=== PATIENT | female | born 1990 | race Caucasian/White ===

== ENCOUNTER 2016-05-02 09:45 | Day surgery (SDC) | payer MEDICAID ==
[2016-05-02] MEDS ORDERED: Lactated Ringers 1,000 ML IV ONE (10:45)
[2016-05-02] MEDS ORDERED: Midazolam 1 MG/ML 2 ML SDV ONE (10:52)
[2016-05-02] MEDS ORDERED: fentaNYL 100 MCG/2 ML SDV ONE (10:52)
[2016-05-02] MEDS ORDERED: Propofol 200 MG/20 ML SDV ONE (10:52)
[2016-05-02] MEDS ORDERED: Cyanocobalamin (Vitamin B12) 1,000 MCG/ML SDV IM ONE (11:00)
[2016-05-02] MEDS ORDERED: Glycopyrrolate 0.2 MG/ML 2 ML SYRINGE IVPUSH ONE (12:00)
[2016-05-02] MEDS ORDERED: MVI, Adult with Vitamin K 10 ML, Thiamine 200 MG, Chromium/Copper/Mang/Selen/Zn 1 ML in... IV ONE ×4 (12:00)
[2016-05-02 15:16] VITALS: BP 116/69
--- NOTE | 2016-05-03 07:18 | OR ---
DATE OF PROCEDURE: 05/02/2016 PREOPERATIVE DIAGNOSES: 1. History of Deb-en-Y gastric bypass. 2. Dysphagia. POSTOPERATIVE DIAGNOSES: 1. History of Deb-en-Y gastric bypass. 2. Dysphagia. 3. Mild gastrojejunostomy stricture. PROCEDURES PERFORMED: Esophagogastrojejunoscopy with dilatation of gastrojejunostomy with a 45-Ghanaian dilator. ANESTHESIA: IV anesthesia with monitored anesthesia care. INDICATIONS: This is a 26-year-old white female, who underwent a Deb-en-Y gastric bypass for morbid obesity in the past. About a month ago, she had to undergo upper endoscopy with gastric dilatation for a gastrojejunostomy stricture. She now again is complaining of problems with swallowing, and is referred for a repeat gastric dilatation. I counseled her for the procedure including risks and alternatives, and she gave her informed consent to proceed. DESCRIPTION OF PROCEDURE: The patient was placed in the left lateral decubitus position. IV anesthesia was administered by the Anesthesia Service. A time-out was held. The flexible video Olympus upper endoscope was passed through her mouth, down her esophagus, and into her stomach remnant. We were able to pass the scope through the gastrojejunostomy, but it was tight. We passed a 45-Ghanaian balloon across it. We inflated the balloon, and a staple which was visualized ruptured the balloon. The balloon was then removed. A new one was obtained, and it was passed across the anastomosis. Fluoroscopy was confirmed. The balloon was then inflated and left for one minute. It was then deflated and removed. We were able to easily pass the scope across the anastomosis. The scope was then removed. She tolerated the procedure well. Lucian Melchor MD /[id number]
== END 2016-05-02 15:40 | disposition home or self-care (01) ==
LOC: JP.SDS 09:45
PROVIDERS: ATTEND Surgery
DX: K91.89 Other postprocedural complications and disorders of digestive system (principal); Z98.84 Bariatric surgery status; E66.01 Morbid (severe) obesity due to excess calories; F41.8 Other specified anxiety disorders; Z88.1 Allergy status to other antibiotic agents; Z88.8 Allergy status to other drugs, medicaments and biological substances; F17.200 Nicotine dependence, unspecified, uncomplicated
CPT/HCPCS: 43233; J2250; J2704; J3010; J3411; J3420; J7120

== ENCOUNTER 2016-06-15 10:54 | Emergency (ER) | payer MEDICARE, MEDICAID ==
[2016-06-15] MEDS ORDERED: MVI, Adult with Vitamin K 10 ML, Thiamine 200 MG, Chromium/Copper/Mang/Selen/Zn 1 ML in... IV ONE ×4 (12:35)
[2016-06-15] MEDS ORDERED: HYDROmorphone 1 MG/ML Syringe IM ONE (12:56)
[2016-06-28 08:46] VITALS: BP_SYST 1
== END 2016-06-15 14:17 ==
LOC: JP.ED 10:54
DX: R10.12 Left upper quadrant pain (principal); F32.9 Major depressive disorder, single episode, unspecified; E83.51 Hypocalcemia; K21.9 Gastro-esophageal reflux disease without esophagitis; F41.9 Anxiety disorder, unspecified; E66.9 Obesity, unspecified; Z86.2 Personal history of diseases of the blood and blood-forming organs and certain disorders involving the immune mechanism; Z98.84 Bariatric surgery status; Z88.1 Allergy status to other antibiotic agents; Z79.899 Other long term (current) drug therapy; Z90.49 Acquired absence of other specified parts of digestive tract; Z87.891 Personal history of nicotine dependence; E86.0 Dehydration
CPT/HCPCS: 36415; 80053; 82150; 83690; 85025; 96361; 96365; 96366; 96372; 96374; 99284; 99285; J1170; J3411; J3475; J7120; J3490

== ENCOUNTER 2016-07-01 02:03 | Emergency (ER) | payer MEDICARE, MEDICAID ==
[2016-07-01] MEDS ORDERED: Ketorolac 60 MG/2 ML SDV IM ONE (02:33)
--- NOTE | 2016-07-01 02:53 | EDM.PDOC ---
[id number]: [facility] Time Seen by Provider: 07/01/16 02:35 Source of Information: Reports: Patient, EMS History Limitations: Reports: No Limitations - History of Present Illness INITIAL COMMENTS - FREE TEXT/NARRATIVE: 26-year-old female with chronic abdominal pain had what she perceived as an exacerbation of pain tonight which caused her to panic, hyperventilate, become more uncomfortable and called the ambulance. She had nausea in route she was given Zofran. On arrival she was very hyperdramatic complaining of pain in the left upper quadrant radiating to the shoulder. She's been having this complaint for months, just had a CT scan 10 days ago which was relatively normal. She has also seen her primary surgical provider several times in the last couple of weeks and a variety of treatments have been attempted. She's had no fever. Onset: Unknown/Unsure Duration: Week(s): (Pain has been ongoing for months) Location: Reports: Abdomen, Upper Extremity, Left Quality: Reports: Ache, Stabbing Severity: Moderate Associated Symptoms: Reports: Nausea/Vomiting. Denies: Chest Pain, Fever/Chills , Headaches, Shortness of Breath, Weakness Middle Abdomen Pain Score (Numeric/FACES): 10 - Related Data Allergies Allergy/AdvReac Type Severity Reaction Status Date / Time ciprofloxacin [From Cipro] Allergy Hives Verified 07/01/16 02:20 lactose Allergy Other Verified 07/01/16 02:20 Home Meds: Home Meds Multivitamin with Minerals [Multiple Vitamin] 1 tab PO BID 07/10/14 [History] Etonogestrel [Nexplanon] 1 injection SQ DAILY 10/07/15 [History] ALPRAZolam [Xanax] 0.5 mg PO TID 10/11/15 [History] Cyanocobalamin (Vitamin B-12) [Vitamin B-12] 1,000 mcg SL DAILY #100 tab.subl [Rx] QUEtiapine [SEROquel] 600 mg PO BEDTIME tablet 12/15/15 [Rx] Ramelteon [Rozerem] 8 mg PO BEDTIME tablet 12/15/15 [Rx] Dicyclomine [Bentyl] 20 mg PO QIDACANDBED PRN 04/02/16 [History] Dicyclomine [Bentyl] 20 mg PO QIDACANDBED 05/18/16 [History] FLUoxetine [PROzac] 10 mg PO TID 07/01/16 [History] Past Medical History HEENT History: Reports: Impaired Vision Gastrointestinal History: Reports: Bowel Obstruction, GERD Other Gastrointestinal History: girth 60 inches Genitourinary History: Reports: UTI, Recurrent Psychiatric History: Reports: ADD, ADHD, Anxiety, Depression, Eating Disorders, Mood Swings, OCD, Panic Attack, Psych Hospitalization(s), PTSD, Suicide Attempt Endocrine/Metabolic History: Reports: Obesity/BMI 30+, Vitamin D Deficiency Hematologic History: Reports: Anemia, Blood Transfusion(s), Iron Deficiency - Infectious Disease History Infectious Disease History: Reports: Chicken Pox - Past Surgical History Cardiovascular Surgical History: Reports: None GI Surgical History: Reports: Bariatric Procedure, Cholecystectomy, Hernia Repair/Other, Other (See Below) Female Surgical History: Reports: Cervical Cryotherapy Neurological Surgical History: Reports: None Dermatological Surgical History: Reports: None Social & Family History - Family History Family Medical History: Noncontributory - Tobacco Use Smoking Status *Q: Never Smoker Years of Tobacco use: 5 Packs/Tins Daily: 1.5 Used Tobacco, but Quit: No Month Tobacco Last Used: oct Second Hand Smoke Exposure: No - Caffeine Use Caffeine Use: Reports: None - Alcohol Use Days Per Week of Alcohol Use: 0 - Recreational Drug Use Recreational Drug Use: No Drug Use in Last 12 Months: Yes Recreational Drug Type: Reports: Marijuana/Hashish Recreational Drug Use Frequency: Weekly Recreational Drug Last Use: this past Saturday - Living Situation & Occupation Living situation: Reports: ED ROS GENERAL - Review of Systems Review Of Systems: See Below Constitutional: Reports: Malaise. Denies: Fever, Chills Respiratory: Denies: Shortness of Breath Cardiovascular: Denies: Chest Pain GI/Abdominal: Reports: Abdominal Pain, Nausea, Vomiting : Reports: No Symptoms Musculoskeletal: Reports: Shoulder Pain Skin: Reports: Pallor ED EXAM, GI/ABD - Physical Exam Exam: See Below Exam Limited By: No Limitations General Appearance: Alert, Anxious, Mild Distress (Very dramatic) Eyes: Bilateral: Normal Appearance (Normal hydration) Respiratory/Chest: No Respiratory Distress, Lungs Clear GI/Abdominal: Soft, Other (Any palpation, even light palpation of the upper abdomen causes her to react with pain) Neurological: Alert, Oriented Course - Vital Signs Last Recorded V/S: Last Vital Signs Temp 96.8 F 07/01/16 03:00 Pulse 128 H 07/01/16 03:00 Resp 16 07/01/16 03:00 BP 138/84 07/01/16 03:00 Pulse Ox 95 07/01/16 03:00 - Orders/Labs/Meds Meds: Medications Discontinued Medications Generic Name Dose Route Start Last Admin Trade Name Alejo PRN Reason Stop Dose Admin Ketorolac Tromethamine 60 mg 07/01/16 02:33 07/01/16 02:38 Toradol IM 07/01/16 02:34 60 mg ONETIME ONE Administration - Re-Assessments/Exams Free Text/Narrative Re-Assessment/Exam: 07/01/16 02:52 Patient was given 60 mg of Toradol IM and within minutes was asleep. When she woke she just wanted to go home. She was given 10 additional doses of Toradol to take up to 3 times daily until she can talk to her primary provider on Saturday or Saturday. Departure - Departure Time of Disposition: 03:49 Disposition: Home, Self-Care 01 Condition: good Clinical Impression: Abdominal pain Qualifiers: Abdominal location: generalized Qualified Code(s): R10.84 - Generalized abdominal pain - Discharge Information Instructions: Abdominal Pain, Adult, [id number] Referrals: PCP,None [Primary Care Provider] - Forms: ED Department Discharge Care Plan Goals: Advance diet as tolerated over the weekend and use ketorolac one dose every 6-8 hours for pain. Call the surgical clinic early next week if not improving satisfactorily.
[2016-07-01 03:49] VITALS: BP 138/84
== END 2016-07-01 03:30 | disposition home or self-care (01) ==
LOC: JP.ED 02:03
DX: R10.84 Generalized abdominal pain (principal); F32.9 Major depressive disorder, single episode, unspecified; F41.0 Panic disorder [episodic paroxysmal anxiety]; E66.9 Obesity, unspecified; Z68.37 Body mass index [BMI] 37.0-37.9, adult; Z98.84 Bariatric surgery status; Z90.49 Acquired absence of other specified parts of digestive tract; Z98.890 Other specified postprocedural states; Z79.899 Other long term (current) drug therapy; Z88.1 Allergy status to other antibiotic agents; Z91.011 Allergy to milk products
CPT/HCPCS: 96372; 99284; J1885; 99283

== ENCOUNTER 2016-07-02 10:00 | Inpatient (IN) | payer MEDICARE, MEDICAID ==
[2016-07-02] MEDS ORDERED: Acetaminophen 650 MG Supp RECTAL PRN (10:30)
[2016-07-02] MEDS ORDERED: Celecoxib 100 MG Cap PO SCH (10:30)
[2016-07-02] MEDS ORDERED: ALPRAZolam 0.5 MG Tab PO PRN (10:32)
[2016-07-02] MEDS ORDERED: Ketorolac 60 MG/2 ML SDV IM ONE ×3 (10:34→11:00)
[2016-07-02] MEDS ORDERED: Ketorolac 30 MG/ML SDV ONE (10:35)
[2016-07-02] MEDS: Magnesium Oxide 400 MG Tab PO SCH ×2 (13:18→20:41)
--- NOTE | 2016-07-02 13:52 | CR ---
Chest 2V HISTORY: dyspnea COMPARISON: 12/09/2015 FINDINGS: There is mild linear atelectasis at the lung bases. Lungs otherwise clear. Cardiomediastinal silhoue tte is within normal limits. No vascular redistribution or pleural fluid can be seen. Bony structure s and soft tissues are unremarkable. IMPRESSION: Mild probable linear atelectasis at the lung bases. No other acute chest abnormality is identified.
[2016-07-02] MEDS: Ondansetron 4 MG Tab.DIS PO PRN (15:35)
[2016-07-02] MEDS: Amphetamine/Dextroamphetamine Salts 10 MG Tab PO SCH (15:55)
[2016-07-02] MEDS: Pantoprazole 40 MG Tab.CR PO SCH (15:56)
[2016-07-02] MEDS: ALPRAZolam 0.5 MG Tab PO PRN (19:37)
[2016-07-02] MEDS: Acetaminophen 325 MG Tab PO PRN (19:37)
[2016-07-02] MEDS: Celecoxib 200 MG Cap PO SCH (20:41)
[2016-07-02] MEDS: Multivitamins with Iron Tab.Chew PO SCH (20:41)
[2016-07-02] MEDS: Calcium Carbonate 500 MG Tab.Chew PO SCH (20:41)
[2016-07-02] MEDS: Lidocaine 5% 700 MG Patch TOP SCH (22:08)
[2016-07-03] MEDS ORDERED: Lactated Ringers 1,000 ML IV ONE (04:12)
[2016-07-03] MEDS: ALPRAZolam 0.5 MG Tab PO PRN ×2 (04:17→08:14)
[2016-07-03] MEDS: Levofloxacin 500 MG Tab PO SCH ×2 (04:23→20:59)
[2016-07-03] MEDS ORDERED: Levofloxacin 500 MG Tab PO ONE (04:30)
[2016-07-03] MEDS: Multivitamins with Iron Tab.Chew PO SCH ×2 (08:14→21:03)
[2016-07-03] MEDS: Celecoxib 200 MG Cap PO SCH ×2 (08:14→20:58)
[2016-07-03] MEDS: Cholecalciferol (Vitamin D3) 1,000 Unit Tab PO SCH (08:14)
[2016-07-03] MEDS: Cyanocobalamin (Vitamin B12) 1,000 MCG Tab PO SCH (08:14)
[2016-07-03] MEDS: Calcium Carbonate 500 MG Tab.Chew PO SCH ×2 (08:15→21:35)
[2016-07-03] MEDS: FLUoxetine 20 MG Cap PO SCH (08:16)
[2016-07-03] MEDS: Thiamine 100 MG Tab PO SCH (08:17)
[2016-07-03] MEDS: Pantoprazole 40 MG Tab.CR PO SCH ×2 (08:17→17:52)
[2016-07-03] MEDS: Magnesium Oxide 400 MG Tab PO SCH ×2 (08:17→20:58)
[2016-07-03] MEDS: Amphetamine/Dextroamphetamine Salts 10 MG Tab PO SCH ×2 (08:19→17:52)
[2016-07-03] MEDS: Acetaminophen 325 MG Tab PO PRN (11:15)
[2016-07-03] MEDS: Albumin 25% 12.5 GM in Premix Bag 1 BAG IV SCH ×4 (11:57→20:54)
[2016-07-03] MEDS: Magnesium Sulfate/Water 2 GM in Premix Bag 1 BAG IV SCH ×3 (14:00→22:00)
[2016-07-03] MEDS: Lidocaine 5% 700 MG Patch TOP SCH (22:41)
[2016-07-04] MEDS: Magnesium Sulfate/Water 2 GM in Premix Bag 1 BAG IV SCH ×4 (04:09→22:15)
[2016-07-04] MEDS ORDERED: Dextrose 5%-Lactated Ringers 1,000 ML IV SCH ×2 (08:15→10:30)
[2016-07-04] MEDS ORDERED: fentaNYL 100 MCG/2 ML SDV ONE (08:27)
[2016-07-04] MEDS ORDERED: Midazolam 1 MG/ML 2 ML SDV ONE (08:27)
[2016-07-04] MEDS ORDERED: Propofol 200 MG/20 ML SDV ONE ×2 (08:27→09:24)
[2016-07-04] MEDS ORDERED: MVI, Adult with Vitamin K 10 ML, Thiamine 100 MG, Magnesium Sulfate 2 GM, Folic Acid 1 ... IV ONE ×10 (10:00→10:30)
--- NOTE | 2016-07-04 10:15 | CR ---
OR PCXR-No Charge-PICC/Central HISTORY: S/P TRIPLE LUMEN INSERTION COMPARISON: 07/02/2016 FINDINGS: Central line has been placed from a right jugular approach. The tip is near the junction o f the SVC and right atrium. There is no pneumothorax, mediastinal widening, or other complication. No acute infiltrate is identified. Heart size is within normal limits and stable. No vascular redist ribution or pleural fluid is seen. Remainder the exam is unchanged. IMPRESSION: Satisfactory central line placement. No complication or other acute chest abnormality is identified.
[2016-07-04] MEDS: Amphetamine/Dextroamphetamine Salts 10 MG Tab PO SCH ×2 (10:40→16:54)
[2016-07-04] MEDS: ALPRAZolam 0.5 MG Tab PO PRN ×2 (10:40→16:54)
[2016-07-04] MEDS: Celecoxib 200 MG Cap PO SCH ×2 (10:41→22:12)
[2016-07-04] MEDS: Multivitamins with Iron Tab.Chew PO SCH ×2 (10:41→22:12)
[2016-07-04] MEDS: Pantoprazole 40 MG Tab.CR PO SCH ×2 (10:41→16:42)
[2016-07-04] MEDS: FLUoxetine 20 MG Cap PO SCH (10:41)
[2016-07-04] MEDS: Cholecalciferol (Vitamin D3) 1,000 Unit Tab PO SCH (10:42)
[2016-07-04] MEDS: Cyanocobalamin (Vitamin B12) 1,000 MCG Tab PO SCH (10:42)
[2016-07-04] MEDS: Calcium Carbonate 500 MG Tab.Chew PO SCH ×2 (10:42→22:14)
[2016-07-04] MEDS: Albumin 25% 12.5 GM in Premix Bag 1 BAG IV SCH ×4 (10:42→16:43)
[2016-07-04] MEDS: Magnesium Oxide 400 MG Tab PO SCH ×2 (10:42→22:12)
[2016-07-04] MEDS: Thiamine 100 MG Tab PO SCH (10:42)
--- NOTE | 2016-07-04 12:54 | PCM.CONS ---
H&P History of Present Illness - General Date of Service: 07/04/16 Admit Problem/Dx: Admission Diagnosis/Problem Admission Diagnosis/Problem Abdominal pain Source of Information: Patient, Provider History Limitations: Reports: Other (Lethargic and sedated) - History of Present Illness Initial Comments - Free Text/Narative: This patient is a 26-year-old woman who I been asked to see by the Dr. Huffman and Helena Hernandez for further suggestions concerning evaluation and management of agitation. She is status post Deb-en-Y gastric bypass surgery done approximately 9 months ago, has had ongoing difficulty with eating. She was admitted yesterday for IV fluids, now a central line has been placed and she will be receiving TPN. She became very agitated during the day yesterday. Apparently at home has not been taking her antipsychotic medications or other psychiatric drugs. She's been fairly sedated except for her episode of agitation. abdomen Pain Score (Numeric/FACES): 0 - Related Data Allergies/Adverse Reactions: Allergies Allergy/AdvReac Type Severity Reaction Status Date / Time ciprofloxacin [From Cipro] Allergy Hives Verified 07/01/16 02:20 lactose Allergy Other Verified 07/01/16 02:20 Home Medications: Home Meds Multivitamin with Minerals [Multiple Vitamin] 1 tab PO BID 07/10/14 [History] Etonogestrel [Nexplanon] 1 injection SQ DAILY 10/07/15 [History] ALPRAZolam [Xanax] 0.5 mg PO PRN 10/11/15 [History] Cyanocobalamin (Vitamin B-12) [Vitamin B-12] 1,000 mcg SL DAILY #100 tab.subl [Rx] QUEtiapine [SEROquel] 600 mg PO BEDTIME tablet 12/15/15 [Rx] Ramelteon [Rozerem] 8 mg PO BEDTIME tablet 12/15/15 [Rx] Dicyclomine [Bentyl] 20 mg PO QIDACANDBED PRN 04/02/16 [History] Dicyclomine [Bentyl] 20 mg PO QIDACANDBED 05/18/16 [History] FLUoxetine [PROzac] 60 mg PO DAILY 07/01/16 [History] Amphetamine/Dextroamphetamine [Adderall] 20 mg PO DAILY 07/02/16 [History] Cholecalciferol (Vitamin D3) [Vitamin D3] 2,000 unit PO DAILY 07/02/16 [History] Omeprazole 20 mg PO BIDAC 07/02/16 [History] Past Medical History HEENT History: Reports: Impaired Vision Gastrointestinal History: Reports: Bowel Obstruction, GERD Other Gastrointestinal History: girth 60 inches Genitourinary History: Reports: UTI, Recurrent Psychiatric History: Reports: ADD, ADHD, Anxiety, Depression, Eating Disorders, Mood Swings, OCD, Panic Attack, Psych Hospitalization(s), PTSD, Suicide Attempt Endocrine/Metabolic History: Reports: Obesity/BMI 30+, Vitamin D Deficiency Hematologic History: Reports: Anemia, Blood Transfusion(s), Iron Deficiency - Infectious Disease History Infectious Disease History: Reports: Chicken Pox - Past Surgical History HEENT Surgical History: Reports: None Cardiovascular Surgical History: Reports: None GI Surgical History: Reports: Bariatric Procedure, Cholecystectomy, Hernia Repair/Other, Other (See Below) Other GI Surgeries/Procedures: Umbilical hernia repair 07/11/2014. Drainage of pericholecystic abscess 07/11/2014. gallbladder out 2014. bowel obstruction surgery 10/2015 again 12/09/2015. 01/06 bowel obstruction surgery Female Surgical History: Reports: Cervical Cryotherapy Neurological Surgical History: Reports: None Dermatological Surgical History: Reports: None Social & Family History - Family History Family Medical History: Noncontributory - Tobacco Use Smoking Status *Q: Never Smoker Years of Tobacco use: 5 Packs/Tins Daily: 1.5 Used Tobacco, but Quit: No Month Tobacco Last Used: sept Second Hand Smoke Exposure: No - Caffeine Use Caffeine Use: Reports: None - Alcohol Use Days Per Week of Alcohol Use: 0 - Recreational Drug Use Recreational Drug Use: No Drug Use in Last 12 Months: Yes Recreational Drug Type: Reports: Marijuana/Hashish Recreational Drug Use Frequency: Weekly Recreational Drug Last Use: this past Saturday - Living Situation & Occupation Living situation: Reports: (lives with and cat.) H&P Review of Systems - Review of Systems: Review Of Systems: Unable To Obtain Free Text/Narrative: Unable to obtain significant review of systems because of the patient's lethargy and sedation General: Reports: ROS unobtainable Exam - Exam Exam: See Below - Vital Signs Vital Signs: Last Vital Signs Temp 97.2 F 07/04/16 10:27 Pulse 110 H 07/04/16 10:27 Resp 18 07/04/16 10:27 BP 119/63 07/04/16 10:27 Pulse Ox 97 07/04/16 10:27 Weight: 232 lb - Exam General: Sedated, Lethargic Neck: Supple, Trachea Midline, +2 Carotid Pulse wo Bruit Lungs: Clear to Auscultation, Normal Respiratory Effort Cardiovascular: Regular Rate, Regular Rhythm, Normal S1, Normal S2 Abdomen: Normal Bowel Sounds, Soft - Patient Data Lab Results last 24 hrs: Laboratory Results - last 24 hr 07/03/16 07/04/16 07/04/16 Range/Units 12:25 04:20 04:20 WBC 6.2 (4.5-11.0) K/uL RBC 2.93 L (3.30-5.50) M/uL Hgb 8.4 L D (12.0-15.0) g/dL Hct 26.7 L (36.0-48.0) % MCV 91 (80-98) fL MCH 29 (27-31) pg MCHC 32 (32-36) % Plt Count 318 (150-400) K/uL Sodium 143 (140-148) mmol/L Potassium 3.3 L (3.6-5.2) mmol/L Chloride 107 (100-108) mmol/L Carbon Dioxide 27 (21-32) mmol/L Anion Gap 12.3 (5.0-14.0) mmol/L BUN 9 (7-18) mg/dL Creatinine 0.6 (0.6-1.0) mg/dL Est Cr Clr Drug Dosing 130.10 mL/min Estimated GFR (MDRD) > 60 (>60) Glucose 74 (74-106) mg/dL Calcium 6.8 L* (8.5-10.1) mg/dL Phosphorus 2.8 (2.5-4.9) mg/dL Total Bilirubin 3.2 H (0.2-1.0) mg/dL AST 29 (15-37) U/L ALT 31 (12-78) U/L Alkaline Phosphatase 86 (46-116) U/L Total Protein 4.4 L (6.4-8.2) g/dL Albumin 1.9 L (3.4-5.0) g/dL Globulin 2.5 (2.3-3.5) g/dL Albumin/Globulin Ratio 0.8 L (1.2-2.2) Urine Opiates Screen Negative (NEGATIVE) Ur Oxycodone Screen Negative (NEGATIVE) Urine Methadone Screen Negative (NEGATIVE) Ur Propoxyphene Screen Negative (NEGATIVE) Ur Barbiturates Screen Negative (NEGATIVE) Ur Tricyclics Screen Negative (NEGATIVE) Ur Phencyclidine Scrn Negative (NEGATIVE) Ur Amphetamine Screen Positive H (NEGATIVE) U Methamphetamines Scrn Negative (NEGATIVE) Urine MDMA Screen Negative (NEGATIVE) U Benzodiazepines Scrn Positive H (NEGATIVE) U Cocaine Metab Screen Negative (NEGATIVE) U Marijuana (THC) Screen Positive H (NEGATIVE) Result Diagrams: 07/04/16 04:20 07/04/16 04:20 Ranjan Results last 24 hrs: Microbiology 07/02/16 02:30 Stool Culture - Preliminary Stool / Feces - Stool, Formed NORMAL ENTERIC TEMO 1 DAY - Final NEGATIVE FOR SHIGA TOXIN 1 - Final NEGATIVE FOR SHIGA TOXIN 2 07/03/16 03:00 Urine Culture - Preliminary Urine, Voided Consult PN Assessment/Plan Procedures: Procedures ASSAY OF AMYLASE (06/15/16) ASSAY OF FERRITIN (06/21/16) ASSAY OF LIPASE (06/15/16) ASSAY OF MAGNESIUM (06/21/16) ASSAY OF PHOSPHORUS (04/02/16) BLOOD TYPING SEROLOGIC ABO (04/07/15) BLOOD TYPING SEROLOGIC RH(D) (04/07/15) COMPLETE CBC AUTOMATED (06/21/16) COMPLETE CBC W/AUTO DIFF WBC (06/15/16) COMPREHEN METABOLIC PANEL (06/21/16) CT ABD & PELV W/CONTRAST (06/21/16) CT ABD & PELVIS W/O CONTRAST (03/15/16) DRUG TEST PRSMV DIR OPT OBS (03/21/16) EGD BALLOON DIL ESOPH30 MM/> (05/02/16) EGD BIOPSY SINGLE/MULTIPLE (11/07/15) EGD DIAGNOSTIC BRUSH WASH (10/28/15) EGD DILATE STRICTURE (04/02/16) EMERGENCY DEPT VISIT (07/01/16) EMERGENCY DEPT VISIT (06/15/16) EMERGENCY DEPT VISIT (01/14/16) EMERGENCY DEPT VISIT (01/11/15) EMERGENCY DEPT VISIT (07/18/14) HYDRATE IV INFUSION ADD-ON (11/29/15) HYDRATION IV INFUSION INIT (11/06/15) MICROBE SUSCEPTIBLE RANJAN (01/11/15) POLYSOM 6/> YRS 4/> NEREYDA (08/07/15) RBC ANTIBODY SCREEN (04/07/15) ROUTINE VENIPUNCTURE (06/21/16) THER/PROPH/DIAG INJ IV PUSH (06/15/16) THER/PROPH/DIAG INJ SC/IM (07/01/16) URINALYSIS AUTO W/SCOPE (03/21/16) URINE BACTERIA CULTURE (01/11/15) URINE CULTURE/COLONY COUNT (01/11/15) URINE TEST (03/21/16) Problem List Initiated/Reviewed/Updated: Yes My Orders last 24 hours: My Active Orders 07/04/16 17:00 Divalproex Sodium 250 mg PO BIDMEALS 07/04/16 21:00 Melatonin 9 mg PO BEDTIME Plan: ASSESSMENT AND RECOMMENDATIONS HISTORY OF PSYCHOSIS, DEPRESSION, AND [id number] history of psychiatric illness, apparently has not been taking her antipsychotic or other psychiatric medications at home. Thus far during hospitalization has been fairly sedated except for intermittent episodes of significant agitation. -Continue Seroquel, if she remains overly sedated consider decreasing dose to 200 or even 100 mg daily -Discontinue Adderall, apparently patient has not been taking this at home and is unlikely to take it in the future. -Discontinue Rozerem -Continue current dosing of Prozac and Xanax -Depakote 250 mg by mouth twice a day -Melatonin 9 mg by mouth each bedtime STATUS POST PREVIOUS GASTRIC BYPASS SURGERY-having ongoing difficulty with oral intake -Management per surgical service Requesting Provider: REZA Date Consult Requested: 07/04/16 Reason for Consult: Recommendations for management of agitation and reviewed psychiat Patient History Reviewed: Yes Admission H&P Reviewed: Yes Notified Requestor: Yes
[2016-07-04] MEDS: 1: AA 5%/Calcium/D15W/Lytes 1,000 ML with MVI, Adult with Vitamin K 10 ML, Chromium/Copp IV SCH ×3 (14:31)
[2016-07-04] MEDS: Divalproex Sodium Delayed-Release 250 MG Tab.CR PO SCH (16:43)
--- NOTE | 2016-07-04 21:18 | PN ---
DATE OF SERVICE: 07/04/2016 SUBJECTIVE: Eileen is n.p.o. She will be having a subclavian triple lumen catheter put in for an adequate venous access. She had an evaluation by her case coordinator and a Crisis team from [place] yesterday. Vital signs have been stable. She has had weakness where she has been able to stand up. She will walk with a walker, but unable to open up her hands to grab a hold of the walker unless given adequate amounts of encouragement. Extremely sleepy. Then she will get very angry according to the nursing staff. REVIEW OF SYSTEMS: Remainder of review of systems negative for any pertinent positives and negatives including no further abdominal pain. Her oral intake was 370. She did have one stool. Urine output was 1150 and her meals have been 50% of lunch. There has been nothing else recorded. OBJECTIVE: GENERAL: Eileen Montes is a 26-year-old female. She is very sleepy. Speech is somewhat slurred, but she does wake up, more the longer where I am talking with her. VITAL SIGNS: TPR is 98.1, 72, 16, blood pressure 94/61. HEENT: Negative. NECK: Supple. HEART: Regular rate and rhythm. LUNGS: Clear. ABDOMEN: Soft, nontender. She does have lidocaine patch on her left mid abdomen, a little bit. EXTREMITIES: Without peripheral edema. SKIN: Pale. She is receiving the albumin daily. ASSESSMENT: Chronic left abdominal pain, dehydration, weakness, nausea, vomiting, attention- deficit hyperactivity disorder, borderline personality depression, obsessive-compulsive disorder, social phobia, SP Deb-en-Y gastric bypass surgery, unspecified surgical malabsorption, and B12 deficiency. PLAN: Decrease Seroquel to 300 mg p.o. daily. D5LR with 30 millimoles of K-Phos/L run at 150 mL per hour, one multivitamin bag with multivitamin adult with vitamin K, thiamine, mag sulfate, and folic acid. NPO, schedule and have consent signed for subclavian triple-lumen catheter. Discontinue continuous pulse ox. Xanax order written to only give if she cannot be talked down or consoled. Consult with Dr. Cabrera in regard to psychiatric medications. Helena Hernandez PA-C /[id number]
[2016-07-04] MEDS: Melatonin 3 MG Tab PO SCH (22:13)
[2016-07-04] MEDS: Lidocaine 5% 700 MG Patch TOP SCH (22:14)
[2016-07-04] MEDS: Levofloxacin 500 MG Tab PO SCH (22:15)
[2016-07-05] MEDS: 1: AA 5%/Calcium/D15W/Lytes 1,000 ML with MVI, Adult with Vitamin K 10 ML, Chromium/Copp IV SCH ×9 (00:24→21:51)
[2016-07-05] MEDS: Magnesium Sulfate/Water 2 GM in Premix Bag 1 BAG IV SCH ×4 (04:05→21:53)
[2016-07-05] MEDS ORDERED: Central Total Parenteral Nutrition Bag SCH (07:45)
[2016-07-05] MEDS: ALPRAZolam 0.5 MG Tab PO PRN (07:55)
[2016-07-05] MEDS ORDERED: Cyanocobalamin (Vitamin B12) 1,000 MCG/ML SDV IM ONE (09:00)
--- NOTE | 2016-07-05 09:26 | CT ---
Head wo Cont HISTORY: Slurred Speech, Muscle weakness TECHNIQUE: Spiral noncontrast CT scan of the brain was obtained along with high-resolution bone wind ow reconstructions. FINDINGS: No acute intracranial hemorrhage or infarct is identified. There is no mass lesion, mass effect, mid line shift, or ventricular abnormality. No abnormal extra-axial fluid collections are seen. Visualiz ed paranasal sinuses and mastoid air cells are clear. Bone windows show no evidence for skull fractu re. IMPRESSION: Noncontrast CT head within normal limits. No acute intracranial abnormality is identified. Total DLP 737 mGycm
[2016-07-05] MEDS: Divalproex Sodium Delayed-Release 250 MG Tab.CR PO SCH ×2 (10:20→17:23)
[2016-07-05] MEDS: Magnesium Oxide 400 MG Tab PO SCH ×2 (10:20→23:03)
[2016-07-05] MEDS: Celecoxib 200 MG Cap PO SCH ×2 (10:20→23:04)
[2016-07-05] MEDS: FLUoxetine 20 MG Cap PO SCH (10:20)
[2016-07-05] MEDS: Multivitamins with Iron Tab.Chew PO SCH ×2 (10:20→23:03)
[2016-07-05] MEDS: Pantoprazole 40 MG Tab.CR PO SCH ×2 (10:20→17:22)
[2016-07-05] MEDS: Thiamine 100 MG Tab PO SCH (10:21)
[2016-07-05] MEDS: Cyanocobalamin (Vitamin B12) 1,000 MCG Tab PO SCH (10:21)
[2016-07-05] MEDS: Calcium Carbonate 500 MG Tab.Chew PO SCH ×2 (10:21→23:03)
[2016-07-05] MEDS: Cholecalciferol (Vitamin D3) 1,000 Unit Tab PO SCH (10:21)
[2016-07-05] MEDS: Potassium Phosphates 20 MMOLE in Sodium Chloride 0.9% 250 ML IV SCH ×3 (11:42→21:55)
--- NOTE | 2016-07-05 12:45 | PN ---
DATE OF SERVICE: 07/05/2016 SUBJECTIVE: Eileen has had difficulty standing. She has gone to the floor a couple of times, and she feels weak stating her muscles do not work, it is hard for her to open up her hands, to hold on to the walker. Hemoglobin this morning is 7.9, hematocrit is 25.2. Eileen continues to have quite slurred speech. No other associated signs and symptoms. Oral intake was 1140. There was no meal consumption recorded since 06/24/2015. OBJECTIVE: GENERAL: Eileen Montes is a 26-year-old female. VITAL SIGNS: TPR is 96.9, 101, 18. Blood pressure 117/67. HEENT: Negative. NECK: Supple. HEART: Regular rate and rhythm. LUNGS: Clear. ABDOMEN: Soft. She reports no tenderness. EXTREMITIES: Negative. ASSESSMENT: 1. Chronic left abdominal pain, resolved. 2. Severe malnutrition. 3. Weakness. 4. Attention-deficit hyperactivity disorder, borderline personality, depression, obsessive- compulsive disorder, social phobia, SP Deb-en-Y gastric bypass surgery, unspecified surgical malabsorption, and B12 deficiency. PLAN: 1. Check head CT without contrast. 2. K-Phos 60 millimoles IV. 3. Continue TPN same rate and content. 4. B12 1000 micromilligram IM, give 1 unit of packed red blood cells. 5. Physical Therapy to evaluate and treat and consult. 6. Consult Occupational Therapy to evaluate and treat for muscle weakness. 7. We will evaluate p.r.n. or in a.m. Helena Hernandez PA-C /[id number]
[2016-07-05] MEDS: cefTRIAXone 1 GM in Sodium Chloride 0.9% 50 ML IV SCH (15:34)
[2016-07-05] MEDS: Acetaminophen 325 MG Tab PO PRN ×2 (16:33→23:08)
[2016-07-05] MEDS: Lidocaine 5% 700 MG Patch TOP SCH ×2 (17:24→23:05)
[2016-07-05] MEDS: Albumin 25% 12.5 GM in Premix Bag 1 BAG IV SCH ×4 (19:44→19:45)
[2016-07-05] MEDS ORDERED: Sodium Chloride 0.9% 1,000 ML IV SCH (19:45)
[2016-07-05] MEDS: Melatonin 3 MG Tab PO SCH (23:03)
[2016-07-06] MEDS: Magnesium Sulfate/Water 2 GM in Premix Bag 1 BAG IV SCH (04:50)
[2016-07-06] MEDS ORDERED: Central Total Parenteral Nutrition Bag SCH (07:45)
[2016-07-06] MEDS: Acetaminophen 325 MG Tab PO PRN ×3 (08:01→19:56)
[2016-07-06] MEDS: 1: AA 5%/Calcium/D15W/Lytes 1,000 ML with MVI, Adult with Vitamin K 10 ML, Chromium/Copp IV SCH ×6 (08:02→18:10)
[2016-07-06] MEDS: Pantoprazole 40 MG Tab.CR PO SCH ×2 (09:03→16:01)
[2016-07-06] MEDS: Celecoxib 200 MG Cap PO SCH ×2 (09:04→23:20)
[2016-07-06] MEDS: Divalproex Sodium Delayed-Release 250 MG Tab.CR PO SCH ×2 (09:04→16:01)
[2016-07-06] MEDS: Ketoconazole 2% Crm 30 GM Tube TOP SCH ×2 (09:05→23:19)
[2016-07-06] MEDS: Multivitamins with Iron Tab.Chew PO SCH ×2 (09:05→23:20)
[2016-07-06] MEDS: FLUoxetine 20 MG Cap PO SCH (09:05)
[2016-07-06] MEDS: Magnesium Oxide 400 MG Tab PO SCH ×2 (09:05→23:20)
[2016-07-06] MEDS: Cyanocobalamin (Vitamin B12) 1,000 MCG Tab PO SCH (09:06)
[2016-07-06] MEDS: Thiamine 100 MG Tab PO SCH (09:06)
[2016-07-06] MEDS: Calcium Carbonate 500 MG Tab.Chew PO SCH ×2 (09:06→23:19)
[2016-07-06] MEDS: Cholecalciferol (Vitamin D3) 1,000 Unit Tab PO SCH (09:06)
[2016-07-06] MEDS: Albumin 25% 12.5 GM in Premix Bag 1 BAG IV SCH ×4 (09:07→16:00)
--- NOTE | 2016-07-06 10:17 | PN ---
DATE OF SERVICE: 07/06/2016 SUBJECTIVE: Eileen's speech is less slurred. She still is a Miguel lift. Physical therapy and occupational therapy per Eileen's report was bad. She was getting blood, and they told her they would come back tomorrow. She continues to get TPN. She has a candidiasis rash under her breasts. Hemoglobin this morning was 11. Potassium was 4.4. Her calcium is low. She had not reported any abdominal pain in the left mid abdomen, until last night, she started to report pain and is requesting pain medicine. The Tylenol and the lidocaine patches have been holding her. REVIEW OF SYSTEMS: Remainder of review of systems negative for any pertinent positives and negatives. OBJECTIVE: GENERAL: Eileen Montes is a 26-year-old female. She is sitting up in the chair. Speech is less slurred. VITAL SIGNS: TPR is 96.4, 98, 18, blood pressure 132/72. HEENT: Negative. NECK: Supple. HEART: Regular rate and rhythm. LUNGS: Clear. ABDOMEN: Soft and nontender. EXTREMITIES: Without peripheral edema. ASSESSMENT: 1. Chronic left abdominal pain was resolved, but now recurrent. 2. Severe malnutrition. 3. Weakness. 4. Attention deficit disorder. 5. Borderline personality. 6. Depression. 7. Obsessive compulsive disorder. 8. Social phobia. 9. Deb-en-Y gastric bypass surgery. 10.Unspecified surgical malabsorption. 11.B12 deficiency. 12.Candidiasis rash under breasts and lower abdomen. PLAN: 1. Ketoconazole cream b.i.d. to affected area. 2. Accurate I and O chart, actual food intake and how much of the food she is eating and nursing notes. 3. Continue same TPN rate and content. 4. Regular diet. Eileen does not like Step-4 diet and would rather have a regular diet to choose from. 5. Check CBC, CMP, and phos in a.m. 6. Good pulmonary toilet encouraged. 7. We will evaluate p.r.n. and in a.m. Helena Hernandez PA-C /[id number]
[2016-07-06] MEDS: cefTRIAXone 1 GM in Sodium Chloride 0.9% 50 ML IV SCH (12:27)
[2016-07-06] MEDS: Ondansetron 4 MG Tab.DIS PO PRN ×2 (12:27→17:50)
[2016-07-06] MEDS: ALPRAZolam 0.5 MG Tab PO PRN (17:50)
[2016-07-06] MEDS ORDERED: Metoclopramide 10 MG/2 ML SDV IV PRN (20:42)
[2016-07-06] MEDS: LORazepam 2 MG/ML MDV IVPUSH PRN (21:10)
[2016-07-06] MEDS: Lidocaine 5% 700 MG Patch TOP SCH (23:17)
[2016-07-06] MEDS: Melatonin 3 MG Tab PO SCH (23:20)
[2016-07-07] MEDS: 1: AA 5%/Calcium/D15W/Lytes 1,000 ML with MVI, Adult with Vitamin K 10 ML, Chromium/Copp IV SCH ×9 (04:30→17:02)
[2016-07-07] MEDS: Acetaminophen 325 MG Tab PO PRN ×2 (10:07→16:04)
[2016-07-07] MEDS: Celecoxib 200 MG Cap PO SCH ×2 (10:09→20:33)
[2016-07-07] MEDS: Divalproex Sodium Delayed-Release 250 MG Tab.CR PO SCH ×2 (10:09→17:04)
[2016-07-07] MEDS: Pantoprazole 40 MG Tab.CR PO SCH ×2 (10:09→16:04)
[2016-07-07] MEDS: FLUoxetine 20 MG Cap PO SCH (10:13)
[2016-07-07] MEDS: Cyanocobalamin (Vitamin B12) 1,000 MCG Tab PO SCH (10:13)
[2016-07-07] MEDS: Cholecalciferol (Vitamin D3) 1,000 Unit Tab PO SCH (10:13)
[2016-07-07] MEDS: Calcium Carbonate 500 MG Tab.Chew PO SCH ×2 (10:14→20:34)
[2016-07-07] MEDS: Multivitamins with Iron Tab.Chew PO SCH ×2 (10:14→20:33)
[2016-07-07] MEDS: Magnesium Oxide 400 MG Tab PO SCH ×2 (10:14→20:33)
[2016-07-07] MEDS: Ketoconazole 2% Crm 30 GM Tube TOP SCH ×2 (10:14→20:34)
[2016-07-07] MEDS: Thiamine 100 MG Tab PO SCH (10:15)
[2016-07-07] MEDS: cefTRIAXone 1 GM in Sodium Chloride 0.9% 50 ML IV SCH (12:07)
[2016-07-07] MEDS: LORazepam 2 MG/ML MDV IVPUSH PRN ×2 (14:33→19:31)
[2016-07-07] MEDS: Ondansetron 4 MG Tab.DIS PO PRN (17:04)
[2016-07-07] MEDS: Melatonin 3 MG Tab PO SCH (20:33)
[2016-07-07] MEDS: Lidocaine 5% 700 MG Patch TOP SCH (21:52)
[2016-07-08] MEDS: Acetaminophen 325 MG Tab PO PRN (03:21)
[2016-07-08] MEDS ORDERED: Sodium Chloride 0.9% 250 ML IV SCH (03:30)
[2016-07-08] MEDS: Multivitamins with Iron Tab.Chew PO SCH ×2 (09:21→21:05)
[2016-07-08] MEDS: Magnesium Oxide 400 MG Tab PO SCH ×2 (09:21→21:07)
[2016-07-08] MEDS: Pantoprazole 40 MG Tab.CR PO SCH ×2 (09:21→17:31)
[2016-07-08] MEDS: Celecoxib 200 MG Cap PO SCH ×2 (09:21→21:06)
[2016-07-08] MEDS: Divalproex Sodium Delayed-Release 250 MG Tab.CR PO SCH ×2 (09:21→17:31)
[2016-07-08] MEDS: Ketoconazole 2% Crm 30 GM Tube TOP SCH ×2 (09:22→21:05)
[2016-07-08] MEDS: Thiamine 100 MG Tab PO SCH (09:23)
[2016-07-08] MEDS: FLUoxetine 20 MG Cap PO SCH (09:23)
[2016-07-08] MEDS: Calcium Carbonate 500 MG Tab.Chew PO SCH ×2 (09:23→21:06)
[2016-07-08] MEDS: Cholecalciferol (Vitamin D3) 1,000 Unit Tab PO SCH (09:23)
[2016-07-08] MEDS: Cyanocobalamin (Vitamin B12) 1,000 MCG Tab PO SCH (09:23)
[2016-07-08] MEDS: LORazepam 2 MG/ML MDV IVPUSH PRN ×4 (09:51→23:32)
[2016-07-08] MEDS: 1: AA 5%/Calcium/D15W/Lytes 1,000 ML with MVI, Adult with Vitamin K 10 ML, Chromium/Copp IV SCH ×3 (09:58)
[2016-07-08] MEDS: Albumin 25% 50 ML IV SCH ×2 (11:19→13:31)
--- NOTE | 2016-07-08 13:05 | PN ---
DATE OF SERVICE: 07/03/2016 The patient has been afebrile, started having tachycardia around 120 range, blood pressure is otherwise stable. We have not been able to get an IV started, hopefully the IV will get started shortly and we will initiate re-hydration. Otherwise, she has been barely arousable after getting the Xanax and Prozac this morning, and I think we will hold the Xanax at this point. Otherwise, we will work on trying to get her to eat once she is a little bit more awake. She is reversed, but we will get things more stable from psychological standpoint, prior to that decision making. Her albumin is very low, begin some albumin supplementation as the magnesium which we will also supplement and otherwise hopefully get an IV in later today. She also has the UTI and was started on Levaquin overnight. We are awaiting the C and S results obviously. Harpal Huffman MD /[id number]
[2016-07-08] MEDS: cefTRIAXone 1 GM in Sodium Chloride 0.9% 50 ML IV SCH (13:28)
--- NOTE | 2016-07-08 13:35 | PN ---
DATE OF SERVICE: 07/07/2016 The patient has been normothermic, vital signs are otherwise stable. O2 sats on room air presently at 94%. The level of alertness has improved quite a bit and oral intake yesterday was actually quite good, around 1500 mL and she is now getting such strength that she is able to get up and walk to some extent. The plan will be to continue regular diet. We will decrease the TPN to 60 mL now given the amount of oral intake. Reglan probably has some interaction with Seroquel that is potentially serious and we will discontinue the Reglan. Otherwise, continue to gradually increase the patient's activity. At some point, she will probably be ready for transfer to some rehab facility and engage. Harpal Huffman MD /[id number]
--- NOTE | 2016-07-08 14:26 | OR ---
DATE OF PROCEDURE: 07/04/2016 PREOPERATIVE DIAGNOSIS: Inadequate peripheral venous access. POSTOPERATIVE DIAGNOSIS: Inadequate peripheral venous access. PROCEDURE: Insertion of triple-lumen catheter via right subclavian vein approach. ANESTHESIA: Local plus IV sedation. INDICATION FOR PROCEDURE: This is a 26-year-old presenting with profound malnutrition, status post previous bariatric procedure. The plan is to proceed with a central line. Central line will be required for initiation of TPN as well as the fact that she has a very limited peripheral venous access at this time. Potential risks including bleeding and pneumothorax, infection of the site were reviewed and the patient wishes to proceed. DETAILS OF PROCEDURE: The patient was taken to the operating room and placed in supine position. IV sedation was administered, after which the upper chest and neck areas were prepped and draped. Initially, the left subclavian area was anesthetized with 1% lidocaine mixed with Marcaine. The left subclavian vein was cannulated several times, but a guidewire could not be passed 2 or 3 cm beyond the needle tip indicating some probable stricturing of the vein at that level, likely related to previous central line insertion. Given this, attention was taken to the right side. This area was similarly anesthetized and the subclavian then cannulated, guidewire easily manipulated from there into the superior vena cava. Over this, then the triple-lumen catheter was positioned. Good in and outflow was noted and the ports were flushed with heparinized saline and a dressing was applied. The patient was taken to the recovery room in satisfactory condition. Harpal Huffman MD /[id number]
[2016-07-08] MEDS: ALPRAZolam 0.5 MG Tab PO PRN (17:32)
[2016-07-08] MEDS: Ondansetron 4 MG Tab.DIS PO PRN (18:33)
[2016-07-08] MEDS: Lidocaine 5% 700 MG Patch TOP SCH (21:05)
[2016-07-08] MEDS: Melatonin 3 MG Tab PO SCH (21:05)
[2016-07-09] MEDS: 1: AA 5%/Calcium/D15W/Lytes 1,000 ML with MVI, Adult with Vitamin K 10 ML, Chromium/Copp IV SCH ×3 (02:46)
[2016-07-09] MEDS: ALPRAZolam 0.5 MG Tab PO PRN (05:43)
[2016-07-09] MEDS ORDERED: Central Total Parenteral Nutrition Bag SCH (07:15)
[2016-07-09] MEDS ORDERED: 1: AA 5%/Calcium/D15W/Lytes 1,000 ML with MVI, Adult with Vitamin K 10 ML, Chromium/Copp IV SCH ×3 (08:15)
--- NOTE | 2016-07-09 08:35 | PN ---
DATE OF SERVICE: 07/09/2016 SUBJECTIVE: Eileen has been able to transfer to the [facility]. Her oral intake was 1200. She continues to receive TPN. There is no breakfast or lunch documented, and her intake that was left blank. Her dinner consumed was 10%. She continues to report abdominal pain in the left mid quadrant, and her requests for narcotics was denied per Harpal Huffman MD, over the weekend. REVIEW OF SYSTEMS: Remainder of review of systems, negative for any pertinent positives and negatives. OBJECTIVE: GENERAL: Eileen Montes is a 26-year-old female. She is lying in bed, quite irritated today VITAL SIGNS: TPR is 98.3, 100, 16, blood pressure is 108/52. HEENT: Negative. NECK: Supple. HEART: Regular rate and rhythm. LUNGS: Clear. ABDOMEN: Soft, nontender. EXTREMITIES: Without peripheral edema. ASSESSMENT: 1. Chronic left abdominal pain. 2. Dehydration. 3. Weakness. 4. Nausea and vomiting, resolved. 5. Attention deficit disorder. 6. Borderline personality depression. 7. Obsessive compulsive disease. 8. Deb-en-Y gastric bypass surgery. 9. Unspecified malabsorption. 10.B12 deficiency. PLAN: 1. Decrease TPN to 40 mL/h. 2. Check CBC, CMP, and phos in a.m. 3. To be up in chair 2 hours for every 1 hour in bed. 4. Communication order rewritten to write down accurately type of food and quantity of food that she is eating in nursing notes. This was completed accurately on July 06 the day of order and there is no documentation on July 07 or . 5. Changed to bariatrics Step-4 gastric bypass diet as the patient by documentation on Saturday was ordering Maltese silk pie, and macaroni and cheese which is not appropriate for her protein intake and bariatric nutritional status. 6. Good pulmonary toilet encouraged. 7. We will evaluate p.r.n. or in a.m. Helena Hernandez PA-C /[id number]
[2016-07-09] MEDS: Celecoxib 200 MG Cap PO SCH ×2 (08:36→20:09)
[2016-07-09] MEDS: Cholecalciferol (Vitamin D3) 1,000 Unit Tab PO SCH (08:36)
[2016-07-09] MEDS: Pantoprazole 40 MG Tab.CR PO SCH ×2 (08:36→15:58)
[2016-07-09] MEDS: Multivitamins with Iron Tab.Chew PO SCH ×2 (08:37→20:09)
[2016-07-09] MEDS: Magnesium Oxide 400 MG Tab PO SCH ×2 (08:37→20:09)
[2016-07-09] MEDS: FLUoxetine 20 MG Cap PO SCH (08:37)
[2016-07-09] MEDS: Thiamine 100 MG Tab PO SCH (08:37)
[2016-07-09] MEDS: Cyanocobalamin (Vitamin B12) 1,000 MCG Tab PO SCH (08:37)
[2016-07-09] MEDS: Divalproex Sodium Delayed-Release 250 MG Tab.CR PO SCH ×2 (08:38→16:00)
[2016-07-09] MEDS: Calcium Carbonate 500 MG Tab.Chew PO SCH ×2 (08:38→20:09)
[2016-07-09] MEDS: Ketoconazole 2% Crm 30 GM Tube TOP SCH ×2 (08:38→20:10)
[2016-07-09] MEDS: LORazepam 2 MG/ML MDV IVPUSH PRN ×4 (08:53→18:40)
[2016-07-09] MEDS: Albumin 25% 50 ML IV SCH ×2 (11:17→13:38)
[2016-07-09] MEDS: cefTRIAXone 1 GM in Sodium Chloride 0.9% 50 ML IV SCH (13:38)
--- NOTE | 2016-07-09 15:29 | PN ---
DATE OF SERVICE: 07/08/2016 The patient has been afebrile with stable vital signs. She is becoming more alert. Her oral intake was around 1100 mL. She will continue TPN at 60 mL now as we are potentially now over-feeding her to catch up nutritionally. Albumin remains fairly low 1.9. We will administer some additional albumin over the next 3 days. Otherwise, her functional activity is gradually improving. We began having physical therapy to see the patient daily starting tomorrow. Labs, otherwise, show no significant problems other than the nutritional indices. It is notable that her liver function tests are progressively improving. Bilirubin on admission was 3.2, it is now 1.1. The AST, ALT, and alkaline phosphatase were all within normal limits. Harpal Huffman MD /[id number]
[2016-07-09] MEDS: Acetaminophen 325 MG Tab PO PRN ×2 (15:57→20:08)
[2016-07-09] MEDS: Melatonin 3 MG Tab PO SCH (20:09)
[2016-07-09] MEDS: Lidocaine 5% 700 MG Patch TOP SCH (22:38)
[2016-07-10] MEDS: 1: AA 5%/Calcium/D15W/Lytes 1,000 ML with MVI, Adult with Vitamin K 10 ML, Chromium/Copp IV SCH ×6 (01:45→22:09)
[2016-07-10] MEDS: Pantoprazole 40 MG Tab.CR PO SCH ×2 (07:10→16:20)
[2016-07-10] MEDS ORDERED: Central Total Parenteral Nutrition Bag SCH (07:30)
[2016-07-10] MEDS: Divalproex Sodium Delayed-Release 250 MG Tab.CR PO SCH ×3 (07:52→16:20)
[2016-07-10] MEDS: Calcium Carbonate 500 MG Tab.Chew PO SCH ×2 (08:43→21:55)
[2016-07-10] MEDS: Cyanocobalamin (Vitamin B12) 1,000 MCG Tab PO SCH (08:43)
[2016-07-10] MEDS: Multivitamins with Iron Tab.Chew PO SCH ×2 (08:43→21:53)
[2016-07-10] MEDS: Magnesium Oxide 400 MG Tab PO SCH ×2 (08:44→21:53)
[2016-07-10] MEDS: Thiamine 100 MG Tab PO SCH (08:44)
[2016-07-10] MEDS: Celecoxib 200 MG Cap PO SCH ×2 (08:45→21:53)
[2016-07-10] MEDS: FLUoxetine 20 MG Cap PO SCH (08:45)
[2016-07-10] MEDS: Cholecalciferol (Vitamin D3) 1,000 Unit Tab PO SCH (08:46)
[2016-07-10] MEDS: Ketoconazole 2% Crm 30 GM Tube TOP SCH ×2 (08:48→21:54)
--- NOTE | 2016-07-10 10:23 | PN ---
DATE OF SERVICE: 07/10/2016 SUBJECTIVE: Eileen's oral intake yesterday was 720. She had the 2 episodes per nursing staff witnessed of putting her fingers down her mouth to vomit. C. diff was negative. Magnesium was 1.8. She is ambulating a little bit better, refusing to get up and sit in the chair. REVIEW OF SYSTEMS: Remainder of review of systems negative for any pertinent positives and negatives. OBJECTIVE: GENERAL: Eileen Montes is a 26-year-old female. VITAL SIGNS: TPR is 96.8, 82, 20, blood pressure 140/83. HEENT: Negative. NECK: Supple. HEART: Regular rate and rhythm. LUNGS: Clear. ABDOMEN: Soft and nontender. EXTREMITIES: Without peripheral edema. PSYCHIATRY: Depressed, decreased ambition, has a "whatever" attitude. ASSESSMENT: Chronic left abdominal pain, dehydration, weakness, nausea, vomiting, severe depression, attention deficit disorder, borderline personality, obsessive compulsive disorder, Deb-en-Y gastric bypass surgery, unspecified malabsorption, and B12 deficiency. PLAN: 1. Continue TPN at 40 mL/hour. 2. Continue to encourage ambulation. 3. Accurate intake and output. 4. Discharge per facility that will be able to meet her needs. 5. We will evaluate p.r.n. or in a.m. Helena Hernandez PA-C /[id number]
[2016-07-10] MEDS: Albumin 25% 50 ML IV SCH ×2 (10:37→13:00)
[2016-07-10] MEDS: LORazepam 2 MG/ML MDV IVPUSH PRN (14:52)
[2016-07-10] MEDS: Ondansetron 4 MG Tab.DIS PO PRN ×2 (15:24→22:09)
[2016-07-10] MEDS: ALPRAZolam 0.5 MG Tab PO PRN (20:33)
[2016-07-10] MEDS: Melatonin 3 MG Tab PO SCH (21:54)
[2016-07-10] MEDS: Lidocaine 5% 700 MG Patch TOP SCH (21:56)
[2016-07-11] MEDS: LORazepam 2 MG/ML MDV IVPUSH PRN ×2 (07:36→12:47)
[2016-07-11] MEDS: Pantoprazole 40 MG Tab.CR PO SCH (07:42)
[2016-07-11] MEDS: Divalproex Sodium Delayed-Release 250 MG Tab.CR PO SCH (07:43)
--- NOTE | 2016-07-11 09:28 | PN ---
DATE OF SERVICE: 07/11/2016 SUBJECTIVE: Eileen is improving as far as her walking. She did consent to [facility] with Physical Therapy, Occupational Therapy, and Home Health Care involvement. She does need much encouragement to get up and move around. She still is quite depressed. OBJECTIVE: GENERAL: Eileen Montes is a 26-year-old female. VITAL SIGNS: TPR is 96.3, 106, 18, blood pressure is 126/67. HEENT: Negative. NECK: Supple. HEART: Regular rate and rhythm. LUNGS: Clear. ABDOMEN: Soft and nontender. EXTREMITIES: Without peripheral edema. ASSESSMENT: 1. Chronic left abdominal pain since bariatric surgery. 2. Weakness, inability to walk using Miguel lift, which progressed to the assistance of 1 to 2 and now with assistance of 1, from 07/02/2016 to 07/11/2016. Nausea, vomiting, severe depression, attention deficit, borderline personality, obsessive-compulsive disease, Deb-en-Y gastric bypass surgery, unspecified malabsorption, and B12 deficiency. PLAN: 1. Continue the TPN at 40 mL/hour. Discontinue after this bag. 2. Order written for case management. Recommend adult foster care or some sort of assisted living due to the patient's mental health status, which affects her physical status and inability to get in adequate fluid, protein intake, as well as accurate taking of her medication with the use of marijuana in addition to her psychotropic medications. 3. Medication; regular medication use. Has not been compliant. We will evaluate p.r.n. 4. Brielle Colmenares will be her behavior therapist, who will be visiting with her today. 5. Continue activity. 6. We will hold on discharge pending how her therapy session goes today. Helena Hernandez PA-C /[id number]
[2016-07-11] MEDS: Cholecalciferol (Vitamin D3) 1,000 Unit Tab PO SCH (09:48)
[2016-07-11] MEDS: FLUoxetine 20 MG Cap PO SCH (09:48)
[2016-07-11] MEDS: Multivitamins with Iron Tab.Chew PO SCH (09:48)
[2016-07-11] MEDS: Thiamine 100 MG Tab PO SCH (09:49)
[2016-07-11] MEDS: Calcium Carbonate 500 MG Tab.Chew PO SCH (09:49)
[2016-07-11] MEDS: Ketoconazole 2% Crm 30 GM Tube TOP SCH (09:49)
[2016-07-11] MEDS: Cyanocobalamin (Vitamin B12) 1,000 MCG Tab PO SCH (09:49)
[2016-07-11] MEDS: Magnesium Oxide 400 MG Tab PO SCH (09:49)
[2016-07-11] MEDS: Celecoxib 200 MG Cap PO SCH (09:49)
[2016-07-11 12:29] VITALS: BP 151/85
[2016-07-11] MEDS: Ondansetron 4 MG Tab.DIS PO PRN (16:06)
--- NOTE | 2016-07-16 14:54 | DISCH ---
ADMISSION DIAGNOSES: 1. Left lower quadrant abdominal pain, chronic since the bariatric surgery, 10/11/2015. 2. Malnutrition. 3. Single-port Deb-en-Y gastric bypass surgery, 10/11/2015. Preop weight 377, total weight loss 141.2, malabsorption due to intolerance, not classified elsewhere. 4. Vitamin D deficiency, vitamin B deficiency, major depression disorder, borderline personality, attention-deficit disorder, anxiety, and moderate episode of recurrent major depression disorder. DISCHARGE DIAGNOSES: Urinary tract infection; abdominal pain, resolved; depression disorder, chronic; malnutrition and low albumin, treated with TPN therapy; single-port Deb- en-Y gastric bypass surgery, vitamin D deficiency, vitamin B deficiency, borderline personality disorder, attention-deficit disorder, and anxiety. HISTORY: Eileen Montes is a 26-year-old female who came to the clinic requesting that her weight loss surgery be reversed. She has had chronic left mid abdominal pain since her CHEPE drain was removed. She has had several CAT scans and there was nothing found on exam. When she was in the clinic, she became weak, dizzy, was unable to stand, could not catch her breath; at the same time, she was quite angry, color extremely pale. She was admitted for malnutrition. She has not been eating or drinking at home. Boyfriend states she sleeps all day. She has been in the hospital either ACU or outpatient for IV fluids the last couple of weeks. HOSPITAL COURSE: Eileen was admitted on 07/02/2016. She was quite sleepy. She did have a consult from Alok Cabrera MD hospitalist in regard to her psychiatric medications. These were adjusted with her peripheral venous status. She did have a central venous line placed. She had an insertion of a triple-lumen catheter right subclavian vein for inadequate peripheral venous placed on 07/04/2016. She did receive TPN therapy. Her physical and mental status did decline somewhat to where she had slurred speech. She was unable to stand, they had to use a Miguel lift. This did get better as her nutrition status did improve. She was allowed to order from a regular diet, but she did choose unhealthy choices and was switched back to step-4 gastric bypass diet. She had to be encouraged to get in enough liquids and also to ambulate, the turning she did receive physical therapy and occupational therapy. With hemoglobin of 7.9, she did receive 2 units of packed red blood cells. In prior to admission, her hemoglobin was 11. Eileen did have an evaluation from the crisis team on 07/03/2016, ordered per nursing staff. Crisis team evaluation is available in patient's hospital chart. With her medications adjusted, she was more awake, she was able to function better, and she was able to be discharged to home. There was an evaluation done by KANDICE Martin, her rn case mgr as well as her mental health therapist in regard to her going home or to go to a adult foster care, but they felt she was able to make her own decisions to go home. She was discharged on 07/11/2016. PHYSICAL EXAMINATION: GENERAL: Eileen Montes is a 26-year-old female. Height is 5 feet 5 inches, weight is 224 pounds. TPR prior to discharge 96.6, 104, 16, and blood pressure is 151/85 which is higher than it had been running, it usually runs 126 to 136 over 61 to 67. HEENT: Negative. NECK: Supple. HEART: Regular rate and rhythm. LUNGS: Clear. ABDOMEN: Soft, nontender. EXTREMITIES: Without peripheral edema. DISPOSITION: Discharged to home with home health care. She did consent to [facility] going and to have physical therapy and occupational therapy. CONDITION: Stable to good. HOME MEDICATIONS: Depakote 250 mg p.o. b.i.d. #60, magnesium oxide 400 mg b.i.d. #100, Zofran ODT q.4 hours p.r.n. nausea. She is to continue her vitamins and vitamin supplements, continue Nexplanon, fluoxetine 60 mg daily, melatonin 3 mg at bedtime and Seroquel 300 mg at bedtime p.r.n. The rest of her medications that she came in with were discontinued. Those discontinued were Rozerem, Adderall, and Seroquel was decreased to 300 instead of 600. FOLLOWUP: Follow up with Helena Hernandez PA-C on 07/18/2016 at 1 p.m. DISCHARGE DIET: Step-4 gastric bypass diet. Drink 8 to 10 glasses of water a day. ACTIVITY: As tolerated. Walk short distance 4 to 6 times daily. Notify provider if any nausea or vomiting. Triple lumen was discontinued prior to prior to discharge. She is to remove the dressing in the morning.
== END 2016-07-11 16:28 | disposition home health service (06) | DRG 641 ==
LOC: JP.ICU 10:00 → JP.MS 07-03 08:52 → JP.2SS 07-04 10:18
PROVIDERS: ADMIT Physician Assistant Medical; ATTEND Physician Assistant Medical
PROC: 02HV33Z Insertion of Infusion Device into Superior Vena Cava, Percutaneous Approach (ICD-10-PCS; principal; 2016-07-04)
PROC: 30233N1 Transfusion of Nonautologous Red Blood Cells into Peripheral Vein, Percutaneous Approach (ICD-10-PCS; 2016-07-05)
DX: E43 Unspecified severe protein-calorie malnutrition (principal); F33.9 Major depressive disorder, recurrent, unspecified; K91.2 Postsurgical malabsorption, not elsewhere classified; N39.0 Urinary tract infection, site not specified; R10.12 Left upper quadrant pain; E86.0 Dehydration; Z68.37 Body mass index [BMI] 37.0-37.9, adult; F60.3 Borderline personality disorder; F42.9 Obsessive-compulsive disorder, unspecified; F40.10 Social phobia, unspecified; Z98.84 Bariatric surgery status; Z98.0 Intestinal bypass and anastomosis status; E53.8 Deficiency of other specified B group vitamins; D64.9 Anemia, unspecified; R47.81 Slurred speech; B37.9 Candidiasis, unspecified; B96.20 Unspecified Escherichia coli [E. coli] as the cause of diseases classified elsewhere; R45.1 Restlessness and agitation; Z91.14 Patient's other noncompliance with medication regimen; F43.10 Post-traumatic stress disorder, unspecified; Z91.5 Personal history of self-harm; M62.81 Muscle weakness (generalized); Z88.1 Allergy status to other antibiotic agents; Z88.8 Allergy status to other drugs, medicaments and biological substances; G89.28 Other chronic postprocedural pain; E55.9 Vitamin D deficiency, unspecified; F41.9 Anxiety disorder, unspecified
CPT/HCPCS: 36415; 36430; 70450; 70450-26; 71020; 71020-26; 80053; 80305; 81001; 82728; 83735; 84100; 85027; 86850; 86900; 86901; 86920; 86922; 87046; 87086; 87088; 87186; 87493; 87899; 94762; 97110-GO; 97110-GP; 97140-GP; 97162-GP; 97165-GO; 97530-GP; 97535-GP; A9270-GY; J0696; J1642; J1885; J2060; J2250; J2704; J3010; J3411; J3420; J3475; J3490; J7042; J7050; J7120; P9016; P9047

== ENCOUNTER 2016-07-30 16:14 | Emergency (ER) | payer MEDICARE, MEDICAID ==
--- NOTE | 2016-07-30 17:12 | EDM.PDOC ---
ED HPI GENERAL MEDICAL PROBLEM - General Chief Complaint: Abdominal Pain Stated Complaint: ABD PAIN Time Seen by Provider: 07/30/16 17:07 Source of Information: Reports: Patient History Limitations: Reports: No Limitations - History of Present Illness INITIAL COMMENTS - FREE TEXT/NARRATIVE: Pt with ongoing abdominal issues. Reports left lower quadrant pain for last several months. Had a BM this morning. Vomited this am after eating some shrimp. Denies fever or chills. Rates her pain a 9.5 at this time. Feels dizzy. Never started taking Depakote after it was prescribed. Was hospitalized recently for several days. Does have home health in place but spoke to someone software applications architect today who recommended that she be seen today. Onset: Today Onset Date: 07/30/16 Duration: Constant Location: Reports: Abdomen Quality: Reports: Sharp Severity: Severe Improves with: Reports: None Worsens with: Reports: None Associated Symptoms: Reports: Nausea/Vomiting Abdominal Pain Score (Numeric/FACES): 9 - Related Data Allergies Allergy/AdvReac Type Severity Reaction Status Date / Time ciprofloxacin [From Cipro] Allergy Hives Verified 07/30/16 16:54 lactose Allergy Other Verified 07/30/16 16:54 Home Meds: Home Meds Etonogestrel [Nexplanon] 1 injection SQ DAILY 10/07/15 [History] ALPRAZolam [Xanax] 0.5 mg PO TID 10/11/15 [History] Acetaminophen [Tylenol] 650 mg PO Q4H PRN #0 tablet 07/11/16 [Rx] Calcium Carbonate [Tums] 500 mg PO BID tab.chew 07/11/16 [Rx] Cyanocobalamin (Vitamin B12) [Vitamin B12] 1,000 mcg PO DAILY tablet 07/11/16 [ Rx] FLUoxetine [PROzac] 40 mg PO DAILY cap 07/11/16 [Rx] Multivitamins with Iron [Child Chew Iron] 1 tab PO BID tab.chew 07/11/16 [Rx] Ondansetron [Zofran ODT] 4 mg PO Q4H PRN #30 tab.dis 07/11/16 [Rx] QUEtiapine [SEROquel] 300 mg PO BEDTIME tablet 07/11/16 [Rx] Ramelteon [Rozerem] 1 tab PO BEDTIME 07/30/16 [History] Past Medical History HEENT History: Reports: Impaired Vision Gastrointestinal History: Reports: Bowel Obstruction, GERD Other Gastrointestinal History: girth 60 inches Genitourinary History: Reports: UTI, Recurrent Psychiatric History: Reports: ADD, ADHD, Anxiety, Depression, Eating Disorders, Mood Swings, OCD, Panic Attack, Psych Hospitalization(s), PTSD, Suicide Attempt Endocrine/Metabolic History: Reports: Obesity/BMI 30+, Vitamin D Deficiency Hematologic History: Reports: Anemia, Blood Transfusion(s), Iron Deficiency - Infectious Disease History Infectious Disease History: Reports: Chicken Pox - Past Surgical History HEENT Surgical History: Reports: None Cardiovascular Surgical History: Reports: None GI Surgical History: Reports: Bariatric Procedure, Cholecystectomy, Hernia Repair/Other, Other (See Below) Other GI Surgeries/Procedures: Umbilical hernia repair 07/11/2014. Drainage of pericholecystic abscess 07/11/2014. gallbladder out 2014. bowel obstruction surgery 10/2015 again 12/09/2015. 01/06 bowel obstruction surgery Female Surgical History: Reports: Cervical Cryotherapy Neurological Surgical History: Reports: None Dermatological Surgical History: Reports: None Social & Family History - Family History Family Medical History: Noncontributory - Tobacco Use Smoking Status *Q: Never Smoker Years of Tobacco use: 5 Packs/Tins Daily: 1.5 Used Tobacco, but Quit: No Month Tobacco Last Used: oct Second Hand Smoke Exposure: No - Caffeine Use Caffeine Use: Reports: None - Alcohol Use Days Per Week of Alcohol Use: 0 - Recreational Drug Use Recreational Drug Use: Yes Drug Use in Last 12 Months: Yes Recreational Drug Type: Reports: Marijuana/Hashish Recreational Drug Use Frequency: Monthly Recreational Drug Last Use: this past Saturday - Living Situation & Occupation Living situation: Reports: (lives with and cat.) ED ROS GENERAL - Review of Systems Review Of Systems: See Below Constitutional: Reports: No Symptoms HEENT: Reports: No Symptoms Respiratory: Reports: No Symptoms Cardiovascular: Reports: No Symptoms GI/Abdominal: Reports: Abdominal Pain : Reports: No Symptoms Skin: Reports: Rash (under her right breast) Neurological: Reports: Dizziness ED EXAM, GI/ABD - Physical Exam Exam: See Below Exam Limited By: No Limitations General Appearance: Alert, WD/WN, No Apparent Distress, Anxious Ears: Normal External Exam, Normal Canal, Hearing Grossly Normal, Normal TMs Nose: Normal Inspection, Normal Mucosa, No Blood Throat/Mouth: Normal Inspection, Normal Lips, Normal Teeth, Normal Gums, Normal Oropharynx, Normal Voice, No Airway Compromise Head: Atraumatic, Normocephalic Neck: Normal Inspection, Supple, Non-Tender, Full Range of Motion Respiratory/Chest: No Respiratory Distress, Lungs Clear, Normal Breath Sounds, No Accessory Muscle Use, Chest Non-Tender Cardiovascular: Normal Peripheral Pulses, Regular Rate, Rhythm, No Edema, No Gallop, No JVD, No Murmur, No Rub GI/Abdominal: Normal Bowel Sounds, Soft, Non-Tender, No Organomegaly, No Distention, No Abnormal Bruit, No Mass Skin Exam: Rash (red and moist under the right breast.) Course - Vital Signs Last Recorded V/S: Last Vital Signs Temp 97.4 F 07/30/16 18:40 Pulse 98 07/30/16 18:40 Resp 16 07/30/16 18:40 BP 111/63 07/30/16 18:40 Pulse Ox 96 07/30/16 18:40 - Orders/Labs/Meds Orders: Active Orders 24 hr Category Date Time Status Abdomen Comp [US] Stat Exams 07/30/16 17:59 Taken CULTURE URINE [RM] Stat Lab 07/30/16 18:01 Received Labs: Laboratory Tests 07/30/16 07/30/16 07/30/16 Range/Units 17:30 17:31 17:31 WBC 7.2 (4.5-11.0) K/uL RBC 4.49 (3.30-5.50) M/uL Hgb 13.4 D (12.0-15.0) g/dL Hct 40.2 (36.0-48.0) % MCV 90 (80-98) fL MCH 30 (27-31) pg MCHC 33 (32-36) % Plt Count 329 (150-400) K/uL Neut % (Auto) 49 (36-66) % Lymph % (Auto) 43 (24-44) % [place] % (Auto) 6 (2-6) % Eos % (Auto) 0 L (2-4) % Baso % (Auto) 1 (0-1) % Sodium 142 (140-148) mmol/L Potassium 3.1 L (3.6-5.2) mmol/L Chloride 105 (100-108) mmol/L Carbon Dioxide 23 (21-32) mmol/L Anion Gap 17.1 H (5.0-14.0) mmol/L BUN 15 D (7-18) mg/dL Creatinine 0.7 (0.6-1.0) mg/dL Est Cr Clr Drug Dosing 111.51 mL/min Estimated GFR (MDRD) > 60 (>60) Glucose 78 (74-106) mg/dL Calcium 8.1 L (8.5-10.1) mg/dL Total Bilirubin 1.2 H (0.2-1.0) mg/dL AST 90 H D (15-37) U/L ALT 74 D (12-78) U/L Alkaline Phosphatase 90 (46-116) U/L Total Protein 6.2 L (6.4-8.2) g/dL Albumin 2.6 L (3.4-5.0) g/dL Globulin 3.6 H (2.3-3.5) g/dL Albumin/Globulin Ratio 0.7 L (1.2-2.2) Amylase 13 L (25-115) U/L Urine Color Urine Appearance Cloudy Urine pH 5.0 (4.5-8.0) Ur Specific [place] 1.020 (1.008-1.030) Urine Protein 30 H (NEGATIVE) mg/dL Urine Glucose (UA) Normal (NEGATIVE) mg/dL Urine Ketones 15 H (NEGATIVE) mg/dL Urine Occult Blood Negative (NEGATIVE) Urine Nitrite Negative (NEGATIVE) Urine Bilirubin Moderate (NEGATIVE) Urine Urobilinogen >=12 H (NORMAL) mg/dL Ur Leukocyte Esterase Large (NEGATIVE) Urine RBC 0-5 (0-5) Urine WBC 10-20 H (0-5) Ur Epithelial Cells Many Amorphous Sediment Not seen Urine Bacteria Many Urine Mucus Many Departure - Departure Time of Disposition: 18:49 Disposition: Home, Self-Care 01 Condition: good Clinical Impression: Abnormal liver function, Abnormal ultrasound of liver - Discharge Information Referrals: Angélica Nieves PA [Primary Care Provider] - Forms: ED Department Discharge Additional Instructions: UA positive but possible contaminant so culture pending. CBC normal. CMP stable but LFT's elevated. Pt voices that this is a new finding. Abdominal ultrasound ordered. Tech reports fluid accumulation where her gallbladder used to be. Call placed to Helena Hernandez CNP to discuss this case. She has a scheduled appt tomorrow with her. Will followup regarding these new findings. Toradol 30mg IM given prior to discharge. Pt agreeable to plan of care. - Problem List & Annotations (1) History of Deb-en-Y gastric bypass SNOMED Code(s): 098156845, 363484124 Code(s): Z98.84 - BARIATRIC SURGERY STATUS Status: Chronic Priority: Medium Current Visit: No (2) Abnormal liver function SNOMED Code(s): 46857991 Code(s): K76.89 - OTHER SPECIFIED DISEASES OF LIVER Status: Acute Current Visit: Yes (3) Abnormal ultrasound of liver SNOMED Code(s): 99350923847008993 Code(s): R93.2 - ABNORMAL FINDINGS ON DX IMAGING OF LIVER AND BILIARY TRACT Status: Acute Current Visit: Yes - My Orders Last 24 Hours: My Active Orders 07/30/16 17:59 Abdomen Comp [US] Stat 07/30/16 18:01 CULTURE URINE [RM] Stat - Assessment/Plan Last 24 Hours: My Active Orders 07/30/16 17:59 Abdomen Comp [US] Stat 07/30/16 18:01 CULTURE URINE [RM] Stat
[2016-07-30 18:40] VITALS: BP 111/63
[2016-07-30] MEDS ORDERED: Ketorolac 30 MG/ML SDV IM ONE (18:51)
== END 2016-07-30 19:20 | disposition home or self-care (01) ==
LOC: JP.ED 16:14
DX: R93.2 Abnormal findings on diagnostic imaging of liver and biliary tract (principal); R79.89 Other specified abnormal findings of blood chemistry; F32.9 Major depressive disorder, single episode, unspecified; F41.9 Anxiety disorder, unspecified; E66.9 Obesity, unspecified; Z90.49 Acquired absence of other specified parts of digestive tract; Z98.890 Other specified postprocedural states; Z79.899 Other long term (current) drug therapy; Z88.1 Allergy status to other antibiotic agents; Z91.011 Allergy to milk products; K21.9 Gastro-esophageal reflux disease without esophagitis; Z87.440 Personal history of urinary (tract) infections; Z86.2 Personal history of diseases of the blood and blood-forming organs and certain disorders involving the immune mechanism; Z98.84 Bariatric surgery status
CPT/HCPCS: 36415; 76700; 80053; 81001; 82150; 85025; 87086; 96372; 99284; J1885; 99283

== ENCOUNTER 2016-08-16 09:55 | Day surgery (SDC) | payer MEDICARE, MEDICAID ==
[~2016-08-16 09:55] MED LIST: Midazolam 1 MG/ML 2 ML SDV ONE; Propofol 200 MG/20 ML SDV ONE; fentaNYL 100 MCG/2 ML SDV ONE
[2016-08-16] MEDS ORDERED: Cyanocobalamin (Vitamin B12) 1,000 MCG/ML SDV IM ONE (10:30)
[2016-08-16] MEDS ORDERED: Lactated Ringers 1,000 ML IV SCH (10:30)
[2016-08-16] MEDS ORDERED: LORazepam 2 MG/ML MDV IVPUSH ONE (10:45)
[2016-08-16] MEDS ORDERED: MVI, Adult with Vitamin K 10 ML, Thiamine 200 MG, Chromium/Copper/Mang/Selen/Zn 1 ML in... IV ONE ×4 (11:30)
[2016-08-16] MEDS ORDERED: Potassium Chloride 20 MEQ Tab.ER PO ONE (12:00)
[2016-08-16] MEDS ORDERED: Magnesium Oxide 400 MG Tab PO ONE (12:00)
[2016-08-16] MEDS ORDERED: Pantoprazole 40 MG Vial IVPUSH ONE (13:15)
[2016-08-16 16:50] VITALS: BP 117/68
--- NOTE | 2016-08-17 07:27 | OR ---
DATE OF PROCEDURE: 08/16/2016 PROCEDURE PERFORMED: EGD. FINDINGS: Ulceration of the gastric pouch, not actively bleeding, appears to be healing (biopsy performed for evaluation for H. pylori). COMPLICATION: None. AIR CONDITIONING INSULATION INSTALLER: None. ANESTHESIA: MAC. PREOPERATIVE DIAGNOSIS: Dysphagia. POSTOPERATIVE DIAGNOSIS: Dysphagia. RISKS: Risks, benefits, alternatives, and limitations including, but not limited to infection, bleeding, and perforation were explained to the patient. They understand and wished to proceed. PROCEDURE IN DETAIL: The patient was placed in left lateral decubitus position. The EGD scope was introduced and advanced atraumatically into the Deb-en-Y limb. The patient was noted to have an ulceration in the gastric pouch. The gastric pouch appeared appropriate for size. There was no active bleeding from this ulceration. No evidence of perforation. The remainder of the esophagus was normal. A single biopsy was performed proximally to the ulcer to evaluate for H. pylori. The patient tolerated the procedure well. Sandip Valencia MD /[id number]
== END 2016-08-16 16:53 | disposition home or self-care (01) ==
LOC: JP.SDS 09:55
PROVIDERS: ATTEND Surgery
DX: K31.89 Other diseases of stomach and duodenum (principal); Z88.1 Allergy status to other antibiotic agents; Z88.8 Allergy status to other drugs, medicaments and biological substances; R10.84 Generalized abdominal pain; E55.9 Vitamin D deficiency, unspecified; E53.9 Vitamin B deficiency, unspecified; K91.2 Postsurgical malabsorption, not elsewhere classified; Z98.84 Bariatric surgery status
CPT/HCPCS: 43239; 76705; 88305; A9270; C9113; J2060; J2250; J2704; J3010; J3411; J3420; J7120

== ENCOUNTER 2016-09-06 11:22 | Inpatient (IN) | payer MEDICARE, MEDICAID ==
--- NOTE | 2016-09-06 12:21 | EDM.PDOC ---
ED HPI GENERAL MEDICAL PROBLEM - General Chief Complaint: Abdominal Pain Stated Complaint: ABDOMINAL PAIN Time Seen by Provider: 09/06/16 12:21 Source of Information: Reports: Patient History Limitations: Reports: No Limitations - History of Present Illness INITIAL COMMENTS - FREE TEXT/NARRATIVE: pt has not been keeping anything down. she has had increased abdomanal pain. She has had very little urine output. Onset: Gradual Duration: Day(s):, Getting Worse Location: Reports: Abdomen Associated Symptoms: Reports: Loss of Appetite, Nausea/Vomiting, Other (Pt is getting very lite headed when she stands up. ) Left Lower Abdominal Pain Score (Numeric/FACES): 9 - Related Data Allergies Allergy/AdvReac Type Severity Reaction Status Date / Time ciprofloxacin [From Cipro] Allergy Hives Verified 09/06/16 11:43 lactose Allergy Other Verified 09/06/16 11:43 Home Meds: Home Meds Etonogestrel [Nexplanon] 1 injection SQ .3YEARS 10/07/15 [History] ALPRAZolam [Xanax] 0.5 mg PO TID 10/11/15 [History] Acetaminophen [Tylenol] 650 mg PO Q4H PRN #0 tablet 07/11/16 [Rx] Calcium Carbonate [Tums] 500 mg PO BID tab.chew 07/11/16 [Rx] Cyanocobalamin (Vitamin B12) [Vitamin B12] 1,000 mcg PO DAILY tablet 07/11/16 [ Rx] FLUoxetine [PROzac] 40 mg PO DAILY cap 07/11/16 [Rx] Multivitamins with Iron [Child Chew Iron] 1 tab PO BID tab.chew 07/11/16 [Rx] Ondansetron [Zofran ODT] 4 mg PO Q4H PRN #30 tab.dis 07/11/16 [Rx] QUEtiapine [SEROquel] 300 mg PO BEDTIME tablet 07/11/16 [Rx] Ramelteon [Rozerem] 1 tab PO BEDTIME 07/30/16 [History] Past Medical History HEENT History: Reports: Impaired Vision Gastrointestinal History: Reports: Bowel Obstruction, GERD Other Gastrointestinal History: girth 60 inches Genitourinary History: Reports: UTI, Recurrent Psychiatric History: Reports: ADD, ADHD, Anxiety, Depression, Eating Disorders, Mood Swings, OCD, Panic Attack, Psych Hospitalization(s), PTSD, Suicide Attempt Endocrine/Metabolic History: Reports: Obesity/BMI 30+, Vitamin D Deficiency Hematologic History: Reports: Anemia, Blood Transfusion(s), Iron Deficiency - Infectious Disease History Infectious Disease History: Reports: Chicken Pox - Past Surgical History HEENT Surgical History: Reports: None Cardiovascular Surgical History: Reports: None GI Surgical History: Reports: Bariatric Procedure, Cholecystectomy, Hernia Repair/Other, Other (See Below) Other GI Surgeries/Procedures: Umbilical hernia repair 07/11/2014. Drainage of pericholecystic abscess 07/11/2014. gallbladder out 2014. bowel obstruction surgery 10/2015 again 12/09/2015. 01/06 bowel obstruction surgery Female Surgical History: Reports: Cervical Cryotherapy Neurological Surgical History: Reports: None Dermatological Surgical History: Reports: None Social & Family History - Family History Family Medical History: Noncontributory - Tobacco Use Smoking Status *Q: Former Smoker Years of Tobacco use: 5 Packs/Tins Daily: 10 Used Tobacco, but Quit: Yes Month Tobacco Last Used: Second Hand Smoke Exposure: No - Caffeine Use Caffeine Use: Reports: None - Alcohol Use Days Per Week of Alcohol Use: 0 - Recreational Drug Use Recreational Drug Use: Yes Drug Use in Last 12 Months: Yes Recreational Drug Type: Reports: Marijuana/Hashish Recreational Drug Use Frequency: Weekly Recreational Drug Last Use: this past Saturday - Living Situation & Occupation Living situation: Reports: (lives with and cat.) ED ROS GENERAL - Review of Systems Review Of Systems: See Below Constitutional: Reports: Weakness, Decreased Appetite HEENT: Reports: No Symptoms Respiratory: Reports: No Symptoms Cardiovascular: Reports: No Symptoms Endocrine: Reports: No Symptoms GI/Abdominal: Reports: Abdominal Pain, Other ( Pt has pain in the mid abdoman to the left side. ) : Reports: Other ( very little urine output. ) Musculoskeletal: Reports: No Symptoms Neurological: Reports: No Symptoms Psychiatric: Reports: No Symptoms, Anxiety ED EXAM, GI/ABD - Physical Exam Exam: See Below Text/Narrative:: pt arrived feeling lite headed and increased abdomanal pain in the left mid abdoman. She has not been holding anything down. She feels very dehydrated. Exam Limited By: No Limitations General Appearance: Alert, Anxious, Moderate Distress Eyes: Bilateral: Normal Appearance, EOMI Ears: Normal TMs Nose: Normal Inspection Throat/Mouth: Normal Inspection Head: Atraumatic Neck: Normal Inspection Respiratory/Chest: No Respiratory Distress Cardiovascular: Regular Rate, Rhythm, Tachycardia GI/Abdominal Exam: Tender, Other (pt is tender in the left midabdoman. ) Rectal (Female) Exam: Deferred Back Exam: Normal Inspection Extremities: Normal Inspection Neurological: Alert, Oriented, Normal Cognition Psychiatric: Anxious Course - Vital Signs Last Recorded V/S: Last Vital Signs Temp 36.2 C 09/06/16 14:17 Pulse 110 H 09/06/16 14:17 Resp 14 09/06/16 14:17 BP 108/66 09/06/16 14:17 Pulse Ox 97 09/06/16 14:17 - Orders/Labs/Meds Orders: Active Orders 24 hr Category Date Time Status Abdomen Pelvis w Cont [CT] Stat Exams 09/06/16 13:13 Taken UA W/MICROSCOPIC [URIN] Urgent Lab 09/06/16 14:18 Ordered Iopamidol [Isovue-300 (61%)] Med 09/06/16 13:30 Active 135 ml IV . DIRECTED PRN Potassium Chloride 20 meq Med 09/06/16 13:30 Active Lidocaine 1% [Xylocaine 1%] 2 ml Sodium Chloride 0.9% [Normal Saline] 100 ml IV ONETIME Sodium Chloride 0.9% [Normal Saline] 1,000 ml Med 09/06/16 12:30 Active IV ASDIRECTED Sodium Chloride 0.9% [Normal Saline] 81 ml Med 09/06/16 13:30 Active IV ASDIRECTED Sodium Chloride 0.9% [Saline Flush] Med 09/06/16 12:20 Active 10 ml FLUSH ASDIRECTED PRN Saline Lock Insert [OM.PC] Routine Oth 09/06/16 12:20 Ordered Medication Orders Sodium Chloride (Normal Saline) 1,000 mls @ 999 mls/hr IV ASDIRECTED SHANE Last Admin: 09/06/16 13:03 Dose: 999 mls/hr Potassium Chloride 20 meq/Lidocaine HCl 2 ml/ Sodium Chloride 112 mls @ 55 mls/ hr IV ONETIME ONE Stop: 09/06/16 15:32 Last Admin: 09/06/16 14:13 Dose: 55 mls/hr Sodium Chloride (Normal Saline) 81 mls @ 3.5 mls/sec IV ASDIRECTED SHANE Last Admin: 07/20/17 14:02 Dose: 3.5 mls/sec Iopamidol (Isovue-300 (61%)) 135 ml IV . DIRECTED PRN PRN Reason: RADIOLOGY EXAM Stop: 09/07/16 13:31 Last Admin: 09/06/16 14:02 Dose: 135 ml Sodium Chloride (Saline Flush) 10 ml FLUSH ASDIRECTED PRN PRN Reason: Keep Vein Open Last Admin: 09/06/16 14:01 Dose: 10 ml Admin: 09/06/16 13:03 Dose: 10 ml Labs: Laboratory Tests 09/06/16 09/06/16 09/06/16 Range/Units 12:10 12:10 12:10 WBC 7.2 (4.5-11.0) K/uL RBC 4.56 (3.30-5.50) M/uL Hgb 13.0 (12.0-15.0) g/dL Hct 38.3 (36.0-48.0) % MCV 84 (80-98) fL MCH 29 (27-31) pg MCHC 34 (32-36) % Plt Count 299 (150-400) K/uL Neut % (Auto) 64 (36-66) % Lymph % (Auto) 29 (24-44) % [place] % (Auto) 6 (2-6) % Eos % (Auto) 0 L (2-4) % Baso % (Auto) 1 (0-1) % Sodium 138 L (140-148) mmol/L Potassium 2.6 L* (3.6-5.2) mmol/L Chloride 102 (100-108) mmol/L Carbon Dioxide 26 (21-32) mmol/L Anion Gap 12.6 (5.0-14.0) mmol/L BUN 10 (7-18) mg/dL Creatinine 0.8 (0.6-1.0) mg/dL Est Cr Clr Drug Dosing 97.57 mL/min Estimated GFR (MDRD) > 60 (>60) Glucose 106 (74-106) mg/dL Calcium 7.5 L (8.5-10.1) mg/dL Total Bilirubin 2.3 H D (0.2-1.0) mg/dL AST 85 H (15-37) U/L ALT 76 (12-78) U/L Alkaline Phosphatase 140 H (46-116) U/L C-Reactive Protein 2.66 H (0.0-0.3) mg/dL Total Protein 6.2 L (6.4-8.2) g/dL Albumin 1.9 L (3.4-5.0) g/dL Globulin 4.3 H (2.3-3.5) g/dL Albumin/Globulin Ratio 0.4 L (1.2-2.2) Meds: Medications Generic Name Dose Route Start Last Admin Trade Name Edwardq PRN Reason Stop Dose Admin Sodium Chloride 1,000 mls @ 999 mls/hr 09/06/16 12:30 09/06/16 13:03 Normal Saline IV 999 mls/hr ASDIRECTED SHANE Administration Potassium Chloride 20 meq/ 112 mls @ 55 mls/hr 09/06/16 13:30 09/06/16 14:13 Lidocaine HCl 2 ml/ Sodium IV 09/06/16 15:32 55 mls/hr Chloride ONETIME ONE Administration Sodium Chloride 81 mls @ 3.5 mls/sec 09/06/16 13:30 09/06/16 14:02 Normal Saline IV 3.5 mls/sec ASDIRECTED SHANE Administration Iopamidol 135 ml 09/06/16 13:30 09/06/16 14:02 Isovue-300 (61%) IV 09/07/16 13:31 135 ml . DIRECTED PRN Administration RADIOLOGY EXAM Sodium Chloride 10 ml 09/06/16 12:20 09/06/16 14:01 Saline Flush FLUSH 10 ml ASDIRECTED PRN Administration Keep Vein Open Discontinued Medications Generic Name Dose Route Start Last Admin Trade Name Alejo PRN Reason Stop Dose Admin Hydromorphone HCl 0.5 mg 09/06/16 13:13 Dilaudid IVPUSH 09/06/16 13:14 ONETIME ONE Hydromorphone HCl 0.5 mg 09/06/16 13:35 09/06/16 13:44 Dilaudid IVPUSH 09/06/16 13:36 0.5 mg ONETIME ONE Administration Lorazepam 0.5 mg 09/06/16 13:12 09/06/16 13:46 Ativan IVPUSH 09/06/16 13:13 0.5 mg ONETIME ONE Administration Ondansetron HCl 4 mg 09/06/16 13:12 09/06/16 13:42 Zofran IVPUSH 09/06/16 13:13 4 mg ONETIME ONE Administration Sodium Chloride 10 ml 09/06/16 13:30 Normal Saline FLUSH 09/06/16 13:31 ONETIME ONE - Re-Assessments/Exams Free Text/Narrative Re-Assessment/Exam: 09/06/16 14:24 pt has low proteins. Her k 1was 2.6. She has a cat scan which shows a localized ileus and increased acetes. Departure - Departure Time of Disposition: 14:34 Disposition: Admitted As Inpatient 68 Condition: Fair Clinical Impression: Ileus, Hypokalemia, Dehydration - Discharge Information Forms: ED Department Discharge Care Plan Goals: admit to Dr Kraft. - My Orders Last 24 Hours: My Active Orders 09/06/16 12:20 Sodium Chloride 0.9% [Saline Flush] 10 ml FLUSH ASDIRECTED PRN Saline Lock Insert [OM.PC] Routine 09/06/16 12:30 Sodium Chloride 0.9% [Normal Saline] 1,000 ml IV ASDIRECTED 09/06/16 13:13 Abdomen Pelvis w Cont [CT] Stat 09/06/16 13:30 Iopamidol [Isovue-300 (61%)] 135 ml IV . DIRECTED PRN Potassium Chloride 20 meq Lidocaine 1% [Xylocaine 1%] 2 ml Sodium Chloride 0.9 % [Normal Saline] 100 ml IV ONETIME Sodium Chloride 0.9% [Normal Saline] 81 ml IV ASDIRECTED 09/06/16 14:18 UA W/MICROSCOPIC [URIN] Urgent - Assessment/Plan Last 24 Hours: My Active Orders 09/06/16 12:20 Sodium Chloride 0.9% [Saline Flush] 10 ml FLUSH ASDIRECTED PRN Saline Lock Insert [OM.PC] Routine 09/06/16 12:30 Sodium Chloride 0.9% [Normal Saline] 1,000 ml IV ASDIRECTED 09/06/16 13:13 Abdomen Pelvis w Cont [CT] Stat 09/06/16 13:30 Iopamidol [Isovue-300 (61%)] 135 ml IV . DIRECTED PRN Potassium Chloride 20 meq Lidocaine 1% [Xylocaine 1%] 2 ml Sodium Chloride 0.9 % [Normal Saline] 100 ml IV ONETIME Sodium Chloride 0.9% [Normal Saline] 81 ml IV ASDIRECTED 09/06/16 14:18 UA W/MICROSCOPIC [URIN] Urgent
[2016-09-06] MEDS ORDERED: Sodium Chloride 0.9% 1,000 ML IV SCH ×2 (12:30→14:45)
[2016-09-06] MEDS ORDERED: Potassium Chloride 20 MEQ in Premix Bag 1 BAG IV ONE (12:52)
[2016-09-06] MEDS: Sodium Chloride 0.9% 10 ML Syringe FLUSH PRN ×2 (13:03→14:01)
[2016-09-06] MEDS ORDERED: Ondansetron 4 MG/2 ML SDV IVPUSH ONE (13:12)
[2016-09-06] MEDS ORDERED: LORazepam 2 MG/ML MDV IVPUSH ONE (13:12)
[2016-09-06] MEDS ORDERED: HYDROmorphone 0.5 MG/0.5 ML Syringe IVPUSH ONE (13:13)
--- NOTE | 2016-09-06 13:15 | CR ---
Abdomen Series w Chest 1V HISTORY: Abdominal pain. COMPARISON: Multiple prior CT scans most recent 06/21/2016. FINDINGS: Chest is clear. Cardiac size and pulmonary vessels normal. Postoperative change from prior gastric bypass with surgical clips present in the left upper quadran t. There are some dilated loops of small bowel centrally with a few small air-fluid levels. Left Col on is decompressed. No free air. Findings would be worrisome for distal small bowel obstructive process.
[2016-09-06] MEDS ORDERED: Sodium Chloride 0.9% 10 ML SDV FLUSH ONE (13:30)
[2016-09-06] MEDS ORDERED: Potassium Chloride 20 MEQ, Lidocaine 1% 2 ML in Sodium Chloride 0.9% 100 ML IV ONE (13:30)
[2016-09-06] MEDS ORDERED: Iopamidol 612 MG/ML 150 ML Bottle IV PRN (13:30)
[2016-09-06] MEDS ORDERED: HYDROmorphone 1 MG/ML Syringe IVPUSH ONE ×2 (13:35→14:32)
--- NOTE | 2016-09-06 14:30 | CT ---
Abdomen Pelvis w Cont HISTORY: Abdominal pain . COMPARISON: Prior CT scan 06/21/2016 FINDINGS: Lung bases are clear. There is increase ascites adjacent to the liver spleen and dependent pelvis. Patient has had prior g astric bypass. Multiple areas of surgical clips within the small bowel centrally. The colon is not d ilated. In the region of multiple surgical clips within the mid small bowel there is 2 areas of dila steve loops of small bowel measuring 5.2 cm. Proximal to this level the bowel is not dilated. Findings likely reflect focal ileus. Again there are multiple lymph nodes in the central mesentery that are enlarged similar to prior study 06/21/2016. Patient does have small pericardial effusion. There is diffuse fatty infiltration of liver. Prior cholecystectomy. Patient has enlarged liver [place] uring 23 cm craniocaudal. Borderline Enlarged spleen measuring 12.5 cm. The pancreas, adrenal glands and abdominal aorta and kidneys are unremarkable. Impression: 1. Primary new findings are increased ascites. Dilated central small bowel loops with multiple adjac ent surgical clips. The more proximal small bowel is not dilated consequently this is felt to repres ent focal ileus over close looped obstruction. Colon is not dilated. 2. Stable small pericardial effusion and stable hepatosplenomegaly.
--- NOTE | 2016-09-06 15:56 | PCM.HP ---
H&P History of Present Illness - General Date of Service: 09/06/16 Admit Problem/Dx: Admission Diagnosis/Problem Admission Diagnosis/Problem Abdominal pain Source of Information: Patient, Family, Provider History Limitations: Reports: No Limitations - History of Present Illness Initial Comments - Free Text/Narative: Eileen presents to the emergency room today with acute on chronic central abdominal pain. She reports difficulty with pain ever since her gastric bypass surgery almost a year ago. Over the past 2 days she has had increased pain that she describes as a cramping pain. This radiates throughout her abdomen. Tylenol and lidocaine patches have not helped her pain. Moving around makes her pain worse and the pain also comes and goes in waves. She was nauseated yesterday and has been vomiting every time she tries to eat or drink anything today. she has not had any fevers. She does feel short of breath because of the distention in her abdomen. She has had only small pebble-like bowel movements over the past few days but had diarrhea a week ago. No sick contacts. Not much of an appetite. Energy had been improving prior to worsening of her abdominal pain. Workup in the emergency room revealed hypokalemia based on laboratory testing and the CT scan showed either a focal ileus in the mid abdomen or possibly a closed loop small bowel obstruction. She has increased ascites noted as well. She will be admitted for pain control and additional management. Left Lower Abdominal Pain Score (Numeric/FACES): 9 - Related Data Allergies/Adverse Reactions: Allergies Allergy/AdvReac Type Severity Reaction Status Date / Time ciprofloxacin [From Cipro] Allergy Hives Verified 09/06/16 11:43 lactose Allergy Other Verified 09/06/16 11:43 Home Medications: Home Meds Etonogestrel [Nexplanon] 1 injection SQ .3YEARS 10/07/15 [History] ALPRAZolam [Xanax] 0.5 mg PO TID 10/11/15 [History] Acetaminophen [Tylenol] 650 mg PO Q4H PRN #0 tablet 07/11/16 [Rx] Calcium Carbonate [Tums] 500 mg PO BID tab.chew 07/11/16 [Rx] Cyanocobalamin (Vitamin B12) [Vitamin B12] 1,000 mcg PO DAILY tablet 07/11/16 [ Rx] FLUoxetine [PROzac] 40 mg PO DAILY cap 07/11/16 [Rx] Multivitamins with Iron [Child Chew Iron] 1 tab PO BID tab.chew 07/11/16 [Rx] Ondansetron [Zofran ODT] 4 mg PO Q4H PRN #30 tab.dis 07/11/16 [Rx] QUEtiapine [SEROquel] 300 mg PO BEDTIME tablet 07/11/16 [Rx] Ramelteon [Rozerem] 1 tab PO BEDTIME 07/30/16 [History] Past Medical History HEENT History: Reports: Impaired Vision Gastrointestinal History: Reports: Bowel Obstruction, GERD Other Gastrointestinal History: girth 60 inches Genitourinary History: Reports: UTI, Recurrent Psychiatric History: Reports: ADD, ADHD, Anxiety, Depression, Eating Disorders, Mood Swings, OCD, Panic Attack, Psych Hospitalization(s), PTSD, Suicide Attempt Endocrine/Metabolic History: Reports: Obesity/BMI 30+, Vitamin D Deficiency Hematologic History: Reports: Anemia, Blood Transfusion(s), Iron Deficiency - Infectious Disease History Infectious Disease History: Reports: Chicken Pox - Past Surgical History HEENT Surgical History: Reports: None Cardiovascular Surgical History: Reports: None GI Surgical History: Reports: Bariatric Procedure, Cholecystectomy, Hernia Repair/Other, Other (See Below) Other GI Surgeries/Procedures: Umbilical hernia repair 07/11/2014. Drainage of pericholecystic abscess 07/11/2014. gallbladder out 2014. bowel obstruction surgery 10/2015 again 12/09/2015. 01/06 bowel obstruction surgery Female Surgical History: Reports: Cervical Cryotherapy Neurological Surgical History: Reports: None Dermatological Surgical History: Reports: None Social & Family History - Family History Family Medical History: Noncontributory - Tobacco Use Smoking Status *Q: Former Smoker Years of Tobacco use: 5 Packs/Tins Daily: 10 Used Tobacco, but Quit: Yes Month Tobacco Last Used: Second Hand Smoke Exposure: No - Caffeine Use Caffeine Use: Reports: None - Alcohol Use Days Per Week of Alcohol Use: 0 - Recreational Drug Use Recreational Drug Use: Yes Drug Use in Last 12 Months: Yes Recreational Drug Type: Reports: Marijuana/Hashish Recreational Drug Use Frequency: Weekly Recreational Drug Last Use: this past Saturday - Living Situation & Occupation Living situation: Reports: (lives with and cat.) H&P Review of Systems - Review of Systems: Review Of Systems: See Below Free Text/Narrative: A complete 12 point review of systems was obtained. Pertinent positives and negatives are noted in the history of present illness. All other systems were reviewed and were negative except as noted. Exam - Exam Exam: See Below - Vital Signs Vital Signs: Last Vital Signs Temp 36.2 C 09/06/16 14:17 Pulse 106 H 09/06/16 15:42 Resp 14 09/06/16 15:42 BP 139/81 09/06/16 15:42 Pulse Ox 100 09/06/16 15:42 Weight: 90.265 kg - Exam Quality Assessment: No: Supplemental Oxygen General: Alert, Oriented, Cooperative, Mild Distress HEENT: Conjunctiva Clear, Hearing Intact, Normal Nasal Septum. No: Mucosa Moist & Stickney (dry), Scleral Icterus Neck: Supple, Trachea Midline. No: Lymphadenopathy Lungs: Clear to Auscultation, Normal Respiratory Effort Cardiovascular: Regular Rhythm, Tachycardia. No: Systolic Murmur GI/Abdominal Exam: Soft, Distended (mild in mid abdomen ), Tender (moderately severe diffuse ttp ), Abnormal Bowel Sounds (hypoactive) Extremities: Normal Inspection, No Pedal Edema. No: Increased Warmth Peripheral Pulses: 2+: Dorsalis Pedis (L), Dorsalis Pedis (R) Skin: Warm, Dry Neuro Extensive - Mental Status: Alert, Oriented x3, Nl Response to Commands Neuro Extensive - Motor, Sensory, Reflexes: CN II-XII Intact. No: Dysarthria, Abnormal Motor, Tremor Psychiatric: Alert, Normal Affect - Patient Data Lab Results Last 24 hrs: Laboratory Results - last 24 hr 09/06/16 09/06/16 09/06/16 Range/Units 12:10 12:10 12:10 WBC 7.2 (4.5-11.0) K/uL RBC 4.56 (3.30-5.50) M/uL Hgb 13.0 (12.0-15.0) g/dL Hct 38.3 (36.0-48.0) % MCV 84 (80-98) fL MCH 29 (27-31) pg MCHC 34 (32-36) % Plt Count 299 (150-400) K/uL Neut % (Auto) 64 (36-66) % Lymph % (Auto) 29 (24-44) % [facility] % (Auto) 6 (2-6) % Eos % (Auto) 0 L (2-4) % Baso % (Auto) 1 (0-1) % Sodium 138 L (140-148) mmol/L Potassium 2.6 L* (3.6-5.2) mmol/L Chloride 102 (100-108) mmol/L Carbon Dioxide 26 (21-32) mmol/L Anion Gap 12.6 (5.0-14.0) mmol/L BUN 10 (7-18) mg/dL Creatinine 0.8 (0.6-1.0) mg/dL Est Cr Clr Drug Dosing 97.57 mL/min Estimated GFR (MDRD) > 60 (>60) Glucose 106 (74-106) mg/dL Calcium 7.5 L (8.5-10.1) mg/dL Ferritin (8-388) ng/ml Total Bilirubin 2.3 H D (0.2-1.0) mg/dL AST 85 H (15-37) U/L ALT 76 (12-78) U/L Alkaline Phosphatase 140 H (46-116) U/L C-Reactive Protein 2.66 H (0.0-0.3) mg/dL Total Protein 6.2 L (6.4-8.2) g/dL Albumin 1.9 L (3.4-5.0) g/dL Globulin 4.3 H (2.3-3.5) g/dL Albumin/Globulin Ratio 0.4 L (1.2-2.2) Vitamin B12 (193-986) pg/ml Folate (8.6-58.9) ng/ml Urine Color Urine Appearance Urine pH (4.5-8.0) Ur Specific [place] (1.008-1.030) Urine Protein (NEGATIVE) mg/dL Urine Glucose (UA) (NEGATIVE) mg/dL Urine Ketones (NEGATIVE) mg/dL Urine Occult Blood (NEGATIVE) Urine Nitrite (NEGATIVE) Urine Bilirubin (NEGATIVE) Urine Urobilinogen (NORMAL) mg/dL Ur Leukocyte Esterase (NEGATIVE) Urine RBC (0-5) Urine WBC (0-5) Ur Epithelial Cells Amorphous Sediment Urine Bacteria Urine Mucus 09/06/16 09/06/16 09/06/16 Range/Units 12:40 14:18 14:27 WBC (4.5-11.0) K/uL RBC (3.30-5.50) M/uL Hgb (12.0-15.0) g/dL Hct (36.0-48.0) % MCV (80-98) fL MCH (27-31) pg MCHC (32-36) % Plt Count (150-400) K/uL Neut % (Auto) (36-66) % Lymph % (Auto) (24-44) % [facility] % (Auto) (2-6) % Eos % (Auto) (2-4) % Baso % (Auto) (0-1) % Sodium (140-148) mmol/L Potassium (3.6-5.2) mmol/L Chloride (100-108) mmol/L Carbon Dioxide (21-32) mmol/L Anion Gap (5.0-14.0) mmol/L BUN (7-18) mg/dL Creatinine (0.6-1.0) mg/dL Est Cr Clr Drug Dosing mL/min Estimated GFR (MDRD) (>60) Glucose (74-106) mg/dL Calcium (8.5-10.1) mg/dL Ferritin 631 H (8-388) ng/ml Total Bilirubin (0.2-1.0) mg/dL AST (15-37) U/L ALT (12-78) U/L Alkaline Phosphatase (46-116) U/L C-Reactive Protein (0.0-0.3) mg/dL Total Protein (6.4-8.2) g/dL Albumin (3.4-5.0) g/dL Globulin (2.3-3.5) g/dL Albumin/Globulin Ratio (1.2-2.2) Vitamin B12 2070 H (193-986) pg/ml Folate 9.2 (8.6-58.9) ng/ml Urine Color Brown Urine Appearance Slightly cloudy Urine pH 5.0 (4.5-8.0) Ur Specific [place] 1.010 (1.008-1.030) Urine Protein Trace (NEGATIVE) mg/dL Urine Glucose (UA) Normal (NEGATIVE) mg/dL Urine Ketones Negative (NEGATIVE) mg/dL Urine Occult Blood Negative (NEGATIVE) Urine Nitrite Negative (NEGATIVE) Urine Bilirubin Moderate (NEGATIVE) Urine Urobilinogen 8 (NORMAL) mg/dL Ur Leukocyte Esterase Moderate (NEGATIVE) Urine RBC Not seen (0-5) Urine WBC 5-10 H (0-5) Ur Epithelial Cells Many Amorphous Sediment Not seen Urine Bacteria Moderate Urine Mucus Few Result Diagrams: 09/06/16 12:10 09/06/16 12:10 Imaging Impressions Last 24 hrs: CT abdomen and pelvis - images personally reviewed - dilated loop of small bowel in the mid abdomen, could be focal ileus vs closed loop obstruction. moderate ascites, some increase compared to scan from 10 weeks ago. No abscess. Radiologist noted some midabdominal lymphadenopathy *Q Meaningful Use (ADM) - VTE *Q VTE Criteria *Q: - VTE Risk Assess *Q Each Risk Factor Represents 1 Point: Obesity (BMI greater than 30) Total Score 1 Point Risk Factors: 1 Each Risk Factor Represents 2 Points: None Total Score 2 Point Risk Factors: 0 Each Risk Factor Represents 3 Points: None Total Score 3 Point Risk Factors: 0 Each Risk Factor Represents 5 Points: None Total Score 5 Point Risk Factors: 0 Venous Thromboembolism Risk Factor Score *Q: 1 - Stroke *Q Stroke Criteria *Q: - AMI *Q AMI Criteria *Q: - Problem List (1) Ascites SNOMED Code(s): 994766228 ICD Code: R18.8 - OTHER ASCITES Status: Acute Current Visit: Yes (2) Ileus SNOMED Code(s): 937322210 ICD Code: K56.7 - ILEUS, UNSPECIFIED Status: Acute Current Visit: Yes (3) Hypokalemia SNOMED Code(s): 25613996 ICD Code: E87.6 - HYPOKALEMIA Status: Acute Current Visit: Yes (4) Dehydration SNOMED Code(s): 70956252 ICD Code: E86.0 - DEHYDRATION Status: Acute Current Visit: Yes Problem List Initiated/Reviewed/Updated: Yes Orders Last 24hrs: Active Orders 24 hr Category Date Time Status Patient Status Manage Transfer [TRANSFER] Routine ADT 09/06/16 15:41 Ordered AMYLASE [CHEM] Stat Lab 09/06/16 14:33 Ordered LIPASE [CHEM] Stat Lab 09/06/16 14:33 Ordered Iopamidol [Isovue-300 (61%)] Med 09/06/16 13:30 Active 135 ml IV . DIRECTED PRN Sodium Chloride 0.9% [Normal Saline] 1,000 ml Med 09/06/16 12:30 Active IV ASDIRECTED Sodium Chloride 0.9% [Normal Saline] 1,000 ml Med 09/06/16 14:45 Active IV ASDIRECTED Sodium Chloride 0.9% [Normal Saline] 81 ml Med 09/06/16 13:30 Active IV ASDIRECTED Sodium Chloride 0.9% [Saline Flush] Med 09/06/16 12:20 Active 10 ml FLUSH ASDIRECTED PRN Saline Lock Insert [OM.PC] Routine Oth 09/06/16 12:20 Ordered Resuscitation Status Routine Resus Stat 09/06/16 15:42 Ordered Medication Orders Sodium Chloride (Normal Saline) 1,000 mls @ 999 mls/hr IV ASDIRECTED [facility] Last Admin: 09/06/16 13:03 Dose: 999 mls/hr Sodium Chloride (Normal Saline) 81 mls @ 3.5 mls/sec IV ASDIRECTED [facility] Last Admin: 09/06/16 14:02 Dose: 3.5 mls/sec Sodium Chloride (Normal Saline) 1,000 mls @ 999 mls/hr IV ASDIRECTED [facility] Last Admin: 09/06/16 15:00 Dose: 999 mls/hr Iopamidol (Isovue-300 (61%)) 135 ml IV . DIRECTED PRN PRN Reason: RADIOLOGY EXAM Stop: 09/07/16 13:31 Last Admin: 09/06/16 14:02 Dose: 135 ml Sodium Chloride (Saline Flush) 10 ml FLUSH ASDIRECTED PRN PRN Reason: Keep Vein Open Last Admin: 09/06/16 14:01 Dose: 10 ml Admin: 09/06/16 13:03 Dose: 10 ml Assessment/Plan Comment:: Assessment and plan - Crampy abdominal pain - CT scan suggested either focal ileus or possibly a closed loop obstruction. Patient has significant pain at this time. No evidence for infection at this point. She has had poor intake and has been unable to keep anything down. History of multiple abdominal surgeries. Increase in ascites probably a result of her very low albumin. -[employer] for pain control -IV fluids -Antinausea medications -Consult to Dr. Huffman for additional input Hypokalemia - significant decrease in potassium from the normal range. Magnesium level is pending. -Supplement potassium and repeat level in the morning -Supplement magnesium if needed Chronic depression - patient frustrated with duration of difficulties following initial surgery. Seems to be well compensated at this time though has some increase in symptoms with acute pain again. -Hold all medications well nothing by mouth, restart when able Maintenance issues - - DVT prophylaxis - mechanical - GI prophylaxis - PPI - Nutrition - nothing by mouth - Russell catheter - not indicated CODE STATUS - full code Admission justification - This patient will be admitted for inpatient services and is medically appropriate meeting medical necessity for inpatient admission as outlined in my documentation. I reasonably expect the patient will require inpatient services that span a period time over 2 midnights. I reasonably expect this patient to be discharged or transferred within 96 hours after admission to the [facility]. Disposition - anticipate discharge home after the hospital stay Akash Kraft M.D.
[2016-09-06] MEDS ORDERED: Acetaminophen 325 MG Tab PO PRN (16:16)
[2016-09-06] MEDS ORDERED: Naloxone 0.4 MG/ML SDV IVPUSH PRN (16:16)
[2016-09-06] MEDS ORDERED: Ondansetron 4 MG/2 ML SDV IV PRN (16:16)
[2016-09-06] MEDS ORDERED: Magnesium Hydroxide 400 MG/5 ML Susp 30 ML Cup PO PRN (16:16)
[2016-09-06] MEDS ORDERED: Acetaminophen 650 MG Supp RECTAL PRN (16:16)
[2016-09-06] MEDS ORDERED: HYDROmorphone/Normal Saline 15 MG/30 ML PCA IV PRN (16:16)
[2016-09-06] MEDS: Ondansetron 4 MG Tab.DIS PO PRN (17:05)
[2016-09-06] MEDS: Pantoprazole 40 MG Vial IV SCH (17:26)
[2016-09-06] MEDS: LORazepam 2 MG/ML MDV IVPUSH PRN ×2 (17:29→21:55)
[2016-09-06] MEDS: Potassium Chloride 20 MEQ, Lidocaine 1% 2 ML in Sodium Chloride 0.9% 100 ML IV SCH ×2 (17:34→19:59)
[2016-09-06] MEDS: Dextrose 5%-Lact Ringers w/KCl 1,000 ML IV SCH (17:37)
[2016-09-06] MEDS: Magnesium Sulfate/Water 2 GM in Premix Bag 1 BAG IV SCH (19:46)
[2016-09-07] MEDS: Magnesium Sulfate/Water 2 GM in Premix Bag 1 BAG IV SCH ×4 (01:00→20:06)
[2016-09-07] MEDS: Dextrose 5%-Lact Ringers w/KCl 1,000 ML IV SCH ×2 (03:35→15:05)
[2016-09-07] MEDS: LORazepam 2 MG/ML MDV IVPUSH PRN ×2 (03:40→08:10)
[2016-09-07] MEDS ORDERED: Lidocaine 1% 50 ML MDV ONE (08:12)
[2016-09-07] MEDS ORDERED: Bupivacaine 0.5%/EPINEPHrine 1:200,000 50 ML MDV ONE (08:13)
[2016-09-07] MEDS ORDERED: MVI, Adult with Vitamin K 10 ML, Chromium/Copper/Mang/Selen/Zn 1 ML, Thiamine 200 MG in... IV ONE ×4 (08:15)
[2016-09-07] MEDS ORDERED: Cyanocobalamin (Vitamin B12) 1,000 MCG/ML SDV IM ONE (09:00)
--- NOTE | 2016-09-07 09:08 | PCM.PN ---
- General Info Date of Service: 09/07/16 Functional Status: Reports: Pain Controlled, Ambulating - Review of Systems General: Reports: Weakness Gastrointestinal: Reports: Abdominal Pain Systems Review Comment:: No acute events overnight. Abdominal pain seems to have improved from admission. Patient is a little bit lethargic, possibly from recent administration of pain medications. Potassium level has improved but has not normalized. She is not passing gas and has not had a bowel movement. The plan is for upper endoscopy Snyder catheter placement later today. - Patient Data Vitals - most recent: Last Vital Signs Temp 35.5 C 09/07/16 08:00 Pulse 96 09/07/16 08:00 Resp 18 09/07/16 08:00 BP 140/74 09/07/16 08:00 Pulse Ox 96 09/07/16 08:00 Weight - most recent: 97.522 kg I&O - last 24 hours: Intake & Output 09/06/16 09/07/16 09/07/16 22:59 06:59 14:59 Intake Total 1000 1433 Balance 1000 1433 Lab Results last 24 hrs: Laboratory Results - last 24 hr 09/06/16 09/07/16 09/07/16 Range/Units 16:16 05:40 05:45 WBC 10.0 (4.5-11.0) K/uL RBC 4.30 (3.30-5.50) M/uL Hgb 12.3 (12.0-15.0) g/dL Hct 36.7 (36.0-48.0) % MCV 85 (80-98) fL MCH 29 (27-31) pg MCHC 34 (32-36) % Plt Count 314 (150-400) K/uL Sodium (140-148) mmol/L Potassium (3.6-5.2) mmol/L Chloride (100-108) mmol/L Carbon Dioxide (21-32) mmol/L Anion Gap (5.0-14.0) mmol/L BUN (7-18) mg/dL Creatinine (0.6-1.0) mg/dL Est Cr Clr Drug Dosing mL/min Estimated GFR (MDRD) (>60) Glucose (74-106) mg/dL Calcium (8.5-10.1) mg/dL Phosphorus 3.5 (2.5-4.9) mg/dL Magnesium 1.1 L D (1.8-2.4) mg/dL 09/07/16 Range/Units 05:45 WBC (4.5-11.0) K/uL RBC (3.30-5.50) M/uL Hgb (12.0-15.0) g/dL Hct (36.0-48.0) % MCV (80-98) fL MCH (27-31) pg MCHC (32-36) % Plt Count (150-400) K/uL Sodium 139 L (140-148) mmol/L Potassium 3.1 L (3.6-5.2) mmol/L Chloride 106 (100-108) mmol/L Carbon Dioxide 25 (21-32) mmol/L Anion Gap 11.1 (5.0-14.0) mmol/L BUN 8 (7-18) mg/dL Creatinine 0.8 (0.6-1.0) mg/dL Est Cr Clr Drug Dosing 97.57 mL/min Estimated GFR (MDRD) > 60 (>60) Glucose 130 H (74-106) mg/dL Calcium 7.2 L (8.5-10.1) mg/dL Phosphorus (2.5-4.9) mg/dL Magnesium (1.8-2.4) mg/dL Med Orders - Current: Current Medications Acetaminophen (Tylenol) 650 mg PO Q4H PRN PRN Reason: Pain (Mild 1-3)/fever Acetaminophen (Tylenol) 650 mg RECTAL Q4H PRN PRN Reason: Mild pain/fever Glycopyrrolate (Robinul) 0.4 mg IVPUSH ONCALL ONE Stop: 09/07/16 10:01 Hydromorphone HCl (Dilaudid Lamp Shade Maker 15 Mg In Ns 30 Ml) 0 mg IV ASDIRECTED PRN; Protocol PRN Reason: Pain Last Admin: 09/06/16 17:05 Dose: 15 mg Potassium Cl/Dextrose/Lact Ringer's (D5 Lr With 20 Meq Kcl) 1,000 mls @ 100 mls /hr IV ASDIRECTED SHANE Last Admin: 09/07/16 03:35 Dose: 100 mls/hr Multivitamins/Minerals 10 ml/Chromium/Copper/Manganese/Seleni/Zn 1 ml/ Thiamine HCl 200 mg/ Lactated Ringer's 1,013 mls @ 340 mls/hr IV ONETIME ONE Stop: 09/07/16 11:13 Last Admin: 09/07/16 08:42 Dose: 340 mls/hr Magnesium Sulfate 2 gm/ Premix 50 mls @ 25 mls/hr IV Q6H [facility] Stop: 09/11/16 03:59 Last Admin: 09/07/16 08:39 Dose: 25 mls/hr Ketorolac Tromethamine (Toradol) 30 mg IVPUSH Q6H PRN PRN Reason: Pain (moderate 4-6) Stop: 09/11/16 16:17 Lorazepam (Ativan) 0.5 - 1 mg IVPUSH Q4H PRN PRN Reason: Nausea/Vomiting Last Admin: 09/07/16 08:10 Dose: 1 mg Magnesium Hydroxide (Milk Of Magnesia) 30 ml PO Q12H PRN PRN Reason: Constipation Naloxone HCl (Narcan) 0.4 mg IVPUSH Q2M PRN PRN Reason: Respiratory Distress Ondansetron HCl (Zofran Odt) 4 mg PO Q6H PRN PRN Reason: Nausea able to take PO Last Admin: 09/06/16 17:05 Dose: 4 mg Ondansetron HCl (Zofran) 4 mg IV Q6H PRN PRN Reason: Nausea/Vomiting Pantoprazole Sodium (Protonix Iv) 40 mg IV Q24H [facility] Last Admin: 09/06/16 17:26 Dose: 40 mg Senna/Docusate Sodium (Senna Plus) 1 tab PO BID PRN PRN Reason: Constipation Sodium Chloride (Saline Flush) 10 ml FLUSH ASDIRECTED PRN PRN Reason: Keep Vein Open Last Admin: 09/06/16 14:01 Dose: 10 ml Discontinued Medications Bupivacaine HCl/Epinephrine Bitart (Marcaine 0.5%/Epinephrine 1:200,000) Confirm Administered Dose 50 ml .ROUTE .STK-MED ONE Stop: 09/07/16 08:14 Cyanocobalamin (Vitamin B12) 1,000 mcg IM ONETIME ONE Stop: 09/07/16 09:01 Last Admin: 09/07/16 08:44 Dose: 1,000 mcg Heparin Sodium (Porcine) (Heparin Lock Flush 100 Units/Ml) Confirm Administered Dose 1,000 units .ROUTE .STK-MED ONE Stop: 09/07/16 08:13 Hydromorphone HCl (Dilaudid) 0.5 mg IVPUSH ONETIME ONE Stop: 09/06/16 13:14 Last Admin: 09/06/16 17:21 Dose: Not Given Hydromorphone HCl (Dilaudid) 0.5 mg IVPUSH ONETIME ONE Stop: 09/06/16 13:36 Last Admin: 09/06/16 13:44 Dose: 0.5 mg Hydromorphone HCl (Dilaudid) 1 mg IVPUSH ONETIME ONE Stop: 09/06/16 14:33 Last Admin: 09/06/16 15:54 Dose: 1 mg Sodium Chloride (Normal Saline) 1,000 mls @ 999 mls/hr IV ASDIRECTED [facility] Last Admin: 09/06/16 13:03 Dose: 999 mls/hr Potassium Chloride 20 meq/Lidocaine HCl 2 ml/ Sodium Chloride 112 mls @ 55 mls/ hr IV ONETIME ONE Stop: 09/06/16 15:32 Last Admin: 09/06/16 14:13 Dose: 55 mls/hr Sodium Chloride (Normal Saline) 81 mls @ 3.5 mls/sec IV ASDIRECTED [facility] Last Admin: 09/06/16 14:02 Dose: 3.5 mls/sec Sodium Chloride (Normal Saline) 1,000 mls @ 999 mls/hr IV ASDIRECTED [facility] Last Admin: 09/06/16 15:00 Dose: 999 mls/hr Potassium Chloride 20 meq/Lidocaine HCl 2 ml/ Sodium Chloride 112 mls @ 55 mls/ hr IV Q2H [facility] Stop: 09/06/16 21:59 Last Admin: 09/06/16 19:59 Dose: 55 mls/hr Magnesium Sulfate 2 gm/ Premix 50 mls @ 12.5 mls/hr IV Q6H [facility] Stop: 09/07/16 16:59 Last Admin: 09/07/16 01:00 Dose: 12.5 mls/hr Iopamidol (Isovue-300 (61%)) 135 ml IV . DIRECTED PRN PRN Reason: RADIOLOGY EXAM Stop: 09/07/16 13:31 Last Admin: 09/06/16 14:02 Dose: 135 ml Lidocaine HCl (Xylocaine 1%) Confirm Administered Dose 50 ml .ROUTE .STK-MED ONE Stop: 09/07/16 08:13 Lorazepam (Ativan) 0.5 mg IVPUSH ONETIME ONE Stop: 09/06/16 13:13 Last Admin: 09/06/16 13:46 Dose: 0.5 mg Ondansetron HCl (Zofran) 4 mg IVPUSH ONETIME ONE Stop: 09/06/16 13:13 Last Admin: 09/06/16 13:42 Dose: 4 mg Sodium Chloride (Normal Saline) 10 ml FLUSH ONETIME ONE Stop: 09/06/16 13:31 Last Admin: 09/06/16 17:22 Dose: Not Given - Exam Quality Assessment: No: supplemental oxygen General: alert, cooperative, no acute distress Neck: supple Lungs: Normal Respiratory Effort Cardiovascular: Regular Rate, Regular Rhythm GI/Abdominal Exam: Soft, No Distention, Tender (mild mid abdomen ) Extremities: No Pedal Edema. No: Increased Warmth Skin: warm, dry Psy/Mental Status: alert, normal affect - Problem List & Annotations (1) Ascites SNOMED Code(s): 386224996 Code(s): R18.8 - OTHER ASCITES Status: Acute Current Visit: Yes (2) Ileus SNOMED Code(s): 430409951 Code(s): K56.7 - ILEUS, UNSPECIFIED Status: Acute Current Visit: Yes (3) Hypokalemia SNOMED Code(s): 98317419 Code(s): E87.6 - HYPOKALEMIA Status: Acute Current Visit: Yes (4) Dehydration SNOMED Code(s): 87205042 Code(s): E86.0 - DEHYDRATION Status: Acute Current Visit: Yes - Problem List Review Problem List Initiated/Reviewed/Updated: Yes - My Orders Last 24 Hours: My Active Orders 09/06/16 15:42 Resuscitation Status Routine 09/06/16 16:16 Patient Status [ADT] Routine Communication Order [RC] STAT Intake and Output [RC] QSHIFT Notify Provider Consults [RC] ASDIRECTED Notify Provider Vital Signs [RC] ASDIRECTED Notify Provider [RC] PRN HAND STRIPPER Record [RC] PER UNIT ROUTINE Pulse Oximetry [RC] CONTINUOUS Up ad Becky [RC] ASDIRECTED VTE/DVT Education [RC] Per Unit Routine Vital Signs [RC] Q4H Consult to Physician [CONS] Routine Acetaminophen [Tylenol] 650 mg PO Q4H PRN Acetaminophen [Tylenol] 650 mg RECTAL Q4H PRN Dextrose 5%-Lact Ringers w/KCl [D5 LR with 20 mEq KCl] 1,000 ml IV ASDIRECTED Docusate Sodium/Sennosides [Senna Plus] 1 tab PO BID PRN HYDROmorphone/Normal Saline [Dilaudid HAND STRIPPER 15 MG in NS 30 ML] See Protocol IV ASDIRECTED PRN Ketorolac [Toradol] 30 mg IVPUSH Q6H PRN LORazepam [Ativan] 0.5 - 1 mg IVPUSH Q4H PRN Magnesium Hydroxide [Milk of Magnesia] 30 ml PO Q12H PRN Naloxone [Narcan] 0.4 mg IVPUSH Q2M PRN Ondansetron [Zofran ODT] 4 mg PO Q6H PRN Ondansetron [Zofran] 4 mg IV Q6H PRN Medication Discontinuation Instructions [OM.PC] Stat Sequential Compression Device [OM.PC] Per Unit Routine 09/06/16 18:00 Pantoprazole [ProTONIX IV] 40 mg IV Q24H 09/06/16 Dinner Nothing per Oral Now Diet [DIET] 09/07/16 05:00 Abdomen 2V AP Flat Upright [CR] DAILY 09/08/16 04:00 CBC W/O DIFF,HEMOGRAM [HEME] Timed COMPREHENSIVE METABOLIC PN,CMP [CHEM] Timed PHOSPHORUS [CHEM] Timed - Plan Plan:: Assessment and plan - Crampy abdominal pain - CT scan suggested either focal ileus or possibly a closed loop obstruction. Abdominal x-ray shows persistent dilation of the loop in the midabdomen but her pain is better today with hydration. EGD planned for later in the day. -HAND STRIPPER for pain control -IV fluids -Antinausea medications -Consult to Dr. Huffman for additional input Hypokalemia - level is improving with supplementation and additional supplementation has been ordered. Magnesium level was also low and is being supplemented. -Supplement potassium and repeat level in the morning Hypoalbuminemia and poor nutritional status - albumin of only 1.9, Snyder catheter will be placed and TPN is planned. Chronic depression - patient frustrated with duration of difficulties following initial surgery. -Hold all medications well nothing by mouth, restart when able Maintenance issues - - DVT prophylaxis - mechanical - GI prophylaxis - PPI - Nutrition - nothing by mouth Disposition - anticipate discharge home after the hospital stay Akash Kraft M.D.
--- NOTE | 2016-09-07 10:04 | CR ---
Abdomen 2V AP Flat Upright HISTORY: Follow-up ileus versus obstruction. COMPARISON: CT scan 09/06/2016. FINDINGS: There remains some dilated loops of small bowel centrally. No significant gas seen within the colon. Surgical clips within the left abdomen. Impression: Similar-appearing dilated loops of small bowel in the left abdomen adjacent to small bowel anastomos is. Patient has had multiple small bowel surgeries. The small bowel in the right abdomen is not sign ificantly dilated. In correlation with the CT scan yesterday findings would favor focal small bowel ileus as the more proximal small bowel is not dilated and the stomach is not distended. Would sugges t continued follow-up imaging based on clinical symptomatology. A slow developing very distal small bowel obstructive process cannot be entirely excluded.
[2016-09-07] MEDS ORDERED: Propofol 200 MG/20 ML SDV ONE (10:06)
[2016-09-07] MEDS ORDERED: fentaNYL 100 MCG/2 ML SDV ONE (10:06)
[2016-09-07] MEDS ORDERED: Midazolam 1 MG/ML 2 ML SDV ONE (10:06)
[2016-09-07] MEDS: Glycopyrrolate 0.2 MG/ML 2 ML SYRINGE IVPUSH ONE ×2 (12:43→13:02)
[2016-09-07] MEDS ORDERED: Acetaminophen 325 MG Tab PO PRN (12:55)
[2016-09-07] MEDS: FLUoxetine 20 MG Cap PO SCH (13:23)
[2016-09-07] MEDS: ALPRAZolam 0.5 MG Tab PO PRN (14:23)
[2016-09-07] MEDS: HYDROmorphone 2 MG Tab PO PRN (14:23)
[2016-09-07] MEDS: 1: AA 5%/Calcium/D15W/Lytes 1,000 ML with MVI, Adult with Vitamin K 10 ML, Chromium/Copp IV SCH ×3 (15:05)
[2016-09-07] MEDS: Albumin Human 25 GM in Premix Bag 1 BAG IV SCH ×2 (16:12→20:06)
[2016-09-07] MEDS: Fat Emulsion 100 ML IV SCH (17:26)
[2016-09-07] MEDS: Potassium Phosphates 15 MMOLE in Sodium Chloride 0.9% 150 ML IV SCH ×3 (17:27→22:28)
[2016-09-07] MEDS: Pantoprazole 40 MG Vial IV SCH (17:27)
[2016-09-07] MEDS: Ketorolac 30 MG/ML SDV IVPUSH PRN (22:34)
[2016-09-08] MEDS: 1: AA 5%/Calcium/D15W/Lytes 1,000 ML with MVI, Adult with Vitamin K 10 ML, Chromium/Copp IV SCH ×9 (01:28→23:47)
[2016-09-08] MEDS: Magnesium Sulfate/Water 2 GM in Premix Bag 1 BAG IV SCH ×4 (02:39→19:48)
[2016-09-08] MEDS: FLUoxetine 20 MG Cap PO SCH (11:29)
[2016-09-08] MEDS: HYDROmorphone 2 MG Tab PO PRN ×3 (11:29→21:50)
[2016-09-08] MEDS ORDERED: Benzocaine/Cetylpyridinium/Menthol Lozenge MUCMEM PRN (11:37)
--- NOTE | 2016-09-08 15:52 | PCM.SN ---
- Free Text/Narrative Note: The surgical team has been handling all of her acute issues so the hospitalist service will sign off at this time. If additional acute issues arise please feel free to reconsult the hospitalist service for additional management. Akash Kraft M.D.
[2016-09-08] MEDS: Albumin Human 25 GM in Premix Bag 1 BAG IV SCH ×2 (16:45→22:56)
[2016-09-08] MEDS: Pantoprazole 40 MG Vial IV SCH (17:01)
[2016-09-08] MEDS: Fat Emulsion 100 ML IV SCH (17:01)
[2016-09-08] MEDS: Dextrose 5%-Lact Ringers w/KCl 1,000 ML IV SCH (19:46)
[2016-09-08] MEDS: ALPRAZolam 0.5 MG Tab PO PRN (21:50)
[2016-09-09] MEDS: Magnesium Sulfate/Water 2 GM in Premix Bag 1 BAG IV SCH ×4 (02:41→20:38)
[2016-09-09] MEDS: HYDROmorphone 2 MG Tab PO PRN ×4 (04:05→21:55)
[2016-09-09] MEDS: FLUoxetine 20 MG Cap PO SCH (08:35)
--- NOTE | 2016-09-09 10:38 | PN ---
DATE OF SERVICE: 09/08/2016 The patient has been afebrile with stable vital signs. She is more alert today after getting off the IV Ativan and Dilaudid. She did get up and walk some as well, and she still has a very depressed mood. Oral intake was around 200 mL yesterday. We will try to encourage that. Otherwise, continue the TPN for today along with albumin supplementation. Labs from electrolytes standpoint are okay this morning. Liver function tests are improving as well. The bilirubin is coming down. Her hemoglobin is 9.0. We will type and cross 2 units of packed RBCs tomorrow morning along with recheck of all the labs and perhaps transfuse a unit of blood. The patient's previous problem appears to be psychosocial and the issue of getting into a rehab facility was brought up, but she is somewhat resistant to that. She will be having a psychological evaluation on Saturday. Harpal Huffman MD /[id number]
[2016-09-09] MEDS ORDERED: Furosemide 20 MG/2 ML VIAL IVPUSH ONE (11:00)
[2016-09-09] MEDS: ALPRAZolam 0.5 MG Tab PO PRN ×2 (11:19→18:01)
[2016-09-09] MEDS: Potassium Phosphates 15 MMOLE in Sodium Chloride 0.9% 100 ML IV SCH ×3 (11:20→15:33)
[2016-09-09] MEDS: 1: AA 5%/Calcium/D15W/Lytes 1,000 ML with MVI, Adult with Vitamin K 10 ML, Chromium/Copp IV SCH ×6 (11:44→21:50)
[2016-09-09] MEDS: Pantoprazole 40 MG Tab.CR PO SCH (16:18)
[2016-09-09] MEDS: Albumin Human 25 GM in Premix Bag 1 BAG IV SCH ×2 (16:19→20:27)
[2016-09-09] MEDS: Fat Emulsion 100 ML IV SCH (17:55)
[2016-09-10] MEDS: Magnesium Sulfate/Water 2 GM in Premix Bag 1 BAG IV SCH ×4 (01:49→19:42)
[2016-09-10] MEDS: ALPRAZolam 0.5 MG Tab PO PRN ×2 (01:55→23:08)
[2016-09-10] MEDS: HYDROmorphone 2 MG Tab PO PRN (01:55)
[2016-09-10] MEDS: 1: AA 5%/Calcium/D15W/Lytes 1,000 ML with MVI, Adult with Vitamin K 10 ML, Chromium/Copp IV SCH ×6 (07:35→17:53)
[2016-09-10] MEDS ORDERED: Central Total Parenteral Nutrition Bag SCH (08:00)
[2016-09-10] MEDS: FLUoxetine 20 MG Cap PO SCH (10:00)
[2016-09-10] MEDS: Dextrose 5%-Lact Ringers w/KCl 1,000 ML IV SCH (12:10)
[2016-09-10] MEDS: Ketorolac 30 MG/ML SDV IVPUSH PRN ×2 (13:29→21:25)
--- NOTE | 2016-09-10 16:01 | PN ---
DATE OF SERVICE: 09/09/2016 The patient has been afebrile with stable vital signs. She is strikingly more alert today and has been up and walking, working on her computer. The oral intake was around 540 mL and not associated with any significant nausea at this point. We will continue the TPN today. Potassium and phosphate on the low end of the normal and we will supplement those additionally as well. Her hemoglobin is 8.5, we will give her 2 units of packed RBCs when they become available, which they have the antibodies so it would likely be later today or tomorrow. We will need to have Dietary see the patient once again and work on getting her more protein. The patient was intending to go home with a new ELDERLY COMPANION, a care conference will need to set up regarding that later in the week. Harpal Huffman MD /[id number]
[2016-09-10] MEDS: Albumin Human 25 GM in Premix Bag 1 BAG IV SCH ×2 (16:47→21:50)
[2016-09-10] MEDS: Pantoprazole 40 MG Tab.CR PO SCH (17:42)
[2016-09-10] MEDS: Fat Emulsion 100 ML IV SCH (17:43)
[2016-09-10] MEDS ORDERED: Acetaminophen Soln 160 MG/5 ML UD Cup PO PRN (17:55)
--- NOTE | 2016-09-10 18:19 | PN ---
DATE OF SERVICE: 09/10/2016 REVIEW OF SYSTEM: HEENT: Negative. NECK: Negative. CHEST: No chest pain, shortness of breath, fast or irregular heart beat. LUNGS: No cough. ABDOMEN: Reports pain in the left mid quadrant, unchanged. Last bowel movement was on 09/10/2016. GENITOURINARY: Negative. EXTREMITIES: Negative. She states that she is weak and she did fall, so is walking with a walker. SKIN: Without rash. PSYCHIATRIC: No change. OBJECTIVE: GENERAL: Eileen Montes is a 26-year-old female. VITAL SIGNS: TPR is 97.9, 84, 16, and blood pressure 142/71. HEENT: Negative. NECK: Supple. HEART: Regular rate and rhythm. LUNGS: Clear. ABDOMEN: Soft and nontender. EXTREMITIES: Without peripheral edema. NEURO: Intact. SKIN: Without rash. ASSESSMENT: Acute and chronic central abdominal pain. EGD on 09/07/2016, single-port Deb- en-Y gastric bypass surgery, unspecified surgical malabsorption, B12 deficiency, anxiety, depression, hypokalemia, and dehydration. PLAN: Discontinue Dilaudid, Tylenol for pain. Care conference scheduled through telecommunications network planner. We will evaluate p.r.n. or in a.m. Helena Hernandez PA-C /[id number]
[2016-09-11] MEDS: Magnesium Sulfate/Water 2 GM in Premix Bag 1 BAG IV SCH (01:15)
[2016-09-11] MEDS ORDERED: hydrOXYzine HCl 100 MG/2 ML SDV IM ONE (01:59)
[2016-09-11] MEDS: 1: AA 5%/Calcium/D15W/Lytes 1,000 ML with MVI, Adult with Vitamin K 10 ML, Chromium/Copp IV SCH ×6 (05:25→15:23)
[2016-09-11] MEDS: Ketorolac 30 MG/ML SDV IVPUSH PRN ×2 (06:03→15:30)
[2016-09-11] MEDS: ALPRAZolam 0.5 MG Tab PO PRN ×2 (07:37→21:25)
[2016-09-11] MEDS: Acetaminophen Soln 650 MG/20.3 ML UD Cup PO PRN ×2 (07:48→21:25)
[2016-09-11] MEDS ORDERED: FLUoxetine Solution 20 MG/5 ML ML 120 ML Bottle PO SCH (09:00)
[2016-09-11] MEDS: Alum Hydrox/Mag Hydrox/Simeth 360 ML, Lidocaine 2% 60 ML PO SCH ×6 (09:09→17:57)
--- NOTE | 2016-09-11 10:39 | PN ---
DATE OF SERVICE: 09/11/2016 The patient has been afebrile with stable vital signs. Oral intake was around 600 mL. She complains of some postprandial bloating in the left mid abdomen, there still might be some adhesive partial bowel obstruction in that area. Otherwise, we will try some viscous Xylocaine mixed with Mylanta prior to eating to see if that helps. We will discontinue the TPN preoperatively. We certainly would need to have the patient in somewhat better nutritional status. We will obtain upper GI x-ray, small-bowel follow-through x-ray tomorrow to see how things go through that area of jejunojejunostomy. Harpal Huffman MD /[id number]
[2016-09-11] MEDS: Dextrose 5%-Lact Ringers w/KCl 1,000 ML IV SCH (14:13)
[2016-09-11] MEDS: Loperamide 1 MG/5 ML ML Solution 120 ML Bottle PO PRN ×2 (15:22→21:25)
[2016-09-11] MEDS: Pantoprazole 40 MG Tab.CR PO SCH (16:10)
[2016-09-11] MEDS: Fat Emulsion 100 ML IV SCH (17:56)
[2016-09-12] MEDS: 1: AA 5%/Calcium/D15W/Lytes 1,000 ML with MVI, Adult with Vitamin K 10 ML, Chromium/Copp IV SCH ×9 (02:08→22:36)
[2016-09-12] MEDS: Acetaminophen Soln 650 MG/20.3 ML UD Cup PO PRN ×3 (04:03→21:20)
[2016-09-12] MEDS ORDERED: Central Total Parenteral Nutrition Bag SCH (07:45)
[2016-09-12] MEDS: Alum Hydrox/Mag Hydrox/Simeth 360 ML, Lidocaine 2% 60 ML PO SCH ×6 (07:52→16:58)
--- NOTE | 2016-09-12 08:17 | OR ---
DATE OF PROCEDURE: 09/07/2016 PREOPERATIVE DIAGNOSES: 1. Indications for central venous access for IV hyperalimentation. 2. Complaints of nausea. POSTOPERATIVE DIAGNOSES: 1. Indications for central venous access for IV hyperalimentation. 2. Normal upper GI endoscopic examination, status post Deb-en-Y gastric bypass. OPERATIVE PROCEDURE: 1. Placement of double-lumen Snyder catheter via left subclavian vein approach (08660). 2. Upper GI endoscopy (76779). ANESTHESIA: Local plus IV sedation. INDICATION FOR PROCEDURE: A 26-year-old presenting with severe malnutrition, status post previous gastric bypass procedure. She was admitted overnight and the plan will be to proceed with Snyder catheter to aid in restoring her nutritional status by means of a TPN. The patient likely require some IV treatment in the ensuing weeks and months therefore, the Snyder catheter will be placed as opposed to a more simple central line. The patient also complaining of some nausea and anorexia and is to undergo an upper GI endoscopy as well with biopsies and/or dilation as indicated. Potential risks of procedure including bleeding, infection, injury to the lung and/or vasculature during the Snyder catheter insertion, possible perforation of the GI tract during the endoscopy were gone over and the patient wishes to proceed. DETAILS OF PROCEDURE: The patient was taken to the operating room and placed in a supine position. After IV sedation was administered, the upper chest and neck areas were prepped and draped. The left subclavian area was anesthetized with 1% lidocaine and left subclavian vein cannulated and guidewire guided under fluoroscopic guidance then manipulated through there into the superior vena cava. Some additional local anesthetic running around 4 fingerbreadths inferior to the original puncture site was placed and a small stab wound at that level of 4 fingerbreadths below the original puncture site was made and a Snyder catheter then tunneled between those two. The fibrous cuff was placed just underneath the lower incision of skin. The catheter was cut so it would zipline in the area of the superior vena cava right atrial junction and over the introducer peel-away catheter, the Snyder catheter was placed without difficulty. Fluoroscopy confirmed adequate location of the catheter tip. The catheter was then sutured to the skin externally with 3-0 nylon stitch and the original puncture site closed with some 4-0 Vicryl subcuticular stitch and Steri-Strips applied and dressing placed. The remaining in supine position, the upper GI endoscope was then passed orally through the length of the esophagus and into the gastric pouch, from there through the gastrojejunostomy roughly 20 cm into the Deb limb overall appeared to be no abnormalities noted. There is no significant redness or other signs of inflammation and no stricturing present. The scope was then withdrawn and the procedure concluded. The patient was taken to the recovery room in satisfactory condition. Harpal Huffman MD /[id number]
[2016-09-12] MEDS ORDERED: Iohexol 647 MG/ML 50 ML SDV PO SCH ×2 (09:15)
--- NOTE | 2016-09-12 09:17 | PN ---
DATE OF SERVICE: 09/12/2016 SUBJECTIVE: Eileen continues to have TPN running in same rate and content, and she is tolerating it well. Her oral intake for the past 24 hours has been 300. She has consumed 50% of her breakfast, 15% of her lunch, and no dinner. Vital signs have been stable and her C. difficile for her stool is negative. REVIEW OF SYSTEMS: HEENT: Negative. NECK: Negative. HEART: Negative for chest pain shortness of breath. LUNGS: No cough. ABDOMEN: Continues to have pain in the left mid quadrant. No change. EXTREMITIES: Revealed trace peripheral edema. SKIN: Without rash. PSYCHIATRIC: Stable. OBJECTIVE: GENERAL: Eileen Montes is a 26-year-old female. VITAL SIGNS: Height is 5 feet 4.96 inches. Weight is 219 pounds. TPR is 97.4, 81, 18, blood pressure 124/71. HEENT: Negative. NECK: Supple. HEART: Regular rate and rhythm. LUNGS: Clear. ABDOMEN: Soft. Remains to be minimally tender, left mid quadrant. There is no guarding or rebound tenderness. : Deferred. EXTREMITIES: Trace peripheral edema. ASSESSMENT: 1. Acute on chronic left upper quadrant abdominal pain. 2. Esophagogastroduodenoscopy on 09/07/2016 and placement of double-lumen Snyder catheter via left subclavian vein approach for indication of central venous for IV hyperalimentation and for persistent nausea. Results were normal upper GI examination, status post Deb-en-Y gastric bypass surgery. 3. Unspecified surgical malabsorption, B12 deficiency, anxiety depression hypokalemia and dehydration. PLAN: 1. Continue TPN same rate and content. 2. Check CBC, CMP, and mag phos in a.m. 3. Walk 6 times daily. 4. Care conference scheduled for 10:00 a.m. on 09/13/2016. Helena Hernandez PA-C /[phone]
--- NOTE | 2016-09-12 10:19 | CR ---
Limited upper GI with small bowel follow-through Comparison: CT examinations from 21 Jun 2016 and 06 September 2016. Water-soluble contrast was administered orally. The patient has a history of Deb-en-Y gastric bypas s. The proximal loops of small bowel are distended. Contrast does pass distal to the jejunal jejunal anastomosis. Distal to the anastomosis there is no small bowel distention. There is no free air. Impression: 1. The study suggests a partial obstruction at the jejunojejunal anastomosis.
[2016-09-12] MEDS: Dextrose 5%-Lact Ringers w/KCl 1,000 ML IV SCH (10:56)
[2016-09-12] MEDS: ALPRAZolam 0.5 MG Tab PO PRN (12:54)
[2016-09-12] MEDS: FLUoxetine Solution 20 MG/5 ML ML 120 ML Bottle PO SCH (12:58)
[2016-09-12] MEDS: Loperamide 1 MG/5 ML ML Solution 120 ML Bottle PO PRN (15:08)
--- NOTE | 2016-09-12 15:57 | PCM.SN ---
- Free Text/Narrative Note: Time of Hospital Visit: 3:20 - 3:45 pm Eileen was given the results of her Upper GI with Small Bowel Follow Through. Prior to visiting with Eileen Huffman MD was consulted. Eileen has a partial obstruction at the JJ junction and will need surgery. Surgery can be scheduled for , 09/20/16. Eileen stated that she wants a different surgeon and wants a second opinion. She was advised by someone to get a second opinion and has the fax number of [facility] at home. Harpal Huffman MD stated that if she requests a referral he would recommend the [facility], [place], [place]. Eileen will make her decision tonight and she wants to go home but needs TPN Therapy and adequate fluids Options: Direct transfer to her facitliy of choice if a provider will accept Recommended that TPN be continued to assure adequate nutrition and fluid to prevent dehydration. Reinforced with Eileen that the decision of her health care on where she wanted treatment was her choice. Helena Arroyo
[2016-09-12] MEDS: Pantoprazole 40 MG Tab.CR PO SCH (16:58)
[2016-09-12] MEDS: Fat Emulsion 100 ML IV SCH (17:00)
[2016-09-12] MEDS: Ondansetron 4 MG Tab.DIS PO PRN (19:41)
[2016-09-13] MEDS: Acetaminophen Soln 650 MG/20.3 ML UD Cup PO PRN ×2 (04:08→18:47)
[2016-09-13] MEDS: Loperamide 1 MG/5 ML ML Solution 120 ML Bottle PO PRN (04:27)
[2016-09-13] MEDS: Dextrose 5%-Lact Ringers w/KCl 1,000 ML IV SCH (06:54)
[2016-09-13] MEDS ORDERED: Central Total Parenteral Nutrition Bag SCH (07:15)
[2016-09-13] MEDS: Alum Hydrox/Mag Hydrox/Simeth 360 ML, Lidocaine 2% 60 ML PO SCH ×6 (07:30→11:47)
--- NOTE | 2016-09-13 08:43 | PN ---
DATE OF SERVICE: 09/13/2016 SUBJECTIVE: Eileen reports no abdominal pain. She has been afebrile. Oral intake, a little bit less than 600 mL. Urine output recorded was 250. She did have 100 mL emesis after drinking two cups of cocoa and laid down immediately afterwards and then had an emesis. Breakfast intake was 0, lunch was 0, dinner 75%, bowel movements 4. Eileen did have an upper GI with small-bowel followthrough, so was n.p.o. yesterday morning, but x-ray was completed close to noon. Results of CT scan revealed a partial obstruction at the jejunostomy anastomosis. Eileen was given those results late afternoon. REVIEW OF SYSTEMS: HEENT: Negative. NECK: Negative. CHEST: No chest pain or shortness of breath. LUNGS: No cough. GI: As above. : Negative. EXTREMITIES: Trace peripheral edema. SCDs are not on per the patient's request declining SCDs. Remainder of review of systems is negative for any pertinent positives and negatives. OBJECTIVE: GENERAL: Eileen Montes is a 26-year-old female. VITAL SIGNS: TPR 97.9, 85, 14, blood pressure 109/56. HEENT: Negative. NECK: Supple. HEART: Regular rate and rhythm. LUNGS: Clear. ABDOMEN: Soft, nontender. EXTREMITIES: Reveal trace peripheral edema. NEURO: Intact. ASSESSMENT: 1. Partial small bowel obstruction at the jejunostomy junction. 2. [id number] left upper quadrant abdominal pain. 3. EGD on 09/07/2016 and placement of double-lumen Snyder catheter via left subclavian vein. 4. Inadequate venous access and need for TPN. 5. SP Deb-en-Y gastric bypass surgery. 6. Unspecified surgical malabsorption. 7. B12 deficiency. 8. Anxiety and depression. 9. Hypokalemia. 10.Dehydration. PLAN: 1. Rx magnesium 2 g q.6 hours x72 hours. 2. The patient to wear SCDs or to have support hose. She will decide which one she wants. 3. To drink three small med cups per our record at bedside. 4. Ambulate 6-8 times, distance and time as tolerated. 5. To sit up in chair 2 hours after eating or drinking to avoid emesis. 6. Dietary consultation. 7. Dietary supplements q.i.d. and at bedtime. 8. Continue same TPN rate and content. 9. Good pulmonary toilet encouraged. 10.Due to smoking history, we will order an Acapella today to use at least q.i.d. 11.Eileen has decided to remain in the hospital and have surgery scheduled with Harpal Huffman MD on 09/20/2016 and to continue TPN therapy. We will evaluate p.r.n. or in a.m. Helena Hernandez PA-C /[id number]
[2016-09-13] MEDS: 1: AA 5%/Calcium/D15W/Lytes 1,000 ML with MVI, Adult with Vitamin K 10 ML, Chromium/Copp IV SCH ×3 (08:57)
[2016-09-13] MEDS: Magnesium Sulfate/Water 2 GM in Premix Bag 1 BAG IV SCH ×2 (09:03→14:21)
[2016-09-13] MEDS: FLUoxetine Solution 20 MG/5 ML ML 120 ML Bottle PO SCH (09:03)
[2016-09-13 17:49] VITALS: BP 144/77
[2016-09-13] MEDS: ALPRAZolam 0.5 MG Tab PO PRN (18:47)
[2016-09-13] MEDS ORDERED: 1: AA 5%/Calcium/D15W/Lytes 1,000 ML with MVI, Adult with Vitamin K 10 ML, Chromium/Copp IV SCH ×3 (19:30)
--- NOTE | 2016-09-14 08:59 | DISCH ---
ADMISSION DIAGNOSES: 1. Abdominal pain, nausea, and vomiting. 2. Status post Deb-en-Y gastric bypass surgery. 3. Unspecified surgical malabsorption. 4. B12 deficiency. 5. Hypokalemia with a potassium 2.6. 6. Attention deficit disorder. 7. Attention deficit hyperactivity disorder. 8. Anxiety and depression. 9. History eating disorder. 10.Obsessive-compulsive disorder. 11.Posttraumatic stress disorder, suicide attempt. DISCHARGE DIAGNOSES: 1. Partial obstruction at the jejunal anastomosis diagnosed by an upper gastrointestinal with small-bowel follow-through with air. 2. Acute on chronic left upper quadrant abdominal pain. 3. Esophagogastroduodenoscopy on 09/07/2016 and placement of double-lumen Snyder catheter via left subclavian vein. Harpal Huffman MD, for inadequate access and need for TPN. 4. Status post Deb-en-Y gastric bypass surgery. 5. Unspecified surgical malabsorption. 6. B12 deficiency. 7. Malnutrition. 8. Hypokalemia. 9. Vitamin B deficiency. 10.Vitamin D deficiency. HISTORY: Eileen Montes is a 26-year-old female who had gastric bypass surgery on 10/11/2015. Her weight before surgery was 377 pounds, current weight is 219, and height 5 feet 4.6 inches. PHYSICAL EXAMINATION: HEENT: Negative. NECK: Supple. She does have a Snyder catheter in her left subclavian. Dressings dry and intact. HEART: Regular rate and rhythm. LUNGS: Clear. ABDOMEN: Soft. She does have minimal tenderness in the left upper quadrant. EXTREMITIES: Without peripheral edema. NEUROLOGIC: Intact. PSYCHIATRIC: Mood and affect stable. VITAL SIGNS: TPR 97.9, 81, 18, and blood pressure 104/61. DISPOSITION: Discharge to [facility] per patient's request. The patient's case was discussed with Dr. Vance who will be accepting the patient. DISCHARGE MEDICATIONS: TPN therapy. Allergies are to Cipro, reaction is hives. Lactose, reaction is other. Current medications include Tylenol 650 mg q.4 hours p.r.n. pain, Xanax, alprazolam 0.5 mg p.o. q.8 hours p.r.n., Cepacol throat lozenge one q.i.d. p.r.n. sore throat, Prozac 40 mg q.a.m. scheduled, Imodium 2 mg q.6 hours p.r.n. diarrhea, magnesium sulfate 2 g IV q.6 hours x72 hours, Zofran ODT 4 mg g sublingual q.6 hours p.r.n. nausea, Zofran 4 mg IV q.6 hours, Protonix 40 mg p.o. q.24 hours scheduled, D5 LR with 20 mEq at 50 mL per hour, Seroquel 300 mg p.o. bedtime, Rozerem 8 mg p.o. bedtime, senna Plus one tablet b.i.d. p.r.n. On TPN therapy with AC/electro dextrose calcium with multivitamin 10 mL, chromium, copper, manganese selenide/Zn (Clinimix E5/15), fat emulsion intravenous Intralipid 20% 100 mL at 10 mL IV daily at 1800 DIET: Step 4 gastric bypass diet. 64 ounces of fluid encouraged. Eileen will be discharged per [facility], records will be accompanied with patient, as well as recent CT films, operative, and x-ray reports.
== END 2016-09-13 19:23 | DRG 388 ==
LOC: JP.ED 11:22 → JP.ICU 15:41 → UNDOADMIN 15:41 → JP.ICU 16:16 → JP.2SS 09-07 14:17 → UNDODISIN 09-13 19:23
PROVIDERS: ADMIT Internal Medicine; ATTEND Internal Medicine
PROC: 02HV33Z Insertion of Infusion Device into Superior Vena Cava, Percutaneous Approach (ICD-10-PCS; principal; 2016-09-07)
PROC: 0DJ08ZZ Inspection of Upper Intestinal Tract, Via Natural or Artificial Opening Endoscopic (ICD-10-PCS; principal; 2016-09-07)
PROC: 30233N1 Transfusion of Nonautologous Red Blood Cells into Peripheral Vein, Percutaneous Approach (ICD-10-PCS; 2016-09-09)
DX: K56.69 Other intestinal obstruction (principal); E43 Unspecified severe protein-calorie malnutrition; K91.2 Postsurgical malabsorption, not elsewhere classified; R10.12 Left upper quadrant pain; E86.0 Dehydration; E87.6 Hypokalemia; Z98.84 Bariatric surgery status; F33.9 Major depressive disorder, recurrent, unspecified; Z98.0 Intestinal bypass and anastomosis status; Z87.891 Personal history of nicotine dependence; D64.9 Anemia, unspecified; E53.8 Deficiency of other specified B group vitamins; F43.10 Post-traumatic stress disorder, unspecified; F41.9 Anxiety disorder, unspecified; Z87.440 Personal history of urinary (tract) infections; Z91.5 Personal history of self-harm; F42.9 Obsessive-compulsive disorder, unspecified; K21.9 Gastro-esophageal reflux disease without esophagitis; H54.7 Unspecified visual loss; Z88.1 Allergy status to other antibiotic agents; Z91.011 Allergy to milk products; E55.9 Vitamin D deficiency, unspecified; Z68.33 Body mass index [BMI] 33.0-33.9, adult; F32.9 Major depressive disorder, single episode, unspecified
CPT/HCPCS: 36415; 74022 ×2; 74177 ×2; 80053; 81001; 82150; 82607; 82728; 82746; 83690; 85025; 86140; 96361; 96374; 96375; 99285; J1170; J2060; J2405; J3480; J7030 ×2; J7040 ×2; J7050 ×2; 36430; 74020; 74020-26; 74245; 74245-26; 80048; 83735; 84100; 85027; 86850; 86870; 86900; 86901; 86902; 86920; 86922; 87493; 94667; 94762; 96376; 97110-GP; 97161-GP; 97530-GP; 99284; A9270-GY; C9113; J1642; J1885; J1940; J2250; J2704; J3010; J3410; J3411; J3420; J3475; J3490; J7120; P9016; P9047

== ENCOUNTER 2016-10-06 12:59 | Emergency (ER) | payer MEDICARE, MEDICAID ==
[2016-10-06] MEDS ORDERED: ALPRAZolam 0.25 MG Tab PO ONE (13:27)
[2016-10-06 13:38] VITALS: BP 114/61
--- NOTE | 2016-10-06 14:51 | EDM.PDOC ---
ED HPI GENERAL MEDICAL PROBLEM - General Chief Complaint: General Stated Complaint: SOMETHING WRONG WITH PORT Time Seen by Provider: 10/06/16 13:26 Source of Information: Reports: Patient History Limitations: Reports: No Limitations - History of Present Illness INITIAL COMMENTS - FREE TEXT/NARRATIVE: History of present illness: [26-year-old female who is status post gastric bypass who has a Snyder port for TPN in the left upper chest. It is malfunctioning and that when she abduction her arm it occludes when she lifts her arm it seems to be working. That is her chief complaint that is her chief concern she was hoping that somehow could be just switched our change today. She's had no fevers or chills and no other complaints] Review of systems: As per history of present illness and below otherwise all systems reviewed and negative. Past medical history: As per history of present illness and as reviewed below otherwise noncontributory. Surgical history: As per history of present illness and as reviewed below otherwise noncontributory. Social history: No reported history of drug or alcohol abuse. Family history: As per history of present illness and as reviewed below otherwise noncontributory. Physical exam: HEENT: Atraumatic, normocephalic, pupils reactive, negative for conjunctival pallor or scleral icterus, mucous membranes moist, throat clear, neck supple, nontender, trachea midline. Lungs: Clear to auscultation, breath sounds equal bilaterally, chest nontender. Examination of the Snyder site in the left upper chest reveals no evidence of infection or erythema or swelling. Heart: S1S2, regular, Extremities: Atraumatic, negative for cords or calf pain. Neurovascular unremarkable. Neuro: Awake, alert, oriented. Exam nonfocal. Diagnostics: [Nursing supervisor records change worked with the Snyder flushed it and did some testing of the device and determined that he did T does clot off or obstruct when her arm is at her side. Our plan will be to have her return on Saturday and have it replaced by Dr. Harpal Huffman and in the meantime she'll have to continue to use it but have her arm in a position where he can function.] Therapeutics: [] Impression: [Snyder malfunction] Plan: [She's to return on Saturday to have the device replaced and repositioned and made functional.] Definitive disposition and diagnosis as appropriate pending reevaluation and review of above. - Related Data Allergies Allergy/AdvReac Type Severity Reaction Status Date / Time ciprofloxacin [From Cipro] Allergy Hives Verified 09/06/16 11:43 lactose Allergy Other Verified 09/06/16 11:43 Home Meds: Home Meds Etonogestrel [Nexplanon] 1 injection SQ .3YEARS 10/07/15 [History] ALPRAZolam [Xanax] 0.5 mg PO TID 10/11/15 [History] Acetaminophen [Tylenol] 650 mg PO Q4H PRN #0 tablet 07/11/16 [Rx] Calcium Carbonate [Tums] 500 mg PO BID tab.chew 07/11/16 [Rx] Cyanocobalamin (Vitamin B12) [Vitamin B12] 1,000 mcg PO DAILY tablet 07/11/16 [ Rx] FLUoxetine [PROzac] 40 mg PO DAILY cap 07/11/16 [Rx] Multivitamins with Iron [Child Chew Iron] 1 tab PO BID tab.chew 07/11/16 [Rx] Ondansetron [Zofran ODT] 4 mg PO Q4H PRN #30 tab.dis 07/11/16 [Rx] QUEtiapine [SEROquel] 300 mg PO BEDTIME tablet 07/11/16 [Rx] Ramelteon [Rozerem] 1 tab PO BEDTIME 07/30/16 [History] Past Medical History HEENT History: Reports: Impaired Vision Gastrointestinal History: Reports: Bowel Obstruction, GERD Other Gastrointestinal History: girth 60 inches, GASTRIC BYPASS Genitourinary History: Reports: UTI, Recurrent Psychiatric History: Reports: ADD, ADHD, Anxiety, Depression, Eating Disorders, Mood Swings, OCD, Panic Attack, Psych Hospitalization(s), PTSD, Suicide Attempt Endocrine/Metabolic History: Reports: Obesity/BMI 30+, Vitamin D Deficiency Hematologic History: Reports: Anemia, Blood Transfusion(s), Iron Deficiency - Infectious Disease History Infectious Disease History: Reports: Chicken Pox - Past Surgical History HEENT Surgical History: Reports: None Cardiovascular Surgical History: Reports: None GI Surgical History: Reports: Bariatric Procedure, Cholecystectomy, Hernia Repair/Other, Other (See Below) Other GI Surgeries/Procedures: Umbilical hernia repair 07/11/2014. Drainage of pericholecystic abscess 07/11/2014. gallbladder out 2014. bowel obstruction surgery 10/2015 again 12/09/2015. 01/06 bowel obstruction surgery Female Surgical History: Reports: Cervical Cryotherapy Neurological Surgical History: Reports: None Dermatological Surgical History: Reports: None Social & Family History - Family History Family Medical History: Noncontributory - Tobacco Use Smoking Status *Q: Unknown Ever Smoked Years of Tobacco use: 5 Packs/Tins Daily: 10 Used Tobacco, but Quit: Yes Month Tobacco Last Used: 01 Second Hand Smoke Exposure: No - Caffeine Use Caffeine Use: Reports: None - Alcohol Use Days Per Week of Alcohol Use: 0 - Recreational Drug Use Recreational Drug Use: Yes Drug Use in Last 12 Months: Yes Recreational Drug Type: Reports: Marijuana/Hashish Recreational Drug Use Frequency: Weekly Recreational Drug Last Use: this past Saturday - Living Situation & Occupation Living situation: Reports: (lives with and cat.) ED ROS GENERAL - Review of Systems Review Of Systems: ROS reveals no pertinent complaints other than HPI. ED EXAM, GENERAL - Physical Exam Exam: See Below Course - Vital Signs Last Recorded V/S: Last Vital Signs Temp 35.6 C 10/06/16 13:40 Pulse 86 10/06/16 13:40 Resp 18 10/06/16 13:40 BP 114/61 10/06/16 13:40 Pulse Ox 94 L 10/06/16 13:40 - Orders/Labs/Meds Meds: Medications Discontinued Medications Generic Name Dose Route Start Last Admin Trade Name Alejo PRN Reason Stop Dose Admin Alprazolam 0.5 mg 10/06/16 13:27 10/06/16 14:11 Xanax PO 10/06/16 13:28 0.5 mg ONETIME ONE Administration Departure - Departure Time of Disposition: 14:50 Disposition: Home, Self-Care 01 Condition: Good Clinical Impression: Snyder catheter dysfunction Qualifiers: Encounter type: initial encounter Qualified Code(s): T82.514A - Breakdown ( mechanical) of infusion catheter, initial encounter - Discharge Information Forms: ED Department Discharge Additional Instructions: You are to return on Saturday to have your device replaced and repositioned and set things up so that is functioning properly for him.
== END 2016-10-06 15:15 | disposition home or self-care (01) ==
LOC: JP.ED 12:59
DX: T82.514A Breakdown (mechanical) of infusion catheter, initial encounter (principal); K21.9 Gastro-esophageal reflux disease without esophagitis; E66.9 Obesity, unspecified; Z98.890 Other specified postprocedural states; Z90.49 Acquired absence of other specified parts of digestive tract; F41.9 Anxiety disorder, unspecified; F32.9 Major depressive disorder, single episode, unspecified; F43.10 Post-traumatic stress disorder, unspecified; Z79.899 Other long term (current) drug therapy; Z88.1 Allergy status to other antibiotic agents; Z91.011 Allergy to milk products
CPT/HCPCS: 99284; A9270; 99283

== ENCOUNTER 2016-10-08 06:25 | Day surgery (SDC) | payer MEDICARE, MEDICAID ==
[2016-10-08] MEDS ORDERED: Lidocaine 1% with EPINEPHrine 1:100,000 50 ML MDV ONE (06:48)
[2016-10-08] MEDS ORDERED: Bupivacaine 0.5% 50 ML MDV ONE (06:48)
[2016-10-08] MEDS ORDERED: Dextrose 5%-Lactated Ringers 1,000 ML IV SCH (07:15)
[2016-10-08] MEDS: Sodium Chloride 0.9% 10 ML Syringe FLUSH PRN ×2 (07:20→09:56)
[2016-10-08] MEDS ORDERED: ceFAZolin 2 GM in Sodium Chloride 0.9% 50 ML IV ONE (08:00)
[2016-10-08] MEDS ORDERED: ceFAZolin 2 GM in Premix Bag 1 BAG IV ONE (08:00)
[2016-10-08] MEDS ORDERED: Propofol 200 MG/20 ML SDV ONE ×2 (08:13→08:24)
[2016-10-08] MEDS ORDERED: Midazolam 1 MG/ML 2 ML SDV ONE (08:14)
[2016-10-08] MEDS ORDERED: fentaNYL 100 MCG/2 ML SDV ONE (08:14)
[2016-10-08 09:54] VITALS: BP 100/62
--- NOTE | 2016-10-08 10:44 | CR ---
OR [id number] Filter INDICATION: weaver placement FINDINGS: Fluoroscopy utilized.
--- NOTE | 2016-10-09 13:27 | OR ---
DATE OF PROCEDURE: 10/08/2016 PREOPERATIVE DIAGNOSIS: Dysfunctional central venous catheter. POSTOPERATIVE DIAGNOSIS: Dysfunctional central venous catheter. OPERATIVE PROCEDURE: 1. Placement of new double-lumen Snyder catheter via right subclavian vein approach (22135). 2. Removal of left subclavian vein Snyder catheter (10688). ANESTHESIA: Local plus IV sedation. INDICATIONS FOR PROCEDURE: A 26-year-old presenting with a dysfunctional Snyder catheter on the left side. She is receiving home TPN and repeatedly reports occlusion and requiring quite a bit of manipulation to maintain functionality. Given this, a new Snyder catheter will be placed, we will go over to the other side, right side. Potential risks of the procedure including bleeding, infection, injury to underlying structures such as lung or vasculature were reviewed, and the patient wishes to proceed. DETAILS OF PROCEDURE: The patient was taken to the operating room and placed in a supine position. IV sedation was administered, after which the upper chest and neck areas were prepped and draped. The right subclavian area was anesthetized with 1% lidocaine and the right subclavian vein cannulated. A guidewire was passed and manipulated into the superior vena cava. Some additional local was then injected and a stab wound was placed roughly 4 fingerbreadths below the original skin puncture site on the anterior chest wall. The Snyder catheter was then tunneled between the 2 points of incision and over the guidewire and the introducer a peel-away catheter was placed, and the Snyder catheter was then cut such that the tip would lie in the right atrium and placed through the peel-away catheter without difficulty. The catheter was sutured to the skin with some 3-0 nylon stitch at the external site and then the original puncture site closed with a 4-0 Vicryl subcuticular stitch. Good in and outflow was noted. Portion of the catheter was flushed with heparinized saline. Attention was then taken to the left side of the Snyder catheter. At the skin exit site, some local was injected and a small incision was made and the catheter was then dissected free from the surrounding soft tissues at the fibrous cuff level and then removed without difficulty. Pressure dressing applied. The patient was taken to the recovery room in satisfactory condition. Harpal Huffman MD /[id number]
== END 2016-10-08 10:20 | disposition home or self-care (01) ==
LOC: JP.SDS 06:25
PROVIDERS: ATTEND Surgery
DX: T82.514A Breakdown (mechanical) of infusion catheter, initial encounter (principal); K21.9 Gastro-esophageal reflux disease without esophagitis; F43.10 Post-traumatic stress disorder, unspecified; Z88.1 Allergy status to other antibiotic agents; Z98.890 Other specified postprocedural states
CPT/HCPCS: 36558; 36589; J0690; J1642; J2250; J2704; J3010; J7042; J7050

== ENCOUNTER 2017-03-06 20:02 | Emergency (ER) | payer MEDICARE, MEDICAID ==
[2017-03-06] MEDS ORDERED: Metoclopramide 10 MG/2 ML SDV IVPUSH ONE (21:10)
[2017-03-06] MEDS ORDERED: Morphine 10 MG/ML Syringe IVPUSH ONE (21:10)
--- NOTE | 2017-03-06 21:18 | EDM.PDOC ---
ED HPI GENERAL MEDICAL PROBLEM - General Chief Complaint: Abdominal Pain Stated Complaint: ABDOMINAL PAIN Time Seen by Provider: 03/06/17 20:43 Source of Information: Reports: Patient, Old Records, RN Notes Reviewed History Limitations: Reports: No Limitations - History of Present Illness INITIAL COMMENTS - FREE TEXT/NARRATIVE: Here with her partner/boyfriend Chief complaint: Abdominal pain, bloating History of present illness: 26-year-old female with history of Deb-en-Y bypass done for obesity, complicated by postoperative pain, bowel obstruction requiring surgery 3 times, cholecystectomy, paracolic fluid not requiring drainage, and excessive weight loss/malnutrition requiring Snyder catheter for many months. In the last year Snyder has been removed and she has been able to maintain her weight and intake. No longer has a port or catheter. She always has some pain, takes Flexeril for pain, not on chronic opiates. Has been seen taste tester at [place], Dr. Gonzales, has upcoming colonoscopy scheduled for March 13. In the last 24 hours started developing significant abdominal bloating pain across the middle of her abdomen and nausea. She does not vomit because of her previous surgery illness or something in her throat. No fever or chills Pain disrupted sleep. She's been passing only small amounts of gas and her last bowel movement was a very small amount in the morning today. She did not want to come down to emergency but realized her pain was bad enough she didn't know what to do Menses have been irregular, she does have a contraceptive implant in her arm, last period was over a month ago Treatments HOSPITALIST PROGRAM DIRECTOR: Reports: Other (see below) Other Treatments HOSPITALIST PROGRAM DIRECTOR: Mag# Citrate 4oz. Upper Abdomen Pain Score (Numeric/FACES): 7 - Related Data Allergies Allergy/AdvReac Type Severity Reaction Status Date / Time ciprofloxacin [From Cipro] Allergy Hives Verified 03/06/17 20:36 lactose Allergy Other Verified 03/06/17 20:36 Home Meds: Home Meds Etonogestrel [Nexplanon] 1 injection SQ .3YEARS 10/07/15 [History] ALPRAZolam [Xanax] 0.5 mg PO TID 10/11/15 [History] Acetaminophen [Tylenol] 650 mg PO Q4H PRN #0 tablet 07/11/16 [Rx] Calcium Carbonate [Tums] 500 mg PO BID tab.chew 07/11/16 [Rx] Cyanocobalamin (Vitamin B12) [Vitamin B12] 1,000 mcg PO DAILY tablet 07/11/16 [ Rx] FLUoxetine [PROzac] 40 mg PO DAILY cap 07/11/16 [Rx] Multivitamins with Iron [Child Chew Iron] 1 tab PO BID tab.chew 07/11/16 [Rx] Ondansetron [Zofran ODT] 4 mg PO Q4H PRN #30 tab.dis 07/11/16 [Rx] QUEtiapine [SEROquel] 300 mg PO BEDTIME tablet 07/11/16 [Rx] Ramelteon [Rozerem] 1 tab PO BEDTIME 07/30/16 [History] Acetaminophen/oxyCODONE [Percocet 325-5 MG] 1 - 2 each PO QID PRN #10 tab [Rx] Cyclobenzaprine [Flexeril] 10 mg PO BID 03/06/17 [History] Docusate Sodium 100 mg PO BID 03/06/17 [History] Past Medical History HEENT History: Reports: Impaired Vision Other HEENT History: wears glasses Gastrointestinal History: Reports: Bowel Obstruction, GERD Other Gastrointestinal History: girth 60 inches, GASTRIC BYPASS Genitourinary History: Reports: UTI, Recurrent Psychiatric History: Reports: ADD, ADHD, Anxiety, Depression, Eating Disorders, Mood Swings, OCD, Panic Attack, Psych Hospitalization(s), PTSD, Suicide Attempt Endocrine/Metabolic History: Reports: Obesity/BMI 30+, Vitamin D Deficiency Hematologic History: Reports: Anemia, Blood Transfusion(s), Iron Deficiency - Infectious Disease History Infectious Disease History: Reports: Chicken Pox - Past Surgical History HEENT Surgical History: Reports: None Cardiovascular Surgical History: Reports: None GI Surgical History: Reports: Bariatric Procedure, Cholecystectomy, Hernia Repair/Other, Other (See Below) Other GI Surgeries/Procedures: Umbilical hernia repair 07/11/2014. Drainage of pericholecystic abscess 07/11/2014. gallbladder out 2014. bowel obstruction surgery 10/2015 again 12/09/2015. 01/06 bowel obstruction surgery Female Surgical History: Reports: None Endocrine Surgical History: Reports: None Neurological Surgical History: Reports: None Dermatological Surgical History: Reports: None Social & Family History - Family History Family Medical History: Noncontributory - Tobacco Use Smoking Status *Q: Never Smoker Years of Tobacco use: 6 Packs/Tins Daily: 1.5 Used Tobacco, but Quit: No Month Tobacco Last Used: Second Hand Smoke Exposure: No - Caffeine Use Caffeine Use: Reports: Coffee - Alcohol Use Days Per Week of Alcohol Use: 0 - Recreational Drug Use Recreational Drug Use: Yes Drug Use in Last 12 Months: Yes Recreational Drug Type: Reports: Marijuana/Hashish Recreational Drug Use Frequency: Daily Recreational Drug Last Use: this past Saturday - Living Situation & Occupation Living situation: Reports: (lives with and cat.) ED ROS GENERAL - Review of Systems Review Of Systems: See Below Constitutional: Reports: Decreased Appetite. Denies: Weight Loss HEENT: Reports: No Symptoms Respiratory: Reports: No Symptoms Cardiovascular: Reports: No Symptoms GI/Abdominal: Reports: Abdominal Pain, Decreased Appetite, Nausea, Other ( Distention, decreased stool decreased passage of gas). Denies: Diarrhea, Vomiting : Reports: No Symptoms Musculoskeletal: Reports: No Symptoms Skin: Reports: No Symptoms Neurological: Reports: No Symptoms Psychiatric: Reports: Anxiety ED EXAM, GI/ABD - Physical Exam Exam: See Below Exam Limited By: No Limitations General Appearance: Alert, Anxious, Moderate Distress, Other (Initially tachycardic, but current pulse rate is under 100 and blood pressure is in the normal range, no difficulty speaking and breathing) Eyes: Bilateral: Normal Appearance Ears: Normal External Exam Nose: Normal Inspection Throat/Mouth: Normal Inspection Head: Atraumatic, Normocephalic Neck: Normal Inspection Respiratory/Chest: No Respiratory Distress, Lungs Clear Cardiovascular: Normal Peripheral Pulses, Regular Rate, Rhythm GI/Abdominal Exam: Soft, Distended, Tender (Middle and upper abdomen diffuse), Abnormal Bowel Sounds (Increased quality and pitch bowel sounds). No: Guarding , Rigid, Rebound, Mass Back Exam: Normal Inspection Extremities: Normal Inspection, No Pedal Edema Neurological: Alert, No Motor/Sensory Deficits Psychiatric: Anxious Skin Exam: Warm, Dry, Intact, Normal Color, No Rash Course - Vital Signs Last Recorded V/S: Last Vital Signs Temp 36.1 C 03/06/17 20:25 Pulse 95 03/06/17 21:47 Resp 14 03/06/17 21:47 BP 105/63 03/06/17 21:47 Pulse Ox 94 L 03/06/17 21:47 - Orders/Labs/Meds Orders: Active Orders 24 hr Category Date Time Status Peripheral IV Care [RC] . DIRECTED Care 03/06/17 21:10 Active Abdomen 2V AP Flat Upright [CR] Stat Exams 03/06/17 21:59 Taken Sodium Chloride 0.9% [Normal Saline] 1,000 ml Med 03/06/17 21:15 Active IV ASDIRECTED Sodium Chloride 0.9% [Saline Flush] Med 03/06/17 21:10 Active 10 ml FLUSH ASDIRECTED PRN Peripheral IV Insertion Adult [OM.PC] Routine Oth 03/06/17 21:10 Ordered Medication Orders Sodium Chloride (Normal Saline) 1,000 mls @ 500 mls/hr IV ASDIRECTED SHANE Last Admin: 03/06/17 21:25 Dose: 500 mls/hr Sodium Chloride (Saline Flush) 10 ml FLUSH ASDIRECTED PRN PRN Reason: Keep Vein Open Last Admin: 03/06/17 21:35 Dose: 10 ml Admin: 03/06/17 21:30 Dose: 10 ml Labs: Laboratory Tests 03/06/17 03/06/17 Range/Units 21:10 21:10 WBC 5.1 (4.5-11.0) K/uL RBC 4.19 (3.30-5.50) M/uL Hgb 12.6 (12.0-15.0) g/dL Hct 36.4 (36.0-48.0) % MCV 87 (80-98) fL MCH 30 (27-31) pg MCHC 35 (32-36) % Plt Count 254 (150-400) K/uL Sodium 143 (140-148) mmol/L Potassium 3.9 (3.6-5.2) mmol/L Chloride 107 (100-108) mmol/L Carbon Dioxide 24 (21-32) mmol/L Anion Gap 11.7 (5.0-14.0) mmol/L BUN 9 (7-18) mg/dL Creatinine 0.7 (0.6-1.0) mg/dL Est Cr Clr Drug Dosing 111.51 mL/min Estimated GFR (MDRD) > 60 (>60) Glucose 97 (74-106) mg/dL Calcium 7.5 L (8.5-10.1) mg/dL Total Bilirubin 0.5 (0.2-1.0) mg/dL AST 58 H D (15-37) U/L ALT 64 D (12-78) U/L Alkaline Phosphatase 91 (46-116) U/L Total Protein 4.7 L (6.4-8.2) g/dL Albumin 2.2 L (3.4-5.0) g/dL Globulin 2.5 (2.3-3.5) g/dL Albumin/Globulin Ratio 0.9 L (1.2-2.2) Lipase 32 L (73-393) U/L Meds: Medications Generic Name Dose Route Start Last Admin Trade Name Freq PRN Reason Stop Dose Admin Sodium Chloride 1,000 mls @ 500 mls/hr 03/06/17 21:15 03/06/17 21:25 Normal Saline IV 500 mls/hr ASDIRECTED SHANE Administration Sodium Chloride 10 ml 03/06/17 21:10 03/06/17 21:35 Saline Flush FLUSH 10 ml ASDIRECTED PRN Administration Keep Vein Open Discontinued Medications Generic Name Dose Route Start Last Admin Trade Name Freq PRN Reason Stop Dose Admin Lorazepam 1 mg 03/06/17 22:28 03/06/17 22:36 Ativan PO 03/06/17 22:29 1 mg ONETIME ONE Administration Metoclopramide HCl 5 mg 03/06/17 21:10 03/06/17 21:26 Reglan IVPUSH 03/06/17 21:11 5 mg ONETIME ONE Administration Morphine Sulfate 8 mg 03/06/17 21:10 03/06/17 21:31 Morphine IVPUSH 03/06/17 21:11 8 mg ONETIME ONE Administration - Re-Assessments/Exams Free Text/Narrative Re-Assessment/Exam: 03/06/17 21:17 26-year-old female with history of prior abdominal surgery including cholecystectomy, Deb-en-Y gastric bypass, and at least 3 surgeries for bowel obstruction presenting with bloating abdominal pain decreased stool and decreased gas passage. Differential diagnosis includes partial bowel obstruction complete bowel obstruction, appendicitis, colitis and other abdominal processes. Intravenous saline, Reglan 5 mg, morphine 8 mg 03/06/17 23:03 CBC BUN/creatinine I lites normal, minimal elevation in all T Abdominal x-ray shows several air-fluid levels suggestive as small bowel obstruction, partial or obvious Improve with treatment above Total 20 mL/kg IV fluids Discharge home Soft/liquid diet, pain medicines, follow-up primary care and gastroenterology as arranged 03/06/17 23:04 Departure - Departure Time of Disposition: 23:50 Disposition: Home, Self-Care 01 Condition: Good Clinical Impression: Partial small bowel obstruction - Discharge Information Instructions: Small Bowel Obstruction Referrals: Angélica Nieves PA [Primary Care Provider] - Forms: ED Department Discharge Additional Instructions: Soft or liquid diet only Follow-up with your regular physician in the next week as well as with your taste tester as arranged - My Orders Last 24 Hours: My Active Orders 03/06/17 21:10 Peripheral IV Care [RC] . DIRECTED Sodium Chloride 0.9% [Saline Flush] 10 ml FLUSH ASDIRECTED PRN Peripheral IV Insertion Adult [OM.PC] Routine 03/06/17 21:15 Sodium Chloride 0.9% [Normal Saline] 1,000 ml IV ASDIRECTED 03/06/17 21:59 Abdomen 2V AP Flat Upright [CR] Stat - Assessment/Plan Last 24 Hours: My Active Orders 03/06/17 21:10 Peripheral IV Care [RC] . DIRECTED Sodium Chloride 0.9% [Saline Flush] 10 ml FLUSH ASDIRECTED PRN Peripheral IV Insertion Adult [OM.PC] Routine 03/06/17 21:15 Sodium Chloride 0.9% [Normal Saline] 1,000 ml IV ASDIRECTED 03/06/17 21:59 Abdomen 2V AP Flat Upright [CR] Stat
[2017-03-06] MEDS: Sodium Chloride 0.9% 1,000 ML IV SCH ×2 (21:25→23:18)
[2017-03-06] MEDS: Sodium Chloride 0.9% 10 ML Syringe FLUSH PRN ×2 (21:30→21:35)
[2017-03-06 21:48] VITALS: BP 105/63
[2017-03-06] MEDS ORDERED: LORazepam 1 MG Tab PO ONE (22:28)
--- NOTE | 2017-03-07 10:02 | CR ---
2 view abdomen Comparison: 12 September 2016. There has been a recurrence of distended loops of bowel in the left central and left upper quadrants. There are air-fluid levels. The patient has had a prior gastric bypass pro cedure. Impression: 1. Findings consistent with a small bowel obstruction.
== END 2017-03-07 00:35 | disposition home or self-care (01) ==
LOC: JP.ED 20:02 → EEVIPCON 20:02 → JP.ED 03-07 00:35
DX: K56.600 Partial intestinal obstruction, unspecified as to cause (principal); K21.9 Gastro-esophageal reflux disease without esophagitis; F90.9 Attention-deficit hyperactivity disorder, unspecified type; F43.10 Post-traumatic stress disorder, unspecified; D64.9 Anemia, unspecified; Z90.49 Acquired absence of other specified parts of digestive tract; Z98.890 Other specified postprocedural states; Z79.899 Other long term (current) drug therapy; Z91.011 Allergy to milk products; Z88.1 Allergy status to other antibiotic agents
CPT/HCPCS: 36415; 74019; 80053; 83690; 85027; 96361; 96374; 96375; 99284; A9270; J2270; J2765; J7040; J7050; J7030

== ENCOUNTER 2017-04-06 15:49 | Emergency (ER) | payer MEDICARE, MEDICAID ==
[2017-04-06] MEDS ORDERED: HYDROmorphone 1 MG/ML Syringe IVPUSH ONE ×2 (18:55→23:10)
[2017-04-06] MEDS ORDERED: Ondansetron 4 MG/2 ML SDV IVPUSH ONE (18:55)
[2017-04-06] MEDS ORDERED: Sodium Chloride 0.9% 10 ML Syringe FLUSH PRN (18:55)
[2017-04-06] MEDS ORDERED: Sodium Chloride 0.9% 1,000 ML IV SCH ×2 (19:00→23:15)
[2017-04-06 21:45] VITALS: BP 112/64
[2017-04-06] MEDS ORDERED: LORazepam 0.5 MG Tab PO ONE (22:10)
[2017-04-06] MEDS ORDERED: Metoclopramide 10 MG/2 ML SDV IVPUSH ONE (23:56)
--- NOTE | 2017-04-07 00:11 | EDM.PDOC ---
ED HPI GENERAL MEDICAL PROBLEM - General Chief Complaint: Abdominal Pain Stated Complaint: ABD PAIN Time Seen by Provider: 04/06/17 18:45 Source of Information: Reports: Patient History Limitations: Reports: No Limitations - History of Present Illness INITIAL COMMENTS - FREE TEXT/NARRATIVE: This patient comes in complaining of abdominal pain and nausea. She has a history of her Deb-en-Y with subsequent partial bowel obstruction. She has chronic pain. She said this morning she took one half of a Percocet tablet and that didn't help so later in the day she took a second half and that still didn' t help. She says that when she gets low on something in her blood she gets like this she feels like she needs IV fluids because her intake is been so poor she said "I recommend IV anything". She also said that she drinks mag citrate every day. She's tried some Gas-X said that didn't work. Middle Abdomen Pain Score (Numeric/FACES): 5 - Related Data Allergies Allergy/AdvReac Type Severity Reaction Status Date / Time ciprofloxacin [From Cipro] Allergy Hives Verified 04/06/17 18:13 lactose Allergy Other Verified 04/06/17 18:13 Home Meds: Home Meds Etonogestrel [Nexplanon] 1 injection SQ .3YEARS 10/07/15 [History] ALPRAZolam [Xanax] 0.5 mg PO TID 10/11/15 [History] Acetaminophen [Tylenol] 650 mg PO Q4H PRN #0 tablet 07/11/16 [Rx] Calcium Carbonate [Tums] 500 mg PO BID tab.chew 07/11/16 [Rx] Cyanocobalamin (Vitamin B12) [Vitamin B12] 1,000 mcg PO DAILY tablet 07/11/16 [ Rx] FLUoxetine [PROzac] 40 mg PO DAILY cap 07/11/16 [Rx] Multivitamins with Iron [Child Chew Iron] 1 tab PO BID tab.chew 07/11/16 [Rx] Ondansetron [Zofran ODT] 4 mg PO Q4H PRN #30 tab.dis 07/11/16 [Rx] QUEtiapine [SEROquel] 300 mg PO BEDTIME tablet 07/11/16 [Rx] Ramelteon [Rozerem] 1 tab PO BEDTIME 06/12/17 [History] Acetaminophen/oxyCODONE [Percocet 325-5 MG] 1 - 2 each PO QID PRN #10 tab [Rx] Cyclobenzaprine [Flexeril] 10 mg PO BID 03/06/17 [History] Docusate Sodium 100 mg PO BID 03/06/17 [History] Past Medical History HEENT History: Reports: Impaired Vision Other HEENT History: wears glasses Gastrointestinal History: Reports: Bowel Obstruction, GERD Other Gastrointestinal History: girth 60 inches, GASTRIC BYPASS Genitourinary History: Reports: UTI, Recurrent Psychiatric History: Reports: ADD, ADHD, Anxiety, Depression, Eating Disorders, Mood Swings, OCD, Panic Attack, Psych Hospitalization(s), PTSD, Suicide Attempt Endocrine/Metabolic History: Reports: Obesity/BMI 30+, Vitamin D Deficiency Hematologic History: Reports: Anemia, Blood Transfusion(s), Iron Deficiency - Infectious Disease History Infectious Disease History: Reports: Chicken Pox - Past Surgical History HEENT Surgical History: Reports: None Cardiovascular Surgical History: Reports: None GI Surgical History: Reports: Bariatric Procedure, Cholecystectomy, Hernia Repair/Other, Other (See Below) Other GI Surgeries/Procedures: Umbilical hernia repair 07/11/2014. Drainage of pericholecystic abscess 07/11/2014. gallbladder out 2014. bowel obstruction surgery 10/2015 again 12/09/2015. 01/06 bowel obstruction surgery Female Surgical History: Reports: None Endocrine Surgical History: Reports: None Neurological Surgical History: Reports: None Dermatological Surgical History: Reports: None Social & Family History - Family History Family Medical History: Noncontributory - Tobacco Use Smoking Status *Q: Current Every Day Smoker Years of Tobacco use: 4 Packs/Tins Daily: 0.3 Used Tobacco, but Quit: No Month Tobacco Last Used: Second Hand Smoke Exposure: No - Caffeine Use Caffeine Use: Reports: Coffee - Alcohol Use Days Per Week of Alcohol Use: 0 - Recreational Drug Use Recreational Drug Use: Yes Drug Use in Last 12 Months: Yes Recreational Drug Type: Reports: Marijuana/Hashish Recreational Drug Use Frequency: Daily Recreational Drug Last Use: this past Saturday - Living Situation & Occupation Living situation: Reports: (lives with and cat.) ED ROS GENERAL - Review of Systems Review Of Systems: See Below Constitutional: Denies: Fever HEENT: Reports: No Symptoms Respiratory: Reports: No Symptoms Cardiovascular: Reports: No Symptoms Endocrine: Reports: No Symptoms GI/Abdominal: Reports: Abdominal Pain : Reports: No Symptoms Musculoskeletal: Reports: No Symptoms Skin: Reports: No Symptoms Neurological: Reports: No Symptoms ED EXAM, GI/ABD - Physical Exam Exam: See Below Exam Limited By: No Limitations General Appearance: Alert, Obese Eyes: Bilateral: Normal Appearance Throat/Mouth: Normal Inspection Neck: Normal Inspection Respiratory/Chest: Lungs Clear Cardiovascular: Regular Rate, Rhythm GI/Abdominal Exam: Other (She does seem to have quite a bit of gas in the left upper quadrant. There is no tenderness. Bowel sounds are normal) Extremities: Normal Inspection Neurological: Alert Course - Vital Signs Last Recorded V/S: Last Vital Signs Temp 36.4 C 04/06/17 18:10 Pulse 99 04/06/17 21:44 Resp 20 04/06/17 21:44 BP 112/64 04/06/17 21:44 Pulse Ox 99 04/06/17 21:44 - Orders/Labs/Meds Meds: Medications Discontinued Medications Generic Name Dose Route Start Last Admin Trade Name Alejo PRN Reason Stop Dose Admin Hydromorphone HCl 1 mg 04/06/17 18:55 04/06/17 19:15 Dilaudid IVPUSH 04/06/17 18:56 1 mg ONETIME ONE Administration Hydromorphone HCl 1 mg 04/06/17 23:10 04/06/17 23:15 Dilaudid IVPUSH 04/06/17 23:11 1 mg ONETIME ONE Administration Sodium Chloride 1,000 mls @ 999 mls/hr 04/06/17 19:00 04/06/17 19:10 Normal Saline IV 999 mls/hr ASDIRECTED SHANE Administration Sodium Chloride 1,000 mls @ 999 mls/hr 04/06/17 23:15 04/06/17 23:12 Normal Saline IV 400 mls/hr ASDIRECTED SHANE Administration Lorazepam 0.5 mg 04/06/17 22:10 04/06/17 22:23 Ativan PO 04/06/17 22:11 0.5 mg ONETIME ONE Administration Metoclopramide HCl 10 mg 04/06/17 23:56 04/07/17 00:02 Reglan IVPUSH 04/06/17 23:57 10 mg ONETIME ONE Administration Ondansetron HCl 4 mg 04/06/17 18:55 04/06/17 19:11 Zofran IVPUSH 04/06/17 18:56 4 mg ONETIME ONE Administration Sodium Chloride 10 ml 04/06/17 18:55 04/06/17 19:28 Saline Flush FLUSH 10 ml ASDIRECTED PRN Administration Keep Vein Open - Re-Assessments/Exams Free Text/Narrative Re-Assessment/Exam: 04/08/17 06:47 An IV was established she was given a total of about 1.5 L of IV normal saline. She was asking for something for nausea initially given some Zofran she wanted something for pain she was given Dilaudid 1 mg eventually a second milligram was given she felt she was anxious and asked for some Ativan she was given 1 mg orally. And then finally she felt like Reglan would help her nausea since she was given 10 mg of Reglan. By feeling this is a chronic problem and we were not going to reach an endpoint with this lady so I suggested that we go ahead and stop any further treatment and discharge her home she should continue her regular medications. I did tell her that she could increase her Percocet for a short period of time see the discharge instructions Departure - Departure Time of Disposition: 00:10 Disposition: Home, Self-Care 01 Condition: Fair Clinical Impression: Abdominal pain - Discharge Information Instructions: Abdominal Pain, Adult, [id number] Referrals: Angélica Nieves PA [Primary Care Provider] - Forms: ED Department Discharge Additional Instructions: You may take Percocet 5 mg 1 tablet every 4 hours for pain. You should know that if you take this for a long time you might eventually become dependent on it. You should talk with your about this next week. Continue all your other medications
== END 2017-04-07 00:22 | disposition home or self-care (01) ==
LOC: JP.ED 15:49
DX: R10.9 Unspecified abdominal pain (principal); F17.210 Nicotine dependence, cigarettes, uncomplicated; F32.9 Major depressive disorder, single episode, unspecified; Z90.49 Acquired absence of other specified parts of digestive tract; Z98.84 Bariatric surgery status; Z98.890 Other specified postprocedural states; Z79.01 Long term (current) use of anticoagulants; Z79.899 Other long term (current) drug therapy; Z88.1 Allergy status to other antibiotic agents; Z91.011 Allergy to milk products
CPT/HCPCS: 96361; 96374; 96375; 96376; 99284; A9270; J1170; J2405; J2765; J7040; J7050; 99283; J7030

== ENCOUNTER 2017-04-13 20:03 | Emergency (ER) | payer MEDICARE, MEDICAID ==
[2017-04-13 20:40] VITALS: BP 115/77
--- NOTE | 2017-04-13 21:35 | EDM.PDOC ---
ED HPI GENERAL MEDICAL PROBLEM - General Chief Complaint: Abdominal Pain Stated Complaint: ABDOMINAL PAIN Time Seen by Provider: 04/13/17 21:27 Source of Information: Reports: Patient, Family (spouse) History Limitations: Reports: No Limitations - History of Present Illness INITIAL COMMENTS - FREE TEXT/NARRATIVE: With ongoing abdominal pain issues. Seen frequently in the ER. present today. Last 2 ER notes reviewed. S/P gastric bypass 2016 with poor outcomes and tolerance of lifestyle changes needed after the procedure. She does have underlying psych diagnoses as well. She reports seeing her counselor weekly. States "I don't want to see Dr Huffman ever again". "I am dehydrated." Underwent EGD and colonoscopy 2 weeks ago with noted ulcer in the stomach pouch per pt report. Was started on Prilosec 20mg BID on the 14 of March per her report. Patient reports being out of pain meds at home. States "I don't know what to do". Pt reports eating normal foods today including rib meat, chips, water. Has not vomited. Had a BM upon arrival liquid in consistency. Pt concerned about dehydration as this is common for her. She does appear to be agitated and quite demanding that she needs pain meds. States "I will yell at whoever I have to". Onset: Other (ongoing) Duration: Chronic, Intermittent Location: Reports: Abdomen Quality: Reports: Pressure Severity: Moderate Improves with: Reports: Medication Worsens with: Reports: None Associated Symptoms: Reports: No Other Symptoms - Related Data Allergies Allergy/AdvReac Type Severity Reaction Status Date / Time ciprofloxacin [From Cipro] Allergy Hives Verified 04/06/17 18:13 lactose Allergy Other Verified 04/06/17 18:13 Home Meds: Home Meds Etonogestrel [Nexplanon] 1 injection SQ .3YEARS 10/07/15 [History] ALPRAZolam [Xanax] 1 mg PO TID 10/11/15 [History] Acetaminophen [Tylenol] 650 mg PO Q4H PRN #0 tablet 07/11/16 [Rx] Calcium Carbonate [Tums] 500 mg PO BID tab.chew 07/11/16 [Rx] Cyanocobalamin (Vitamin B12) [Vitamin B12] 1,000 mcg PO DAILY tablet 07/11/16 [ Rx] Multivitamins with Iron [Child Chew Iron] 1 tab PO BID tab.chew 07/11/16 [Rx] Ondansetron [Zofran ODT] 4 mg PO Q4H PRN #30 tab.dis 07/11/16 [Rx] QUEtiapine [SEROquel] 300 mg PO BEDTIME tablet 07/11/16 [Rx] Ramelteon [Rozerem] 1 tab PO BEDTIME 07/30/16 [History] Acetaminophen/oxyCODONE [Percocet 325-5 MG] 1 - 2 each PO QID PRN #10 tab [Rx] Cyclobenzaprine [Flexeril] 10 mg PO BID 03/06/17 [History] Docusate Sodium 100 mg PO BID 03/06/17 [History] FLUoxetine [PROzac] 60 mg PO DAILY 04/13/17 [History] Past Medical History HEENT History: Reports: Impaired Vision Other HEENT History: wears glasses Gastrointestinal History: Reports: Bowel Obstruction, GERD Other Gastrointestinal History: girth 60 inches, GASTRIC BYPASS Genitourinary History: Reports: UTI, Recurrent Psychiatric History: Reports: ADD, ADHD, Anxiety, Depression, Eating Disorders, Mood Swings, OCD, Panic Attack, Psych Hospitalization(s), PTSD, Suicide Attempt Endocrine/Metabolic History: Reports: Obesity/BMI 30+, Vitamin D Deficiency Hematologic History: Reports: Anemia, Blood Transfusion(s), Iron Deficiency - Infectious Disease History Infectious Disease History: Reports: Chicken Pox - Past Surgical History HEENT Surgical History: Reports: None Cardiovascular Surgical History: Reports: None GI Surgical History: Reports: Bariatric Procedure, Cholecystectomy, Hernia Repair/Other, Other (See Below) Other GI Surgeries/Procedures: Umbilical hernia repair 07/11/2014. Drainage of pericholecystic abscess 07/11/2014. gallbladder out 2014. bowel obstruction surgery 10/2015 again 12/09/2015. 01/06 bowel obstruction surgery Female Surgical History: Reports: None Endocrine Surgical History: Reports: None Neurological Surgical History: Reports: None Dermatological Surgical History: Reports: None Social & Family History - Family History Family Medical History: Noncontributory - Tobacco Use Smoking Status *Q: Current Every Day Smoker Years of Tobacco use: 6 Packs/Tins Daily: 0.1 Used Tobacco, but Quit: No Month Tobacco Last Used: Second Hand Smoke Exposure: No - Caffeine Use Caffeine Use: Reports: Coffee - Alcohol Use Days Per Week of Alcohol Use: 0 - Recreational Drug Use Recreational Drug Use: No Drug Use in Last 12 Months: Yes Recreational Drug Type: Reports: Marijuana/Hashish Recreational Drug Use Frequency: Daily Recreational Drug Last Use: this past Saturday - Living Situation & Occupation Living situation: Reports: (lives with and cat.) ED ROS GENERAL - Review of Systems Review Of Systems: See Below Constitutional: Reports: Fatigue HEENT: Reports: No Symptoms Respiratory: Reports: No Symptoms Cardiovascular: Reports: No Symptoms Endocrine: Reports: Fatigue GI/Abdominal: Reports: Abdominal Pain : Reports: No Symptoms Musculoskeletal: Reports: No Symptoms Skin: Reports: No Symptoms Neurological: Reports: No Symptoms Psychiatric: Reports: Agitation ED EXAM, GI/ABD - Physical Exam Exam: See Below Exam Limited By: Combative/Threatening General Appearance: Alert, Mild Distress, Obese Ears: Normal External Exam, Normal Canal, Hearing Grossly Normal, Normal TMs Nose: Normal Inspection, Normal Mucosa, No Blood Throat/Mouth: Normal Inspection, Normal Lips, Normal Teeth, Normal Gums, Normal Oropharynx, Normal Voice, No Airway Compromise Head: Atraumatic, Normocephalic Neck: Normal Inspection, Supple, Non-Tender, Full Range of Motion Respiratory/Chest: No Respiratory Distress, Lungs Clear, Normal Breath Sounds, No Accessory Muscle Use, Chest Non-Tender Cardiovascular: Normal Peripheral Pulses, Regular Rate, Rhythm, No Edema, No Gallop, No JVD, No Murmur, No Rub GI/Abdominal Exam: Normal Bowel Sounds, Soft, No Organomegaly, No Distention, No Abnormal Bruit, No Mass, Pelvis Stable, Tender (right upper quadrant with no rebound or guarding.) Extremities: Normal Inspection, Normal Range of Motion, Non-Tender, Normal Capillary Refill, No Pedal Edema Course - Vital Signs Last Recorded V/S: Last Vital Signs Temp 95.9 F 04/13/17 20:40 Pulse 112 H 04/13/17 20:40 Resp 18 04/13/17 20:40 BP 115/77 04/13/17 20:40 Pulse Ox 96 04/13/17 20:40 - Orders/Labs/Meds Labs: Laboratory Tests 04/13/17 04/13/17 Range/Units 21:47 21:47 WBC 4.3 L (4.5-11.0) K/uL RBC 3.57 (3.30-5.50) M/uL Hgb 11.0 L (12.0-15.0) g/dL Hct 32.9 L (36.0-48.0) % MCV 92 (80-98) fL MCH 31 (27-31) pg MCHC 33 (32-36) % Plt Count 279 (150-400) K/uL Neut % (Auto) 48 (36-66) % Lymph % (Auto) 44 (24-44) % Irwin % (Auto) 7 H (2-6) % Eos % (Auto) 1 L (2-4) % Baso % (Auto) 1 (0-1) % Sodium 141 (140-148) mmol/L Potassium 3.2 L (3.6-5.2) mmol/L Chloride 109 H (100-108) mmol/L Carbon Dioxide 24 (21-32) mmol/L Anion Gap 11.2 (5.0-14.0) mmol/L Departure - Departure Time of Disposition: 22:14 Disposition: Home, Self-Care 01 Condition: Fair Clinical Impression: Chronic abdominal pain - Discharge Information Instructions: Chronic Pain, Adult Referrals: Angélica Nieves PA [Primary Care Provider] - Forms: ED Department Discharge Additional Instructions: CBC with normal WBC. Hemoglobin stable at 11. Lytes show a normal sodium. Potassium a bit low. Pt states that she takes potassium daily. Is very angry. Demands to "give me my discharge papers so I can leave." I explained that there is no need for IV fluids at this time. She is to resume her diet at home and followup with her surgeon. Did briefly discuss that she may benefit from a referral to a pain center as her pain is no longer acute, but chronic. Explained that narcotics are not appropriate for an ulcer but that she should continue her Prilosec for the full 4-6 weeks for optimum healing. Pt asks to leave and states "I wish Dr. Huffman would never see my again." I encouraged her to followup later this week with primary care to discuss pain referral. Continue counseling weekly. - Problem List & Annotations (1) Status post gastric bypass for obesity SNOMED Code(s): 994356474, 865875118, 788837083 Code(s): Z98.84 - BARIATRIC SURGERY STATUS Status: Chronic Priority: Low Current Visit: No Annotation/Comment:: Deb-en-y (2) Chronic abdominal pain SNOMED Code(s): 006554240 Code(s): R10.9 - UNSPECIFIED ABDOMINAL PAIN; G89.29 - OTHER CHRONIC PAIN Status: Acute Priority: Low Current Visit: Yes
== END 2017-04-13 22:26 | disposition home or self-care (01) ==
LOC: JP.ED 20:03
DX: R10.9 Unspecified abdominal pain (principal); G89.29 Other chronic pain; K21.9 Gastro-esophageal reflux disease without esophagitis; F32.9 Major depressive disorder, single episode, unspecified; F17.210 Nicotine dependence, cigarettes, uncomplicated; Z98.84 Bariatric surgery status; Z90.49 Acquired absence of other specified parts of digestive tract; Z98.890 Other specified postprocedural states; Z79.899 Other long term (current) drug therapy; Z88.1 Allergy status to other antibiotic agents; Z91.011 Allergy to milk products
CPT/HCPCS: 36415; 80051; 85025; 99284

== ENCOUNTER 2017-06-07 22:14 | Observation (INO) | payer MEDICARE, MEDICAID ==
[2017-06-07] MEDS ORDERED: Lactated Ringers 1,000 ML IV ONE (22:38)
[2017-06-07] MEDS ORDERED: Metoclopramide 10 MG/2 ML SDV IVPUSH ONE (22:45)
[2017-06-07] MEDS ORDERED: diphenhydrAMINE 50 MG/ML SDV IVPUSH ONE (22:46)
[2017-06-07] MEDS ORDERED: HYDROmorphone 0.5 MG/0.5 ML Syringe IVPUSH ONE (22:46)
--- NOTE | 2017-06-07 22:53 | EDM.PDOC ---
ED HPI GENERAL MEDICAL PROBLEM - General Chief Complaint: Abdominal Pain Stated Complaint: ABD PAIN Time Seen by Provider: 06/07/17 22:35 Source of Information: Reports: Patient, Old Records, RN History Limitations: Reports: No Limitations - History of Present Illness INITIAL COMMENTS - FREE TEXT/NARRATIVE: 27 yo female with a pHx of Deb-N-Y gastric bypass in was here in February and was dx with an ulcer in her pouch. Omeprazole was prescribed, but she has not been taking it(brings in bottles that were filled each of the past 3 mos and almost nothing is missing from the bottles of omeprazole). Was seen in [place] about 2 weeks ago for a similar problem, but at that time had diarrhea. Now reports diffuse abdominal pain with some vomiting, does not mention diarrhea. Denies fever. Does not feel distended. Sx's got much worse today. Records from [place] show that they identified iron deficiency anemia, dehydration, hypokalemia, hypomagnesemia, hypoproteinemia, Vitamin D deficiency and colitis. C.diff testing was negative. She was given replacement K, Mg, Vitamin D 50,000 units and Iron IV(Venofer 400 mg). Her mag and potassium levels were normal at the time of her discharge. She was instructed to take Miralax for her intermittent constipation, protein supplements for her hypoalbuminemia, Celebrex for abdominal pain and was to hold her ibuprofen. She was to continue Protonix daily, and to use Peptobismol for abdominal gas. CT scanning of her abdomen in [place] showed: diffuse wall thickening, enlarged mesenteric lymph nodes up to 1.5 cm in diameter, and diffuse hepatic steatosis. Onset: Today (much worse than usual. ) Onset Date: 06/07/17 Duration: Hour(s):, Chronic, Getting Worse Location: Reports: Abdomen Quality: Reports: Ache Severity: Moderate Improves with: Reports: None Worsens with: Reports: None Context: Reports: Other (Hx of gastric bypass, has had chronic abdominal pain more or less since the surgery. ) Associated Symptoms: Reports: Nausea/Vomiting. 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 Pain Score (Numeric/FACES): 10 - Related Data Allergies Allergy/AdvReac Type Severity Reaction Status Date / Time ciprofloxacin [From Cipro] Allergy Hives Verified 06/07/17 22:20 lactose Allergy Other Verified 06/07/17 22:20 Home Meds: Home Meds Etonogestrel [Nexplanon] 1 injection SQ .3YEARS 10/07/15 [History] Calcium Carbonate [Tums] 500 mg PO BID tab.chew 07/11/16 [Rx] Cyanocobalamin (Vitamin B12) [Vitamin B12] 1,000 mcg PO DAILY tablet 07/11/16 [ Rx] Multivitamins with Iron [Child Chew Iron] 1 tab PO BID tab.chew 07/11/16 [Rx] Ondansetron [Zofran ODT] 4 mg PO Q4H PRN #30 tab.dis 07/11/16 [Rx] QUEtiapine [SEROquel] 300 mg PO BEDTIME tablet 07/11/16 [Rx] Ramelteon [Rozerem] 8 mg PO BEDTIME 07/30/16 [History] Cyclobenzaprine [Flexeril] 10 mg PO BID PRN 03/06/17 [History] FLUoxetine [PROzac] 60 mg PO DAILY 04/13/17 [History] ALPRAZolam [Alprazolam] 0.5 mg PO TID PRN 06/07/17 [History] Bismuth Subsalicylate [Soothe] 1 - 2 tab PO Q4H PRN 06/07/17 [History] Celecoxib 200 mg PO ASDIRECTED PRN 06/07/17 [History] Magnesium Oxide 400 mg PO BID 06/07/17 [History] Omeprazole 20 mg PO BID 06/07/17 [History] Pantoprazole Sodium 40 mg PO BID 06/07/17 [History] Past Medical History HEENT History: Reports: Impaired Vision Other HEENT History: wears glasses Gastrointestinal History: Reports: Bowel Obstruction, GERD Other Gastrointestinal History: girth 60 inches, GASTRIC BYPASS Genitourinary History: Reports: UTI, Recurrent 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: Reports: Endometriosis Psychiatric History: Reports: ADD, ADHD, Anxiety, Depression, Eating Disorders, Mood Swings, OCD, Panic Attack, Psych Hospitalization(s), PTSD, Suicide Attempt Endocrine/Metabolic History: Reports: Obesity/BMI 30+, Vitamin D Deficiency Hematologic History: Reports: Anemia, Blood Transfusion(s), Iron Deficiency - Infectious Disease History Infectious Disease History: Reports: Chicken Pox - Past Surgical History HEENT Surgical History: Reports: None GI Surgical History: Reports: Bariatric Procedure, Cholecystectomy, Hernia Repair/Other, Other (See Below) Other GI Surgeries/Procedures: Umbilical hernia repair 07/11/2014. Drainage of pericholecystic abscess 07/11/2014. gallbladder out 2014. bowel obstruction surgery 10/2015 again 12/09/2015. 01/06 bowel obstruction surgery Social & Family History - Family History Family Medical History: Noncontributory - Tobacco Use Smoking Status *Q: Light Tobacco Smoker Years of Tobacco use: 6 Packs/Tins Daily: 3 Used Tobacco, but Quit: No Month/Year Tobacco Last Used: Second Hand Smoke Exposure: No - Caffeine Use Caffeine Use: Reports: Coffee - Alcohol Use Days Per Week of Alcohol Use: 0 - Recreational Drug Use Recreational Drug Use: Yes Drug Use in Last 12 Months: Yes Recreational Drug Type: Reports: Marijuana/Hashish Recreational Drug Use Frequency: Weekly Recreational Drug Last Use: this past Saturday - Living Situation & Occupation Living situation: Reports: (lives with and cat.) ED ROS GENERAL - Review of Systems Review Of Systems: See Below Constitutional: Reports: Malaise, Decreased Appetite. Denies: Fever HEENT: Reports: No Symptoms Respiratory: Reports: No Symptoms Cardiovascular: Reports: No Symptoms GI/Abdominal: Reports: Abdominal Pain, Decreased Appetite, Nausea, Vomiting. Denies: Black Stool, Bloody Stool, Constipation, Diarrhea, Distension, Flatus, Hematemesis, Hematochezia, Melena : Reports: No Symptoms Musculoskeletal: Reports: No Symptoms Skin: Reports: No Symptoms Neurological: Reports: No Symptoms ED EXAM, GI/ABD - Physical Exam Exam: See Below Exam Limited By: No Limitations General Appearance: Alert, WD/WN, No Apparent Distress Eyes: Bilateral: Normal Appearance Ears: Normal External Exam, Normal Canal, Hearing Grossly Normal, Normal TMs Nose: Normal Inspection, Normal Mucosa, No Blood Throat/Mouth: Normal Lips, Normal Oropharynx, Normal Voice, No Airway Compromise , Other (Dry oral mucosa) Head: Atraumatic, Normocephalic Neck: Normal Inspection, Supple, Non-Tender Respiratory/Chest: No Respiratory Distress, Lungs Clear, Normal Breath Sounds, No Accessory Muscle Use Cardiovascular: Regular Rate, Rhythm, No Edema GI/Abdominal Exam: Normal Bowel Sounds, Soft, Tender (diffusely), Other (Seems a bit dull on percussion of her abdomen. ). No: Non-Tender, Guarding, Rigid, Rebound Extremities: Normal Inspection, Normal Range of Motion, Non-Tender, No Pedal Edema Neurological: Alert, Oriented, CN II-XII Intact, Normal Cognition, No Motor/ Sensory Deficits Psychiatric: Normal Affect, Normal Mood Skin Exam: Warm, Dry, Intact, No Rash, Other (pale) Course - Vital Signs Last Recorded V/S: Last Vital Signs Temp 36.4 C 06/08/17 00:25 Pulse 121 H 06/08/17 00:25 Resp 16 06/08/17 00:25 BP 123/74 06/08/17 00:25 Pulse Ox 100 06/08/17 00:25 - Orders/Labs/Meds Orders: Active Orders 24 hr Category Date Time Status Abdomen 1V Upright [CR] Stat Exams 06/07/17 22:56 Taken Abdomen w Cont [CT] Stat Exams 06/08/17 00:32 Ordered Magnesium Sulfate/Water [Magnesium Sulfate 2 GM in Med 06/08/17 00:17 Active Water 50 ML] 2 gm Premix Bag 1 bag IV ONETIME Medication Orders Magnesium Sulfate 2 gm/ Premix 50 mls @ 12.5 mls/hr IV ONETIME ONE Stop: 06/08/17 04:16 Last Admin: 06/08/17 00:48 Dose: 12.5 mls/hr Labs: Laboratory Tests 06/07/17 06/07/17 06/07/17 Range/Units 23:40 23:40 23:40 WBC 7.5 (4.5-11.0) K/uL RBC 4.13 (3.30-5.50) M/uL Hgb 12.4 (12.0-15.0) g/dL Hct 36.1 (36.0-48.0) % MCV 87 (80-98) fL MCH 30 (27-31) pg MCHC 34 (32-36) % Plt Count (150-400) K/uL Sodium 139 L (140-148) mmol/L Potassium 4.1 (3.6-5.2) mmol/L Chloride 105 (100-108) mmol/L Carbon Dioxide 18 L (21-32) mmol/L Anion Gap 20.1 H (5.0-14.0) mmol/L BUN 9 (7-18) mg/dL Creatinine 0.8 (0.6-1.0) mg/dL Est Cr Clr Drug Dosing 96.73 mL/min Estimated GFR (MDRD) > 60 (>60) Glucose 114 H (74-106) mg/dL Calcium 7.0 L (8.5-10.1) mg/dL Magnesium 1.1 L (1.8-2.4) mg/dL C-Reactive Protein 0.70 H (0.0-0.3) mg/dL Lipase 19 L (73-393) U/L Meds: Medications Generic Name Dose Route Start Last Admin Trade Name Freq PRN Reason Stop Dose Admin Magnesium Sulfate 2 gm/ Premix 50 mls @ 12.5 mls/hr 06/08/17 00:17 06/08/17 00:48 IV 06/08/17 04:16 12.5 mls/hr ONETIME ONE Administration Discontinued Medications Generic Name Dose Route Start Last Admin Trade Name Freq PRN Reason Stop Dose Admin Diphenhydramine HCl 25 mg 06/07/17 22:46 06/08/17 00:01 Benadryl IVPUSH 06/07/17 22:47 25 mg ONETIME ONE Administration Hydromorphone HCl 0.5 mg 06/07/17 22:46 06/08/17 00:01 Dilaudid IVPUSH 06/07/17 22:47 0.5 mg ONETIME ONE Administration Lactated Ringer's 1,000 mls @ 1,000 mls/hr 06/07/17 22:38 06/08/17 00:01 Ringers, Lactated IV 06/07/17 23:37 1,000 mls/hr BOLUS ONE Administration Metoclopramide HCl 10 mg 06/07/17 22:45 06/08/17 00:01 Reglan IVPUSH 06/07/17 22:46 10 mg ONETIME ONE Administration - Radiology Interpretation Free Text/Narrative:: upright abdominal C-fme-uuy-fluid levels with some dilated small bowel CT Results Date: 06/08/17 Departure - Departure Time of Disposition: 02:50 Disposition: Refer to Observation Condition: Fair Clinical Impression: Chronic abdominal pain, History of Deb-en-Y gastric bypass, Hypomagnesemia Vomiting Qualifiers: Vomiting type: unspecified Vomiting Intractability: non-intractable Nausea presence: with nausea Qualified Code(s): R11.2 - Nausea with vomiting, unspecified - Discharge Information Referrals: PCP,None [Primary Care Provider] - Forms: ED Department Discharge - My Orders Last 24 Hours: My Active Orders 06/07/17 22:56 Abdomen 1V Upright [CR] Stat 06/08/17 00:17 Magnesium Sulfate/Water [Magnesium Sulfate 2 GM in Water 50 ML] 2 gm Premix Bag 1 bag IV ONETIME 06/08/17 00:32 Abdomen w Cont [CT] Stat - Assessment/Plan Last 24 Hours: My Active Orders 06/07/17 22:56 Abdomen 1V Upright [CR] Stat 06/08/17 00:17 Magnesium Sulfate/Water [Magnesium Sulfate 2 GM in Water 50 ML] 2 gm Premix Bag 1 bag IV ONETIME 06/08/17 00:32 Abdomen w Cont [CT] Stat
[2017-06-08] MEDS ORDERED: Magnesium Sulfate/Water 2 GM in Premix Bag 1 BAG IV ONE (00:17)
[2017-06-08] MEDS ORDERED: LORazepam 2 MG/ML SDV IVPUSH ONE (03:10)
[2017-06-08] MEDS ORDERED: Ondansetron 4 MG/2 ML SDV IV PRN (03:12)
--- NOTE | 2017-06-08 03:12 | PCM.HP ---
H&P History of Present Illness - General Date of Service: 06/08/17 Source of Information: Patient History Limitations: Reports: No Limitations - History of Present Illness Initial Comments - Free Text/Narative: 26-year-old female with past medical history of recurrent abdominal pains, postoperative malabsorption, posttraumatic stress disorder, attention deficient hyperactivity disorder, borderline personality disorder, smoker came to the ED with the complaining of abdominal pain since yesterday. Patient reports that the pain is 4-5/10 intensity, medical pain. Patient had 2 episodes of vomiting yesterday. Denies any blood in it. Patient has recurrent abdominal pain and multiple hospital admissions and Multiple CT scan showed without any acute events. Patient denies any recent weight loss, sick contacts. Patient denies any recent fevers. Patient recently admitted into [facility] with similar complaint at the time patient had CT abdomen and endoscopy and colonoscopy which showed gastritis and patient was started on pantoprazole medication. Patient is not compliant with the medications. Patient is a full code. In the ED patient lab results showed a hypomagnesemia with 1.1 Including dehydration signs. Other review of systems are not significant. abdominal pain Pain Score (Numeric/FACES): 10 - Related Data Allergies/Adverse Reactions: Allergies Allergy/AdvReac Type Severity Reaction Status Date / Time ciprofloxacin [From Cipro] Allergy Hives Verified 06/07/17 22:20 lactose Allergy Other Verified 06/07/17 22:20 Home Medications: Home Meds Etonogestrel [Nexplanon] 1 injection SQ .3YEARS 10/07/15 [History] Calcium Carbonate [Tums] 500 mg PO BID tab.chew 07/11/16 [Rx] Cyanocobalamin (Vitamin B12) [Vitamin B12] 1,000 mcg PO DAILY tablet 07/11/16 [ Rx] Multivitamins with Iron [Child Chew Iron] 1 tab PO BID tab.chew 07/11/16 [Rx] Ondansetron [Zofran ODT] 4 mg PO Q4H PRN #30 tab.dis 07/11/16 [Rx] QUEtiapine [SEROquel] 300 mg PO BEDTIME tablet 07/11/16 [Rx] Ramelteon [Rozerem] 8 mg PO BEDTIME 07/30/16 [History] Cyclobenzaprine [Flexeril] 10 mg PO BID PRN 03/06/17 [History] FLUoxetine [PROzac] 40 mg PO DAILY 04/13/17 [History] ALPRAZolam [Alprazolam] 1 mg PO TID PRN 06/07/17 [History] Bismuth Subsalicylate [Soothe] 1 - 2 tab PO Q4H PRN 06/07/17 [History] Celecoxib 200 mg PO ASDIRECTED PRN 06/07/17 [History] Magnesium Oxide 400 mg PO BID #60 tablet 06/09/17 [Rx] Pantoprazole [ProTONIX] 40 mg PO BIDAC #60 tab.cr 06/09/17 [Rx] oxyCODONE 5 mg PO Q4H PRN #12 tab 06/09/17 [Rx] Past Medical History HEENT History: Reports: Impaired Vision Other HEENT History: wears glasses Gastrointestinal History: Reports: Bowel Obstruction, GERD Other Gastrointestinal History: girth 60 inches, GASTRIC BYPASS Genitourinary History: Reports: UTI, 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: Endometriosis Psychiatric History: Reports: ADD, ADHD, Anxiety, Depression, Eating Disorders, Mood Swings, OCD, Panic Attack, Psych Hospitalization(s), PTSD, Suicide Attempt Endocrine/Metabolic History: Reports: Obesity/BMI 30+, Vitamin D Deficiency Hematologic History: Reports: Anemia, Blood Transfusion(s), Iron Deficiency - Infectious Disease History Infectious Disease History: Reports: Chicken Pox - Past Surgical History HEENT Surgical History: Reports: None GI Surgical History: Reports: Bariatric Procedure, Cholecystectomy, Hernia Repair/Other, Other (See Below) Other GI Surgeries/Procedures: Umbilical hernia repair 07/11/2014. Drainage of pericholecystic abscess 07/11/2014. gallbladder out 2014. bowel obstruction surgery 10/2015 again 12/09/2015. 01/06 bowel obstruction surgery Social & Family History - Family History Family Medical History: Noncontributory - Tobacco Use Smoking Status *Q: Light Tobacco Smoker Years of Tobacco use: 6 Packs/Tins Daily: 3 Used Tobacco, but Quit: No Month/Year Tobacco Last Used: Second Hand Smoke Exposure: No - Caffeine Use Caffeine Use: Reports: Coffee - Alcohol Use Days Per Week of Alcohol Use: 0 - Recreational Drug Use Recreational Drug Use: Yes Drug Use in Last 12 Months: Yes Recreational Drug Type: Reports: Marijuana/Hashish Recreational Drug Use Frequency: Weekly Recreational Drug Last Use: this past Saturday - Living Situation & Occupation Living situation: Reports: (lives with and cat.) H&P Review of Systems - Review of Systems: Review Of Systems: See Below General: Denies: Fever, Chills Pulmonary: Denies: Shortness of Breath, Wheezing, Pleuritic Chest Pain Cardiovascular: Denies: Chest Pain, Palpitations, Dyspnea on Exertion Gastrointestinal: Reports: Abdominal Pain, Anorexia, Nausea, Vomiting. Denies: Black Stool, Bloody Stool, Constipation, Diarrhea, Difficulty Swallowing, Stool Incontinence Genitourinary: Denies: Dysuria, Frequency Musculoskeletal: Denies: Neck Pain, Shoulder Pain Skin: Denies: Cyanosis, Jaundice Psychiatric: Denies: Confusion, Depression Neurological: Denies: Confusion, Dizziness, Headache Hematologic/Lymphatic: Denies: Anemia, Easy Bleeding Exam - Exam Exam: See Below - Vital Signs Vital Signs: Last Vital Signs Temp 36.0 C 06/08/17 02:53 Pulse 131 H 06/08/17 02:53 Resp 20 06/08/17 02:53 BP 120/69 06/08/17 02:53 Pulse Ox 93 L 06/08/17 02:53 Weight: 72.575 kg - Exam Quality Assessment: No: Supplemental Oxygen General: Alert, Oriented Neck: Supple, Trachea Midline Lungs: Clear to Auscultation, Normal Respiratory Effort Cardiovascular: Regular Rate, Regular Rhythm GI/Abdominal Exam: Normal Bowel Sounds, No Organomegaly, No Mass, Guarding, Tender, Abnormal Bowel Sounds. No: Non-Tender, Rigid, Rebound, Hepatomegaly, Splenomegaly Back Exam: Normal Inspection, Full Range of Motion Extremities: Normal Inspection, Normal Range of Motion - Patient Data Lab Results Last 24 hrs: Laboratory Results - last 24 hr 06/07/17 06/07/17 06/07/17 Range/Units 23:40 23:40 23:40 WBC 7.5 (4.5-11.0) K/uL RBC 4.13 (3.30-5.50) M/uL Hgb 12.4 (12.0-15.0) g/dL Hct 36.1 (36.0-48.0) % MCV 87 (80-98) fL MCH 30 (27-31) pg MCHC 34 (32-36) % Plt Count (150-400) K/uL Sodium 139 L (140-148) mmol/L Potassium 4.1 (3.6-5.2) mmol/L Chloride 105 (100-108) mmol/L Carbon Dioxide 18 L (21-32) mmol/L Anion Gap 20.1 H (5.0-14.0) mmol/L BUN 9 (7-18) mg/dL Creatinine 0.8 (0.6-1.0) mg/dL Est Cr Clr Drug Dosing 96.73 mL/min Estimated GFR (MDRD) > 60 (>60) Glucose 114 H (74-106) mg/dL Calcium 7.0 L (8.5-10.1) mg/dL Magnesium 1.1 L (1.8-2.4) mg/dL C-Reactive Protein 0.70 H (0.0-0.3) mg/dL Lipase 19 L (73-393) U/L Result Diagrams: 06/09/17 04:30 06/09/17 04:30 - Problem List (1) Abdominal pain SNOMED Code(s): 96147738 ICD Code: R10.9 - UNSPECIFIED ABDOMINAL PAIN Status: Acute (2) Chronic abdominal pain SNOMED Code(s): 827897871 ICD Code: R10.9 - UNSPECIFIED ABDOMINAL PAIN; G89.29 - OTHER CHRONIC PAIN Status: Acute Priority: Low (3) Hypomagnesemia SNOMED Code(s): 996967186 ICD Code: E83.42 - HYPOMAGNESEMIA Status: Acute (4) Vomiting SNOMED Code(s): 349807172 ICD Code: R11.10 - VOMITING, UNSPECIFIED Status: Acute Qualifiers: Vomiting type: unspecified Vomiting Intractability: non-intractable Nausea presence: with nausea Qualified Code(s): R11.2 - Nausea with vomiting, unspecified (5) Weakness SNOMED Code(s): 38175450 ICD Code: R53.1 - WEAKNESS Status: Acute (6) Depressive disorder SNOMED Code(s): 47750896 ICD Code: F32.9 - MAJOR DEPRESSIVE DISORDER, SINGLE EPISODE, UNSPECIFIED Status: Chronic (7) History of Deb-en-Y gastric bypass SNOMED Code(s): 038516587, 466198086 ICD Code: Z98.84 - BARIATRIC SURGERY STATUS Status: Chronic Priority: Medium (8) Status post gastric bypass for obesity SNOMED Code(s): 438899241, 934663773, 494187571, 066877128 ICD Code: Z98.84 - BARIATRIC SURGERY STATUS Status: Chronic Priority: Low Problem Details: Deb-en-y Problem List Initiated/Reviewed/Updated: Yes Orders Last 24hrs: Active Orders 24 hr Category Date Time Status Abdomen 1V Upright [CR] Stat Exams 06/07/17 22:56 Taken Abdomen w Cont [CT] Stat Exams 06/08/17 00:32 Ordered LORazepam [Ativan] Med 06/08/17 03:10 Once 0.5 mg IVPUSH ONETIME ONE Magnesium Sulfate/Water [Magnesium Sulfate 2 GM in Med 06/08/17 00:17 Active Water 50 ML] 2 gm Premix Bag 1 bag IV ONETIME Medication Orders Magnesium Sulfate 2 gm/ Premix 50 mls @ 12.5 mls/hr IV ONETIME ONE Stop: 06/08/17 04:16 Last Admin: 06/08/17 00:48 Dose: 12.5 mls/hr Assessment/Plan Comment:: 26-year-old female with complicated psychiatric history, chronic abdominal pain status post gastric bypass surgery admitted into the hospital in observation status for acute abdominal pain with hypomagnesemia. Patient has chronic abdominal pain history status post gastric bypass surgery Patient Mg levels are 1.1 and KCL is borderline Supplemental medication with 4 mg IV. admitted in observation status We will hold on Further imaging studies at this point We will continue pantoprazole 40 mg twice daily Ativan as needed for anxiety Lovenox for DVT prophylaxis Nothing by mouth for now Repeat CB BMP tomorrow
[2017-06-08] MEDS ORDERED: LORazepam 2 MG/ML SDV IVPUSH PRN ×2 (03:28→03:40)
[2017-06-08] MEDS ORDERED: Lactated Ringers 500 ML IV SCH (03:30)
[2017-06-08] MEDS ORDERED: Pantoprazole 40 MG in Sodium Chloride 0.9% 100 ML IV SCH (03:30)
[2017-06-08] MEDS: Lactated Ringers 1,000 ML IV SCH (04:30)
[2017-06-08] MEDS: Pantoprazole 40 MG Vial IVPUSH SCH ×2 (04:43→16:09)
[2017-06-08] MEDS: Morphine 2 MG/ML Syringe IVPUSH PRN ×4 (04:52→21:36)
[2017-06-08] MEDS ORDERED: Enoxaparin 40 MG/0.4 ML Syringe SUBCUT SCH (09:00)
[2017-06-08] MEDS: Enoxaparin 40 MG/0.4 ML Syringe SUBCUT SCH (09:18)
[2017-06-08] MEDS ORDERED: Sodium Chloride 0.9% 100 ML IV STA (09:24)
[2017-06-08] MEDS ORDERED: Iopamidol 612 MG/ML 100 ML Bottle IV STA (09:35)
[2017-06-08] MEDS: Magnesium Sulfate/Water 2 GM in Premix Bag 1 BAG IV SCH ×3 (10:46→21:29)
[2017-06-08] MEDS: Magnesium Oxide 400 MG Tab PO SCH ×2 (10:47→21:30)
[2017-06-08] MEDS ORDERED: DIPHENHYDRAMINE 2% TOP PRN (11:33)
[2017-06-08] MEDS ORDERED: ALPRAZolam 0.5 MG Tab PO PRN (11:34)
--- NOTE | 2017-06-08 13:57 | PCM.PN ---
- General Info Date of Service: 06/08/17 Subjective Update: Ms. Montes is a 27-year-old woman who was admitted to observation status last night with nausea, vomiting, abdominal pain, and hypomagnesemia. She is status post gastric bypass surgery and has had ongoing difficulty with eating the surgery. She has had some ulcer disease and was hospitalized in [place] last week. She has not been taking her PPI therapy and that is likely led to some ongoing symptoms as noted above. Magnesium was significantly low on admission and oral and IV supplementation have been ordered. CT scan of the abdomen was obtained today and does show dilatation of the biliary pancreatic limb at 6 cm, as well as fairly diffuse mucosal and wall thickening of the small and large intestine. White blood cell count is normal and her CRP is only slightly elevated. - Review of Systems General: Denies: Fever, Weakness, Chills Pulmonary: Reports: No Symptoms Cardiovascular: Reports: No Symptoms Gastrointestinal: Reports: Abdominal Pain, Nausea, Vomiting. Denies: Constipation, Difficulty Swallowing Genitourinary: Reports: No Symptoms - Patient Data Vitals - Most Recent: Last Vital Signs Temp 97.6 F 06/08/17 11:04 Pulse 122 H 06/08/17 11:04 Resp 18 06/08/17 11:04 BP 110/59 L 06/08/17 11:04 Pulse Ox 97 06/08/17 11:04 Weight - Most Recent: 165 lb I&O - Last 24 Hours: Intake & Output 06/07/17 06/08/17 06/08/17 22:59 06:59 14:59 Intake Total 585 50 Output Total 400 Balance 585 -350 Lab Results Last 24 Hours: Laboratory Results - last 24 hr 06/07/17 06/07/17 06/07/17 Range/Units 23:40 23:40 23:40 WBC 7.5 (4.5-11.0) K/uL RBC 4.13 (3.30-5.50) M/uL Hgb 12.4 (12.0-15.0) g/dL Hct 36.1 (36.0-48.0) % MCV 87 (80-98) fL MCH 30 (27-31) pg MCHC 34 (32-36) % Plt Count (150-400) K/uL Sodium 139 L (140-148) mmol/L Potassium 4.1 (3.6-5.2) mmol/L Chloride 105 (100-108) mmol/L Carbon Dioxide 18 L (21-32) mmol/L Anion Gap 20.1 H (5.0-14.0) mmol/L BUN 9 (7-18) mg/dL Creatinine 0.8 (0.6-1.0) mg/dL Est Cr Clr Drug Dosing 96.73 mL/min Estimated GFR (MDRD) > 60 (>60) Glucose 114 H (74-106) mg/dL Calcium 7.0 L (8.5-10.1) mg/dL Magnesium 1.1 L (1.8-2.4) mg/dL C-Reactive Protein 0.70 H (0.0-0.3) mg/dL Lipase 19 L (73-393) U/L Urine Color Urine Appearance Urine pH (4.5-8.0) Ur Specific [place] (1.008-1.030) Urine Protein (NEGATIVE) mg/dL Urine Glucose (UA) (NEGATIVE) mg/dL Urine Ketones (NEGATIVE) mg/dL Urine Occult Blood (NEGATIVE) Urine Nitrite (NEGATIVE) Urine Bilirubin (NEGATIVE) Urine Urobilinogen (NORMAL) mg/dL Ur Leukocyte Esterase (NEGATIVE) Urine HCG, Qual 06/08/17 06/08/17 Range/Units 09:30 09:39 WBC (4.5-11.0) K/uL RBC (3.30-5.50) M/uL Hgb (12.0-15.0) g/dL Hct (36.0-48.0) % MCV (80-98) fL MCH (27-31) pg MCHC (32-36) % Plt Count (150-400) K/uL Sodium (140-148) mmol/L Potassium (3.6-5.2) mmol/L Chloride (100-108) mmol/L Carbon Dioxide (21-32) mmol/L Anion Gap (5.0-14.0) mmol/L BUN (7-18) mg/dL Creatinine (0.6-1.0) mg/dL Est Cr Clr Drug Dosing mL/min Estimated GFR (MDRD) (>60) Glucose (74-106) mg/dL Calcium (8.5-10.1) mg/dL Magnesium (1.8-2.4) mg/dL C-Reactive Protein (0.0-0.3) mg/dL Lipase (73-393) U/L Urine Color Urine Appearance Cloudy Urine pH 5.0 (4.5-8.0) Ur Specific [place] 1.020 (1.008-1.030) Urine Protein Trace (NEGATIVE) mg/dL Urine Glucose (UA) Normal (NEGATIVE) mg/dL Urine Ketones Negative (NEGATIVE) mg/dL Urine Occult Blood Negative (NEGATIVE) Urine Nitrite Negative (NEGATIVE) Urine Bilirubin Moderate (NEGATIVE) Urine Urobilinogen 4 (NORMAL) mg/dL Ur Leukocyte Esterase Moderate (NEGATIVE) Urine HCG, Qual Negative Med Orders - Current: Current Medications Alprazolam (Xanax) 1 mg PO TID PRN PRN Reason: Anxiety Last Admin: 06/08/17 13:35 Dose: 1 mg Calcium Carbonate/Glycine (Tums) 500 mg PO BID [facility] Cyclobenzaprine HCl (Flexeril) 10 mg PO BID PRN PRN Reason: muscle spasms Diphenhydramine HCl (Benadryl 2% Crm) 0 gm TOP QID PRN PRN Reason: Itching Enoxaparin Sodium (Lovenox) 40 mg SUBCUT DAILY [facility] Last Admin: 06/08/17 09:18 Dose: 40 mg Fluoxetine HCl (Prozac) 60 mg PO DAILY [facility] Lactated Ringer's (Ringers, Lactated) 1,000 mls @ 150 mls/hr IV ASDIRECTED [facility] Last Infusion: 06/08/17 09:10 Dose: 150 mls/hr Magnesium Sulfate 2 gm/ Premix 50 mls @ 25 mls/hr IV Q6H [facility] Stop: 06/08/17 23:59 Last Admin: 06/08/17 10:46 Dose: 25 mls/hr Lorazepam (Ativan) 0.5 mg IVPUSH Q8H PRN PRN Reason: Anxiety Last Admin: 06/08/17 10:57 Dose: 0.5 mg Magnesium Oxide (Magnesium Oxide) 400 mg PO BID [facility] Last Admin: 06/08/17 10:47 Dose: 400 mg Morphine Sulfate (Morphine) 1 mg IVPUSH Q4H PRN PRN Reason: Pain (severe 7-10) Last Admin: 06/08/17 13:33 Dose: 1 mg Ondansetron HCl (Zofran) 4 mg IV Q4H PRN PRN Reason: Nausea/Vomiting Ondansetron HCl (Zofran Odt) 4 mg PO Q4H PRN PRN Reason: Nausea Pantoprazole Sodium (Protonix Iv) 40 mg IVPUSH Q12H [facility] Last Admin: 06/08/17 04:43 Dose: 40 mg Quetiapine Fumarate (Seroquel) 300 mg PO BEDTIME SHANE Ramelteon (Rozerem) 8 mg PO BEDTIME SHANE Discontinued Medications Diphenhydramine HCl (Benadryl) 25 mg IVPUSH ONETIME ONE Stop: 06/07/17 22:47 Last Admin: 06/08/17 00:01 Dose: 25 mg Enoxaparin Sodium (Lovenox) 40 mg SUBCUT DAILY [facility] Hydromorphone HCl (Dilaudid) 0.5 mg IVPUSH ONETIME ONE Stop: 06/07/17 22:47 Last Admin: 06/08/17 00:01 Dose: 0.5 mg Lactated Ringer's (Ringers, Lactated) 1,000 mls @ 1,000 mls/hr IV BOLUS ONE Stop: 06/07/17 23:37 Last Admin: 06/08/17 00:01 Dose: 1,000 mls/hr Magnesium Sulfate 2 gm/ Premix 50 mls @ 12.5 mls/hr IV ONETIME ONE Stop: 06/08/17 04:16 Last Admin: 06/08/17 00:48 Dose: 12.5 mls/hr Lactated Ringer's (Ringers, Lactated) 500 mls @ 500 mls/hr IV ASDIRECTED [facility] Pantoprazole Sodium 40 mg/ (Sodium Chloride) 100 mls @ 200 mls/hr IV Q12H [facility] Last Admin: 06/08/17 05:17 Dose: Not Given Sodium Chloride (Normal Saline) 100 mls @ 3.3 mls/sec IV ASDIRECTED STA Stop: 06/08/17 09:25 Last Admin: 06/08/17 09:43 Dose: 3.3 mls/sec Iopamidol (Isovue-300 (61%)) 100 ml IV . DIRECTED STA Stop: 06/08/17 09:36 Last Admin: 06/08/17 09:43 Dose: 100 ml Lorazepam (Ativan) 0.5 mg IVPUSH ONETIME ONE Stop: 06/08/17 03:11 Last Admin: 06/08/17 03:24 Dose: 0.5 mg Lorazepam (Ativan) 0.5 mg IVPUSH Q8H PRN PRN Reason: Anxiety Metoclopramide HCl (Reglan) 10 mg IVPUSH ONETIME ONE Stop: 06/07/17 22:46 Last Admin: 06/08/17 00:01 Dose: 10 mg - Exam General: Alert, Oriented, Cooperative, Mild Distress Lungs: Clear to Auscultation, Normal Respiratory Effort Cardiovascular: Regular Rate, Regular Rhythm, No Murmurs GI/Abdominal Exam: Soft, No Organomegaly, Tender. No: Distended, Guarding, Rigid, Rebound Extremities: Non-Tender, No Pedal Edema Skin: Warm, Dry - Problem List Review Problem List Initiated/Reviewed/Updated: Yes - My Orders Last 24 Hours: My Active Orders 06/08/17 09:00 Magnesium Oxide 400 mg PO BID 06/08/17 09:39 HCG QUALITATIVE,URINE [URCHEM] Routine 06/08/17 10:00 Magnesium Sulfate/Water [Magnesium Sulfate 2 GM in Water 50 ML] 2 gm Premix Bag 1 bag IV Q6H 06/08/17 11:32 Convert IV to Saline Lock [OM.PC] Routine 06/08/17 11:33 diphenhydrAMINE [Benadryl 2% Crm] See Dose Instructions TOP QID PRN 06/08/17 11:34 ALPRAZolam [Xanax] 1 mg PO TID PRN Cyclobenzaprine [Flexeril] 10 mg PO BID PRN Ondansetron [Zofran ODT] 4 mg PO Q4H PRN 06/08/17 13:17 Consult to Physician [CONS] Routine 06/08/17 13:18 Notify Provider Consults [RC] ASDIRECTED 06/08/17 13:20 CBC WITH AUTO DIFF [HEME] Stat COMPREHENSIVE METABOLIC PN,CMP [CHEM] Stat 06/08/17 21:00 Calcium Carbonate [Tums] 500 mg PO BID QUEtiapine [SEROquel] 300 mg PO BEDTIME Ramelteon [Rozerem] 8 mg PO BEDTIME 06/08/17 Lunch Regular Diet [DIET] 06/09/17 05:00 CBC WITH AUTO DIFF [HEME] Timed COMPREHENSIVE METABOLIC PN,CMP [CHEM] Timed MAGNESIUM [CHEM] Timed 06/09/17 09:00 FLUoxetine [PROzac] 60 mg PO DAILY - Plan Plan:: ASSESSMENT AND PLAN ABDOMINAL PAIN WITH NAUSEA AND VOMITING-ongoing symptoms, known history of ulcer disease and has not been taking PPI therapy. CT scan obtained today abnormalities as described above. -Surgical consult with Dr. Valencia -regular diet -Protonix 40 mg IV every 12 hours HYPOMAGNESEMIA -IV and oral magnesium replacement -recheck magnesium in a.m. MAINTENANCE ISSUES -DVT prophylaxis; not indicated -GI prophylaxis; Protonix as above -Russell catheter;Not indicated -Nutrition; regular diet, patient refuses post gastric bypass diet -Nicotine dependence;not required CODE STATUS- FULL CODE ADMISSION STATUS-this patient will be admitted to observation status, expect no more than a one night hospital stay for evaluation and management of problems as outlined above. DISPOSITION-anticipate discharge to home after the hospital stay. PRIMARY CARE PROVIDER-
[2017-06-08] MEDS: Cyclobenzaprine 10 MG Tab PO PRN (15:03)
[2017-06-08] MEDS ORDERED: Magnesium Oxide 400 MG Tab PO SCH (21:00)
[2017-06-08] MEDS: Calcium Carbonate 500 MG Tab.Chew PO SCH (21:29)
[2017-06-08] MEDS: Ondansetron 4 MG Tab.DIS PO PRN (22:42)
[2017-06-09] MEDS: Pantoprazole 40 MG Vial IVPUSH SCH (04:17)
[2017-06-09] MEDS: Lactated Ringers 1,000 ML IV SCH (04:33)
[2017-06-09] MEDS: Morphine 2 MG/ML Syringe IVPUSH PRN (04:47)
[2017-06-09] MEDS: Ondansetron 4 MG Tab.DIS PO PRN (08:14)
[2017-06-09] MEDS: Calcium Carbonate 500 MG Tab.Chew PO SCH (08:43)
[2017-06-09] MEDS: Magnesium Oxide 400 MG Tab PO SCH (08:43)
[2017-06-09] MEDS: Cyclobenzaprine 10 MG Tab PO PRN (08:44)
[2017-06-09] MEDS: Enoxaparin 40 MG/0.4 ML Syringe SUBCUT SCH (08:45)
[2017-06-09] MEDS ORDERED: FLUoxetine 20 MG Cap PO SCH ×2 (09:00→21:00)
[2017-06-09] MEDS ORDERED: Lactated Ringers 500 ML IV SCH (09:45)
[2017-06-09 11:12] VITALS: BP 104/66
--- NOTE | 2017-06-09 12:12 | PCM.DCSUM1 ---
Discharge Summary - Hospital Course Brief History: Ms. Montes is a 27-year-old woman who is status post gastric bypass surgery, she was admitted to observation status for further evaluation and management of abdominal pain, nausea and vomiting. - Discharge Data Discharge Date: 06/09/17 Discharge Disposition: Home, Self-Care 01 Condition: Fair - Discharge Diagnosis/Problem(s) (1) Hypomagnesemia SNOMED Code(s): 741830594 ICD Code: E83.42 - HYPOMAGNESEMIA Status: Acute Current Visit: Yes (2) Vomiting SNOMED Code(s): 050582534 ICD Code: R11.10 - VOMITING, UNSPECIFIED Status: Acute Current Visit: Yes Qualifiers: Vomiting type: unspecified Vomiting Intractability: non-intractable Nausea presence: with nausea Qualified Code(s): R11.2 - Nausea with vomiting, unspecified (3) Chronic abdominal pain SNOMED Code(s): 382770635 ICD Code: R10.9 - UNSPECIFIED ABDOMINAL PAIN; G89.29 - OTHER CHRONIC PAIN Status: Acute Priority: Low Current Visit: Yes (4) History of Deb-en-Y gastric bypass SNOMED Code(s): 399848631, 677038059 ICD Code: Z98.84 - BARIATRIC SURGERY STATUS Status: Chronic Priority: Medium Current Visit: Yes - Patient Summary/Data Consults: Consultations 06/08/17 13:17 Consult to Physician [CONS] Routine Consulting Provider: Sandip Valencia Call Completed to Consulting Physician: Yes Reason for Consult: Abnormalities on CT scan, status post gastric bypass Hospital Course: Ms. Montes is a 27-year-old woman who was admitted to observation status with nausea, vomiting, abdominal pain, and hypomagnesemia. She is status post gastric bypass surgery and has had ongoing difficulty with eating since the surgery. She has had some ulcer disease and was hospitalized in [place] last week. She has not been taking her PPI therapy and that is likely led to some ongoing symptoms as noted above. Magnesium was significantly low on admission and oral and IV supplementation have been ordered. IV fluids were initiated on admission for hydration and she was started on twice daily Protonix. On the morning after admission CT scan of the abdomen was obtained and does show dilatation of the biliary pancreatic limb at 6 cm, as well as fairly diffuse mucosal and wall thickening of the small and large intestine. White blood cell count was normal on admission but did increase after admission, her CRP is only slightly elevated. Surgical consult was obtained with Dr. Valencia who did not feel that there was any findings on the CT scan to suggest the need for emergent intervention. He recommended that she follow-up with the bariatric surgery program at the [facility]. I discussed with her the possibility of a trial of antibiotic therapy prior to discharge and continued hospitalization which she refused. She will be discharged home on bariatric diet and activity will be as tolerated. She is encouraged to take her magnesium supplement as well as proton pump inhibitor twice daily. Magnesium level had been replaced adequately and actually magnesium level was supratherapeutic on the morning of discharge. Follow-up appointment will be scheduled with her primary care provider within one week. - Patient Instructions Diet: NPO (Bariatric diet) Activity: As Tolerated Other/Special Instructions: Please schedule follow-up appointment with Nicole Nieves within one week. - Discharge Plan Prescriptions/Med Rec: Magnesium Oxide 400 mg PO BID #60 tablet oxyCODONE 5 mg PO Q4H PRN #12 tab PRN Reason: Pain Pantoprazole [ProTONIX] 40 mg PO BIDAC #60 tab.cr Home Medications: Home Meds Etonogestrel [Nexplanon] 1 injection SQ .3YEARS 10/07/15 [History] Calcium Carbonate [Tums] 500 mg PO BID tab.chew 07/11/16 [Rx] Cyanocobalamin (Vitamin B12) [Vitamin B12] 1,000 mcg PO DAILY tablet 07/11/16 [ Rx] Multivitamins with Iron [Child Chew Iron] 1 tab PO BID tab.chew 07/11/16 [Rx] Ondansetron [Zofran ODT] 4 mg PO Q4H PRN #30 tab.dis 07/11/16 [Rx] QUEtiapine [SEROquel] 300 mg PO BEDTIME tablet 07/11/16 [Rx] Ramelteon [Rozerem] 8 mg PO BEDTIME 07/30/16 [History] Cyclobenzaprine [Flexeril] 10 mg PO BID PRN 03/06/17 [History] FLUoxetine [PROzac] 60 mg PO DAILY 04/13/17 [History] ALPRAZolam [Alprazolam] 1 mg PO TID PRN 06/07/17 [History] Bismuth Subsalicylate [Soothe] 1 - 2 tab PO Q4H PRN 06/07/17 [History] Celecoxib 200 mg PO ASDIRECTED PRN 06/07/17 [History] Magnesium Oxide 400 mg PO BID #60 tablet 06/09/17 [Rx] Pantoprazole [ProTONIX] 40 mg PO BIDAC #60 tab.cr 06/09/17 [Rx] oxyCODONE 5 mg PO Q4H PRN #12 tab 06/09/17 [Rx] Referrals: Angélica Nieves PA [Advanced RN Practitioner] - - Discharge Summary/Plan Comment DC Time >30 min.: No - Patient Data Vitals - Most Recent: Last Vital Signs Temp 97.6 F 06/09/17 11:09 Pulse 115 H 06/09/17 11:09 Resp 16 06/09/17 11:09 BP 104/66 06/09/17 11:09 Pulse Ox 96 06/09/17 11:09 Weight - Most Recent: 168 lb 6.4 oz I&O - Last 24 hours: Intake & Output 06/08/17 06/09/17 06/09/17 22:59 06:59 14:59 Intake Total 1530 847 400 Output Total 150 350 Balance 1380 497 400 Lab Results - Last 24 hrs: Laboratory Results - last 24 hr 06/08/17 06/08/17 06/09/17 Range/Units 13:20 14:15 04:30 WBC 15.7 H (4.5-11.0) K/uL RBC 3.35 (3.30-5.50) M/uL Hgb 9.8 L D (12.0-15.0) g/dL Hct 29.7 L (36.0-48.0) % MCV 89 (80-98) fL MCH 29 (27-31) pg MCHC 33 (32-36) % Plt Count 391 (150-400) K/uL Neut % (Auto) 73 H (36-66) % Lymph % (Auto) 23 L (24-44) % [place] % (Auto) 4 (2-6) % Eos % (Auto) 0 L (2-4) % Baso % (Auto) 0 (0-1) % Sodium 138 L 137 L (140-148) mmol/L Potassium 3.7 4.0 (3.6-5.2) mmol/L Chloride 105 106 (100-108) mmol/L Carbon Dioxide 24 24 (21-32) mmol/L Anion Gap 12.7 11.0 (5.0-14.0) mmol/L BUN 10 10 (7-18) mg/dL Creatinine 0.7 0.7 (0.6-1.0) mg/dL Est Cr Clr Drug Dosing 110.55 110.55 mL/min Estimated GFR (MDRD) > 60 > 60 (>60) Glucose 122 H 106 (74-106) mg/dL Calcium 6.8 L* 6.7 L* (8.5-10.1) mg/dL Magnesium 2.7 H D (1.8-2.4) mg/dL Total Bilirubin 0.8 D 0.8 (0.2-1.0) mg/dL AST 22 22 (15-37) U/L ALT 31 28 (12-78) U/L Alkaline Phosphatase 91 96 (46-116) U/L Total Protein 4.1 L 3.9 L (6.4-8.2) g/dL Albumin 1.5 L 1.3 L (3.4-5.0) g/dL Globulin 2.6 2.6 (2.3-3.5) g/dL Albumin/Globulin Ratio 0.6 L 0.5 L (1.2-2.2) 06/09/17 Range/Units 04:30 WBC 13.5 H (4.5-11.0) K/uL RBC 3.24 L (3.30-5.50) M/uL Hgb 9.6 L (12.0-15.0) g/dL Hct 28.2 L (36.0-48.0) % MCV 87 (80-98) fL MCH 30 (27-31) pg MCHC 34 (32-36) % Plt Count 117 L (150-400) K/uL Neut % (Auto) 72 H (36-66) % Lymph % (Auto) 22 L (24-44) % [place] % (Auto) 6 (2-6) % Eos % (Auto) 0 L (2-4) % Baso % (Auto) 0 (0-1) % Sodium (140-148) mmol/L Potassium (3.6-5.2) mmol/L Chloride (100-108) mmol/L Carbon Dioxide (21-32) mmol/L Anion Gap (5.0-14.0) mmol/L BUN (7-18) mg/dL Creatinine (0.6-1.0) mg/dL Est Cr Clr Drug Dosing mL/min Estimated GFR (MDRD) (>60) Glucose (74-106) mg/dL Calcium (8.5-10.1) mg/dL Magnesium (1.8-2.4) mg/dL Total Bilirubin (0.2-1.0) mg/dL AST (15-37) U/L ALT (12-78) U/L Alkaline Phosphatase (46-116) U/L Total Protein (6.4-8.2) g/dL Albumin (3.4-5.0) g/dL Globulin (2.3-3.5) g/dL Albumin/Globulin Ratio (1.2-2.2) Med Orders - Current: Current Medications Alprazolam (Xanax) 1 mg PO TID PRN PRN Reason: Anxiety Last Admin: 06/08/17 13:35 Dose: 1 mg Calcium Carbonate/Glycine (Tums) 500 mg PO BID [facility] Last Admin: 06/09/17 08:43 Dose: 500 mg Cyclobenzaprine HCl (Flexeril) 10 mg PO BID PRN PRN Reason: muscle spasms Last Admin: 06/09/17 08:44 Dose: 10 mg Diphenhydramine HCl (Benadryl 2% Crm) 0 gm TOP QID PRN PRN Reason: Itching Enoxaparin Sodium (Lovenox) 40 mg SUBCUT DAILY [facility] Last Admin: 06/09/17 08:45 Dose: 40 mg Fluoxetine HCl (Prozac) 60 mg PO BEDTIME [facility] Lactated Ringer's (Ringers, Lactated) 500 mls @ 0 mls/hr IV ASDIRECTED [facility] Lorazepam (Ativan) 0.5 mg IVPUSH Q8H PRN PRN Reason: Anxiety Last Admin: 06/08/17 10:57 Dose: 0.5 mg Magnesium Oxide (Magnesium Oxide) 400 mg PO BID [facility] Last Admin: 06/09/17 08:43 Dose: 400 mg Morphine Sulfate (Morphine) 1 mg IVPUSH Q4H PRN PRN Reason: Pain (severe 7-10) Last Admin: 06/09/17 04:47 Dose: 1 mg Ondansetron HCl (Zofran) 4 mg IV Q4H PRN PRN Reason: Nausea/Vomiting Ondansetron HCl (Zofran Odt) 4 mg PO Q4H PRN PRN Reason: Nausea Last Admin: 06/09/17 08:14 Dose: 4 mg Pantoprazole Sodium (Protonix) 40 mg PO BIDAC [facility] Quetiapine Fumarate (Seroquel) 300 mg PO BEDTIME [facility] Last Admin: 06/08/17 21:30 Dose: 300 mg Ramelteon (Rozerem) 8 mg PO BEDTIME [facility] Last Admin: 06/08/17 21:29 Dose: 8 mg Discontinued Medications Diphenhydramine HCl (Benadryl) 25 mg IVPUSH ONETIME ONE Stop: 06/07/17 22:47 Last Admin: 06/08/17 00:01 Dose: 25 mg Enoxaparin Sodium (Lovenox) 40 mg SUBCUT DAILY [facility] Hydromorphone HCl (Dilaudid) 0.5 mg IVPUSH ONETIME ONE Stop: 06/07/17 22:47 Last Admin: 06/08/17 00:01 Dose: 0.5 mg Lactated Ringer's (Ringers, Lactated) 1,000 mls @ 1,000 mls/hr IV BOLUS ONE Stop: 06/07/17 23:37 Last Admin: 06/08/17 00:01 Dose: 1,000 mls/hr Magnesium Sulfate 2 gm/ Premix 50 mls @ 12.5 mls/hr IV ONETIME ONE Stop: 06/08/17 04:16 Last Admin: 06/08/17 00:48 Dose: 12.5 mls/hr Lactated Ringer's (Ringers, Lactated) 1,000 mls @ 150 mls/hr IV ASDIRECTED [facility] Last Admin: 06/09/17 04:33 Dose: 25 mls/hr Lactated Ringer's (Ringers, Lactated) 500 mls @ 500 mls/hr IV ASDIRECTED [facility] Pantoprazole Sodium 40 mg/ (Sodium Chloride) 100 mls @ 200 mls/hr IV Q12H [facility] Last Admin: 06/08/17 05:17 Dose: Not Given Magnesium Sulfate 2 gm/ Premix 50 mls @ 25 mls/hr IV Q6H SHANE Stop: 06/08/17 23:59 Last Admin: 06/08/17 21:29 Dose: 25 mls/hr Sodium Chloride (Normal Saline) 100 mls @ 3.3 mls/sec IV ASDIRECTED STA Stop: 06/08/17 09:25 Last Admin: 06/08/17 09:43 Dose: 3.3 mls/sec Iopamidol (Isovue-300 (61%)) 100 ml IV . DIRECTED STA Stop: 06/08/17 09:36 Last Admin: 06/08/17 09:43 Dose: 100 ml Lorazepam (Ativan) 0.5 mg IVPUSH ONETIME ONE Stop: 06/08/17 03:11 Last Admin: 06/08/17 03:24 Dose: 0.5 mg Lorazepam (Ativan) 0.5 mg IVPUSH Q8H PRN PRN Reason: Anxiety Metoclopramide HCl (Reglan) 10 mg IVPUSH ONETIME ONE Stop: 06/07/17 22:46 Last Admin: 06/08/17 00:01 Dose: 10 mg Pantoprazole Sodium (Protonix Iv) 40 mg IVPUSH Q12H [facility] Last Admin: 06/09/17 04:17 Dose: 40 mg - Exam General: Reports: Alert, Oriented, Cooperative, Mild Distress Lungs: Reports: Clear to Auscultation, Normal Respiratory Effort Cardiovascular: Reports: Regular Rhythm, No Murmurs, Tachycardia GI/Abdominal Exam: Soft, Non-Tender, No Organomegaly, No Distention Extremities: Non-Tender, No Pedal Edema Skin: Reports: Warm, Dry
[2017-06-09] MEDS ORDERED: Pantoprazole 40 MG Tab.CR PO SCH (16:30)
--- NOTE | 2017-06-10 08:38 | CR ---
Abdomen 1V Upright HISTORY: abdominal pain with vomiting, R/O obstruction FINDINGS: There are dilated loops of primarily small bowel with scattered air-fluid levels in the upp er abdomen. Multiple surgical spectral stable lines are noted in the left upper quadrant. There are s urgical clips right upper quadrant consistent with prior cholecystectomy. No mass organomegaly can be seen. Lung bases are clear. Bony structures are unremarkable. IMPRESSION: Old postoperative changes suggesting prior gastric bypass. Cholecystectomy changes are no steve. Dilated proximal small bowel loops could represent ileus or obstruction. Recommend clinical ahmet elation and follow-up.
== END 2017-06-09 13:18 | disposition home or self-care (01) ==
LOC: JP.ED 22:14 → JP.MS 06-08 03:12 → JP.ED 06-08 03:35
PROVIDERS: ADMIT Family Medicine; ATTEND Hospitalist
DX: R10.9 Unspecified abdominal pain (principal); R11.2 Nausea with vomiting, unspecified; E83.42 Hypomagnesemia; K21.9 Gastro-esophageal reflux disease without esophagitis; F41.9 Anxiety disorder, unspecified; F32.9 Major depressive disorder, single episode, unspecified; F90.9 Attention-deficit hyperactivity disorder, unspecified type; F43.10 Post-traumatic stress disorder, unspecified; E66.9 Obesity, unspecified; E55.9 Vitamin D deficiency, unspecified; F17.290 Nicotine dependence, other tobacco product, uncomplicated; Z98.84 Bariatric surgery status; Z79.899 Other long term (current) drug therapy; Z88.1 Allergy status to other antibiotic agents; Z91.011 Allergy to milk products; Z68.30 Body mass index [BMI] 30.0-30.9, adult; Z90.49 Acquired absence of other specified parts of digestive tract
CPT/HCPCS: 36415; 74018; 74177; 80048; 80053; 81003; 81025; 83690; 83735; 85025; 85027; 86140; 96361; 96365; 96366; 96375; 99285; A9270; C9113; J1170; J1200; J1650; J2060; J2270; J2765; J3475; J7030; J7120; Q9967; 96372; 96376; 99217; 99225; 99284; G0378

== ENCOUNTER 2017-06-10 22:13 | Emergency (ER) | payer MEDICARE, MEDICAID ==
[2017-06-11 01:12] VITALS: BP 126/81
--- NOTE | 2017-06-11 01:23 | EDM.PDOC ---
ED HPI GENERAL MEDICAL PROBLEM - General Chief Complaint: General Stated Complaint: ILLNESS Time Seen by Provider: 06/11/17 01:23 Source of Information: Reports: Patient, Family History Limitations: Reports: No Limitations - History of Present Illness INITIAL COMMENTS - FREE TEXT/NARRATIVE: 27-year-old female presents emergency department today complaint of dizziness, she demands to be admitted to the hospital before I have an opportunity to evaluate her I informed her that the hospital is on red alert we have no beds available she then asked to speak to the ice house supervisor. After consulting with the ice house supervisor who again informed her we have no beds at this facility she agreed to talk with me. She states that she was discharged from the hospital yesterday she has become weak to the point where she has difficulty ambulating had fallen once today did not injure herself but is so weak she cannot sit up in bed, she still able to drink no nausea vomiting , she has ongoing abdominal pain but the CT scan done 2 days prior shows no acute process and that was the reason she was admitted to the hospital in the first place Abdomen Pain Score (Numeric/FACES): 7 - Related Data Allergies Allergy/AdvReac Type Severity Reaction Status Date / Time ciprofloxacin [From Cipro] Allergy Hives Verified 06/07/17 22:20 lactose Allergy Other Verified 06/07/17 22:20 Home Meds: Home Meds Etonogestrel [Nexplanon] 1 injection SQ .3YEARS 10/07/15 [History] Calcium Carbonate [Tums] 500 mg PO BID tab.chew 07/11/16 [Rx] Cyanocobalamin (Vitamin B12) [Vitamin B12] 1,000 mcg PO DAILY tablet 07/11/16 [ Rx] Multivitamins with Iron [Child Chew Iron] 1 tab PO BID tab.chew 07/11/16 [Rx] Ondansetron [Zofran ODT] 4 mg PO Q4H PRN #30 tab.dis 07/11/16 [Rx] QUEtiapine [SEROquel] 300 mg PO BEDTIME tablet 07/11/16 [Rx] Ramelteon [Rozerem] 8 mg PO BEDTIME 07/30/16 [History] Cyclobenzaprine [Flexeril] 10 mg PO BID PRN 03/06/17 [History] FLUoxetine [PROzac] 40 mg PO DAILY 04/13/17 [History] ALPRAZolam [Alprazolam] 1 mg PO TID PRN 06/07/17 [History] Bismuth Subsalicylate [Soothe] 1 - 2 tab PO Q4H PRN 06/07/17 [History] Celecoxib 200 mg PO ASDIRECTED PRN 06/07/17 [History] Magnesium Oxide 400 mg PO BID #60 tablet 06/09/17 [Rx] Pantoprazole [ProTONIX] 40 mg PO BIDAC #60 tab.cr 06/09/17 [Rx] oxyCODONE 5 mg PO Q4H PRN #12 tab 06/09/17 [Rx] Past Medical History HEENT History: Reports: Impaired Vision Other HEENT History: wears glasses Gastrointestinal History: Reports: Bowel Obstruction, GERD Other Gastrointestinal History: girth 60 inches, GASTRIC BYPASS Genitourinary History: Reports: UTI, Recurrent [employer] History: Reports: Endometriosis Psychiatric History: Reports: ADD, ADHD, Anxiety, Depression, Eating Disorders, Mood Swings, OCD, Panic Attack, Psych Hospitalization(s), PTSD, Suicide Attempt Endocrine/Metabolic History: Reports: Obesity/BMI 30+, Vitamin D Deficiency Hematologic History: Reports: Anemia, Blood Transfusion(s), Iron Deficiency - Infectious Disease History Infectious Disease History: Reports: Chicken Pox - Past Surgical History HEENT Surgical History: Reports: None GI Surgical History: Reports: Bariatric Procedure, Cholecystectomy, Hernia Repair/Other, Other (See Below) Other GI Surgeries/Procedures: Umbilical hernia repair 07/11/2014. Drainage of pericholecystic abscess 07/11/2014. gallbladder out 2014. bowel obstruction surgery 10/2015 again 12/09/2015. 01/06 bowel obstruction surgery Social & Family History - Family History Family Medical History: Noncontributory - Tobacco Use Smoking Status *Q: Current Every Day Smoker Years of Tobacco use: 6 Packs/Tins Daily: 0.2 Used Tobacco, but Quit: No Month/Year Tobacco Last Used: Second Hand Smoke Exposure: No - Caffeine Use Caffeine Use: Reports: Coffee - Alcohol Use Days Per Week of Alcohol Use: 0 - Recreational Drug Use Recreational Drug Use: Yes Drug Use in Last 12 Months: Yes Recreational Drug Type: Reports: Marijuana/Hashish Recreational Drug Use Frequency: Weekly Recreational Drug Last Use: this past Saturday - Living Situation & Occupation Living situation: Reports: (lives with and cat.) ED ROS GENERAL - Review of Systems Review Of Systems: See Below Constitutional: Reports: Weakness HEENT: Reports: No Symptoms Respiratory: Reports: No Symptoms Cardiovascular: Reports: No Symptoms GI/Abdominal: Reports: No Symptoms : Reports: No Symptoms Musculoskeletal: Reports: No Symptoms Skin: Reports: No Symptoms Neurological: Reports: No Symptoms ED EXAM, GENERAL - Physical Exam Exam: See Below Free Text/Narrative:: General: Female, not in any distress, alert and oriented x3 HEENT: head is atraumatic normocephalic, eyes pupils equal round reactive to light, sclera clear no conjunctivitis appreciated. Ears blocked by cerumen bilaterally. Nose no septal deviation, nares are clear, no blood present. Mouth mucosa is moist and pink no erythema or exudate noted in soft palate, tongue is midline uvula is midline, dentition is intact. Neck: Supple no thyromegaly no tracheal deviation. Nodes: Cervical nodes subclavicular nodes nontender no palpable lymphadenopathy noted. Lungs: clear to auscultation bilaterally with symmetrical respirations, no adventitious noise appreciated. CV: Regular rate and rhythm S1 and S2 appreciated no murmurs rubs or gallops noted. Abdomen: Soft, obese, nontender, no palpable masses or organomegaly appreciated , no distention no guarding bowel sounds are present, . Neuro: Cranial nerves II through XII grossly intact Skin: Nonspecific maculopapular rash apparently on the forearms some on the trunk consistent with drug eruption Extremities: No lower extremity edema appreciated, Course - Vital Signs Last Recorded V/S: Last Vital Signs Temp 97.3 F 06/11/17 01:08 Pulse 118 H 06/11/17 01:08 Resp 16 06/11/17 01:08 BP 126/81 06/11/17 01:08 Pulse Ox 98 06/11/17 01:08 - Orders/Labs/Meds Orders: Active Orders 24 hr Category Date Time Status UA W/MICROSCOPIC [URIN] Urgent Lab 06/11/17 02:30 Ordered Labs: Laboratory Tests 06/11/17 06/11/17 06/11/17 Range/Units 02:20 02:25 02:30 WBC 8.1 (4.5-11.0) K/uL RBC 3.35 (3.30-5.50) M/uL Hgb 9.8 L (12.0-15.0) g/dL Hct 29.5 L (36.0-48.0) % MCV 88 (80-98) fL MCH 29 (27-31) pg MCHC 33 (32-36) % Plt Count (150-400) K/uL Neut % (Auto) 63 (36-66) % Lymph % (Auto) 30 (24-44) % [place] % (Auto) 7 H (2-6) % Eos % (Auto) 0 L (2-4) % Baso % (Auto) 0 (0-1) % Sodium 137 L (140-148) mmol/L Potassium 4.2 (3.6-5.2) mmol/L Chloride 104 (100-108) mmol/L Carbon Dioxide 26 (21-32) mmol/L Anion Gap 11.2 (5.0-14.0) mmol/L BUN 10 (7-18) mg/dL Creatinine 0.2 L D (0.6-1.0) mg/dL Est Cr Clr Drug Dosing 386.93 mL/min Estimated GFR (MDRD) > 60 (>60) Glucose 77 (74-106) mg/dL Calcium 6.7 L* (8.5-10.1) mg/dL Magnesium 1.8 D (1.8-2.4) mg/dL Total Bilirubin 1.1 H (0.2-1.0) mg/dL AST 32 (15-37) U/L ALT 27 (12-78) U/L Alkaline Phosphatase 113 (46-116) U/L Total Protein 4.0 L (6.4-8.2) g/dL Albumin 1.3 L (3.4-5.0) g/dL Globulin 2.7 (2.3-3.5) g/dL Albumin/Globulin Ratio 0.5 L (1.2-2.2) Urine Color Brown Urine Appearance Slightly cloudy Urine pH 6.0 (4.5-8.0) Ur Specific Bennett 1.020 (1.008-1.030) Urine Protein Trace (NEGATIVE) mg/dL Urine Glucose (UA) Normal (NEGATIVE) mg/dL Urine Ketones Negative (NEGATIVE) mg/dL Urine Occult Blood Negative (NEGATIVE) Urine Nitrite Negative (NEGATIVE) Urine Bilirubin Small (NEGATIVE) Urine Urobilinogen 4 (NORMAL) mg/dL Ur Leukocyte Esterase Small (NEGATIVE) Urine RBC 0-5 (0-5) Urine WBC 0-5 (0-5) Ur Epithelial Cells Moderate Amorphous Sediment Not seen Urine Bacteria Moderate Urine Mucus Many Departure - Departure Time of Disposition: 03:12 Disposition: Home, Self-Care 01 Condition: Poor Clinical Impression: Weakness - Discharge Information Referrals: PCP,None [Primary Care Provider] - Forms: ED Department Discharge Additional Instructions: Please establish with a gastric bypass program for correction of your electrolyte abnormalities - My Orders Last 24 Hours: My Active Orders 06/11/17 02:30 UA W/MICROSCOPIC [URIN] Urgent - Assessment/Plan Last 24 Hours: My Active Orders 06/11/17 02:30 UA W/MICROSCOPIC [URIN] Urgent Plan: Assessment Acuity = acute Site and laterality = weakness complicated in a patient with known history of gastric bypass and multiple hospital admissions Etiology = unclear etiology possibly related to gastric bypass Manifestations = none Location of injury = Home Lab values = hemoglobin low at 9.8 consistent with normochromic anemia, calcium low at 6.7 consistent hypocalcemia magnesium normal 1.8 albumin low at 1.3 consistent hypoalbuminemia, review of blood work shows these values are similar over the last year Plan Recommend she establish with a gastric bypass program and be followed primary care who is attuned to electrolyte abnormalities followed by gastric bypass. I informed her that I did not have sufficient evidence for hospital admission at this time or sufficient evidence for transfer This note was dictated using [employer] voice recognition software please call with any questions on syntax or robin.
== END 2017-06-11 03:25 | disposition home or self-care (01) ==
LOC: JP.ED 22:13
DX: R53.1 Weakness (principal); E66.9 Obesity, unspecified; F17.210 Nicotine dependence, cigarettes, uncomplicated; Z91.011 Allergy to milk products; Z88.1 Allergy status to other antibiotic agents; Z79.899 Other long term (current) drug therapy
CPT/HCPCS: 36415; 80053; 81001; 83735; 85025; 99284

== ENCOUNTER 2017-06-14 13:40 | Emergency (ER) | payer MEDICARE, MEDICAID ==
[2017-06-14 13:46] VITALS: BP 132/78
[2017-06-14] MEDS ORDERED: Lactated Ringers 1,000 ML IV SCH (14:45)
[2017-06-14] MEDS ORDERED: Ondansetron 4 MG/2 ML SDV IVPUSH ONE (14:47)
[2017-06-14] MEDS ORDERED: fentaNYL 100 MCG/2 ML SDV IVPUSH ONE ×2 (14:47→19:23)
--- NOTE | 2017-06-14 14:49 | EDM.PDOC ---
ED HPI GENERAL MEDICAL PROBLEM - General Chief Complaint: Abdominal Pain Stated Complaint: [facility] Time Seen by Provider: 06/14/17 14:43 Source of Information: Reports: Patient, Family, Old Records, RN Notes Reviewed History Limitations: Reports: No Limitations - History of Present Illness INITIAL COMMENTS - FREE TEXT/NARRATIVE: 27-year-old female presents emergency department today via EMS services for abdominal distention, she has known history gastric bypass she states her last couple days she's been feeling poorly no passing of late to use, has been feeling weak frequent falls Generalized Pain Score (Numeric/FACES): 9 - Related Data Allergies Allergy/AdvReac Type Severity Reaction Status Date / Time ciprofloxacin [From Cipro] Allergy Hives Verified 06/07/17 22:20 lactose Allergy Other Verified 06/07/17 22:20 Home Meds: Home Meds Etonogestrel [Nexplanon] 1 injection SQ .3YEARS 10/07/15 [History] Calcium Carbonate [Tums] 500 mg PO BID tab.chew 07/11/16 [Rx] Cyanocobalamin (Vitamin B12) [Vitamin B12] 1,000 mcg PO DAILY tablet 07/11/16 [ Rx] Multivitamins with Iron [Child Chew Iron] 1 tab PO BID tab.chew 07/11/16 [Rx] Ondansetron [Zofran ODT] 4 mg PO Q4H PRN #30 tab.dis 07/11/16 [Rx] QUEtiapine [SEROquel] 300 mg PO BEDTIME tablet 07/11/16 [Rx] Ramelteon [Rozerem] 8 mg PO BEDTIME 07/30/16 [History] Cyclobenzaprine [Flexeril] 10 mg PO BID PRN 03/06/17 [History] FLUoxetine [PROzac] 40 mg PO DAILY 04/13/17 [History] ALPRAZolam [Alprazolam] 1 mg PO TID PRN 06/07/17 [History] Bismuth Subsalicylate [Soothe] 1 - 2 tab PO Q4H PRN 06/07/17 [History] Celecoxib 200 mg PO ASDIRECTED PRN 06/07/17 [History] Magnesium Oxide 400 mg PO BID #60 tablet 06/09/17 [Rx] Pantoprazole [ProTONIX] 40 mg PO BIDAC #60 tab.cr 06/09/17 [Rx] oxyCODONE 5 mg PO Q4H PRN #12 tab 06/09/17 [Rx] Past Medical History HEENT History: Reports: Impaired Vision Other HEENT History: wears glasses Gastrointestinal History: Reports: Bowel Obstruction, GERD Other Gastrointestinal History: girth 60 inches, GASTRIC BYPASS Genitourinary History: Reports: UTI, Recurrent VOLUMETRIC WEIGHER History: Reports: Endometriosis Psychiatric History: Reports: ADD, ADHD, Anxiety, Depression, Eating Disorders, Mood Swings, OCD, Panic Attack, Psych Hospitalization(s), PTSD, Suicide Attempt Endocrine/Metabolic History: Reports: Obesity/BMI 30+, Vitamin D Deficiency Hematologic History: Reports: Anemia, Blood Transfusion(s), Iron Deficiency - Infectious Disease History Infectious Disease History: Reports: Chicken Pox - Past Surgical History HEENT Surgical History: Reports: None Cardiovascular Surgical History: Reports: None GI Surgical History: Reports: Bariatric Procedure, Cholecystectomy, Hernia Repair/Other, Other (See Below) Other GI Surgeries/Procedures: Umbilical hernia repair 07/11/2014. Drainage of pericholecystic abscess 07/11/2014. gallbladder out 2014. bowel obstruction surgery 10/2015 again 12/09/2015. 01/06 bowel obstruction surgery Neurological Surgical History: Reports: None Dermatological Surgical History: Reports: None Social & Family History - Family History Family Medical History: Noncontributory - Tobacco Use Smoking Status *Q: Former Smoker Years of Tobacco use: 6 Packs/Tins Daily: 0.2 Used Tobacco, but Quit: Yes Month/Year Tobacco Last Used: 4 Second Hand Smoke Exposure: No - Caffeine Use Caffeine Use: Reports: None - Alcohol Use Days Per Week of Alcohol Use: 0 - Recreational Drug Use Recreational Drug Use: No Drug Use in Last 12 Months: Yes Recreational Drug Type: Reports: Marijuana/Hashish Recreational Drug Use Frequency: Weekly Recreational Drug Last Use: this past Saturday - Living Situation & Occupation Living situation: Reports: (lives with and cat.) ED [facility] GENERAL - Review of Systems Review Of Systems: See Below Constitutional: Reports: Chills. Denies: Fever HEENT: Reports: No Symptoms Respiratory: Reports: No Symptoms Cardiovascular: Reports: No Symptoms GI/Abdominal: Reports: Abdominal Pain, Nausea. Denies: Flatus, Vomiting : Reports: No Symptoms Musculoskeletal: Reports: No Symptoms Skin: Reports: No Symptoms Neurological: Reports: No Symptoms ED EXAM, GI/ABD - Physical Exam Exam: See Below Exam Limited By: Other (Ill-appearing) General Appearance: Alert, Mild Distress Eyes: Bilateral: Normal Appearance Head: Atraumatic, Normocephalic Neck: Normal Inspection, Supple, Non-Tender, Full Range of Motion Respiratory/Chest: No Respiratory Distress, Lungs Clear, Normal Breath Sounds, No Accessory Muscle Use, Chest Non-Tender Cardiovascular: Regular Rate, Rhythm, No Murmur GI/Abdominal Exam: Soft, Distended (Marked), Tender (Epigastric region) Course - Vital Signs Last Recorded V/S: Last Vital Signs Temp 98 F 06/14/17 13:48 Pulse 129 H 06/14/17 13:48 Resp 18 06/14/17 13:48 BP 132/78 06/14/17 13:48 Pulse Ox 100 06/14/17 13:48 - Orders/Labs/Meds Orders: Active Orders 24 hr Category Date Time Status Peripheral IV Care [RC] . DIRECTED Care 06/14/17 14:46 Active Abdomen 1V Upright [CR] Urgent Exams 06/14/17 14:45 Taken Abdomen Pelvis w Cont [CT] Stat Exams 06/14/17 15:53 Taken UA W/MICROSCOPIC [URIN] Urgent Lab 06/14/17 14:45 Ordered Iopamidol [Isovue-300 (61%)] Med 06/14/17 16:15 Active 100 ml IV . DIRECTED Lactated Ringers [Ringers, Lactated] 1,000 ml Med 06/14/17 14:45 Active IV ASDIRECTED Sodium Chloride 0.9% [Normal Saline] 70 ml Med 06/14/17 16:15 Active IV ASDIRECTED Sodium Chloride 0.9% [Saline Flush] Med 06/14/17 14:45 Active 10 ml FLUSH ASDIRECTED PRN Peripheral IV Insertion Adult [OM.PC] Urgent Oth 06/14/17 14:45 Ordered Medication Orders Lactated Ringer's (Ringers, Lactated) 1,000 mls @ 999 mls/hr IV ASDIRECTED SHANE Last Admin: 06/14/17 15:55 Dose: 999 mls/hr Sodium Chloride (Normal Saline) 70 mls @ 3 mls/sec IV ASDIRECTED SHANE Last Admin: 06/14/17 16:28 Dose: 3 mls/sec Iopamidol (Isovue-300 (61%)) 100 ml IV . DIRECTED SHANE Last Admin: 06/14/17 16:28 Dose: 100 ml Sodium Chloride (Saline Flush) 10 ml FLUSH ASDIRECTED PRN PRN Reason: Keep Vein Open Last Admin: 06/14/17 16:27 Dose: 10 ml Admin: 06/14/17 16:04 Dose: 10 ml Labs: Laboratory Tests 06/14/17 06/14/17 06/14/17 Range/Units 15:41 15:41 15:41 WBC 10.7 (4.5-11.0) K/uL RBC 4.07 (3.30-5.50) M/uL Hgb 11.9 L D (12.0-15.0) g/dL Hct 36.5 (36.0-48.0) % MCV 90 (80-98) fL MCH 29 (27-31) pg MCHC 33 (32-36) % Plt Count 330 (150-400) K/uL Neut % (Auto) 72 H (36-66) % Lymph % (Auto) 21 L (24-44) % [place] % (Auto) 6 (2-6) % Eos % (Auto) 0 L (2-4) % Baso % (Auto) 1 (0-1) % Sodium 134 L (140-148) mmol/L Potassium 4.9 (3.6-5.2) mmol/L Chloride 100 (100-108) mmol/L Carbon Dioxide 27 (21-32) mmol/L Anion Gap 11.9 (5.0-14.0) mmol/L BUN 14 (7-18) mg/dL Creatinine 0.6 D (0.6-1.0) mg/dL Est Cr Clr Drug Dosing 128.98 mL/min Estimated GFR (MDRD) > 60 (>60) Glucose 102 (74-106) mg/dL Lactic Acid 1.7 (0.4-2.0) mmol/L Calcium 7.3 L (8.5-10.1) mg/dL Total Bilirubin 1.5 H (0.2-1.0) mg/dL AST 33 (15-37) U/L ALT 29 (12-78) U/L Alkaline Phosphatase 128 H (46-116) U/L Total Protein 4.9 L (6.4-8.2) g/dL Albumin 1.5 L (3.4-5.0) g/dL Globulin 3.4 (2.3-3.5) g/dL Albumin/Globulin Ratio 0.4 L (1.2-2.2) Lipase 18 L (73-393) U/L Meds: Medications Generic Name Dose Route Start Last Admin Trade Name Freq PRN Reason Stop Dose Admin Lactated Ringer's 1,000 mls @ 999 mls/hr 06/14/17 14:45 06/14/17 15:55 Ringers, Lactated IV 999 mls/hr ASDIRECTED SHANE Administration Sodium Chloride 70 mls @ 3 mls/sec 06/14/17 16:15 06/14/17 16:28 Normal Saline IV 3 mls/sec ASDIRECTED SHANE Administration Iopamidol 100 ml 06/14/17 16:15 06/14/17 16:28 Isovue-300 (61%) IV 100 ml . DIRECTED SHANE Administration Sodium Chloride 10 ml 06/14/17 14:45 06/14/17 16:27 Saline Flush FLUSH 10 ml ASDIRECTED PRN Administration Keep Vein Open Discontinued Medications Generic Name Dose Route Start Last Admin Trade Name Freq PRN Reason Stop Dose Admin Fentanyl 50 mcg 06/14/17 14:47 06/14/17 15:56 Sublimaze IVPUSH 06/14/17 14:48 50 mcg ONETIME ONE Administration Ondansetron HCl 4 mg 06/14/17 14:47 06/14/17 15:57 Zofran IVPUSH 06/14/17 14:48 4 mg ONETIME ONE Administration Departure - Departure Time of Disposition: 17:49 Disposition: DC/Tfer to Acute Hospital 02 Condition: Poor Clinical Impression: Hypoproteinemia - Discharge Information Referrals: PCP,None [Primary Care Provider] - Forms: ED Department Discharge - My Orders Last 24 Hours: My Active Orders 06/14/17 14:45 Abdomen 1V Upright [CR] Urgent UA W/MICROSCOPIC [URIN] Urgent Lactated Ringers [Ringers, Lactated] 1,000 ml IV ASDIRECTED Sodium Chloride 0.9% [Saline Flush] 10 ml FLUSH ASDIRECTED PRN Peripheral IV Insertion Adult [OM.PC] Urgent 06/14/17 14:46 Peripheral IV Care [RC] . DIRECTED 06/14/17 15:53 Abdomen Pelvis w Cont [CT] Stat 06/14/17 16:15 Iopamidol [Isovue-300 (61%)] 100 ml IV . DIRECTED Sodium Chloride 0.9% [Normal Saline] 70 ml IV ASDIRECTED - Assessment/Plan Last 24 Hours: My Active Orders 06/14/17 14:45 Abdomen 1V Upright [CR] Urgent UA W/MICROSCOPIC [URIN] Urgent Lactated Ringers [Ringers, Lactated] 1,000 ml IV ASDIRECTED Sodium Chloride 0.9% [Saline Flush] 10 ml FLUSH ASDIRECTED PRN Peripheral IV Insertion Adult [OM.PC] Urgent 06/14/17 14:46 Peripheral IV Care [RC] . DIRECTED 06/14/17 15:53 Abdomen Pelvis w Cont [CT] Stat 06/14/17 16:15 Iopamidol [Isovue-300 (61%)] 100 ml IV . DIRECTED Sodium Chloride 0.9% [Normal Saline] 70 ml IV ASDIRECTED Plan: Assessment Acuity = acute Site and laterality = hypoproteinemia complicated patient with known history gastric bypass Etiology = probably related to compliance of gastric bypass diet Manifestations = abdominal distention, ascites, anasarca, weakness, frequent falls Location of injury = Home Lab values = sodium low at 134 consistent hyponatremia calcium low at 7.3 consistent with hypocalcemia total bilirubin elevated 1.5 consistent hyperbilirubinemia protein low at 4.4 albumin low at 1.[address] scan describes third spacing with worsening ascites and severe anasarca, persistent wall edema of small bowel and colon stable gastric bypass changes with distention of small bowel loops up to 7 cm Plan Discussed case with Dr. Estrada hospitalist marble installation helper at [facility] kindly accepted the patient in transport she will be transported via EMS ground This note was dictated using [employer] voice recognition software please call with any questions on syntax or robin.
[2017-06-14] MEDS: Sodium Chloride 0.9% 10 ML Syringe FLUSH PRN ×2 (16:04→16:27)
[2017-06-14] MEDS ORDERED: Iopamidol 612 MG/ML 100 ML Bottle IV SCH (16:15)
--- NOTE | 2017-06-17 08:41 | CR ---
Abdomen 1V Upright CLINICAL HISTORY: Abdominal distention FINDINGS: There is moderate to distention of the transverse colon and splenic flexure. There are air- fluid levels in the ascending and descending colon. There are dilated loops in the midabdomen, some o f which appear to be small bowel. No free air is identified. Patient has had previous bowel surgery. IMPRESSION: Moderate distention of colon with some dilated small bowel loops. This could be ileus. Le ft colon obstruction is not excluded
== END 2017-06-14 20:14 ==
LOC: JP.ED 13:40
DX: E77.8 Other disorders of glycoprotein metabolism (principal); R14.0 Abdominal distension (gaseous); R18.8 Other ascites; Z88.1 Allergy status to other antibiotic agents; Z91.011 Allergy to milk products; Z79.899 Other long term (current) drug therapy; Z87.891 Personal history of nicotine dependence
CPT/HCPCS: 36415; 74018; 74177; 80053; 83605; 83690; 85025; 96374; 96375; 99285; J2405; J3010; J7030; J7050; J7120; Q9967

== ENCOUNTER 2017-07-23 20:59 | Emergency (ER) | payer MEDICARE, MEDICAID ==
[2017-07-23 21:20] VITALS: BP 136/61
[2017-07-23] MEDS ORDERED: Metoclopramide 10 MG/2 ML SDV IVPUSH ONE (21:59)
--- NOTE | 2017-07-23 21:59 | EDM.PDOC ---
ED HPI GENERAL MEDICAL PROBLEM - General Chief Complaint: Headache Stated Complaint: HIGH FEVER, ANXIETY Time Seen by Provider: 07/23/17 21:56 Source of Information: Reports: Patient History Limitations: Reports: No Limitations - History of Present Illness INITIAL COMMENTS - FREE TEXT/NARRATIVE: pt arrived with a fever and total body aches. She states she had a 102 temp at home. Onset: Today, Other (pt has had a migraine for about 2 days. ) Duration: Hour(s): Location: Reports: Head Associated Symptoms: Reports: Headaches, Nausea/Vomiting Headache Pain Score (Numeric/FACES): 9 - Related Data Allergies Allergy/AdvReac Type Severity Reaction Status Date / Time ciprofloxacin [From Cipro] Allergy Hives Verified 06/07/17 22:20 lactose Allergy Other Verified 06/07/17 22:20 Home Meds: Home Meds Etonogestrel [Nexplanon] 1 injection SQ .3YEARS 10/07/15 [History] Calcium Carbonate [Tums] 500 mg PO BID tab.chew 07/11/16 [Rx] Cyanocobalamin (Vitamin B12) [Vitamin B12] 1,000 mcg PO DAILY tablet 07/11/16 [ Rx] Multivitamins with Iron [Child Chew Iron] 1 tab PO BID tab.chew 07/11/16 [Rx] Ondansetron [Zofran ODT] 4 mg PO Q4H PRN #30 tab.dis 07/11/16 [Rx] QUEtiapine [SEROquel] 300 mg PO BEDTIME tablet 07/11/16 [Rx] Ramelteon [Rozerem] 8 mg PO BEDTIME 07/30/16 [History] Cyclobenzaprine [Flexeril] 10 mg PO BID PRN 03/06/17 [History] FLUoxetine [PROzac] 40 mg PO DAILY 04/13/17 [History] ALPRAZolam [Alprazolam] 1 mg PO TID PRN 06/07/17 [History] Bismuth Subsalicylate [Soothe] 1 - 2 tab PO Q4H PRN 06/07/17 [History] Celecoxib 200 mg PO ASDIRECTED PRN 06/07/17 [History] Magnesium Oxide 400 mg PO BID #60 tablet 06/09/17 [Rx] Pantoprazole [ProTONIX] 40 mg PO BIDAC #60 tab.cr 06/09/17 [Rx] oxyCODONE 5 mg PO Q4H PRN #12 tab 06/09/17 [Rx] Diazepam [Valium] 10 mg PO ASDIRECTED 07/23/17 [History] Past Medical History HEENT History: Reports: Impaired Vision Other HEENT History: wears glasses Gastrointestinal History: Reports: Bowel Obstruction, GERD Other Gastrointestinal History: girth 60 inches, GASTRIC BYPASS Genitourinary History: Reports: UTI, Recurrent 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 Psychiatric History: Reports: ADD, ADHD, Anxiety, Depression, Eating Disorders, Mood Swings, OCD, Panic Attack, Psych Hospitalization(s), PTSD, Suicide Attempt Endocrine/Metabolic History: Reports: Obesity/BMI 30+, Vitamin D Deficiency Hematologic History: Reports: Anemia, Blood Transfusion(s), Iron Deficiency - Infectious Disease History Infectious Disease History: Reports: Chicken Pox - Past Surgical History HEENT Surgical History: Reports: None Cardiovascular Surgical History: Reports: None GI Surgical History: Reports: Bariatric Procedure, Cholecystectomy, Hernia Repair/Other, Other (See Below) Other GI Surgeries/Procedures: Umbilical hernia repair 07/11/2014. Drainage of pericholecystic abscess 07/11/2014. gallbladder out 2014. bowel obstruction surgery 10/2015 again 12/09/2015. 01/06 bowel obstruction surgery Neurological Surgical History: Reports: None Dermatological Surgical History: Reports: None Social & Family History - Family History Family Medical History: Noncontributory - Tobacco Use Smoking Status *Q: Never Smoker - Caffeine Use Caffeine Use: Reports: Coffee - Recreational Drug Use Recreational Drug Use: Yes Recreational Drug Type: Reports: Marijuana/Hashish - Living Situation & Occupation Living situation: Reports: (lives with and cat.) ED ROS GENERAL - Review of Systems Review Of Systems: See Below Constitutional: Reports: Fever, Chills, Malaise HEENT: Reports: No Symptoms Respiratory: Reports: No Symptoms Cardiovascular: Reports: No Symptoms Endocrine: Reports: No Symptoms GI/Abdominal: Reports: Other (pt has a ventral hernia which is uncomfortable. ) : Reports: Frequency Musculoskeletal: Reports: Muscle Pain Skin: Reports: No Symptoms Neurological: Reports: No Symptoms Psychiatric: Reports: No Symptoms - Physical Exam Exam: See Below Text/Narrative:: pt arrived with generalized body aches and a fever. She has been nauseated. She noticed the fever tonight. Exam Limited By: No Limitations General Appearance: Alert, Moderate Distress Ears: Normal TMs Nose: Normal Inspection Throat/Mouth: Normal Inspection Head Exam: Atraumatic Neck: Normal Inspection Respiratory/Chest: No Respiratory Distress GI/Abdominal: Other (pt has a ventral hernia which is large. ) (Female) Exam: Deferred Rectal (Female) Exam: Deferred Neuro Exam (Abbreviated): Other (pt is having loose stools) Back Exam: Normal Inspection Extremities: Normal Inspection Psychiatric: Anxious Course - Vital Signs Last Recorded V/S: Last Vital Signs Temp 101.6 C H 07/23/17 22:52 Pulse 119 H 07/23/17 21:38 Resp 16 07/23/17 21:38 BP 136/61 07/23/17 21:38 Pulse Ox 100 07/23/17 21:38 - Orders/Labs/Meds Orders: Active Orders 24 hr Category Date Time Status Chest 1V Frontal [CR] Stat Exams 07/23/17 22:01 Taken CULTURE BLOOD [BC] Urgent Lab 07/23/17 22:40 Received CULTURE BLOOD [BC] Urgent Lab 07/23/17 22:45 Received UA W/MICROSCOPIC [URIN] Urgent Lab 07/23/17 22:03 Ordered Sodium Chloride 0.9% [Normal Saline] 1,000 ml Med 07/23/17 22:15 Active IV ASDIRECTED Blood Culture x2 Reflex Set [OM.PC] Urgent Oth 07/23/17 22:27 Ordered Medication Orders Sodium Chloride (Normal Saline) 1,000 mls @ 500 mls/hr IV ASDIRECTED SHANE Last Admin: 07/23/17 22:20 Dose: 500 mls/hr Labs: Laboratory Tests 07/23/17 07/23/17 07/23/17 Range/Units 22:03 22:19 22:19 WBC 3.7 L (4.5-11.0) K/uL RBC 3.26 L (3.30-5.50) M/uL Hgb 9.1 L (12.0-15.0) g/dL Hct 29.1 L (36.0-48.0) % MCV 89 (80-98) fL MCH 28 (27-31) pg MCHC 31 L (32-36) % Plt Count 220 (150-400) K/uL Neut % (Auto) 70 H (36-66) % Lymph % (Auto) 27 (24-44) % [place] % (Auto) 3 (2-6) % Eos % (Auto) 0 L (2-4) % Baso % (Auto) 0 (0-1) % Lactic Acid (0.4-2.0) mmol/L C-Reactive Protein 2.83 H (0.0-0.3) mg/dL Urine Color Yellow Urine Appearance Cloudy Urine pH 6.0 (4.5-8.0) Ur Specific [place] 1.020 (1.008-1.030) Urine Protein Negative (NEGATIVE) mg/dL Urine Glucose (UA) Normal (NEGATIVE) mg/dL Urine Ketones Negative (NEGATIVE) mg/dL Urine Occult Blood Negative (NEGATIVE) Urine Nitrite Positive H (NEGATIVE) Urine Bilirubin Small (NEGATIVE) Urine Urobilinogen 4 (NORMAL) mg/dL Ur Leukocyte Esterase Negative (NEGATIVE) Urine RBC 0-5 (0-5) Urine WBC 10-20 H (0-5) Ur Epithelial Cells Moderate Amorphous Sediment Not seen Urine Bacteria Many Urine Mucus Few 07/23/17 Range/Units 22:19 WBC (4.5-11.0) K/uL RBC (3.30-5.50) M/uL Hgb (12.0-15.0) g/dL Hct (36.0-48.0) % MCV (80-98) fL MCH (27-31) pg MCHC (32-36) % Plt Count (150-400) K/uL Neut % (Auto) (36-66) % Lymph % (Auto) (24-44) % [place] % (Auto) (2-6) % Eos % (Auto) (2-4) % Baso % (Auto) (0-1) % Lactic Acid 1.5 (0.4-2.0) mmol/L C-Reactive Protein (0.0-0.3) mg/dL Urine Color Urine Appearance Urine pH (4.5-8.0) Ur Specific [place] (1.008-1.030) Urine Protein (NEGATIVE) mg/dL Urine Glucose (UA) (NEGATIVE) mg/dL Urine Ketones (NEGATIVE) mg/dL Urine Occult Blood (NEGATIVE) Urine Nitrite (NEGATIVE) Urine Bilirubin (NEGATIVE) Urine Urobilinogen (NORMAL) mg/dL Ur Leukocyte Esterase (NEGATIVE) Urine RBC (0-5) Urine WBC (0-5) Ur Epithelial Cells Amorphous Sediment Urine Bacteria Urine Mucus Meds: Medications Generic Name Dose Route Start Last Admin Trade Name Alejo PRN Reason Stop Dose Admin Sodium Chloride 1,000 mls @ 500 mls/hr 07/23/17 22:15 07/23/17 22:20 Normal Saline IV 500 mls/hr ASDIRECTED SHANE Administration Discontinued Medications Generic Name Dose Route Start Last Admin Trade Name Alejo PRN Reason Stop Dose Admin Acetaminophen 650 mg 07/23/17 22:42 07/23/17 22:52 Tylenol PO 07/23/17 22:43 650 mg NOW ONE Administration Hydromorphone HCl 0.5 mg 07/23/17 22:00 07/23/17 22:21 Dilaudid IVPUSH 07/23/17 22:01 0.5 mg ONETIME ONE Administration Ceftriaxone Sodium 1 gm/ 50 mls @ 100 mls/hr 07/23/17 22:27 07/23/17 22:49 Sodium Chloride IV 07/23/17 22:56 100 mls/hr ONETIME ONE Administration Lorazepam 0.5 mg 07/23/17 22:00 07/23/17 22:23 Ativan IVPUSH 07/23/17 22:01 0.5 mg ONETIME ONE Administration Metoclopramide HCl 10 mg 07/23/17 21:59 07/23/17 22:20 Reglan IVPUSH 07/23/17 22:00 10 mg ONETIME ONE Administration - Re-Assessments/Exams Free Text/Narrative Re-Assessment/Exam: 07/23/17 23:18 urine is infected. She has a temp of 101. She is very anxious. She has been having loose stools. 07/23/17 23:24 Departure - Departure Time of Disposition: 23:25 Disposition: Home, Self-Care 01 Condition: Fair Clinical Impression: UTI (urinary tract infection), Dehydration - Discharge Information Referrals: Angélica Nieves PA [Primary Care Provider] - Forms: ED Department Discharge Care Plan Goals: push fluids, augmentin 400mg 2 tsp bid, use yogurt and probiotic to stop the diarrhea. appt with Nicole Nieves in 4-5 days, percocet 7.5/ 325 q6h prn for pain # 8 - My Orders Last 24 Hours: My Active Orders 07/23/17 22:01 Chest 1V Frontal [CR] Stat 07/23/17 22:03 UA W/MICROSCOPIC [URIN] Urgent 07/23/17 22:15 Sodium Chloride 0.9% [Normal Saline] 1,000 ml IV ASDIRECTED 07/23/17 22:27 Blood Culture x2 Reflex Set [OM.PC] Urgent 07/23/17 22:40 CULTURE BLOOD [BC] Urgent 07/23/17 22:45 CULTURE BLOOD [BC] Urgent - Assessment/Plan Last 24 Hours: My Active Orders 07/23/17 22:01 Chest 1V Frontal [CR] Stat 07/23/17 22:03 UA W/MICROSCOPIC [URIN] Urgent 07/23/17 22:15 Sodium Chloride 0.9% [Normal Saline] 1,000 ml IV ASDIRECTED 07/23/17 22:27 Blood Culture x2 Reflex Set [OM.PC] Urgent 07/23/17 22:40 CULTURE BLOOD [BC] Urgent 07/23/17 22:45 CULTURE BLOOD [BC] Urgent
[2017-07-23] MEDS ORDERED: HYDROmorphone 0.5 MG/0.5 ML Syringe IVPUSH ONE (22:00)
[2017-07-23] MEDS ORDERED: LORazepam 2 MG/ML SDV IVPUSH ONE (22:00)
[2017-07-23] MEDS ORDERED: Sodium Chloride 0.9% 1,000 ML IV SCH (22:15)
[2017-07-23] MEDS ORDERED: cefTRIAXone 1 GM in Sodium Chloride 0.9% 50 ML IV ONE (22:27)
[2017-07-23] MEDS ORDERED: Acetaminophen 325 MG Tab PO ONE (22:42)
--- NOTE | 2017-07-24 08:59 | CR ---
CHEST: Portable CLINICAL HISTORY:Fever COMPARISON:09/06/2016 FINDINGS: Heart size and pulmonary vascular appear normal. There is mild prominence of the left hilu m. The this may be increased slightly since prior study. Some of this difference is technical. Katiana t has a PICC line from the right upper extremity. No infiltrates are seen. There are no pleural effusions IMPRESSION: Mild prominence of the left hilum when compared to prior studies. This may be technical. Upright two-view chest recommended when patient's condition allows. Right upper extremity PICC line appears in good position
== END 2017-07-24 00:24 | disposition home or self-care (01) ==
LOC: JP.ED 20:59
DX: N39.0 Urinary tract infection, site not specified (principal); E86.0 Dehydration; E66.9 Obesity, unspecified; Z91.011 Allergy to milk products; Z88.1 Allergy status to other antibiotic agents; Z79.899 Other long term (current) drug therapy
CPT/HCPCS: 36415; 71045; 81001; 83605; 85025; 86140; 87040; 96361; 96365; 96375; 99284; A9270; J0696; J1170; J1642; J2060; J2765; J7030; J7050

== ENCOUNTER 2017-08-07 13:58 | Emergency (ER) | payer MEDICARE, MEDICAID ==
[2017-08-07] MEDS ORDERED: LORazepam 2 MG/ML SDV IVPUSH ONE (15:04)
[2017-08-07] MEDS ORDERED: HYDROmorphone 0.5 MG/0.5 ML Syringe IVPUSH ONE ×2 (15:05→16:57)
[2017-08-07] MEDS ORDERED: Sodium Chloride 0.9% 1,000 ML IV SCH (15:15)
--- NOTE | 2017-08-07 15:36 | CR ---
CHEST: Portable CLINICAL HISTORY:SOB COMPARISON:None FINDINGS: Lung santiago are clear. Heart size is mildly enlarged. Patient has a left subclavian cathet er. The tip is in the superior vena cava. IMPRESSION: No acute pulmonary process Left subclavian catheter is in the superior vena cava Cardiomegaly
[2017-08-07] MEDS ORDERED: cefTRIAXone 1 GM in Sodium Chloride 0.9% 50 ML IV ONE (17:28)
--- NOTE | 2017-08-07 17:34 | EDM.PDOC ---
ED HPI GENERAL MEDICAL PROBLEM - General Chief Complaint: General Stated Complaint: CHEST PAIN/SOB Time Seen by Provider: 08/07/17 14:15 Source of Information: Reports: Patient History Limitations: Reports: No Limitations - History of Present Illness INITIAL COMMENTS - FREE TEXT/NARRATIVE: pt arrived with pain with deep breathing and feeling sob. She does not have a fever. She was hyperventilating on arrival. She was breathing very shallow. Onset: Other ( started last nite. ) Duration: Hour(s): Location: Reports: Chest, Other ( Hurts with deep breathing. ) Associated Symptoms: Reports: Shortness of Breath, Other (pain with deep breathing) Chest Pain Score (Numeric/FACES): 10 - Related Data Allergies Allergy/AdvReac Type Severity Reaction Status Date / Time ciprofloxacin [From Cipro] Allergy Hives Verified 08/07/17 14:13 lactose Allergy Other Verified 08/07/17 14:13 Home Meds: Home Meds Etonogestrel [Nexplanon] 1 injection SQ .3YEARS 10/07/15 [History] Calcium Carbonate [Tums] 500 mg PO BID tab.chew 07/11/16 [Rx] Cyanocobalamin (Vitamin B12) [Vitamin B12] 1,000 mcg PO DAILY tablet 07/11/16 [ Rx] Multivitamins with Iron [Child Chew Iron] 1 tab PO BID tab.chew 07/11/16 [Rx] Ondansetron [Zofran ODT] 4 mg PO Q4H PRN #30 tab.dis 07/11/16 [Rx] QUEtiapine [SEROquel] 300 mg PO BEDTIME tablet 07/11/16 [Rx] Ramelteon [Rozerem] 8 mg PO BEDTIME 07/30/16 [History] Cyclobenzaprine [Flexeril] 10 mg PO BID PRN 03/06/17 [History] FLUoxetine [PROzac] 40 mg PO DAILY 04/13/17 [History] Magnesium Oxide 400 mg PO BID #60 tablet 06/09/17 [Rx] Pantoprazole [ProTONIX] 40 mg PO BIDAC #60 tab.cr 06/09/17 [Rx] oxyCODONE 5 mg PO Q4H PRN #12 tab 06/09/17 [Rx] Diazepam [Valium] 10 mg PO ASDIRECTED 07/23/17 [History] Past Medical History HEENT History: Reports: Impaired Vision Other HEENT History: wears glasses Cardiovascular History: Reports: Other (See Below) Other Cardiovascular History: fluid around heart Gastrointestinal History: Reports: Bowel Obstruction, GERD Other Gastrointestinal History: girth 60 inches, GASTRIC BYPASS Genitourinary History: Reports: UTI, Recurrent 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: Endometriosis Psychiatric History: Reports: ADD, ADHD, Anxiety, Depression, Eating Disorders, Mood Swings, OCD, Panic Attack, Psych Hospitalization(s), PTSD, Suicide Attempt Endocrine/Metabolic History: Reports: Obesity/BMI 30+, Vitamin D Deficiency Hematologic History: Reports: Anemia, Blood Transfusion(s), Iron Deficiency - Infectious Disease History Infectious Disease History: Reports: Chicken Pox - Past Surgical History HEENT Surgical History: Reports: None Cardiovascular Surgical History: Reports: None GI Surgical History: Reports: Bariatric Procedure, Cholecystectomy, Hernia Repair/Other, Other (See Below) Other GI Surgeries/Procedures: Umbilical hernia repair 07/11/2014. Drainage of pericholecystic abscess 07/11/2014. gallbladder out 2014. bowel obstruction surgery 10/2015 again 12/09/2015. 01/06 bowel obstruction surgery, [facility] Sep 2015 Female Surgical History: Reports: None Neurological Surgical History: Reports: None Dermatological Surgical History: Reports: None Social & Family History - Family History Family Medical History: Noncontributory - Tobacco Use Smoking Status *Q: Current Every Day Smoker Years of Tobacco use: 2 Packs/Tins Daily: 0.5 - Caffeine Use Caffeine Use: Reports: None - Recreational Drug Use Recreational Drug Use: No - Living Situation & Occupation Living situation: Reports: (lives with and cat.) ED ROS GENERAL - Review of Systems Review Of Systems: See Below Constitutional: Reports: Weakness HEENT: Reports: No Symptoms Respiratory: Reports: Shortness of Breath, Pleuritic Chest Pain Cardiovascular: Reports: No Symptoms Endocrine: Reports: No Symptoms GI/Abdominal: Reports: No Symptoms : Reports: Other ( she thought she vould still be infected. ) Musculoskeletal: Reports: No Symptoms Skin: Reports: No Symptoms ED EXAM, GENERAL - Physical Exam Exam: See Below Free Text/Narrative:: pt arrived with pleuritic type chest pain and the pt felt sob. She did not have a fever and she had good o2 sats. She was somewhat agitated. She did have recent blood culturesdid grow out staph. r Exam Limited By: No Limitations General Appearance: Alert, Moderate Distress Ears: Normal TMs Nose: Normal Inspection Throat/Mouth: Normal Inspection Head: Atraumatic Neck: Normal Inspection Respiratory/Chest: Splinting, Other (pt is splinting when she breathes and she is breathig very shallow. ) Cardiovascular: Regular Rate, Rhythm GI/Abdominal: Soft, Non-Tender Rectal (Female) Exam: Deferred Back Exam: CVA Tenderness (L) Extremities: Normal Inspection Neurological: Alert, Oriented, Normal Cognition Course - Vital Signs Last Recorded V/S: Last Vital Signs Temp 36.1 C 08/07/17 15:28 Pulse 98 08/07/17 16:33 Resp 10 L 08/07/17 16:04 BP 123/73 08/07/17 16:33 Pulse Ox 94 L 08/07/17 16:33 - Orders/Labs/Meds Orders: Active Orders 24 hr Category Date Time Status EKG Documentation Completion [RC] ASDIRECTED Care 08/07/17 14:10 Active CULTURE URINE [RM] Stat Lab 08/07/17 15:29 Received UA W/MICROSCOPIC [URIN] Urgent Lab 08/07/17 15:10 Ordered Heparin Sodium [Heparin Lock Flush 100 Units/ML] Med 08/07/17 14:38 Active 300 units FLUSH ASDIRECTED PRN Sodium Chloride 0.9% [Normal Saline] 1,000 ml Med 08/07/17 15:15 Active IV ASDIRECTED cefTRIAXone [Rocephin] 1 gm Med 08/07/17 17:28 Active Sodium Chloride 0.9% [Normal Saline] 50 ml IV ONETIME EKG 12 Lead [EK] Routine Ther 08/07/17 14:10 Ordered Medication Orders Heparin Sodium (Porcine) (Heparin Lock Flush 100 Units/Ml) 300 units FLUSH ASDIRECTED PRN PRN Reason: IV Use Last Admin: 08/07/17 14:50 Dose: 300 units Sodium Chloride (Normal Saline) 1,000 mls @ 150 mls/hr IV ASDIRECTED SHANE Last Admin: 08/07/17 15:20 Dose: 150 mls/hr Ceftriaxone Sodium 1 gm/ (Sodium Chloride) 50 mls @ 100 mls/hr IV ONETIME ONE Stop: 08/07/17 17:57 Labs: Laboratory Tests 0608/07/17 08/07/17 Range/Units 14:28 14:28 14:35 WBC 9.4 (4.5-11.0) K/uL RBC 3.43 (3.30-5.50) M/uL Hgb 9.3 L (12.0-15.0) g/dL Hct 29.7 L (36.0-48.0) % MCV 87 (80-98) fL MCH 27 (27-31) pg MCHC 31 L (32-36) % Plt Count 334 (150-400) K/uL Neut % (Auto) 74 H (36-66) % Lymph % (Auto) 21 L (24-44) % Saline % (Auto) 5 (2-6) % Eos % (Auto) 0 L (2-4) % Baso % (Auto) 0 (0-1) % D-Dimer, Quantitative (0.0-400.0) ng/mL Puncture Site Rt radial ABG pH 7.385 (7.350-7.450) ABG pCO2 40.5 (35.0-42.0) mmHg ABG pO2 80.4 (75.0-100.0) mmHg ABG HCO3 23.6 (22.0-26.0) mmol/L ABG Total CO2 22.3 (21.0-25.0) mmol/L ABG O2 Saturation 94.5 L (95.0-98.0) % ABG O2 Content 11.8 L (15.0-23.0) %vol ABG Base Excess -0.7 mm/L ABG Hemoglobin 9.2 L (12.0-16.0) g/dL ABG Oxyhemoglobin 90.2 % ABG Carboxyhemoglobin 3.5 H (0.0-1.6) % ABG Methemoglobin 1.1 % Oswaldo Test Pass O2 Delivery Device Room air Sodium 135 L (140-148) mmol/L Potassium 4.0 (3.6-5.2) mmol/L Chloride 102 (100-108) mmol/L Carbon Dioxide 28 (21-32) mmol/L Anion Gap 9.0 (5.0-14.0) mmol/L BUN 20 H (7-18) mg/dL Creatinine 0.5 L (0.6-1.0) mg/dL Est Cr Clr Drug Dosing 154.77 mL/min Estimated GFR (MDRD) > 60 (>60) Glucose 114 H (74-106) mg/dL Calcium 7.6 L (8.5-10.1) mg/dL Total Bilirubin 0.2 (0.2-1.0) mg/dL AST 21 (15-37) U/L ALT 10 L (12-78) U/L Alkaline Phosphatase 72 (46-116) U/L Total Protein 5.9 L (6.4-8.2) g/dL Albumin 2.5 L (3.4-5.0) g/dL Globulin 3.4 (2.3-3.5) g/dL Albumin/Globulin Ratio 0.7 L (1.2-2.2) Urine Color Urine Appearance Urine pH (4.5-8.0) Ur Specific [place] (1.008-1.030) Urine Protein (NEGATIVE) mg/dL Urine Glucose (UA) (NEGATIVE) mg/dL Urine Ketones (NEGATIVE) mg/dL Urine Occult Blood (NEGATIVE) Urine Nitrite (NEGATIVE) Urine Bilirubin (NEGATIVE) Urine Urobilinogen (NORMAL) mg/dL Ur Leukocyte Esterase (NEGATIVE) Urine RBC (0-5) Urine WBC (0-5) Ur Epithelial Cells Amorphous Sediment Urine Bacteria Urine Mucus 08/07/17 08/07/17 Range/Units 15:09 15:10 WBC (4.5-11.0) K/uL RBC (3.30-5.50) M/uL Hgb (12.0-15.0) g/dL Hct (36.0-48.0) % MCV (80-98) fL MCH (27-31) pg MCHC (32-36) % Plt Count (150-400) K/uL Neut % (Auto) (36-66) % Lymph % (Auto) (24-44) % Saline % (Auto) (2-6) % Eos % (Auto) (2-4) % Baso % (Auto) (0-1) % D-Dimer, Quantitative 250 (0.0-400.0) ng/mL Puncture Site ABG pH (7.350-7.450) ABG pCO2 (35.0-42.0) mmHg ABG pO2 (75.0-100.0) mmHg ABG HCO3 (22.0-26.0) mmol/L ABG Total CO2 (21.0-25.0) mmol/L ABG O2 Saturation (95.0-98.0) % ABG O2 Content (15.0-23.0) %vol ABG Base Excess mm/L ABG Hemoglobin (12.0-16.0) g/dL ABG Oxyhemoglobin % ABG Carboxyhemoglobin (0.0-1.6) % ABG Methemoglobin % Oswaldo Test O2 Delivery Device Sodium (140-148) mmol/L Potassium (3.6-5.2) mmol/L Chloride (100-108) mmol/L Carbon Dioxide (21-32) mmol/L Anion Gap (5.0-14.0) mmol/L BUN (7-18) mg/dL Creatinine (0.6-1.0) mg/dL Est Cr Clr Drug Dosing mL/min Estimated GFR (MDRD) (>60) Glucose (74-106) mg/dL Calcium (8.5-10.1) mg/dL Total Bilirubin (0.2-1.0) mg/dL AST (15-37) U/L ALT (12-78) U/L Alkaline Phosphatase (46-116) U/L Total Protein (6.4-8.2) g/dL Albumin (3.4-5.0) g/dL Globulin (2.3-3.5) g/dL Albumin/Globulin Ratio (1.2-2.2) Urine Color Yellow Urine Appearance Cloudy Urine pH 6.0 (4.5-8.0) Ur Specific [place] 1.020 (1.008-1.030) Urine Protein Negative (NEGATIVE) mg/dL Urine Glucose (UA) Normal (NEGATIVE) mg/dL Urine Ketones Negative (NEGATIVE) mg/dL Urine Occult Blood Large (NEGATIVE) Urine Nitrite Negative (NEGATIVE) Urine Bilirubin Small (NEGATIVE) Urine Urobilinogen 1 (NORMAL) mg/dL Ur Leukocyte Esterase Small (NEGATIVE) Urine RBC Packed H (0-5) Urine WBC Semi-packed H (0-5) Ur Epithelial Cells Many Amorphous Sediment Not seen Urine Bacteria Moderate Urine Mucus Moderate Meds: Medications Generic Name Dose Route Start Last Admin Trade Name Freq PRN Reason Stop Dose Admin Heparin Sodium (Porcine) 300 units 08/07/17 14:38 08/07/17 14:50 Heparin Lock Flush 100 Units/Ml FLUSH 300 units ASDIRECTED PRN Administration IV Use Sodium Chloride 1,000 mls @ 150 mls/hr 08/07/17 15:15 08/07/17 15:20 Normal Saline IV 150 mls/hr ASDIRECTED SHANE Administration Ceftriaxone Sodium 1 gm/ 50 mls @ 100 mls/hr 08/07/17 17:28 Sodium Chloride IV 08/07/17 17:57 ONETIME ONE Discontinued Medications Generic Name Dose Route Start Last Admin Trade Name Alejo PRN Reason Stop Dose Admin Heparin Sodium (Porcine) Confirm 08/07/17 14:32 08/07/17 15:26 Heparin Lock Flush 100 Units/Ml Administered 08/07/17 14:33 Not Given Dose 500 units .ROUTE .STK-MED ONE Hydromorphone HCl 0.5 mg 08/07/17 15:05 08/07/17 15:18 Dilaudid IVPUSH 08/07/17 15:06 0.5 mg ONETIME ONE Administration Hydromorphone HCl 0.5 mg 08/07/17 16:57 08/07/17 17:03 Dilaudid IVPUSH 08/07/17 16:58 0.5 mg ONETIME ONE Administration Lorazepam 1 mg 08/07/17 15:04 08/07/17 15:18 Ativan IVPUSH 08/07/17 15:05 1 mg ONETIME ONE Administration - Re-Assessments/Exams Free Text/Narrative Re-Assessment/Exam: 08/07/17 17:35 pt was given a mg of dilaudid and ativan .5. She is feeling better. Her chest xray reveals no infiltrate. h er o2 sats are good. She does have some chest wall tenderness over the costal sternal joints. 08/07/17 17:39 Pt has a urine which looks like it could be infected. A culture was set up. Her last culture of the urine grew out mixed andres. Will give a gm of rocephen iv and put her on 5 days of kefex until her urine culture returns. Departure - Departure Time of Disposition: 17:41 Disposition: Home, Self-Care 01 Condition: Fair Clinical Impression: Pleuritic chest pain, UTI (urinary tract infection) - Discharge Information Instructions: Nonspecific Chest Pain, [id number], Upper Respiratory Infection , Adult, [id number] Referrals: Angélica Nieves PA [Primary Care Provider] - Forms: ED Department Discharge Care Plan Goals: push fluids, encourage deep breathing incentive spirometer to use at least 4 times daily, keflex 500mg tid, cont the hydrocodone will at 6 percocet to use at nite. - My Orders Last 24 Hours: My Active Orders 08/07/17 14:10 EKG Documentation Completion [RC] ASDIRECTED EKG 12 Lead [EK] Routine 08/07/17 14:38 Heparin Sodium [Heparin Lock Flush 100 Units/ML] 300 units FLUSH ASDIRECTED PRN 08/07/17 15:10 UA W/MICROSCOPIC [URIN] Urgent 08/07/17 15:15 Sodium Chloride 0.9% [Normal Saline] 1,000 ml IV ASDIRECTED 08/07/17 15:29 CULTURE URINE [RM] Stat 08/07/17 17:28 cefTRIAXone [Rocephin] 1 gm Sodium Chloride 0.9% [Normal Saline] 50 ml IV ONETIME - Assessment/Plan Last 24 Hours: My Active Orders 08/07/17 14:10 EKG Documentation Completion [RC] ASDIRECTED EKG 12 Lead [EK] Routine 08/07/17 14:38 Heparin Sodium [Heparin Lock Flush 100 Units/ML] 300 units FLUSH ASDIRECTED PRN 08/07/17 15:10 UA W/MICROSCOPIC [URIN] Urgent 08/07/17 15:15 Sodium Chloride 0.9% [Normal Saline] 1,000 ml IV ASDIRECTED 08/07/17 15:29 CULTURE URINE [RM] Stat 08/07/17 17:28 cefTRIAXone [Rocephin] 1 gm Sodium Chloride 0.9% [Normal Saline] 50 ml IV ONETIME
[2017-08-07] MEDS ORDERED: Ketorolac 30 MG/ML SDV IVPUSH ONE (18:05)
[2017-08-07 18:19] VITALS: BP 97/52
== END 2017-08-07 19:09 | disposition home or self-care (01) ==
LOC: JP.ED 13:58
DX: R07.81 Pleurodynia (principal); N39.0 Urinary tract infection, site not specified; F17.210 Nicotine dependence, cigarettes, uncomplicated; F41.9 Anxiety disorder, unspecified; F32.9 Major depressive disorder, single episode, unspecified; D64.9 Anemia, unspecified; Z88.1 Allergy status to other antibiotic agents; Z79.899 Other long term (current) drug therapy; Z91.011 Allergy to milk products
CPT/HCPCS: 36415; 36600; 71045; 80053; 81001; 82803; 85025; 85379; 87086; 93005; 96361; 96365; 96375; 96376; 99285; J0696; J1170; J1642; J1885; J2060; J7030; J7050

== ENCOUNTER 2017-08-22 09:28 | Day surgery (SDC) | payer MEDICARE, MEDICAID ==
[~2017-08-22 09:28] MED LIST changes: +Bupivacaine 0.5% 50 ML MDV ONE; +Lidocaine 1% with EPINEPHrine 1:100,000 50 ML MDV ONE; -Midazolam 1 MG/ML 2 ML SDV ONE; -Propofol 200 MG/20 ML SDV ONE; -fentaNYL 100 MCG/2 ML SDV ONE
[2017-08-22] MEDS ORDERED: Vit E/Lidocaine/Aloe/Collagen 14 GM TUBE TP ONE (10:00)
[2017-08-22] MEDS ORDERED: ALPRAZolam 0.5 MG Tab PO ONE (10:00)
[2017-08-22] MEDS ORDERED: Sodium Chloride 0.9% 1,000 ML IV SCH (10:15)
[2017-08-22] MEDS ORDERED: Midazolam 1 MG/ML 2 ML SDV ONE (10:17)
[2017-08-22] MEDS ORDERED: fentaNYL 100 MCG/2 ML SDV ONE (10:17)
[2017-08-22] MEDS ORDERED: Propofol 200 MG/20 ML SDV ONE (10:17)
[2017-08-22] MEDS ORDERED: Bacitracin Oint 1 GM U/D Packet ONE (11:41)
[2017-08-22 12:22] VITALS: BP 121/82
--- NOTE | 2017-08-22 12:57 | OR ---
DATE OF PROCEDURE: 08/22/2017 PROCEDURE: Removal of tunneled Snyder catheter. COMPLICATIONS: None. INFORMATION TECHNOLOGY COORDINATOR: None. PREOPERATIVE DIAGNOSIS: The patient was on TPN and is not requiring TPN nor IV access anymore. POSTOPERATIVE DIAGNOSIS: The patient was on TPN and is not requiring TPN nor IV access anymore. RISKS: Risks, benefits, alternatives, and limitations including, but not limited to infection, bleeding, and pneumothorax were explained to the patient who wished to proceed. PROCEDURE IN DETAIL: The patient was placed in supine position. Left chest was prepped and draped. The sutures were removed. The Snyder catheter was removed without difficulty. Direct pressure was held for 10 minutes. Bacitracin was applied. The patient tolerated the procedure well. Sandip Valencia MD /[id number]
--- NOTE | 2017-08-26 09:05 | PN ---
DATE OF SERVICE: 08/22/2017 Yes, the patient is satisfactory for the procedure. TIME: 1000 hours. Sandip Valencia MD /[id number]
== END 2017-08-22 12:25 | disposition home or self-care (01) ==
LOC: JP.SDS 09:28
PROVIDERS: ATTEND Surgery
DX: Z45.2 Encounter for adjustment and management of vascular access device (principal); F32.9 Major depressive disorder, single episode, unspecified; F41.9 Anxiety disorder, unspecified; K21.9 Gastro-esophageal reflux disease without esophagitis; E78.5 Hyperlipidemia, unspecified; F60.3 Borderline personality disorder; F98.8 Other specified behavioral and emotional disorders with onset usually occurring in childhood and adolescence; G47.30 Sleep apnea, unspecified; Z79.899 Other long term (current) drug therapy; Z88.1 Allergy status to other antibiotic agents; Z91.011 Allergy to milk products; Z98.84 Bariatric surgery status
CPT/HCPCS: 36590; A9270; J2250; J2704; J3010; J7030

== ENCOUNTER 2017-09-02 20:47 | Emergency (ER) | payer MEDICARE, MEDICAID ==
[2017-09-02 21:09] VITALS: BP 123/80
[2017-09-02] MEDS ORDERED: HYDROmorphone 1 MG/ML Syringe IM ONE (21:26)
--- NOTE | 2017-09-02 22:27 | EDM.PDOC ---
ED HPI GENERAL MEDICAL PROBLEM - General Chief Complaint: Abdominal Pain Stated Complaint: PAIN UNDER RIBCAGE Time Seen by Provider: 09/02/17 21:20 Source of Information: Reports: Patient History Limitations: Reports: No Limitations - History of Present Illness INITIAL COMMENTS - FREE TEXT/NARRATIVE: 27-year-old female who is complaining of right upper quadrant and right lateral chest discomfort for the past couple of days. She is eating and drinking, no fevers, some nausea but no vomiting but the pain is persistent so she wanted it checked. It feels similar to her gallbladder pain before she had her gallbladder removed. Onset: Gradual (Over the past several days) Location: Reports: Abdomen (Right upper quadrant) Severity: Mild Right Middle Abdominal Pain Score (Numeric/FACES): 10 - Related Data Allergies Allergy/AdvReac Type Severity Reaction Status Date / Time ciprofloxacin [From Cipro] Allergy Hives Verified 08/07/17 14:13 lactose Allergy Other Verified 08/07/17 14:13 Home Meds: Home Meds Etonogestrel [Nexplanon] 1 injection SQ .3YEARS 10/07/15 [History] Calcium Carbonate [Tums] 500 mg PO BID tab.chew 07/11/16 [Rx] Cyanocobalamin (Vitamin B12) [Vitamin B12] 1,000 mcg PO DAILY tablet 07/11/16 [ Rx] Multivitamins with Iron [Child Chew Iron] 1 tab PO BID tab.chew 07/11/16 [Rx] Ondansetron [Zofran ODT] 4 mg PO Q4H PRN #30 tab.dis 07/11/16 [Rx] QUEtiapine [SEROquel] 300 mg PO BEDTIME tablet 07/11/16 [Rx] Ramelteon [Rozerem] 8 mg PO BEDTIME 07/30/16 [History] Cyclobenzaprine [Flexeril] 10 mg PO BID PRN 03/06/17 [History] FLUoxetine [PROzac] 40 mg PO DAILY 04/13/17 [History] Magnesium Oxide 400 mg PO BID #60 tablet 06/09/17 [Rx] Pantoprazole [ProTONIX] 40 mg PO BIDAC #60 tab.cr 06/09/17 [Rx] hydrOXYzine HCl [Atarax] 100 mg PO DAILY 09/02/17 [History] oxyCODONE HCl/Acetaminophen [Percocet 10-325 mg Tablet] 1 each PO Q6H PRN [History] Past Medical History HEENT History: Reports: Impaired Vision Other HEENT History: wears glasses Cardiovascular History: Reports: Other (See Below) Other Cardiovascular History: fluid around heart Gastrointestinal History: Reports: Bowel Obstruction, GERD Other Gastrointestinal History: girth 60 inches, GASTRIC BYPASS Genitourinary History: Reports: UTI, Recurrent [employer] G[employer]OLINE History: Reports: Endometriosis Psychiatric History: Reports: ADD, ADHD, Anxiety, Depression, Eating Disorders, Mood Swings, OCD, Panic Attack, Psych Hospitalization(s), PTSD, Suicide Attempt Endocrine/Metabolic History: Reports: Obesity/BMI 30+, Vitamin D Deficiency Hematologic History: Reports: Anemia, Blood Transfusion(s), Iron Deficiency - Infectious Disease History Infectious Disease History: Reports: Chicken Pox - Past Surgical History HEENT Surgical History: Reports: None Cardiovascular Surgical History: Reports: None GI Surgical History: Reports: Bariatric Procedure, Cholecystectomy, Hernia Repair/Other, Other (See Below) Other GI Surgeries/Procedures: Umbilical hernia repair 07/11/2014. Drainage of pericholecystic abscess 07/11/2014. gallbladder out 2014. bowel obstruction surgery 10/2015 again 12/09/2015. 01/06 bowel obstruction surgery, [facility] Sep 2015 Female Surgical History: Reports: None Neurological Surgical History: Reports: None Dermatological Surgical History: Reports: None Social & Family History - Family History Family Medical History: Noncontributory - Tobacco Use Smoking Status *Q: Current Every Day Smoker Years of Tobacco use: 5 Packs/Tins Daily: 0.5 - Caffeine Use Caffeine Use: Reports: Coffee - Recreational Drug Use Recreational Drug Use: Yes Recreational Drug Type: Reports: Marijuana/Hashish Recreational Drug Use Frequency: Weekly Recreational Drug Last Use: t-2 - Living Situation & Occupation Living situation: Reports: (lives with and cat.) ED ROS GENERAL - Review of Systems Review Of Systems: See Below Constitutional: Reports: Malaise. Denies: Fever, Chills HEENT: Denies: Throat Pain Respiratory: Denies: Shortness of Breath Cardiovascular: Reports: Chest Pain (Right lateral chest discomfort) GI/Abdominal: Reports: Abdominal Pain, Nausea. Denies: Diarrhea, Vomiting : Reports: No Symptoms Skin: Reports: No Symptoms Neurological: Denies: Headache ED EXAM, GI/ABD - Physical Exam Exam: See Below Exam Limited By: No Limitations General Appearance: Alert, No Apparent Distress (Looks uncomfortable but not distressed) Eyes: Bilateral: Normal Appearance Respiratory/Chest: No Respiratory Distress, Lungs Clear Cardiovascular: Regular Rate, Rhythm GI/Abdominal Exam: Soft, Tender (Reacts with tenderness to palpation to the entire abdomen but somewhat worse in the right upper quadrant. However she is just as tender to palpation of the right chest wall which is not consistent with intra-abdominal source of pain) Course - Vital Signs Last Recorded V/S: Last Vital Signs Temp 96.2 F 09/02/17 21:08 Pulse 73 09/02/17 21:08 Resp 16 09/02/17 21:08 BP 123/80 09/02/17 21:08 Pulse Ox 95 09/02/17 21:08 - Orders/Labs/Meds Labs: Laboratory Tests 09/02/17 09/02/17 Range/Units 21:37 21:37 WBC 6.9 (4.5-11.0) K/uL RBC 4.26 (3.30-5.50) M/uL Hgb 10.4 L D (12.0-15.0) g/dL Hct 32.9 L (36.0-48.0) % MCV 77 L (80-98) fL MCH 24 L (27-31) pg MCHC 32 (32-36) % Plt Count 642 H (150-400) K/uL Neut % (Auto) 45 (36-66) % Lymph % (Auto) 46 H (24-44) % [place] % (Auto) 7 H (2-6) % Eos % (Auto) 1 L (2-4) % Baso % (Auto) 0 (0-1) % Sodium 137 L (140-148) mmol/L Potassium 3.6 (3.6-5.2) mmol/L Chloride 103 (100-108) mmol/L Carbon Dioxide 27 (21-32) mmol/L Anion Gap 10.6 (5.0-14.0) mmol/L BUN 10 (7-18) mg/dL Creatinine 0.5 L (0.6-1.0) mg/dL Est Cr Clr Drug Dosing 154.77 mL/min Estimated GFR (MDRD) > 60 (>60) Glucose 88 (74-106) mg/dL Calcium 8.4 L (8.5-10.1) mg/dL Total Bilirubin 0.2 (0.2-1.0) mg/dL AST 13 L (15-37) U/L ALT 32 D (12-78) U/L Alkaline Phosphatase 139 H (46-116) U/L Total Protein 6.2 L (6.4-8.2) g/dL Albumin 2.6 L (3.4-5.0) g/dL Globulin 3.6 H (2.3-3.5) g/dL Albumin/Globulin Ratio 0.7 L (1.2-2.2) Lipase 37 L (73-393) U/L Meds: Medications Discontinued Medications Generic Name Dose Route Start Last Admin Trade Name Freq PRN Reason Stop Dose Admin Hydromorphone HCl 1 mg 09/02/17 21:26 09/02/17 21:30 Dilaudid IM 09/02/17 21:27 1 mg ONETIME ONE Administration - Re-Assessments/Exams Free Text/Narrative Re-Assessment/Exam: 09/02/17 22:26 Patient was given 1 mg of Dilaudid IM for pain control, CBC and CMP were obtained. Labs remarkably well, her hemoglobin is over 10 which is one of her best levels in the past few years. Alkaline phosphatase is slightly elevated but all other liver enzymes are normal, electrolytes are reassuring. With her normal vitals I think she could get another opinion from surgery in the next 1- 2 days if pain persists but no further workup is needed here. She is consuming water without difficulty here in the emergency room. Departure - Departure Time of Disposition: 22:33 Disposition: Home, Self-Care 01 Condition: Good Clinical Impression: Abdominal pain Qualifiers: Abdominal location: right upper quadrant Qualified Code(s): R10.11 - Right upper quadrant pain - Discharge Information Instructions: Abdominal Pain, Adult, [id number] Referrals: Angélica Nieves PA [Primary Care Provider] - Forms: ED Department Discharge Care Plan Goals: If pain is not improving tomorrow, recheck at the clinic with surgery. An ultrasound may be necessary.
== END 2017-09-02 22:34 | disposition home or self-care (01) ==
LOC: JP.ED 20:47
DX: R10.11 Right upper quadrant pain (principal)
CPT/HCPCS: 36415; 80053; 83690; 85025; 96372; 99284; J1170

== ENCOUNTER 2018-09-24 13:16 | Emergency (ER) | payer MEDICARE, MEDICAID ==
[2018-09-24] MEDS ORDERED: Nicotine Polacrilex 2 MG Gum CHEW ONE (13:57)
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
[2018-09-24] MEDS ORDERED: Aluminum Hydroxide/Magnesium Hydroxide/Simethicone Susp 30 ML Cup PO ONE (17:12)
[2018-09-24] MEDS ORDERED: Famotidine 20 MG Tab PO ONE (17:12)
[2018-09-24] MEDS ORDERED: LORazepam 0.5 MG Tab PO ONE (18:17)
[2018-09-24 19:58] VITALS: BP 121/74; PULSE 89
== END 2018-09-25 00:21 ==
LOC: JP.ED 13:16
DX: F32.9 Major depressive disorder, single episode, unspecified (principal); F41.9 Anxiety disorder, unspecified; K21.9 Gastro-esophageal reflux disease without esophagitis; Z91.011 Allergy to milk products; Z88.1 Allergy status to other antibiotic agents; Z79.899 Other long term (current) drug therapy; Z68.30 Body mass index [BMI] 30.0-30.9, adult; Z86.2 Personal history of diseases of the blood and blood-forming organs and certain disorders involving the immune mechanism; Z90.49 Acquired absence of other specified parts of digestive tract
CPT/HCPCS: 36415; 80053; 80305; 81001; 81025; 84443; 85025; 87086; 87088; 87186; 99284; A9270; G0480; 99285

== ENCOUNTER 2018-12-23 12:01 | Emergency (ER) | payer MEDICARE, MEDICAID ==
[2018-12-23 13:50] VITALS: BP 106/76; PULSE 80
[2018-12-23] MEDS ORDERED: HYDROmorphone 1 MG/ML Syringe IVPUSH ONE (15:30)
[2018-12-23] MEDS ORDERED: Sodium Chloride 0.9% 1,000 ML IV SCH ×2 (15:30→16:45)
[2018-12-23] MEDS ORDERED: Ondansetron 4 MG/2 ML SDV IVPUSH ONE (15:44)
[2018-12-23] MEDS ORDERED: LORazepam 2 MG/ML SDV IVPUSH ONE (16:43)
--- NOTE | 2018-12-23 17:22 | EDM.PDOC ---
ED HPI GENERAL MEDICAL PROBLEM - General Chief Complaint: Abdominal Pain Stated Complaint: ABD PAIN Time Seen by Provider: 12/23/18 13:55 Source of Information: Reports: Patient History Limitations: Reports: No Limitations - History of Present Illness INITIAL COMMENTS - FREE TEXT/NARRATIVE: pt arrived with pain in the upper abdoman. She had a cat scan of the abdoman which did not show acute problems. She had no hydration because they could not get in with a iv. Onset: Today Duration: Hour(s): Location: Reports: Abdomen Associated Symptoms: Reports: No Other Symptoms Right Abdomen Pain Score (Numeric/FACES): 9 - Related Data Allergies Allergy/AdvReac Type Severity Reaction Status Date / Time ciprofloxacin [From Cipro] Allergy Hives Verified 09/24/18 14:13 lactose Allergy Other Verified 09/24/18 14:13 prazosin AdvReac Nausea and Verified 12/23/18 17:01 Vomiting Home Meds: Home Meds Etonogestrel [Nexplanon] 1 injection SQ .3YEARS 10/07/15 [History] Calcium Carbonate [Tums] 500 mg PO BID tab.chew 07/11/16 [Rx] Cyanocobalamin (Vitamin B12) [Vitamin B12] 1,000 mcg PO DAILY tablet 07/11/16 [ Rx] Multivitamins with Iron [Child Chew Iron] 1 tab PO BID tab.chew 07/11/16 [Rx] Ramelteon [Rozerem] 8 mg PO BEDTIME 07/30/16 [History] Cyclobenzaprine [Flexeril] 10 mg PO TID PRN 03/06/17 [History] FLUoxetine [PROzac] 80 mg PO DAILY 04/13/17 [History] Pantoprazole [ProTONIX] 40 mg PO BIDAC #60 tab.cr 06/09/17 [Rx] hydrOXYzine HCl [Atarax] 100 mg PO DAILY 09/02/17 [History] ALPRAZolam [Xanax] 2 mg PO TID PRN 09/19/17 [History] Cholecalciferol (Vitamin D3) [Vitamin D3] 2,000 unit PO DAILY 09/24/18 [History] Dextroamphetamine/Amphetamine [Adderall] 30 mg PO DAILY 09/24/18 [History] Ibuprofen [Ibu] 600 mg PO Q4H PRN 09/24/18 [History] Pnv No.95/Ferrous Fum/Folic AC [ Caplet] 1 tab PO DAILY 09/24/18 [ History] QUEtiapine [SEROquel] 500 mg PO BEDTIME 09/24/18 [History] Ramelteon [Rozerem] 1 tab PO BEDTIME 09/24/18 [History] Zolpidem Tartrate [Ambien] 10 mg PO BEDTIME 09/24/18 [History] Gabapentin [Neurontin] 1,200 mg PO BEDTIME 12/23/18 [History] Past Medical History HEENT History: Reports: Impaired Vision Other HEENT History: wears glasses Cardiovascular History: Reports: Other (See Below) Other Cardiovascular History: fluid around heart Gastrointestinal History: Reports: Bowel Obstruction, GERD Other Gastrointestinal History: girth 60 inches, GASTRIC BYPASS Genitourinary History: Reports: UTI, 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 Psychiatric History: Reports: ADD, ADHD, Anxiety, Depression, Eating Disorders, Mood Swings, OCD, Panic Attack, Psych Hospitalization(s), PTSD, Suicide Attempt Endocrine/Metabolic History: Reports: Obesity/BMI 30+, Vitamin D Deficiency Hematologic History: Reports: Anemia, Blood Transfusion(s), Iron Deficiency - Infectious Disease History Infectious Disease History: Reports: Chicken Pox - Past Surgical History HEENT Surgical History: Reports: None Cardiovascular Surgical History: Reports: None GI Surgical History: Reports: Bariatric Procedure, Cholecystectomy, Hernia Repair/Other, Other (See Below) Other GI Surgeries/Procedures: Umbilical hernia repair 07/11/2014. Drainage of pericholecystic abscess 07/11/2014. gallbladder out 2014. bowel obstruction surgery 10/2015 again 12/09/2015. 01/06 bowel obstruction surgery, [facility] Sep 2015 Female Surgical History: Reports: None Social & Family History - Family History Family Medical History: Noncontributory - Tobacco Use Smoking Status *Q: Current Every Day Smoker Years of Tobacco use: 8 Packs/Tins Daily: 0.2 - Caffeine Use Caffeine Use: Reports: Coffee, Energy Drinks, Soda - Recreational Drug Use Recreational Drug Use: Yes Recreational Drug Type: Reports: Marijuana/Hashish Recreational Drug Use Frequency: Weekly - Living Situation & Occupation Living situation: Reports: (lives with and cat.) ED ROS GENERAL - Review of Systems Review Of Systems: See Below Constitutional: Reports: No Symptoms HEENT: Reports: No Symptoms Respiratory: Reports: No Symptoms Cardiovascular: Reports: No Symptoms Endocrine: Reports: No Symptoms GI/Abdominal: Reports: Abdominal Pain, Nausea : Reports: No Symptoms Musculoskeletal: Reports: No Symptoms ED EXAM, GI/ABD - Physical Exam Exam: See Below Text/Narrative:: pt arrived with upper abdomanal pain. She had a cat scan ot the abdoman that was ordered from the clinic. This did not show acute problems. Exam Limited By: No Limitations General Appearance: Alert, Anxious, Mild Distress, Other (pupils are equal and reactive. ) Ears: Normal TMs Nose: Normal Inspection Throat/Mouth: Normal Inspection Head: Atraumatic Neck: Normal Inspection Respiratory/Chest: No Respiratory Distress Cardiovascular: Regular Rate, Rhythm GI/Abdominal Exam: Soft, Tender, Other (pt does not have true guarding. ) (Female) Exam: Deferred Rectal (Female) Exam: Deferred Back Exam: Normal Inspection Extremities: Normal Inspection Neurological: Alert, Oriented, Normal Cognition Course - Vital Signs Last Recorded V/S: Last Vital Signs Temp 36.6 C 12/23/18 13:49 Pulse 80 12/23/18 13:49 Resp 20 12/23/18 13:49 BP 106/76 12/23/18 13:49 Pulse Ox 100 12/23/18 13:49 - Orders/Labs/Meds Labs: Laboratory Tests 12/23/18 12/23/18 12/23/18 Range/Units 15:30 15:30 15:30 WBC 6.3 (4.5-11.0) K/uL RBC 4.24 (3.30-5.50) M/uL Hgb 12.5 (12.0-15.0) g/dL Hct 37.6 (36.0-48.0) % MCV 89 (80-98) fL MCH 30 (27-31) pg MCHC 33 (32-36) % Plt Count 245 (150-400) K/uL Neut % (Auto) 53 (36-66) % Lymph % (Auto) 37 (24-44) % Kendall % (Auto) 9 H (2-6) % Eos % (Auto) 2 (2-4) % Baso % (Auto) 0 (0-1) % Sodium 142 (140-148) mmol/L Potassium 3.2 L (3.6-5.2) mmol/L Chloride 106 (100-108) mmol/L Carbon Dioxide 26 (21-32) mmol/L Anion Gap 13.2 (5.0-14.0) mmol/L BUN 9 (7-18) mg/dL Creatinine 0.6 (0.6-1.0) mg/dL Est Cr Clr Drug Dosing 127.85 mL/min Estimated GFR (MDRD) > 60 (>60) Glucose 77 (74-106) mg/dL Calcium 7.8 L (8.5-10.1) mg/dL Total Bilirubin 0.3 (0.2-1.0) mg/dL AST 26 (15-37) U/L ALT 53 (12-78) U/L Alkaline Phosphatase 166 H (46-116) U/L C-Reactive Protein 1.38 H (0.0-0.3) mg/dL Total Protein 5.8 L (6.4-8.2) g/dL Albumin 2.9 L (3.4-5.0) g/dL Globulin 2.9 (2.3-3.5) g/dL Albumin/Globulin Ratio 1.0 L (1.2-2.2) Meds: Medications Discontinued Medications Generic Name Dose Route Start Last Admin Trade Name Freq PRN Reason Stop Dose Admin Hydromorphone HCl 1 mg 12/23/18 15:30 12/23/18 15:37 Dilaudid IVPUSH 12/23/18 15:31 1 mg ONETIME ONE Administration Hydromorphone HCl 0.5 mg 12/23/18 17:23 12/23/18 17:40 Dilaudid IVPUSH 12/23/18 17:24 0.5 mg ONETIME ONE Administration Sodium Chloride 1,000 mls @ 999 mls/hr 12/23/18 15:30 12/23/18 15:36 Normal Saline IV 999 mls/hr ASDIRECTED SHANE Administration Sodium Chloride 1,000 mls @ 999 mls/hr 12/23/18 16:45 12/23/18 16:53 Normal Saline IV 999 mls/hr ASDIRECTED SHANE Administration Lorazepam 0.5 mg 12/23/18 16:43 12/23/18 16:51 Ativan IVPUSH 12/23/18 16:44 0.5 mg ONETIME ONE Administration Ondansetron HCl 4 mg 12/23/18 15:44 12/23/18 15:49 Zofran IVPUSH 12/23/18 15:45 4 mg ONETIME ONE Administration - Re-Assessments/Exams Free Text/Narrative Re-Assessment/Exam: 12/23/18 17:43 pt had normal lab, her cat scan of the abdoman was normal. pt was given 2 liters of fluid, dilaudid 1 mg total. ativan and zoforan. She is feeling better. 12/23/18 17:44 Departure - Departure Time of Disposition: 18:20 Disposition: Home, Self-Care 01 Condition: Fair Clinical Impression: Abdominal pain - Discharge Information Instructions: Abdominal Pain, Adult, [id number] Referrals: Angélica Nieves PA [Primary Care Provider] - Forms: ED Department Discharge Care Plan Goals: lite diet, cont same meds, norco 5/325 q6h prn for severe pain #5 high k diet
[2018-12-23] MEDS ORDERED: HYDROmorphone 0.5 MG/0.5 ML Syringe IVPUSH ONE (17:23)
== END 2018-12-23 18:16 | disposition home or self-care (01) ==
LOC: JP.ED 12:01
DX: R10.84 Generalized abdominal pain (principal); Z98.890 Other specified postprocedural states; K91.873 Postprocedural seroma of a digestive system organ or structure following other procedure; Y83.9 Surgical procedure, unspecified as the cause of abnormal reaction of the patient, or of later complication, without mention of misadventure at the time of the procedure
CPT/HCPCS: 36415; 74176; 80053; 85025; 86140; 96361; 96374; 96375; 96376; 99284; J1170; J2060; J2405; J7030

== ENCOUNTER 2019-07-10 06:15 | Day surgery (SDC) | payer MEDICARE, MEDICAID ==
[2019-07-10] MEDS ORDERED: Propofol 200 MG/20 ML SDV ONE ×2 (07:28→08:16)
[2019-07-10] MEDS ORDERED: Midazolam 1 MG/ML 2 ML SDV ONE (07:28)
[2019-07-10] MEDS ORDERED: fentaNYL 100 MCG/2 ML SDV ONE (07:28)
[2019-07-10] MEDS ORDERED: Sodium Chloride 0.9% 1,000 ML IV SCH (07:30)
[2019-07-10 09:26] VITALS: BP 108/43; PULSE 74
--- NOTE | 2019-07-11 05:41 | OR ---
DATE OF PROCEDURE: 07/10/2019 SURGEON: Sandip Valencia MD PROCEDURES: 1. Esophagogastroduodenoscopy. 2. Colonoscopy. FINDINGS: 1. Anatomy consistent with reversed Deb-en-Y. 2. Mild inflammation at GE junction concerning for gastroesophageal reflux disease (biopsied using cold biopsy forceps). 3. Poor colon prep. COMPLICATIONS: None. CREDIT CONTROLLER: None. ANESTHESIA: MAC. RISKS: Risks, benefits, alternatives, and limitations including, but not limited to infection, bleeding, and perforation were explained to the patient, and they wished to proceed. PROCEDURE IN DETAIL: The patient was placed in left lateral decubitus position. The EGD scope was introduced and advanced at the GE junction. There was inflammation consistent with reflux disease. This was biopsied multiple times using cold biopsy forceps. The scope was brought back into the stomach and this was consistent with a re-attached or reversed Deb-en-Y gastric bypass procedure. No evidence of ulceration or abnormalities were noted as the scope was passed into the duodenum. The scope was brought back. The esophagus was inspected and was without abnormality. Digital rectal exam was performed next. The scope was introduced and advanced atraumatically. The patient informs me that she has had a complete colon resection, however, this was not consistent with small bowel. Nonetheless, the prep was very poor, and almost none of the luminal surface could be seen. The scope was advanced proximally 80 cm, past what would be the transverse colon area, and no abnormalities were noted; however, the colon prep was very poor. Postoperatively, the patient and I discussed her status. It was recommend that she have repeat colonoscopy due to very poor colon prep, but she has declined this. We discussed risks, benefits, alternatives, and limitations of this plan. The patient tolerated the procedure well. Sandip Valencia MD /[id number]
== END 2019-07-10 09:26 | disposition home or self-care (01) ==
LOC: JP.SDS 06:15
PROVIDERS: ATTEND Surgery
DX: K29.70 Gastritis, unspecified, without bleeding (principal); K21.0 Gastro-esophageal reflux disease with esophagitis; F17.200 Nicotine dependence, unspecified, uncomplicated; E78.5 Hyperlipidemia, unspecified; Z98.84 Bariatric surgery status; Z90.49 Acquired absence of other specified parts of digestive tract
CPT/HCPCS: 43239; 45378; 88305; J2250; J2704; J3010; J7030

== ENCOUNTER 2019-10-27 15:17 | Emergency (ER) | payer MEDICARE, MEDICAID ==
[2019-10-27 15:30] VITALS: BP 117/47; PULSE 74
[2019-10-27] MEDS ORDERED: Lidocaine 1% with EPINEPHrine 1:100,000 50 ML MDV SUBCUT STA (15:39)
[2019-10-27] MEDS ORDERED: Bacitracin Oint 1 GM U/D Packet TOP ONE (15:39)
[2019-10-27] MEDS ORDERED: LORazepam 1 MG Tab PO ONE (15:41)
--- NOTE | 2019-10-27 16:56 | EDM.PDOC ---
<Syeda Cason M - Last Filed: 10/27/19 16:49> ED HPI GENERAL MEDICAL PROBLEM - General Chief Complaint: Laceration Stated Complaint: CUT ON RIGHT ARM Time Seen by Provider: 10/27/19 15:33 Right Arm Pain Score (Numeric/FACES): 9 - Related Data Allergies Allergy/AdvReac Type Severity Reaction Status Date / Time ciprofloxacin [From Cipro] Allergy Hives Verified 10/27/19 15:37 lactose Allergy Other Verified 10/27/19 15:37 prazosin AdvReac Nausea and Verified 10/27/19 15:37 Vomiting Home Meds: Home Meds Calcium Carbonate [Tums] 500 mg PO BID tab.chew 07/11/16 [Rx] FLUoxetine [PROzac] 80 mg PO DAILY 04/13/17 [History] Pantoprazole [ProTONIX] 40 mg PO BIDAC #60 tab.cr 06/09/17 [Rx] hydrOXYzine HCL [Atarax] 150 mg PO BEDTIME 09/02/17 [History] ALPRAZolam [Xanax] 2 mg PO TID PRN 09/19/17 [History] Cholecalciferol (Vitamin D3) [Vitamin D3] 2,000 unit PO DAILY 09/24/18 [History] Dextroamphetamine/Amphetamine [Adderall] 30 mg PO BID 09/24/18 [History] Pnv No.95/Ferrous Fum/Folic AC [ Caplet] 1 tab PO DAILY 09/24/18 [History] QUEtiapine [SEROquel] 500 mg PO BEDTIME 09/24/18 [History] Ramelteon [Rozerem] 1 tab PO BEDTIME 09/24/18 [History] Baclofen 10 mg PO TID 07/08/19 [History] Baclofen 20 mg PO BEDTIME 07/08/19 [History] Cyanocobalamin (Vitamin B12) [Vitamin B12] 1,000 mcg SL DAILY 07/08/19 [History] Gabapentin [Neurontin] 1,200 mg PO BEDTIME 07/08/19 [History] Gabapentin [Neurontin] 600 mg PO BID 07/08/19 [History] Iron,Carbonyl/Ascorbic Acid [Vitron-C Tablet] 1 tab PO DAILY 07/08/19 [History] Mirtazapine 30 mg PO BEDTIME 07/08/19 [History] Naproxen [Naprosyn] 500 mg PO BID 07/08/19 [History] Ondansetron [Zofran ODT] 4 mg PO Q8H PRN 07/08/19 [History] Rizatriptan Benzoate [Rizatriptan] 10 mg PO ASDIRECTED PRN 07/08/19 [History] Thiamine [Vitamin B-1] 100 mg PO DAILY 07/08/19 [History] Vitamin B Complex [B Complex] 1 tab PO DAILY 07/08/19 [History] cloNIDine [Catapres] 0.1 mg PO BEDTIME 07/08/19 [History] Past Medical History HEENT History: Reports: Impaired Vision Other HEENT History: wears glasses Cardiovascular History: Reports: Other (See Below) Other Cardiovascular History: fluid around heart Gastrointestinal History: Reports: Bowel Obstruction, GERD Other Gastrointestinal History: girth 60 inches, GASTRIC BYPASS. 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 IS ON BACLOFEN Neurological History: Reports: Migraines Psychiatric History: Reports: ADD, ADHD, Anxiety, Depression, Eating Disorders, Mood Swings, OCD, Panic Attack, Psych Hospitalization(s), PTSD, Suicide Attempt Endocrine/Metabolic History: Reports: Obesity/BMI 30+, Vitamin D Deficiency Hematologic History: Reports: Anemia, Blood Transfusion(s), Iron Deficiency Immunologic History: Reports: None - Infectious Disease History Infectious Disease History: Reports: Chicken Pox - Past Surgical History Head Surgeries/Procedures: Reports: None HEENT Surgical History: Reports: None Cardiovascular Surgical History: Reports: None GI Surgical History: Reports: Bariatric Procedure, Cholecystectomy, Hernia Repair/Other, Other (See Below) Other GI Surgeries/Procedures: Umbilical hernia repair 07/11/2014. Drainage of p ericholecystic abscess 07/11/2014. gallbladder out 2014. bowel obstruction surgery 10/2015 again 12/09/2015. 01/06 bowel obstruction surgery, [facility] Sep 2015 Female Surgical History: Reports: None Endocrine Surgical History: Reports: None Neurological Surgical History: Reports: None Musculoskeletal Surgical History: Reports: None Dermatological Surgical History: Reports: None Social & Family History - Family History Family Medical History: Noncontributory - Tobacco Use Smoking Status *Q: Current Every Day Smoker Years of Tobacco use: 10 Packs/Tins Daily: 0.1 - Caffeine Use Caffeine Use: Reports: Coffee, Energy Drinks, Soda Other Caffeine Use: COUPLE CUPS /DAY - Recreational Drug Use Recreational Drug Use: Yes Recreational Drug Type: Reports: Marijuana/Hashish Recreational Drug Use Frequency: Weekly - Living Situation & Occupation Living situation: Reports: (lives with and cat.) ED SKIN PROCEDURES - Laceration/Wound Repair Right Middle Side Arm Appearance: Subcutaneous Distal NVT: Neuro & Vascular Intact, No Tendon Injury Anesthetic Type: Local Local Anesthesia - Lidocaine (Xylocaine): 1% with EPI Local Anesthetic Volume: 5cc Skin Prep: Sterile Drape Closed with: Sutures Lac/Wound length In cm: 6 Suture Size: 4-0 # of Sutures: 5 Suture Type: Nylon, Interrupted Suture Size: 3-0 Repaired with: Vicryl Drain Placement: No Sterile Dressing Applied: Provider Tetanus Status Addressed: Yes Complications: No Departure - Departure Time of Disposition: 16:53 Disposition: Home, Self-Care 01 Condition: Good Clinical Impression: Laceration of arm Qualifiers: Encounter type: initial encounter Laterality: right Qualified Code(s): S41.111A - Laceration without foreign body of right upper arm, initial encounter - Discharge Information *PRESCRIPTION DRUG MONITORING PROGRAM REVIEWED*: Not Applicable *COPY OF PRESCRIPTION DRUG MONITORING REPORT IN PATIENT CHRISTOPHE: Not Applicable Instructions: Sutured Wound Care Referrals: Angélica Nieves PA [Primary Care Provider] - Forms: ED Department Discharge Additional Instructions: Please keep incision clean and dry. May get wet for bath or shower, but please keep dry when able. Bacitracin applied a few times daily is acceptable. Watch for signs of infection such as fever, chills, wound drainage, or redness. If your condition changes, please contact your provider or seek medical a ttention immediately. Suture removal with your primary care provider or you can return to the emerg ency department care instruction sheet Sepsis Event Note (ED) - Evaluation Sepsis Screening Result: No Definite Risk - Assessment/Plan Assessment:: Please keep incision clean and dry. May get wet for bath or shower, but please keep dry when able. Bacitracin applied a few times daily is acceptable. Watch for signs of infection such as fever, chills, wound drainage, or redness. If your condition changes, please contact your provider or seek medical attention immediately. <OfficerDarryn - Last Filed: 10/27/19 17:07> ED HPI GENERAL MEDICAL PROBLEM - General Source of Information: Reports: Patient History Limitations: Reports: No Limitations - History of Present Illness INITIAL COMMENTS - FREE TEXT/NARRATIVE: 29-year-old female presents emergency department today with a laceration to her right arm she injured herself when she came became frustrated and punched a court magistrate cabinet breaking glass the glass then produced a laceration on her right arm she has no functional complaints ED ROS GENERAL - Review of Systems Review Of Systems: See Below Skin: Reports: Wound ED EXAM, SKIN/RASH Exam: See Below Exam Limited By: No Limitations General Appearance: Alert, WD/WN, No Apparent Distress Front/Back Body Diagram: 1 - 6 cm laceration completely through the dermis into the subcutaneous tissue no muscle involvement Course - Vital Signs Last Recorded V/S: Last Vital Signs Temp 95.7 F L 10/27/19 15:31 Pulse 74 10/27/19 15:31 Resp 16 10/27/19 15:31 BP 117/47 L 10/27/19 15:31 Pulse Ox 96 10/27/19 15:31 - Orders/Labs/Meds Meds: Medications Discontinued Medications Generic Name Dose Route Start Last Admin Trade Name Alejo PRN Reason Stop Dose Admin Bacitracin 1 dose 10/27/19 15:39 10/27/19 15:50 Bacitracin Oint 1 Gm TOP 10/27/19 15:40 1 dose ONETIME ONE Administration Lidocaine/Epinephrine 20 ml 10/27/19 15:39 10/27/19 15:49 Xylocaine 1% With Epinephrine 1:100,000 SUBCUT 10/27/19 15:40 20 ml NOW STA Administration Lorazepam 1 mg 10/27/19 15:41 10/27/19 15:49 Ativan PO 10/27/19 15:42 1 mg ONETIME ONE Administration Sepsis Event Note (ED) - Focused Exam Vital Signs: Vital Signs Temp Pulse Resp BP Pulse Ox 10/27/19 15:31 95.7 F L 74 16 117/47 L 96 10/27/19 15:28 95.7 F L 74 16 117/47 L 96 - Assessment/Plan Plan: Assessment Acuity = acute Site and laterality = 6 cm laceration right arm Etiology = secondary trauma Manifestations = none Location of injury = Home Lab values = none Plan Suture removal in 10 days, follow wound care instruction sheet Darryn Gage MD was personally available for consultation in the ED. I have reviewed the chart and agree with the documentation as recorded by the LEAD PERSON Student, including the assessment, treatment plan and disposition. Darryn Gage MD personally saw and examined the patient. I have reviewed and agree with the LEAD PERSON Student's findings. This note was dictated using [employer]val voice recognition software please call with any questions on syntax or grammar.
== END 2019-10-27 17:40 | disposition home or self-care (01) ==
LOC: JP.ED 15:17
DX: S41.111A Laceration without foreign body of right upper arm, initial encounter (principal); K21.9 Gastro-esophageal reflux disease without esophagitis; F90.9 Attention-deficit hyperactivity disorder, unspecified type; F41.9 Anxiety disorder, unspecified; F32.9 Major depressive disorder, single episode, unspecified; E66.9 Obesity, unspecified; F17.210 Nicotine dependence, cigarettes, uncomplicated; Z68.36 Body mass index [BMI] 36.0-36.9, adult; Z88.1 Allergy status to other antibiotic agents; Z79.899 Other long term (current) drug therapy; Z91.011 Allergy to milk products; Z88.8 Allergy status to other drugs, medicaments and biological substances; W26.8XXA Contact with other sharp object(s), not elsewhere classified, initial encounter
CPT/HCPCS: 12032; 99282; A9270; 12002

== ENCOUNTER 2020-03-08 17:13 | Emergency (ER) | payer MEDICARE, MEDICAID ==
[2020-03-08 18:22] VITALS: BP 105/56; PULSE 78
[2020-03-08] MEDS ORDERED: Alum Hydrox/Mag Hydrox/Simeth 15 ML, Lidocaine 2% 15 ML PO ONE ×2 (18:44)
--- NOTE | 2020-03-08 19:39 | EDM.PDOC ---
ED HPI GENERAL MEDICAL PROBLEM - General Chief Complaint: Abdominal Pain Stated Complaint: ABD PAIN Time Seen by Provider: 03/08/20 18:30 Source of Information: Reports: Patient, Family History Limitations: Reports: No Limitations - History of Present Illness INITIAL COMMENTS - FREE TEXT/NARRATIVE: 29-year-old female with chronic abdominal pain, and unknown chronic right anteri or ventral hernia just had a surgical consult in [place] and was reassured that the surgery was not needed. She is in today for pain control. No fevers or chills, no nausea or vomiting. She would like which she "had last time", which was 1 year ago when she arrived with similar symptoms. Onset: Unknown/Unsure Duration: Chronic Location: Reports: Abdomen (Upper abdomen, especially central and left abdomen) Associated Symptoms: Reports: No Other Symptoms Generalized Pain Score (Numeric/FACES): 10 - Related Data Allergies Allergy/AdvReac Type Severity Reaction Status Date / Time ciprofloxacin [From Cipro] Allergy Hives Verified 03/08/20 18:16 lactose Allergy Other Verified 03/08/20 18:16 prazosin AdvReac Nausea and Verified 03/08/20 18:16 Vomiting Home Meds: Home Meds Calcium Carbonate [Tums] 500 mg PO BID tab.chew 07/11/16 [Rx] FLUoxetine [PROzac] 80 mg PO DAILY 04/13/17 [History] Pantoprazole [ProTONIX] 40 mg PO BIDAC #60 tab.cr 06/09/17 [Rx] hydrOXYzine HCL [Atarax] 150 mg PO BEDTIME 09/02/17 [History] ALPRAZolam [Xanax] 2 mg PO TID PRN 09/19/17 [History] Cholecalciferol (Vitamin D3) [Vitamin D3] 2,000 unit PO DAILY 09/24/18 [History] Dextroamphetamine/Amphetamine [Adderall] 30 mg PO BID 09/24/18 [History] Pnv No.95/Ferrous Fum/Folic AC [ Caplet] 1 tab PO DAILY 09/24/18 [History] QUEtiapine [SEROquel] 500 mg PO BEDTIME 09/24/18 [History] Ramelteon [Rozerem] 1 tab PO BEDTIME 09/24/18 [History] Baclofen 10 mg PO TID 07/08/19 [History] Baclofen 20 mg PO BEDTIME 07/08/19 [History] Cyanocobalamin (Vitamin B12) [Vitamin B12] 1,000 mcg SL DAILY 07/08/19 [History] Gabapentin [Neurontin] 1,200 mg PO BEDTIME 07/08/19 [History] Gabapentin [Neurontin] 600 mg PO BID 07/08/19 [History] Iron,Carbonyl/Ascorbic Acid [Vitron-C Tablet] 1 tab PO DAILY 07/08/19 [History] Mirtazapine 30 mg PO BEDTIME 07/08/19 [History] Naproxen [Naprosyn] 500 mg PO BID 07/08/19 [History] Ondansetron [Zofran ODT] 4 mg PO Q8H PRN 07/08/19 [History] Rizatriptan Benzoate [Rizatriptan] 10 mg PO ASDIRECTED PRN 07/08/19 [History] Vitamin B Complex [B Complex] 1 tab PO DAILY 07/08/19 [History] cloNIDine [Catapres] 0.1 mg PO BEDTIME 07/08/19 [History] Past Medical History HEENT History: Reports: Impaired Vision Other HEENT History: wears glasses Cardiovascular History: Reports: Other (See Below) Other Cardiovascular History: fluid around heart Gastrointestinal History: Reports: Bowel Obstruction, GERD Other Gastrointestinal History: girth 60 inches, GASTRIC BYPASS. 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 IS ON BACLOFEN Neurological History: Reports: Migraines Psychiatric History: Reports: ADD, ADHD, Anxiety, Depression, Eating Disorders, Mood Swings, OCD, Panic Attack, Psych Hospitalization(s), PTSD, Suicide Attempt Endocrine/Metabolic History: Reports: Obesity/BMI 30+, Vitamin D Deficiency Hematologic History: Reports: Anemia, Blood Transfusion(s), Iron Deficiency Immunologic History: Reports: None - Infectious Disease History Infectious Disease History: Reports: Chicken Pox - Past Surgical History Head Surgeries/Procedures: Reports: None HEENT Surgical History: Reports: None Cardiovascular Surgical History: Reports: None GI Surgical History: Reports: Bariatric Procedure, Cholecystectomy, Hernia Repair/Other, Other (See Below) Other GI Surgeries/Procedures: Umbilical hernia repair 07/11/2014. Drainage of pericholecystic abscess 07/11/2014. gallbladder out 2014. bowel obstruction surgery 10/2015 again 12/09/2015. 01/06 bowel obstruction surgery, [facility] Sep 2015 Female Surgical History: Reports: None Endocrine Surgical History: Reports: None Neurological Surgical History: Reports: None Musculoskeletal Surgical History: Reports: None Dermatological Surgical History: Reports: None Social & Family History - Family History Family Medical History: No Pertinent Family History - Tobacco Use Tobacco Use Status *Q: Current Every Day Tobacco User Years of Tobacco use: 10 Packs/Tins Daily: 0.5 Used Tobacco, but Quit: No Second Hand Smoke Exposure: No - Caffeine Use Caffeine Use: Reports: Soda Other Caffeine Use: COUPLE CUPS /DAY - Recreational Drug Use Recreational Drug Use: Yes Drug Use in Last 12 Months: Yes Recreational Drug Type: Reports: Marijuana/Hashish Recreational Drug Use Frequency: Weekly - Living Situation & Occupation Living situation: Reports: (lives with and cat.) ED ROS GENERAL - Review of Systems Review Of Systems: See Below Constitutional: Reports: Malaise. Denies: Fever, Chills HEENT: Reports: No Symptoms Respiratory: Denies: Shortness of Breath Cardiovascular: Denies: Chest Pain GI/Abdominal: Reports: Abdominal Pain, Diarrhea. Denies: Constipation : Reports: No Symptoms Skin: Reports: No Symptoms Neurological: Denies: Headache ED EXAM, GI/ABD - Physical Exam Exam: See Below Exam Limited By: No Limitations General Appearance: Alert, No Apparent Distress, Other (She describes her pain 10 out of 10 but does not look uncomfortable) Eyes: Bilateral: Normal Appearance (No jaundice) Head: Atraumatic Respiratory/Chest: No Respiratory Distress, Lungs Clear Cardiovascular: Regular Rate, Rhythm GI/Abdominal Exam: Normal Bowel Sounds, Soft, Tender (She does react with tenderness with mild guarding when palpating across the upper abdomen) Neurological: Alert, Oriented Psychiatric: Normal Affect, Normal Mood Skin Exam: Warm, Dry Course - Vital Signs Last Recorded V/S: Last Vital Signs Temp 96.3 F L 03/08/20 18:30 Pulse 78 03/08/20 18:30 Resp 16 03/08/20 18:30 BP 105/56 L 03/08/20 18:30 Pulse Ox 94 L 03/08/20 18:30 - Orders/Labs/Meds Labs: Laboratory Tests 03/08/20 03/08/20 Range/Units 19:50 19:50 WBC 9.2 (4.5-11.0) K/uL RBC 4.70 (3.30-5.50) M/uL Hgb 11.1 L (12.0-15.0) g/dL Hct 36.4 (36.0-48.0) % MCV 77 L (80-98) fL MCH 24 L (27-31) pg MCHC 31 L (32-36) % Plt Count 525 H (150-400) K/uL Neut % (Auto) 52 (36-66) % Lymph % (Auto) 43 (24-44) % [place] % (Auto) 3 (2-6) % Eos % (Auto) 2 (2-4) % Baso % (Auto) 1 (0-1) % Sodium 139 L (140-148) mmol/L Potassium 4.4 (3.6-5.2) mmol/L Chloride 106 (100-108) mmol/L Carbon Dioxide 23 (21-32) mmol/L Anion Gap 14.4 H (5.0-14.0) mmol/L BUN 15 D (7-18) mg/dL Creatinine 0.7 (0.6-1.0) mg/dL Est Cr Clr Drug Dosing 108.63 mL/min Estimated GFR (MDRD) > 60 (>60) Glucose 96 (74-106) mg/dL Calcium 7.7 L (8.5-10.1) mg/dL Total Bilirubin 0.2 (0.2-1.0) mg/dL AST 21 (15-37) U/L ALT 46 (12-78) U/L Alkaline Phosphatase 169 H (46-116) U/L Total Protein 6.4 (6.4-8.2) g/dL Albumin 3.1 L (3.4-5.0) g/dL Globulin 3.3 (2.3-3.5) g/dL Albumin/Globulin Ratio 0.9 L (1.2-2.2) Lipase 107 (73-393) U/L Meds: Medications Discontinued Medications Generic Name Dose Route Start Last Admin Trade Name Freq PRN Reason Stop Dose Admin Al Hydroxide/Mg Hydroxide 15 0 ml 03/08/20 18:44 03/08/20 18:57 ml/ Lidocaine HCl 15 ml PO 03/08/20 18:45 30 ml ONETIME ONE Administration Hydromorphone HCl 0.5 mg 03/08/20 20:32 03/08/20 20:40 Dilaudid IVPUSH 03/08/20 20:33 0.5 mg ONETIME ONE Administration Lactated Ringer's 1,000 mls @ 1,000 mls/hr 03/08/20 19:45 03/08/20 20:35 Ringers, Lactated IV 1,000 mls/hr ASDIRECTED SHANE Administration - Re-Assessments/Exams Free Text/Narrative Re-Assessment/Exam: 03/08/20 20:51 An IV was started and the patient was bolused with 1 L of lactated Ringer. Medications were held pending labs except for a GI cocktail which had no effect. She repeatedly asked for "something to eat". I reviewed her visit from 1 year ago and her recent CT scan. The CT scan does confirm the persistent right ventral hernia but showed no acute findings, her visit 1 year ago she received 2 doses of IV Dilaudid, IV Ativan, IV ketamine. I do not feel comfortable giving this many medications. Labs returned reassuring, white count normal. I did give her 0.5 mg of IV Dilaudid and she will be discharged to continue her regular medications. Departure - Departure Time of Disposition: 21:07 Disposition: Home, Self-Care 01 Clinical Impression: Chronic abdominal pain - Discharge Information Instructions: Abdominal Pain, Adult Referrals: Angélica Nieves PA [Primary Care Provider] - Forms: ED Department Discharge Care Plan Goals: Rest tonight, increase activity and diet as tolerated and continue your current medications. Any further follow-up should be with your primary providers. Sepsis Event Note (ED) - Evaluation Sepsis Screening Result: No Definite Risk - Focused Exam Vital Signs: Vital Signs Temp Pulse Resp BP Pulse Ox 03/08/20 18:30 96.3 F L 78 16 105/56 L 94 L 03/08/20 18:20 96.3 F L 78 16 105/56 L 94 L
[2020-03-08] MEDS ORDERED: Lactated Ringers 1,000 ML IV SCH (19:45)
[2020-03-08] MEDS ORDERED: HYDROmorphone 0.5 MG/0.5 ML Syringe IVPUSH ONE (20:32)
== END 2020-03-08 21:07 | disposition home or self-care (01) ==
LOC: JP.ED 17:13
DX: R10.10 Upper abdominal pain, unspecified (principal); G89.29 Other chronic pain; K21.9 Gastro-esophageal reflux disease without esophagitis; E66.9 Obesity, unspecified; Z68.41 Body mass index [BMI] 40.0-44.9, adult; Z72.0 Tobacco use; Z79.899 Other long term (current) drug therapy; Z88.1 Allergy status to other antibiotic agents; Z88.8 Allergy status to other drugs, medicaments and biological substances; Z91.048 Other nonmedicinal substance allergy status
CPT/HCPCS: 36415; 80053; 83690; 85025; 96374; 99284-25; A9270-GY; J1170; J7120

== ENCOUNTER 2020-06-20 03:33 | Emergency (ER) | payer MEDICARE, MEDICAID ==
[2020-06-20 03:58] VITALS: BP 126/76; PULSE 130
[2020-06-20] MEDS ORDERED: Sodium Chloride 0.9% 10 ML Syringe FLUSH PRN ×2 (04:23→05:52)
--- NOTE | 2020-06-20 04:33 | EDM.PDOC ---
<OfficerDarryn - Last Filed: 06/20/20 04:30> ED HPI GENERAL MEDICAL PROBLEM - General Chief Complaint: Abdominal Pain Stated Complaint: NAUSEATED, ABD PAIN Time Seen by Provider: 06/20/20 04:12 Source of Information: Reports: Patient, Family, RN Notes Reviewed History Limitations: Reports: No Limitations - History of Present Illness INITIAL COMMENTS - FREE TEXT/NARRATIVE: 30-year-old female presents emergency department with a complaint of abdominal pain, she has a history of chronic abdominal pain she is a gastric bypass has multiple visits to the emergency department. She states she has had abdominal pain for the last 3 days with nausea vomiting however she states she has not taken anything for the pain asked for ketamine states is having normal bowel movements cannot pinpoint the exact place where she is having abdominal pains states is more generalized has not had any fevers. Does follow with a gastric bypass clinic department abd Pain Score (Numeric/FACES): 9 - Related Data Allergies Allergy/AdvReac Type Severity Reaction Status Date / Time ciprofloxacin [From Cipro] Allergy Hives Verified 06/20/20 03:54 lactose Allergy Other Verified 06/20/20 03:54 prazosin AdvReac Nausea and Verified 06/20/20 03:54 Vomiting Home Meds: Home Meds Calcium Carbonate [Tums] 500 mg PO BID tab.chew 07/11/16 [Rx] FLUoxetine [PROzac] 60 mg PO DAILY 04/13/17 [History] Pantoprazole [ProTONIX] 40 mg PO BIDAC #60 tab.cr 06/09/17 [Rx] hydrOXYzine HCL [Atarax] 150 mg PO BEDTIME 09/02/17 [History] Cholecalciferol (Vitamin D3) [Vitamin D3] 2,000 unit PO DAILY 09/24/18 [History] Dextroamphetamine/Amphetamine [Adderall] 30 mg PO BID 09/24/18 [History] Pnv No.95/Ferrous Fum/Folic AC [ Caplet] 1 tab PO DAILY 09/24/18 [History] QUEtiapine [SEROquel] 500 mg PO BEDTIME 09/24/18 [History] Cyanocobalamin (Vitamin B12) [Vitamin B12] 1,000 mcg SL DAILY 07/08/19 [History] Gabapentin [Neurontin] 1,200 mg PO BEDTIME 07/08/19 [History] Iron,Carbonyl/Ascorbic Acid [Vitron-C Tablet] 1 tab PO DAILY 07/08/19 [History] Mirtazapine 45 mg PO BEDTIME 07/08/19 [History] Naproxen [Naprosyn] 500 mg PO BID 07/08/19 [History] Ondansetron [Zofran ODT] 4 mg PO Q8H PRN 07/08/19 [History] Rizatriptan Benzoate [Rizatriptan] 10 mg PO ASDIRECTED PRN 07/08/19 [History] Vitamin B Complex [B Complex] 1 tab PO DAILY 07/08/19 [History] cloNIDine [Catapres] 0.1 mg PO BEDTIME 07/08/19 [History] ALPRAZolam [Xanax] 2 mg PO ASDIRECTED PRN 06/20/20 [History] Cyclobenzaprine [Flexeril] 10 mg PO ASDIRECTED PRN 06/20/20 [History] Past Medical History HEENT History: Reports: Impaired Vision Other HEENT History: wears glasses Cardiovascular History: Reports: Other (See Below) Other Cardiovascular History: fluid around heart Gastrointestinal History: Reports: Bowel Obstruction, GERD Other Gastrointestinal History: girth 60 inches, GASTRIC BYPASS. 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 IS ON BACLOFEN Neurological History: Reports: Migraines Psychiatric History: Reports: ADD, ADHD, Anxiety, Depression, Eating Disorders, Mood Swings, OCD, Panic Attack, Psych Hospitalization(s), PTSD, Suicide Attempt Endocrine/Metabolic History: Reports: Obesity/BMI 30+, Vitamin D Deficiency Hematologic History: Reports: Anemia, Blood Transfusion(s), Iron Deficiency Immunologic History: Reports: None - Infectious Disease History Infectious Disease History: Reports: Chicken Pox - Past Surgical History Head Surgeries/Procedures: Reports: None HEENT Surgical History: Reports: None Cardiovascular Surgical History: Reports: None GI Surgical History: Reports: Bariatric Procedure, Cholecystectomy, Hernia Repair/Other, Other (See Below) Other GI Surgeries/Procedures: Umbilical hernia repair 07/11/2014. Drainage of pericholecystic abscess 07/11/2014. gallbladder out 2014. bowel obstruction surgery 10/2015 again 12/09/2015. 01/06 bowel obstruction surgery, [facility] Sep 2015 Female Surgical History: Reports: None Endocrine Surgical History: Reports: None Neurological Surgical History: Reports: None Musculoskeletal Surgical History: Reports: None Dermatological Surgical History: Reports: None Social & Family History - Family History Family Medical History: No Pertinent Family History - Tobacco Use Tobacco Use Status *Q: Current Every Day Tobacco User Years of Tobacco use: 10 Packs/Tins Daily: 0.2 - Caffeine Use Caffeine Use: Reports: Soda Other Caffeine Use: COUPLE CUPS /DAY - Recreational Drug Use Recreational Drug Use: Yes Drug Use in Last 12 Months: Yes Recreational Drug Type: Reports: Marijuana/Hashish Recreational Drug Use Frequency: Weekly - Living Situation & Occupation Living situation: Reports: (lives with and cat.) ED ROS GENERAL - Review of Systems Review Of Systems: See Below Constitutional: Denies: Fever, Chills HEENT: Reports: No Symptoms Respiratory: Reports: No Symptoms Cardiovascular: Reports: No Symptoms GI/Abdominal: Reports: Abdominal Pain, Flatus, Nausea, Vomiting. Denies: Constipation, Diarrhea : Reports: No Symptoms ED EXAM, GI/ABD - Physical Exam Exam: See Below Exam Limited By: No Limitations General Appearance: Alert, WD/WN, No Apparent Distress Respiratory/Chest: No Respiratory Distress, Lungs Clear, Normal Breath Sounds, No Accessory Muscle Use, Chest Non-Tender Cardiovascular: Regular Rate, Rhythm, No Murmur GI/Abdominal Exam: Normal Bowel Sounds, Soft, Non-Tender Departure - Departure Disposition: Home, Self-Care 01 Clinical Impression: Obstipation - Discharge Information Instructions: Constipation, Adult, [id number] Referrals: Angélica Nieves PA [Primary Care Provider] - Forms: ED Department Discharge Additional Instructions: Take Miralax or Metamucil one dose daily with a large amount of water. Advance your diet starting today slowly. F/U with your provider in the clinic, call for an appointment. Sepsis Event Note (ED) - Evaluation Sepsis Screening Result: No Definite Risk <Cory Henao G - Last Filed: 06/20/20 09:59> Course - Vital Signs Last Recorded V/S: Last Vital Signs Temp 36.3 C 06/20/20 04:00 Pulse 130 H 06/20/20 04:00 Resp 20 06/20/20 04:00 BP 126/76 06/20/20 04:00 Pulse Ox 99 06/20/20 04:00 - Orders/Labs/Meds Orders: Active Orders 24 hr Category Date Time Status Enema [RC] ASDIRECTED Care 06/20/20 08:49 Active Enema [RC] ASDIRECTED Care 06/20/20 09:35 Active Peripheral IV Care [RC] . DIRECTED Care 06/20/20 04:24 Active Abdomen 1V Upright [CR] Urgent Exams 06/20/20 04:23 Taken Lactated Ringers [Ringers, Lactated] 1,000 ml Med 06/20/20 04:30 Active IV ASDIRECTED Lactated Ringers [Ringers, Lactated] 1,000 ml Med 06/20/20 08:45 Active IV ASDIRECTED Sodium Chloride 0.9% [Saline Flush] Med 06/20/20 04:23 Active 10 ml FLUSH ASDIRECTED PRN Sodium Chloride 0.9% [Saline Flush] Med 06/20/20 05:52 Active 10 ml FLUSH ASDIRECTED PRN Peripheral IV Insertion Adult [OM.PC] Urgent Oth 06/20/20 04:23 Ordered Peripheral IV Insertion Adult [OM.PC] Urgent Oth 06/20/20 05:52 Ordered Medication Orders Lactated Ringer's (Ringers, Lactated) 1,000 mls @ 999 mls/hr IV ASDIRECTED [facility] Last Admin: 06/20/20 07:35 Dose: 999 mls/hr Documented by: BLAIRE Lactated Ringer's (Ringers, Lactated) 1,000 mls @ 100 mls/hr IV ASDIRECTED [facility] Last Admin: 06/20/20 09:32 Dose: 100 mls/hr Documented by: BLAIER Sodium Chloride (Sodium Chloride 0.9% 10 Ml Syringe) 10 ml FLUSH ASDIRECTED PRN PRN Reason: Keep Vein Open Sodium Chloride (Sodium Chloride 0.9% 10 Ml Syringe) 10 ml FLUSH ASDIRECTED PRN PRN Reason: Keep Vein Open Labs: Laboratory Tests 06/20/20 06/20/20 06/20/20 Range/Units 04:45 04:45 04:45 WBC 9.9 (4.5-11.0) K/uL RBC 4.80 (3.30-5.50) M/uL Hgb 11.4 L (12.0-15.0) g/dL Hct 35.7 L (36.0-48.0) % MCV 74 L (80-98) fL MCH 24 L (27-31) pg MCHC 32 (32-36) % Plt Count 392 (150-400) K/uL Neut % (Auto) 65 (36-66) % Lymph % (Auto) 28 (24-44) % [place] % (Auto) 5 (2-6) % Eos % (Auto) 2 (2-4) % Baso % (Auto) 0 (0-1) % Sodium 146 (140-148) mmol/L Potassium 4.3 (3.6-5.2) mmol/L Chloride 110 H (100-108) mmol/L Carbon Dioxide 23 (21-32) mmol/L Anion Gap 17.3 H (5.0-14.0) mmol/L BUN 18 (7-18) mg/dL Creatinine 1.0 (0.6-1.0) mg/dL Est Cr Clr Drug Dosing 75.37 mL/min Estimated GFR (MDRD) > 60 (>60) Glucose 104 (74-106) mg/dL Lactic Acid 1.3 (0.4-2.0) mmol/L Calcium 8.7 (8.5-10.1) mg/dL Total Bilirubin 0.2 (0.2-1.0) mg/dL AST 16 (15-37) U/L ALT 48 (12-78) U/L Alkaline Phosphatase 132 H (46-116) U/L Total Protein 5.9 L (6.4-8.2) g/dL Albumin 2.9 L (3.4-5.0) g/dL Globulin 3.0 (2.3-3.5) g/dL Albumin/Globulin Ratio 1.0 L (1.2-2.2) Lipase 73 (73-393) U/L Procalcitonin ng/mL Urine Color (YELLOW) Urine Appearance (CLEAR) Urine pH (5.0-8.0) Ur Specific [place] (1.008-1.030) Urine Protein (NEGATIVE) mg/dL Urine Glucose (UA) (NEGATIVE) mg/dL Urine Ketones (NEGATIVE) mg/dL Urine Occult Blood (NEGATIVE) Urine Nitrite (NEGATIVE) Urine Bilirubin (NEGATIVE) Urine Urobilinogen (0.2-1.0) EU/dL Ur Leukocyte Esterase (NEGATIVE) Urine RBC (0-5) Urine WBC (0-5) Ur Epithelial Cells Amorphous Sediment Urine Bacteria Urine Mucus Urine Opiates Screen (NEGATIVE) Ur Oxycodone Screen (NEGATIVE) Urine Methadone Screen (NEGATIVE) Ur Propoxyphene Screen (NEGATIVE) Ur Barbiturates Screen (NEGATIVE) Ur Tricyclics Screen (NEGATIVE) Ur Phencyclidine Scrn (NEGATIVE) Ur Amphetamine Screen (NEGATIVE) U Methamphetamines Scrn (NEGATIVE) Urine MDMA Screen (NEGATIVE) U Benzodiazepines Scrn (NEGATIVE) U Cocaine Metab Screen (NEGATIVE) U Marijuana (THC) Screen (NEGATIVE) 06/20/20 06/20/20 06/20/20 Range/Units 04:45 06:40 06:40 WBC (4.5-11.0) K/uL RBC (3.30-5.50) M/uL Hgb (12.0-15.0) g/dL Hct (36.0-48.0) % MCV (80-98) fL MCH (27-31) pg MCHC (32-36) % Plt Count (150-400) K/uL Neut % (Auto) (36-66) % Lymph % (Auto) (24-44) % [place] % (Auto) (2-6) % Eos % (Auto) (2-4) % Baso % (Auto) (0-1) % Sodium (140-148) mmol/L Potassium (3.6-5.2) mmol/L Chloride (100-108) mmol/L Carbon Dioxide (21-32) mmol/L Anion Gap (5.0-14.0) mmol/L BUN (7-18) mg/dL Creatinine (0.6-1.0) mg/dL Est Cr Clr Drug Dosing mL/min Estimated GFR (MDRD) (>60) Glucose (74-106) mg/dL Lactic Acid (0.4-2.0) mmol/L Calcium (8.5-10.1) mg/dL Total Bilirubin (0.2-1.0) mg/dL AST (15-37) U/L ALT (12-78) U/L Alkaline Phosphatase (46-116) U/L Total Protein (6.4-8.2) g/dL Albumin (3.4-5.0) g/dL Globulin (2.3-3.5) g/dL Albumin/Globulin Ratio (1.2-2.2) Lipase (73-393) U/L Procalcitonin < 0.05 ng/mL Urine Color Brown A (YELLOW) Urine Appearance Slightly cloudy A (CLEAR) Urine pH 5.5 (5.0-8.0) Ur Specific [place] 1.025 (1.008-1.030) Urine Protein Negative (NEGATIVE) mg/dL Urine Glucose (UA) Negative (NEGATIVE) mg/dL Urine Ketones Trace H (NEGATIVE) mg/dL Urine Occult Blood Trace-intact H (NEGATIVE) Urine Nitrite Positive H (NEGATIVE) Urine Bilirubin Small H (NEGATIVE) Urine Urobilinogen 0.2 (0.2-1.0) EU/dL Ur Leukocyte Esterase Small H (NEGATIVE) Urine RBC 0-5 (0-5) Urine WBC 10-20 H (0-5) Ur Epithelial Cells Occasional Amorphous Sediment Few Urine Bacteria Moderate Urine Mucus Few Urine Opiates Screen Negative (NEGATIVE) Ur Oxycodone Screen Negative (NEGATIVE) Urine Methadone Screen Negative (NEGATIVE) Ur Propoxyphene Screen Negative (NEGATIVE) Ur Barbiturates Screen Negative (NEGATIVE) Ur Tricyclics Screen Presumptive positive H (NEGATIVE) Ur Phencyclidine Scrn Negative (NEGATIVE) Ur Amphetamine Screen Negative (NEGATIVE) U Methamphetamines Scrn Negative (NEGATIVE) Urine MDMA Screen Negative (NEGATIVE) U Benzodiazepines Scrn Presumptive positive H (NEGATIVE) U Cocaine Metab Screen Negative (NEGATIVE) U Marijuana (THC) Screen Presumptive positive H (NEGATIVE) Meds: Medications Generic Name Dose Route Start Last Admin Trade Name Freq PRN Reason Stop Dose Admin Lactated Ringer's 1,000 mls @ 999 mls/hr 06/20/20 04:30 06/20/20 07:35 Ringers, Lactated IV 999 mls/hr ASDIRECTED SHANE Administration Lactated Ringer's 1,000 mls @ 100 mls/hr 06/20/20 08:45 06/20/20 09:32 Ringers, Lactated IV 100 mls/hr ASDIRECTED SHANE Administration Sodium Chloride 10 ml 06/20/20 04:23 Sodium Chloride 0.9% 10 Ml Syringe FLUSH ASDIRECTED PRN Keep Vein Open Sodium Chloride 10 ml 06/20/20 05:52 Sodium Chloride 0.9% 10 Ml Syringe FLUSH ASDIRECTED PRN Keep Vein Open Discontinued Medications Generic Name Dose Route Start Last Admin Trade Name Alejo PRN Reason Stop Dose Admin Sodium Chloride 85 mls @ 3 mls/sec 06/20/20 07:15 06/20/20 07:18 Normal Saline IV 06/20/20 07:16 3 mls/sec ASDIRECTED HSANE Administration Iopamidol 150 ml 06/20/20 07:15 06/20/20 07:20 Iopamidol 612 Mg/Ml 150 Ml Bottle IV 06/20/20 07:16 150 ml . DIRECTED SHANE Administration Ketorolac Tromethamine 30 mg 06/20/20 04:26 06/20/20 07:38 Ketorolac 30 Mg/Ml Sdv IVPUSH 06/20/20 04:27 30 mg ONETIME ONE Administration Ondansetron HCl 4 mg 06/20/20 04:26 06/20/20 07:35 Ondansetron 4 Mg/2 Ml Sdv IVPUSH 06/20/20 04:27 4 mg ONETIME ONE Administration Sodium Chloride 10 ml 06/20/20 07:09 06/20/20 07:18 Sodium Chloride 0.9% 10 Ml Syringe FLUSH 06/20/20 07:10 10 ml ONETIME ONE Administration - Radiology Interpretation Free Text/Narrative:: CT abd/pelvis w/contrast- Impression: Postoperative changes of the stomach and ventral abdomen with markedly dilated fluid-filled loops of central small bowel as well as proximal colon which may represent developing obstruction versus enteritis. No obvious transition point is identified. Moderate to severe stool is seen throughout the distal colon. There is redemonstration of likely malrotation of intestines with ligament of Treitz in the right upper quadrant. Otherwise, no acute intra-abdominal abnormality. Please note that all CT scans at this facility use dose modulation, iterative reconstruction, and/or weight-based dosing when appropriate to reduce radiation dose to as low as reasonably achievable. Dictated by Rod Coyne MD @ 06/20/2020 7:45:[address] Results Date: 06/20/20 - Re-Assessments/Exams Free Text/Narrative Re-Assessment/Exam: 06/20/20 09:57 Good results with an enema x 2, wants to go home. Departure - Departure Time of Disposition: 10:00 Condition: Fair - Discharge Information *PRESCRIPTION DRUG MONITORING PROGRAM REVIEWED*: Not Applicable *COPY OF PRESCRIPTION DRUG MONITORING REPORT IN PATIENT CHRISTOPHE: Not Applicable Sepsis Event Note (ED) - Focused Exam Vital Signs: Vital Signs Temp Pulse Resp BP Pulse Ox 06/20/20 04:00 36.3 C 130 H 20 126/76 99 06/20/20 03:55 36.3 C 130 H 20 126/76 99 - My Orders Last 24 Hours: My Active Orders 06/20/20 08:45 Lactated Ringers [Ringers, Lactated] 1,000 ml IV ASDIRECTED 06/20/20 08:49 Enema [RC] ASDIRECTED 06/20/20 09:35 Enema [RC] ASDIRECTED - Assessment/Plan Last 24 Hours: My Active Orders 06/20/20 08:45 Lactated Ringers [Ringers, Lactated] 1,000 ml IV ASDIRECTED 06/20/20 08:49 Enema [RC] ASDIRECTED 06/20/20 09:35 Enema [RC] ASDIRECTED
[2020-06-20] MEDS: Sodium Chloride 0.9% 10 ML Syringe FLUSH ONE (07:18)
[2020-06-20] MEDS: Iopamidol 612 MG/ML 150 ML Bottle IV SCH (07:20)
[2020-06-20] MEDS: Ondansetron 4 MG/2 ML SDV IVPUSH ONE (07:35)
[2020-06-20] MEDS: Lactated Ringers 1,000 ML IV SCH ×2 (07:35→09:32)
[2020-06-20] MEDS: Ketorolac 30 MG/ML SDV IVPUSH ONE (07:38)
--- NOTE | 2020-06-20 07:47 | CRLCT ---
Indication: Generalized abdominal pain Technique: Volumetric multidetector CT images of the abdomen and pelvis were obtained after the administration of intravenous contrast. 150 cc Isovue low osmolar intravenous contrast Comparison: CT abdomen and pelvis February 25, 2020 Findings: There is bibasilar atelectasis and parenchymal scar with demonstration of patchy airspace opacities. The liver is markedly enlarged with hepatic steatosis. There is no focal abnormality. The portal vein is patent. The gallbladder is surgically absent. There is no significant common biliary ductal dilatation or abrupt cut off. The spleen is normal in enhancement and size. The stomach is somewhat decompressed with postoperative changes. There is a somewhat patulous duodenum again seen with re- demonstration intestinal malrotation. The ligament of Treitz is seen within the right upper quadrant. The pancreas is normal in enhancement without significant atrophy. The adrenal glands are unremarkable. The kidneys demonstrate preserved corticomedullary differentiation without evidence of obstructive uropathy. There is moderate to severe stool seen throughout the distal colon with moderately distended loops of central small bowel which may represent developing obstruction versus enteritis changes. The appendix is unremarkable. There is no significant mesenteric, retroperitoneal, or pelvic sidewall lymph nodes. The aorta is nonaneurysmal. There is no significant atherosclerotic disease appreciated. The solid pelvic viscera are grossly unremarkable. There is no free fluid or free air. Postoperative changes of the anterior abdominal wall are again seen with mild diastasis of the rectus musculature and ventral bulging similar to previous exam. The lumbar vertebral body heights are grossly maintained in satisfactory alignment without evidence of displaced fracture, lytic or blastic lesion. Impression: Postoperative changes of the stomach and ventral abdomen with markedly dilated fluid-filled loops of central small bowel as well as proximal colon which may represent developing obstruction versus enteritis. No obvious transition point is identified. Moderate to severe stool is seen throughout the distal colon. There is redemonstration of likely malrotation of intestines with ligament of Treitz in the right upper quadrant. Otherwise, no acute intra-abdominal abnormality. Please note that all CT scans at this facility use dose modulation, iterative reconstruction, and/or weight-based dosing when appropriate to reduce radiation dose to as low as reasonably achievable. Dictated by Rod Coyne MD @ 06/20/2020 7:45:[address] Rod Coyne @ Jun 20 2020 7:45AM
--- NOTE | 2020-06-20 10:49 | CR ---
Abdomen 1V Upright CLINICAL HISTORY: Abdominal pain FINDINGS: There is moderate gaseous distention which is predominantly the colon. There is also a large amount of stool. The rectum is not entirely seen. IMPRESSION: Moderate gaseous distention predominantly of the colon. There is also some dilated small bowel loops. This may be due to a distal colonic obstruction possibly fecal impaction. Ileus is felt less likely.
== END 2020-06-20 10:09 | disposition home or self-care (01) ==
LOC: JP.ED 03:33
DX: K59.00 Constipation, unspecified (principal); E66.9 Obesity, unspecified; K21.9 Gastro-esophageal reflux disease without esophagitis; Z72.0 Tobacco use; Z90.49 Acquired absence of other specified parts of digestive tract; Z68.41 Body mass index [BMI] 40.0-44.9, adult
CPT/HCPCS: 36415; 74018; 74177; 80053; 80305; 81001; 83605; 83690; 84145; 85025; 96374; 96375; 99284; J1885; J2405; J7120; Q9967

== ENCOUNTER 2020-07-21 01:21 | Emergency (ER) | payer MEDICARE, MEDICAID ==
[2020-07-21 01:27] VITALS: BP 118/78; PULSE 98
[2020-07-21] MEDS ORDERED: Hyoscyamine 0.125 MG Tab.SL SL ONE (01:50)
--- NOTE | 2020-07-21 01:56 | EDM.PDOC ---
ED HPI GENERAL MEDICAL PROBLEM - General Chief Complaint: General Stated Complaint: MEDICAL VIA [facility] Time Seen by Provider: 07/21/20 01:23 Source of Information: Reports: Patient, EMS, Family (Significant other) History Limitations: Reports: No Limitations - History of Present Illness INITIAL COMMENTS - FREE TEXT/NARRATIVE: Eileen is a 30-year-old female with a complex medical history presenting to the ED via [facility] for possible seizure. The patient was in her usual state of health when she went outside to smoke a cigarette and her and her boyfriend had to move the car because they were paving the parking lot. While riding in the car she became unresponsive and started to have myoclonic jerks accompanied by some purposeful movement with reaching out in front of herself. The patient would not respond to commands and started to drool having sonorous respirations. This lasted for several minutes and was followed by several more minutes of confusion. Upon EMSs arrival, they noted that she was alert and oriented x3, following commands, and interacting normally. The patient's past medical history is significant for gastric bypass in 2015 with numerous bowel resections complicating the bypass and ultimately she had a reversal in [facility] in 2019. At that time she was noted to have only 100 cm of small bowel remaining. This resulted in malabsorption. Patient also has significant problems with bowel spasm for which she takes gabapentin 1800 mg at bedtime and 300 mg as needed daily, meloxicam 15 mg daily, cyclobenzaprine 10 mg 3 times daily. She reportedly took her nighttime medications including Seroquel 500 mg, clonidine 0.6 mg and mirtazapine 45 mg prior to going outside to have a cigarette. She also reports that she took an extra 600 mg of gabapentin because her abdomen has been hurting more today. There was no loss of bowel or bladder control. There was no trauma to the tongue or buccal mucosa. The patient does not have a seiz ure history. Was no evidence of head trauma. Upper Abdomen Pain Score (Numeric/FACES): 8 - Related Data Allergies Allergy/AdvReac Type Severity Reaction Status Date / Time ciprofloxacin [From Cipro] Allergy Hives Verified 07/21/20 01:51 lactose Allergy Other Verified 07/21/20 01:51 prazosin AdvReac Nausea and Verified 07/21/20 01:51 Vomiting Home Meds: Home Meds Calcium Carbonate [Tums] 500 mg PO BID tab.chew 07/11/16 [Rx] FLUoxetine [PROzac] 60 mg PO DAILY 04/13/17 [History] Pantoprazole [ProTONIX] 40 mg PO BIDAC #60 tab.cr 06/09/17 [Rx] Cholecalciferol (Vitamin D3) [Vitamin D3] 2,000 unit PO DAILY 09/24/18 [History] Dextroamphetamine/Amphetamine [Adderall] 30 mg PO BID 09/24/18 [History] Pnv No.95/Ferrous Fum/Folic AC [ Caplet] 1 tab PO DAILY 09/24/18 [History] Cyanocobalamin (Vitamin B12) [Vitamin B12] 1,000 mcg SL DAILY 07/08/19 [History] Iron,Carbonyl/Ascorbic Acid [Vitron-C Tablet] 1 tab PO DAILY 07/08/19 [History] Mirtazapine 45 mg PO BEDTIME 07/08/19 [History] Naproxen [Naprosyn] 500 mg PO BID 07/08/19 [History] Ondansetron [Zofran ODT] 4 mg PO Q8H PRN 07/08/19 [History] Rizatriptan Benzoate [Rizatriptan] 10 mg PO ASDIRECTED PRN 07/08/19 [History] Vitamin B Complex [B Complex] 1 tab PO DAILY 07/08/19 [History] ALPRAZolam [Xanax] 2 mg PO ASDIRECTED PRN 06/20/20 [History] Cyclobenzaprine [Flexeril] 1 tab PO TIDAC PRN 07/21/20 [History] Gabapentin [Neurontin] 3 tab PO BEDTIME 07/21/20 [History] Meloxicam [Mobic] 1 tab PO DAILY 07/21/20 [History] QUEtiapine [SEROquel] 1 tab PO BEDTIME 07/21/20 [History] QUEtiapine [SEROquel] 200 mg PO BEDTIME 07/21/20 [History] Thiamine [Vitamin B-1] 1 tab PO DAILY 07/21/20 [History] cloNIDine HCL [Clonidine HCl] 2 tab PO BEDTIME 07/21/20 [History] desogestreL-ethinyl estradioL [Desogest-Eth Estra 0.15-0.03MG] 1 tab PO DAILY 07/21/20 [History] hydrOXYzine HCL [Hydroxyzine HCl] 1 - 2 tab PO ASDIRECTED 07/21/20 [History] Past Medical History HEENT History: Reports: Impaired Vision Other HEENT History: wears glasses Cardiovascular History: Reports: Other (See Below) Other Cardiovascular History: fluid around heart Gastrointestinal History: Reports: Bowel Obstruction, GERD Other Gastrointestinal History: girth 60 inches, GASTRIC BYPASS. 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 IS ON BACLOFEN Neurological History: Reports: Migraines Psychiatric History: Reports: ADD, ADHD, Anxiety, Depression, Eating Disorders, Mood Swings, OCD, Panic Attack, Psych Hospitalization(s), PTSD, Suicide Attempt Endocrine/Metabolic History: Reports: Obesity/BMI 30+, Vitamin D Deficiency Hematologic History: Reports: Anemia, Blood Transfusion(s), Iron Deficiency Immunologic History: Reports: None - Infectious Disease History Infectious Disease History: Reports: Chicken Pox - Past Surgical History Head Surgeries/Procedures: Reports: None HEENT Surgical History: Reports: None Cardiovascular Surgical History: Reports: None GI Surgical History: Reports: Bariatric Procedure, Cholecystectomy, Hernia Repair/Other, Other (See Below) Other GI Surgeries/Procedures: Umbilical hernia repair 07/11/2014. Drainage of pericholecystic abscess 07/11/2014. gallbladder out 2014. bowel obstruction surgery 10/2015 again 12/09/2015. 01/06 bowel obstruction surgery, [facility] Sep 2015 Female Surgical History: Reports: None Endocrine Surgical History: Reports: None Neurological Surgical History: Reports: None Musculoskeletal Surgical History: Reports: None Dermatological Surgical History: Reports: None Social & Family History - Family History Family Medical History: No Pertinent Family History - Caffeine Use Caffeine Use: Reports: Soda Other Caffeine Use: COUPLE CUPS /DAY - Living Situation & Occupation Living situation: Reports: (lives with and cat.) ED ROS GENERAL - Review of Systems Review Of Systems: See Below Constitutional: Reports: No Symptoms HEENT: Reports: No Symptoms Respiratory: Reports: No Symptoms Cardiovascular: Reports: No Symptoms Endocrine: Reports: No Symptoms GI/Abdominal: Reports: Abdominal Pain (Chronic crampy abdominal pain) : Reports: No Symptoms Musculoskeletal: Reports: No Symptoms Skin: Reports: No Symptoms Neurological: Reports: Seizure (Seizure-like activity intermixed with purposeful movements lasting 2 to 3 minutes followed by a period of confusion.) Psychiatric: Reports: No Symptoms Hematologic/Lymphatic: Reports: No Symptoms Immunologic: Reports: No Symptoms ED EXAM, GENERAL - Physical Exam Exam: See Below Exam Limited By: No Limitations General Appearance: Alert, No Apparent Distress, Anxious, Obese Eye Exam: Bilateral Eye: EOMI, PERRL Throat/Mouth: Normal Inspection, Normal Oropharynx, Normal Voice, No Airway Comp romise Head: Atraumatic, Normocephalic Neck: Normal Inspection, Supple Respiratory/Chest: No Respiratory Distress, Lungs Clear, Normal Breath Sounds Cardiovascular: Normal Peripheral Pulses, Regular Rate, Rhythm, No Murmur GI/Abdominal: Normal Bowel Sounds, Soft, Guarding, Tender (Generalized tenderness but especially over the epigastric region.). No: Rigid, Rebound Back Exam: Normal Inspection Extremities: Normal Inspection, Normal Range of Motion Neurological: Alert, Oriented, CN II-XII Intact, Normal Cognition, No Motor/Sensory Deficits Psychiatric: Normal Affect, Normal Mood Skin Exam: Warm, Dry, Intact, Normal Color Lymphatic: No Adenopathy Course - Vital Signs Last Recorded V/S: Last Vital Signs Temp 35.5 C L 07/21/20 01:50 Pulse 98 07/21/20 01:50 Resp 12 07/21/20 01:50 BP 118/78 07/21/20 01:50 Pulse Ox 96 07/21/20 01:50 - Orders/Labs/Meds Orders: Active Orders 24 hr Category Date Time Status COMPREHENSIVE METABOLIC PN,CMP [CHEM] Stat Lab 07/21/20 01:26 Ordered ETHANOL BLOOD MEDICAL [CHEM] Stat Lab 07/21/20 01:26 Ordered Labs: Laboratory Tests 07/21/20 07/21/20 07/21/20 Range/Units 01:26 01:57 01:57 WBC 5.2 (4.5-11.0) K/uL RBC 4.46 (3.30-5.50) M/uL Hgb 10.4 L (12.0-15.0) g/dL Hct 33.4 L (36.0-48.0) % MCV 75 L (80-98) fL MCH 23 L (27-31) pg MCHC 31 L (32-36) % Plt Count 423 H (150-400) K/uL Neut % (Auto) 38.0 (36-66) % Lymph % (Auto) 51.8 H (24-44) % [place] % (Auto) 7.7 H (2-6) % Eos % (Auto) 1.9 L (2-4) % Baso % (Auto) 0.6 (0-1) % Urine Color Yellow (YELLOW) Urine Appearance Cloudy A (CLEAR) Urine pH 6.0 (5.0-8.0) Ur Specific [place] >= 1.030 (1.008-1.030) Urine Protein 30 H (NEGATIVE) mg/dL Urine Glucose (UA) Negative (NEGATIVE) mg/dL Urine Ketones Negative (NEGATIVE) mg/dL Urine Occult Blood Negative (NEGATIVE) Urine Nitrite Positive H (NEGATIVE) Urine Bilirubin Negative (NEGATIVE) Urine Urobilinogen 1.0 (0.2-1.0) EU/dL Ur Leukocyte Esterase Small H (NEGATIVE) Urine RBC 0-5 (0-5) Urine WBC 10-20 H (0-5) Ur Epithelial Cells Few Amorphous Sediment Not seen Urine Bacteria Many Urine Mucus Occasional Urine Opiates Screen Negative (NEGATIVE) Ur Oxycodone Screen Negative (NEGATIVE) Urine Methadone Screen Negative (NEGATIVE) Ur Propoxyphene Screen Negative (NEGATIVE) Ur Barbiturates Screen Negative (NEGATIVE) Ur Tricyclics Screen Presumptive positive H (NEGATIVE) Ur Phencyclidine Scrn Negative (NEGATIVE) Ur Amphetamine Screen Negative (NEGATIVE) U Methamphetamines Scrn Negative (NEGATIVE) Urine MDMA Screen Negative (NEGATIVE) U Benzodiazepines Scrn Presumptive positive H (NEGATIVE) U Cocaine Metab Screen Negative (NEGATIVE) U Marijuana (THC) Screen Presumptive positive H (NEGATIVE) Meds: Medications Discontinued Medications Generic Name Dose Route Start Last Admin Trade Name Freq PRN Reason Stop Dose Admin Hyoscyamine 0.125 mg 07/21/20 01:50 07/21/20 01:56 Hyoscyamine 0.125 Mg Tab.Sl SL 07/21/20 01:51 0.125 mg ONETIME ONE Administration - Re-Assessments/Exams Free Text/Narrative Re-Assessment/Exam: 07/21/20 02:37 I reviewed the patient's labs showing a normal CBC and comprehensive metabolic panel except for a bicarbonate of 20. The patient does have evidence of urinary tract infection with positive nitrates and leukocyte esterase. She has 10-20 WBCs and 0-5 RBCs. We will start her on an antibiotic cephalexin 500 mg twice daily for 7 days for this infection. It is unlikely that she actually had a seizure given the fact that she has not had any significant head trauma nor does she have a seizure history. It is likely that she had some type of spells secondary to taking her Seroquel, gabapentin, and mirtazapine. At this time, the patient is alert, oriented, and in no acute distress other than her chronic abdominal pain. We will again treat her urinary tract infection as above. She is suitable for discharge home in satisfactory condition. Departure - Departure Time of Disposition: 02:38 Disposition: Home, Self-Care 01 Clinical Impression: Brief loss of consciousness, Myoclonus Urinary tract infection Qualifiers: Urinary tract infection type: acute cystitis Hematuria presence: without hematuria Qualified Code(s): N30.00 - Acute cystitis without hematuria - Discharge Information Instructions: Syncope, [id number], Myoclonus, Urinary Tract Infection, Adult, [id number] Forms: ED Department Discharge Care Plan Goals: Your work-up is shown that you do have a urinary tract infection. We are going to start you on cephalexin 1 tablet twice daily for 7 days. This has been sent out to the [employer] machine. I believe your brief episode of unconsciousness was due to the combination of the gabapentin, Seroquel, and mirtazapine. I do not see anything worrisome for any acute neurologic abnormality. Follow-up with your primary care provider as needed. Sepsis Event Note (ED) - Focused Exam Vital Signs: Vital Signs Temp Pulse Resp BP Pulse Ox 07/21/20 01:50 35.5 C L 98 12 118/78 96 07/21/20 01:25 35.5 C L 98 12 118/78 96 - Problem List & Annotations (1) Brief loss of consciousness SNOMED Code(s): 64692150 Code(s): R55 - SYNCOPE AND COLLAPSE Status: Acute Priority: Medium Current Visit: Yes (2) Myoclonus SNOMED Code(s): 30340164 Code(s): G25.3 - MYOCLONUS Status: Acute Priority: Medium Current V isit: Yes (3) Urinary tract infection SNOMED Code(s): 24041376 Code(s): N39.0 - URINARY TRACT INFECTION, SITE NOT SPECIFIED Status: Acute Priority: Medium Current Visit: Yes Qualifiers: Urinary tract infection type: acute cystitis Hematuria presence: without hematuria Qualified Code(s): N30.00 - Acute cystitis without hematuria - Problem List Review Problem List Initiated/Reviewed/Updated: Yes - My Orders Last 24 Hours: My Active Orders 07/21/20 01:26 COMPREHENSIVE METABOLIC PN,CMP [CHEM] Stat ETHANOL BLOOD MEDICAL [CHEM] Stat - Assessment/Plan Last 24 Hours: My Active Orders 07/21/20 01:26 COMPREHENSIVE METABOLIC PN,CMP [CHEM] Stat ETHANOL BLOOD MEDICAL [CHEM] Stat
[2020-07-21] MEDS ORDERED: Ketorolac 60 MG/2 ML SDV IM ONE (02:46)
== END 2020-07-21 02:59 | disposition home or self-care (01) ==
LOC: JP.ED 01:21
DX: R40.1 Stupor (principal); G25.3 Myoclonus; N30.00 Acute cystitis without hematuria; F17.210 Nicotine dependence, cigarettes, uncomplicated; K21.9 Gastro-esophageal reflux disease without esophagitis; E66.9 Obesity, unspecified; Z68.41 Body mass index [BMI] 40.0-44.9, adult; Z79.899 Other long term (current) drug therapy; Z91.048 Other nonmedicinal substance allergy status; Z88.1 Allergy status to other antibiotic agents
CPT/HCPCS: 36415; 80053; 80305; 80307; 81001; 85025; 96372; 99283; 99285; A9270; J1885

== ENCOUNTER 2020-08-07 17:46 | Emergency (ER) | payer MEDICARE, MEDICAID ==
[2020-08-07] MEDS ORDERED: hydrOXYzine HCl 25 MG Tab PO ONE (17:55)
[2020-08-07] MEDS ORDERED: Ondansetron 4 MG Tab.DIS PO ONE (17:55)
--- NOTE | 2020-08-07 18:17 | EDM.PDOC ---
ED HPI GENERAL MEDICAL PROBLEM - General Stated Complaint: NAUSEA AND FATIGUE Time Seen by Provider: 08/07/20 18:14 Source of Information: Reports: Patient, RN History Limitations: Reports: No Limitations - History of Present Illness INITIAL COMMENTS - FREE TEXT/NARRATIVE: Eileen is a 30 year old female whom presents to ER with nausea and abdominal discomfort. Eileen has not taken her home medications to see if they would be helpful for her symptoms today. Eileen reports concerns regarding constipation and she had an episode of diarrhea today. Eileen is well known to the ER staff due to frequency of visits commonly for abdominal concerns. Eileen had a CT abd/pelvis in June for abdominal complaints and h/o gastric bypass. Eileen believes she is dehydrated a requesting a banana bag due to dehydration concerns. Eileen had her gastric bypass reversed at some point in time. Eileen had blood work completed in the clinic in the last 2 weeks: Vit D, Vit B12, Folate, Iron and CBC where within normal limits. I did not feel repeating test today would be needed. Eileen reports feeling generally ill but unable to elaborate and did not take medications available to her at home. Eileen has a follow-up appointment with general surgeon due to ventral hernia. Eileen believes her bowel is not normal and took mag citrate today resulting in a loose stool. Abdomen Pain Score (Numeric/FACES): 8 - Related Data Allergies Allergy/AdvReac Type Severity Reaction Status Date / Time ciprofloxacin [From Cipro] Allergy Hives Verified 08/07/20 18:09 lactose Allergy Other Verified 08/07/20 18:09 prazosin AdvReac Nausea and Verified 08/07/20 18:09 Vomiting Home Meds: Home Meds Calcium Carbonate [Tums] 500 mg PO BID tab.chew 07/11/16 [Rx] FLUoxetine [PROzac] 60 mg PO DAILY 04/13/17 [History] Pantoprazole [ProTONIX] 40 mg PO BIDAC #60 tab.cr 06/09/17 [Rx] Cholecalciferol (Vitamin D3) [Vitamin D3] 2,000 unit PO DAILY 09/24/18 [History] Dextroamphetamine/Amphetamine [Adderall] 30 mg PO BID 09/24/18 [History] Pnv No.95/Ferrous Fum/Folic AC [ Caplet] 1 tab PO DAILY 09/24/18 [History] Cyanocobalamin (Vitamin B12) [Vitamin B12] 1,000 mcg SL DAILY 07/08/19 [History] Mirtazapine 45 mg PO BEDTIME 07/08/19 [History] Naproxen [Naprosyn] 500 mg PO BID 07/08/19 [History] Ondansetron [Zofran ODT] 4 mg PO Q8H PRN 07/08/19 [History] Rizatriptan Benzoate [Rizatriptan] 10 mg PO ASDIRECTED PRN 07/08/19 [History] Vitamin B Complex [B Complex] 1 tab PO DAILY 07/08/19 [History] ALPRAZolam [Xanax] 2 mg PO ASDIRECTED PRN 06/20/20 [History] Cyclobenzaprine [Flexeril] 1 tab PO TIDAC PRN 07/21/20 [History] Gabapentin [Neurontin] 3 tab PO BEDTIME 07/21/20 [History] Meloxicam [Mobic] 1 tab PO DAILY 07/21/20 [History] QUEtiapine [SEROquel] 1 tab PO BEDTIME 07/21/20 [History] QUEtiapine [SEROquel] 200 mg PO BEDTIME 07/21/20 [History] Thiamine [Vitamin B-1] 1 tab PO DAILY 07/21/20 [History] cloNIDine HCL [Clonidine HCl] 2 tab PO BEDTIME 07/21/20 [History] desogestreL-ethinyl estradioL [Desogest-Eth Estra 0.15-0.03MG] 1 tab PO DAILY 07/21/20 [History] hydrOXYzine HCL [Hydroxyzine HCl] 1 - 2 tab PO ASDIRECTED 07/21/20 [History] Past Medical History HEENT History: Reports: Impaired Vision Other HEENT History: wears glasses Cardiovascular History: Reports: Other (See Below) Other Cardiovascular History: fluid around heart Gastrointestinal History: Reports: Bowel Obstruction, GERD Other Gastrointestinal History: girth 60 inches, GASTRIC BYPASS. 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 IS ON BACLOFEN Neurological History: Reports: Migraines Psychiatric History: Reports: ADD, ADHD, Anxiety, Depression, Eating Disorders, Mood Swings, OCD, Panic Attack, Psych Hospitalization(s), PTSD, Suicide Attempt Endocrine/Metabolic History: Reports: Obesity/BMI 30+, Vitamin D Deficiency Hematologic History: Reports: Anemia, Blood Transfusion(s), Iron Deficiency Immunologic History: Reports: None - Infectious Disease History Infectious Disease History: Reports: Chicken Pox - Past Surgical History Head Surgeries/Procedures: Reports: None HEENT Surgical History: Reports: None Cardiovascular Surgical History: Reports: None GI Surgical History: Reports: Bariatric Procedure, Cholecystectomy, Hernia Repair/Other, Other (See Below) Other GI Surgeries/Procedures: Umbilical hernia repair 07/11/2014. Drainage of pericholecystic abscess 07/11/2014. gallbladder out 2014. bowel obstruction surgery 10/2015 again 12/09/2015. 01/06 bowel obstruction surgery, [facility] Sep 2015 Female Surgical History: Reports: None Endocrine Surgical History: Reports: None Neurological Surgical History: Reports: None Musculoskeletal Surgical History: Reports: None Dermatological Surgical History: Reports: None Social & Family History - Family History Family Medical History: No Pertinent Family History - Caffeine Use Caffeine Use: Reports: Soda Other Caffeine Use: COUPLE CUPS /DAY - Living Situation & Occupation Living situation: Reports: (lives with and cat.) ED ROS GENERAL - Review of Systems Review Of Systems: Comprehensive ROS is negative, except as noted in HPI. ED EXAM, GI/ABD - Physical Exam Exam: See Below Exam Limited By: No Limitations General Appearance: Alert, WD/WN, Moderate Distress (seems more emotional rather than physical) Eyes: Bilateral: Normal Appearance, EOMI Ears: Hearing Grossly Normal Throat/Mouth: Normal Voice, No Airway Compromise Neck: Non-Tender, Full Range of Motion Respiratory/Chest: No Respiratory Distress Cardiovascular: Normal Peripheral Pulses GI/Abdominal Exam: Other (limited due to abdominal girth and body habitus) Extremities: Normal Inspection, Normal Range of Motion Neurological: Alert, Oriented, CN II-XII Intact Psychiatric: Normal Affect Skin Exam: Warm, Dry, Intact, Normal Color, No Rash Course - Vital Signs Last Recorded V/S: Last Vital Signs Temp 35.7 C L 08/07/20 18:09 Pulse 63 08/07/20 18:09 Resp 16 08/07/20 18:09 BP 106/61 08/07/20 18:09 Pulse Ox 99 08/07/20 18:09 - Orders/Labs/Meds Orders: Active Orders 24 hr Category Date Time Status Sodium Chloride 0.9% [Normal Saline] 1,000 ml Med 08/07/20 18:45 Active IV ASDIRECTED Medication Orders Sodium Chloride (Normal Saline) 1,000 mls @ 500 mls/hr IV ASDIRECTED SHANE Labs: Laboratory Tests 08/07/20 08/07/20 08/07/20 Range/Units 17:56 17:56 19:07 Sodium 139 L (140-148) mmol/L Potassium 4.9 (3.6-5.2) mmol/L Chloride 103 (100-108) mmol/L Carbon Dioxide 25 (21-32) mmol/L Anion Gap 15.9 H (5.0-14.0) mmol/L BUN 21 H D (7-18) mg/dL Creatinine 1.1 H D (0.6-1.0) mg/dL Est Cr Clr Drug Dosing 65.75 mL/min Estimated GFR (MDRD) 59 L (>60) Glucose 98 (74-106) mg/dL Calcium 8.7 (8.5-10.1) mg/dL Total Bilirubin 0.3 (0.2-1.0) mg/dL AST 29 (15-37) U/L ALT 77 (12-78) U/L Alkaline Phosphatase 126 H (46-116) U/L Total Protein 6.8 (6.4-8.2) g/dL Albumin 3.5 (3.4-5.0) g/dL Globulin 3.3 (2.3-3.5) g/dL Albumin/Globulin Ratio 1.1 L (1.2-2.2) Urine Color Yellow (YELLOW) Urine Appearance Slightly cloudy A (CLEAR) Urine pH 5.0 (5.0-8.0) Ur Specific [place] >= 1.030 (1.008-1.030) Urine Protein Negative (NEGATIVE) mg/dL Urine Glucose (UA) Negative (NEGATIVE) mg/dL Urine Ketones Negative (NEGATIVE) mg/dL Urine Occult Blood Negative (NEGATIVE) Urine Nitrite Negative (NEGATIVE) Urine Bilirubin Negative (NEGATIVE) Urine Urobilinogen 0.2 (0.2-1.0) EU/dL Ur Leukocyte Esterase Negative (NEGATIVE) Urine RBC 0-5 (0-5) Urine WBC 0-5 (0-5) Ur Epithelial Cells Moderate Amorphous Sediment Moderate Urine Bacteria Few Urine Mucus Few Urine HCG, Qual Negative Meds: Medications Generic Name Dose Route Start Last Admin Trade Name Alejo PRN Reason Stop Dose Admin Sodium Chloride 1,000 mls @ 500 mls/hr 08/07/20 18:45 Normal Saline IV ASDIRECTED SHANE Discontinued Medications Generic Name Dose Route Start Last Admin Trade Name Alejo PRN Reason Stop Dose Admin Hydroxyzine HCl 25 mg 08/07/20 17:55 08/07/20 18:35 Hydroxyzine Hcl 25 Mg Tab PO 08/07/20 17:56 25 mg ONETIME ONE Administration Ondansetron HCl 4 mg 08/07/20 17:55 08/07/20 18:35 Ondansetron 4 Mg Tab.Dis PO 08/07/20 17:56 4 mg ONETIME ONE Administration - Re-Assessments/Exams Free Text/Narrative Re-Assessment/Exam: 08/07/20 19:19 IV placement attempted x 2 with good return of blood but unable to thread catheter. Repeat attempt will be completed based on comprhensive panel results. UA concentrated urine noted. PO fluid offered. Departure - Departure Time of Disposition: 20:10 Disposition: Home, Self-Care 01 Clinical Impression: Abdominal pain, Nausea alone - Discharge Information Instructions: Abdominal Pain, Adult, Dehydration, Adult, [id number], Nausea, Adult Referrals: Angélica Nieves PA [Primary Care Provider] - Forms: ED Department Discharge Sepsis Event Note (ED) - Evaluation Sepsis Screening Result: No Definite Risk - Focused Exam Vital Signs: Vital Signs Temp Pulse Resp BP Pulse Ox 08/07/20 18:09 35.7 C L 63 16 106/61 99 08/07/20 18:07 35.7 C L 63 16 106/61 99 - My Orders Last 24 Hours: My Active Orders 08/07/20 18:45 Sodium Chloride 0.9% [Normal Saline] 1,000 ml IV ASDIRECTED - Assessment/Plan Last 24 Hours: My Active Orders 08/07/20 18:45 Sodium Chloride 0.9% [Normal Saline] 1,000 ml IV ASDIRECTED
[2020-08-07 18:21] VITALS: BP 106/61; PULSE 63
[2020-08-07] MEDS ORDERED: Sodium Chloride 0.9% 1,000 ML IV SCH (18:45)
== END 2020-08-07 20:17 | disposition home or self-care (01) ==
LOC: JP.ED 17:46
DX: R10.9 Unspecified abdominal pain (principal); R11.0 Nausea; K21.9 Gastro-esophageal reflux disease without esophagitis; E66.9 Obesity, unspecified; Z68.41 Body mass index [BMI] 40.0-44.9, adult; Z88.1 Allergy status to other antibiotic agents; Z91.048 Other nonmedicinal substance allergy status; Z79.899 Other long term (current) drug therapy
CPT/HCPCS: 36415; 80053; 81001; 81025; 99283; 99284; A9270

== ENCOUNTER 2020-10-07 21:44 | Emergency (ER) | payer MEDICARE, MEDICAID ==
[2020-10-07 22:27] VITALS: BP 115/65; PULSE 77
--- NOTE | 2020-10-07 22:47 | EDM.PDOC ---
ED HPI GENERAL MEDICAL PROBLEM - General Chief Complaint: Neurological Problem Stated Complaint: POSSIBLE SEIZURE EARLIER Time Seen by Provider: 10/07/20 22:22 Source of Information: Reports: Patient, RN Notes Reviewed History Limitations: Reports: No Limitations - History of Present Illness INITIAL COMMENTS - FREE TEXT/NARRATIVE: Eileen presents today for complaints of seizure like activity reported by her friends x 3 episodes while sitting in a parked care at 2000 today. She denies fever, chills, nausea, vomiting, diarrhea, constipation, cough, SOB, palpitations, chest pain, bladder or bowel incontinence. She does complain of a migraine and states she would like a migraine medication if possible. Eileen reports she took all her night time medications then smoked some marijuana prior to having the episode in the car tonight. Evening medications - Related Data Allergies Allergy/AdvReac Type Severity Reaction Status Date / Time ciprofloxacin [From Cipro] Allergy Hives Verified 10/07/20 22:58 lactose Allergy Other Verified 10/07/20 22:58 prazosin AdvReac Nausea and Verified 10/07/20 22:58 Vomiting Home Meds: Home Meds Calcium Carbonate [Tums] 500 mg PO BID tab.chew 07/11/16 [Rx] FLUoxetine [PROzac] 60 mg PO DAILY 04/13/17 [History] Pantoprazole [ProTONIX] 40 mg PO BIDAC #60 tab.cr 06/09/17 [Rx] Cholecalciferol (Vitamin D3) [Vitamin D3] 2,000 unit PO DAILY 09/24/18 [History] Dextroamphetamine/Amphetamine [Adderall] 30 mg PO BID 09/24/18 [History] Pnv No.95/Ferrous Fum/Folic AC [ Caplet] 1 tab PO DAILY 09/24/18 [History] Cyanocobalamin (Vitamin B12) [Vitamin B12] 1,000 mcg SL DAILY 07/08/19 [History] Mirtazapine 45 mg PO BEDTIME 07/08/19 [History] Naproxen [Naprosyn] 500 mg PO BID 07/08/19 [History] Ondansetron [Zofran ODT] 4 mg PO Q8H PRN 07/08/19 [History] Rizatriptan Benzoate [Rizatriptan] 10 mg PO ASDIRECTED PRN 07/08/19 [History] Vitamin B Complex [B Complex] 1 tab PO DAILY 07/08/19 [History] ALPRAZolam [Xanax] 2 mg PO ASDIRECTED PRN 06/20/20 [History] Cyclobenzaprine [Flexeril] 1 tab PO TIDAC PRN 07/21/20 [History] Gabapentin [Neurontin] 3 tab PO BEDTIME 07/21/20 [History] Meloxicam [Mobic] 1 tab PO DAILY 07/21/20 [History] QUEtiapine [SEROquel] 1 tab PO BEDTIME 07/21/20 [History] QUEtiapine [SEROquel] 200 mg PO BEDTIME 07/21/20 [History] Thiamine [Vitamin B-1] 1 tab PO DAILY 07/21/20 [History] cloNIDine HCL [Clonidine HCl] 2 tab PO BEDTIME 07/21/20 [History] desogestreL-ethinyl estradioL [Desogest-Eth Estra 0.15-0.03MG] 1 tab PO DAILY 07/21/20 [History] hydrOXYzine HCL [Hydroxyzine HCl] 1 - 2 tab PO ASDIRECTED 07/21/20 [History] Past Medical History HEENT History: Reports: Impaired Vision Other HEENT History: wears glasses Cardiovascular History: Reports: Other (See Below) Other Cardiovascular History: fluid around heart Gastrointestinal History: Reports: Bowel Obstruction, GERD Other Gastrointestinal History: girth 60 inches, GASTRIC BYPASS. 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 IS ON BACLOFEN Neurological History: Reports: Migraines Psychiatric History: Reports: ADD, ADHD, Anxiety, Depression, Eating Disorders, Mood Swings, OCD, Panic Attack, Psych Hospitalization(s), PTSD, Suicide Attempt Endocrine/Metabolic History: Reports: Obesity/BMI 30+, Vitamin D Deficiency Hematologic History: Reports: Anemia, Blood Transfusion(s), Iron Deficiency Immunologic History: Reports: None - Infectious Disease History Infectious Disease History: Reports: Chicken Pox - Past Surgical History Head Surgeries/Procedures: Reports: None HEENT Surgical History: Reports: None Cardiovascular Surgical History: Reports: None GI Surgical History: Reports: Bariatric Procedure, Cholecystectomy, Hernia Repair/Other, Other (See Below) Other GI Surgeries/Procedures: Umbilical hernia repair 07/11/2014. Drainage of pericholecystic abscess 07/11/2014. gallbladder out 2014. bowel obstruction surgery 10/2015 again 12/09/2015. 01/06 bowel obstruction surgery, [facility] Sep 2015 Female Surgical History: Reports: None Endocrine Surgical History: Reports: None Neurological Surgical History: Reports: None Musculoskeletal Surgical History: Reports: None Dermatological Surgical History: Reports: None Social & Family History - Family History Family Medical History: No Pertinent Family History - Caffeine Use Caffeine Use: Reports: Tea Other Caffeine Use: COUPLE CUPS /DAY - Living Situation & Occupation Living situation: Reports: (lives with and cat.) ED ROS GENERAL - Review of Systems Review Of Systems: See Below Constitutional: Denies: Fever, Chills, Malaise, Weakness, Fatigue, Night Sweats HEENT: Reports: No Symptoms Respiratory: Reports: No Symptoms Cardiovascular: Reports: No Symptoms Endocrine: Reports: No Symptoms GI/Abdominal: Reports: No Symptoms : Reports: No Symptoms Musculoskeletal: Reports: No Symptoms Skin: Reports: No Symptoms Neurological: Reports: Headache, Seizure (friend reported seizure, patient states "I think I just passed out after smoking marijuana"), Syncope. Denies: Confusion, Dizziness, Numbness, Paresthesia, Tingling, Tremors, Trouble Speaking, Difficulty Walking, Weakness, Change in Speech, Gait Disturbance ED EXAM, NEURO - Physical Exam Exam: See Below Exam Limited By: No Limitations General Appearance: Alert, WD/WN, No Apparent Distress Eye Exam: Bilateral Eye: EOMI, Normal Inspection, PERRL Ears: Normal External Exam, Normal Canal, Hearing Grossly Normal, Normal TMs Throat/Mouth: Normal Lips, Normal Teeth, Normal Gums, Normal Oropharynx, Normal Voice, No Airway Compromise, Other (dry mucus membranes) Head Exam: Atraumatic, Normocephalic Neck: Normal Inspection, Supple, Non-Tender, Full Range of Motion. No: Lymphadenopathy (R), Lymphadenopathy (L) Respiratory/Chest: No Respiratory Distress, Lungs Clear, No Accessory Muscle Use, Chest Non-Tender. No: Crackles, Rales, Rhonchi, Wheezing Cardiovascular: Normal Peripheral Pulses, Regular Rate, Rhythm, No Edema, No Gallop, No Murmur, No Rub GI/Abdominal: Other (not examined) (Female) Exam: Deferred Rectal (Female) Exam: Deferred Neurological: Alert, Normal Mood/Affect, Normal Dorsiflexion, CN II-XII Intact, Normal Plantar Flexion, Normal Gait, Normal Reflexes, No Motor/Sensory Deficits, Oriented x 3 DTR: 4+: Bicep (R), Bicep (L), Patella (R), Patella (L) Back Exam: Normal Inspection, Full Range of Motion. No: CVA Tenderness (R), CVA Tenderness (L) Extremities: Normal Inspection, Normal Range of Motion, Non-Tender, No Pedal Edema, Normal Capillary Refill Psychiatric: Normal Affect, Normal Mood Skin Exam: Warm, Dry, Intact, Normal Color, No Rash #1 Interpretation EKG Date: 10/07/20 Time: 22:18 Rhythm: NSR Rate (Beats/Min): 66 [place]: Normal P-Wave: Present QRS: Normal ST-T: Normal QT: Normal Comparison: NA - No Prior EKG Course - Vital Signs Last Recorded V/S: Last Vital Signs Temp 36.2 C 10/07/20 22:58 Pulse 77 10/07/20 22:58 Resp 16 10/07/20 22:58 BP 115/65 10/07/20 22:58 Pulse Ox 97 10/07/20 22:58 - Orders/Labs/Meds Orders: Active Orders 24 hr Category Date Time Status EKG 12 Lead [EK] Routine Ther 10/07/20 22:24 Ordered Labs: Laboratory Tests 10/07/20 Range/Units 22:28 Urine Opiates Screen Negative (NEGATIVE) Ur Oxycodone Screen Negative (NEGATIVE) Urine Methadone Screen Negative (NEGATIVE) Ur Propoxyphene Screen Negative (NEGATIVE) Ur Barbiturates Screen Negative (NEGATIVE) Ur Tricyclics Screen Presumptive positive H (NEGATIVE) Ur Phencyclidine Scrn Negative (NEGATIVE) Ur Amphetamine Screen Negative (NEGATIVE) U Methamphetamines Scrn Negative (NEGATIVE) Urine MDMA Screen Negative (NEGATIVE) U Benzodiazepines Scrn Negative (NEGATIVE) U Cocaine Metab Screen Negative (NEGATIVE) U Marijuana (THC) Screen Presumptive positive H (NEGATIVE) Patient UDS reviewed with lab, positive for THC, TCA. Meds: Medications Discontinued Medications Generic Name Dose Route Start Last Admin Trade Name Freq PRN Reason Stop Dose Admin Sumatriptan Succinate 100 mg 10/07/20 22:47 Sumatriptan 100 Mg Tab PO 10/07/20 22:48 ONETIME ONE Departure - Departure Time of Disposition: 23:04 Disposition: Home, Self-Care 01 Condition: Good Clinical Impression: Marijuana use, Migraine, Vaso vagal episode - Discharge Information Instructions: Cannabis Use Disorder, Near-Syncope, [id number], Preventing Marijuana Misuse, Chronic Migraine Headache, [id number] Referrals: PCP,None [Primary Care Provider] - Forms: ED Department Discharge Additional Instructions: You have been evaluated for seizure like activity today after use of marijuana. Episodes sound like a vasovagal response. You have been given imitrex for your migraine. Your EKG tracing of your heart was normal with no acute findings. Your UDS showed marijuana and TCA for positive findings. Your vital signs are normal. It would be best for you to prevent dehydration by drinking 80 or more ounces of water per day. Sugar free gatorade once a day is also a good drink for electrolyte replacement. You are advised to stop the use of marijuana as this can cause retirement medical problems and addiction. Follow up with your primary care provider in 7 to 10 days for a recheck. Return to the emergency room for worsening, issues or concerns. Sepsis Event Note (ED) - Focused Exam Vital Signs: Vital Signs Temp Pulse Resp BP Pulse Ox 10/07/20 22:58 36.2 C 77 16 115/65 97 10/07/20 22:26 36.2 C 77 16 115/65 97 - My Orders Last 24 Hours: My Active Orders 10/07/20 22:24 EKG 12 Lead [EK] Routine - Assessment/Plan Last 24 Hours: My Active Orders 10/07/20 22:24 EKG 12 Lead [EK] Routine Assessment:: Vaso vagal episode, Marijuana use, Migraine Plan: Patient evaluated for seizure like activity today after use of marijuana. Episodes sound like a vasovagal response. she has been given imitrex for your migraine. EKG tracing of your heart was normal with no acute findings. UDS showed marijuana and TCA for positive findings. Vital signs are normal. It would be best to prevent dehydration by drinking 80 or more ounces of water per day. Sugar free gatorade once a day is also a good drink for electrolyte replacement. 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 Follow up with primary care provider in 7 to 10 days for a recheck. Return to the emergency room for worsening, issues or concerns.
== END 2020-10-07 23:20 | disposition home or self-care (01) ==
LOC: JP.ED 21:44
DX: G43.909 Migraine, unspecified, not intractable, without status migrainosus (principal); R55 Syncope and collapse; F12.90 Cannabis use, unspecified, uncomplicated; E66.9 Obesity, unspecified; K21.9 Gastro-esophageal reflux disease without esophagitis; Z68.41 Body mass index [BMI] 40.0-44.9, adult; Z91.011 Allergy to milk products; Z88.1 Allergy status to other antibiotic agents; Z88.8 Allergy status to other drugs, medicaments and biological substances; Z79.899 Other long term (current) drug therapy
CPT/HCPCS: 80305; 93005; 99283; A9270

== ENCOUNTER 2021-03-13 20:03 | Emergency (ER) | payer MEDICARE, MEDICAID ==
[2021-03-13 20:44] VITALS: BP 115/79; PULSE 90
[2021-03-13] MEDS ORDERED: ALPRAZolam 0.5 MG Tab PO ONE (21:29)
[2021-03-13] MEDS ORDERED: Prochlorperazine 10 MG/2 ML SDV IVPUSH ONE (21:30)
[2021-03-13] MEDS ORDERED: Ondansetron 4 MG Tab.DIS PO ONE (21:59)
[2021-03-13] MEDS ORDERED: ALPRAZolam 0.25 MG Tab PO ONE (21:59)
== END 2021-03-13 22:36 | disposition home or self-care (01) ==
LOC: JP.ED 20:03
DX: G40.909 Epilepsy, unspecified, not intractable, without status epilepticus (principal); F41.9 Anxiety disorder, unspecified; R11.0 Nausea; F17.210 Nicotine dependence, cigarettes, uncomplicated; Z91.011 Allergy to milk products; Z88.1 Allergy status to other antibiotic agents; Z88.8 Allergy status to other drugs, medicaments and biological substances; Z91.19 Patient's noncompliance with other medical treatment and regimen
CPT/HCPCS: 99284; A9270; Q0162

== ENCOUNTER 2021-04-14 12:20 | Emergency (ER) | payer MEDICAID ==
[2021-04-14 12:25] VITALS: BP 111/88; PULSE 87
== END 2021-04-14 13:30 | disposition home or self-care (01) ==
LOC: JP.ED 12:20
DX: F41.0 Panic disorder [episodic paroxysmal anxiety] (principal); K21.9 Gastro-esophageal reflux disease without esophagitis; Z79.899 Other long term (current) drug therapy; Z88.8 Allergy status to other drugs, medicaments and biological substances; Z72.0 Tobacco use
CPT/HCPCS: 99282; 99284

== ENCOUNTER 2021-09-15 21:45 | Emergency (ER) | payer MEDICARE, MEDICAID ==
[2021-09-15 22:15] VITALS: BP 135/72; PULSE 106
[2021-09-15] MEDS ORDERED: Sodium Chloride 0.9% 10 ML Syringe FLUSH PRN (22:34)
[2021-09-15] MEDS ORDERED: Sodium Chloride 0.9% 1,000 ML IV SCH (22:45)
[2021-09-15] MEDS ORDERED: Ondansetron 4 MG Tab.DIS PO ONE (23:26)
[2021-09-16 00:51] LABS: ESTIMATED GFR 102 mL/min (>60)
== END 2021-09-16 01:44 | disposition home or self-care (01) ==
LOC: JP.ED 21:45
DX: N30.00 Acute cystitis without hematuria (principal); R56.9 Unspecified convulsions; F41.9 Anxiety disorder, unspecified; E83.51 Hypocalcemia; K21.9 Gastro-esophageal reflux disease without esophagitis; F17.210 Nicotine dependence, cigarettes, uncomplicated; E66.9 Obesity, unspecified; Z91.011 Allergy to milk products; Z88.1 Allergy status to other antibiotic agents; Z88.8 Allergy status to other drugs, medicaments and biological substances; Z79.899 Other long term (current) drug therapy; Z98.84 Bariatric surgery status; Z68.42 Body mass index [BMI] 45.0-49.9, adult
CPT/HCPCS: 36415; 74176; 80053; 80164; 81001; 85025; 99284; Q0162; 99282

== ENCOUNTER 2022-04-13 07:48 | Day surgery (SDC) | payer MEDICARE, MEDICAID ==
[2022-04-13] MEDS ORDERED: Sodium Chloride 0.9% 1,000 ML IV SCH (08:15)
[2022-04-13] MEDS ORDERED: Midazolam 1 MG/ML 2 ML SDV ONE (09:11)
[2022-04-13] MEDS ORDERED: Propofol 200 MG/20 ML SDV ONE ×2 (09:11→10:07)
[2022-04-13] MEDS ORDERED: fentaNYL 100 MCG/2 ML SDV ONE (09:11)
[2022-04-13 11:17] VITALS: BP 107/68; PULSE 66
== END 2022-04-13 11:25 | disposition home or self-care (01) ==
LOC: JP.SDS 07:48
PROVIDERS: ATTEND Surgery
DX: Z12.11 Encounter for screening for malignant neoplasm of colon (principal); R10.9 Unspecified abdominal pain; K21.9 Gastro-esophageal reflux disease without esophagitis; F41.9 Anxiety disorder, unspecified; F32.A Depression, unspecified; E78.5 Hyperlipidemia, unspecified; E66.9 Obesity, unspecified; D64.9 Anemia, unspecified; Z91.011 Allergy to milk products; Z88.1 Allergy status to other antibiotic agents; Z98.84 Bariatric surgery status; Z79.899 Other long term (current) drug therapy; Z88.8 Allergy status to other drugs, medicaments and biological substances
CPT/HCPCS: 43235; 81025; G0121; J2250; J2704; J3010; J7030

== ENCOUNTER 2022-05-19 13:01 | Emergency (ER) | payer MEDICARE, MEDICAID ==
[2022-05-19] MEDS ORDERED: Sodium Chloride 0.9% 10 ML Syringe FLUSH PRN (13:47)
[2022-05-19] MEDS ORDERED: fentaNYL 100 MCG/2 ML SDV IVPUSH ONE ×2 (13:47→15:24)
[2022-05-19] MEDS ORDERED: LORazepam 2 MG/ML SDV IVPUSH ONE (13:47)
[2022-05-19] MEDS ORDERED: Ondansetron 4 MG/2 ML SDV IVPUSH ONE (13:47)
[2022-05-19] MEDS ORDERED: Lactated Ringers 1,000 ML IV ONE (14:01)
[2022-05-19 14:24] VITALS: BP 129/80; PULSE 80
== END 2022-05-19 15:47 | disposition home or self-care (01) ==
LOC: JP.ED 13:01
DX: R10.9 Unspecified abdominal pain (principal); E66.9 Obesity, unspecified; Z68.20 Body mass index [BMI] 20.0-20.9, adult; Z91.011 Allergy to milk products; Z88.1 Allergy status to other antibiotic agents; Z72.0 Tobacco use
CPT/HCPCS: 96374; 96375; 96376; 99283; J2060; J2405; J3010; J3490; J7120

== ENCOUNTER 2022-06-05 13:09 | Emergency (ER) | payer MEDICARE, MEDICAID ==
[2022-06-05] MEDS ORDERED: fentaNYL 100 MCG/2 ML SDV IM ONE (14:05)
[2022-06-05] MEDS ORDERED: Sodium Chloride 0.9% 10 ML Syringe FLUSH PRN (14:48)
[2022-06-05] MEDS ORDERED: fentaNYL 100 MCG/2 ML SDV IVPUSH ONE (15:10)
[2022-06-05] MEDS ORDERED: MVI, Adult with Vitamin K 10 ML, Thiamine 100 MG, Folic Acid 1 MG, Magnesium Sulfate 3 ... IV SCH ×5 (15:15)
[2022-06-05] MEDS ORDERED: MVI, Adult with Vitamin K 10 ML, Thiamine 100 MG, Folic Acid 1 MG, Magnesium Sulfate 2 ... IV ONE ×5 (15:45)
[2022-06-05 15:59] LABS: ESTIMATED GFR 119 mL/min (>60)
[2022-06-05] MEDS ORDERED: Ondansetron 4 MG/2 ML SDV IVPUSH ONE (16:38)
[2022-06-05 17:38] VITALS: PULSE 83
[2022-06-05 18:41] VITALS: BP 114/60
== END 2022-06-05 19:15 | disposition home or self-care (01) ==
LOC: JP.ED 13:09
DX: K90.9 Intestinal malabsorption, unspecified (principal); F41.9 Anxiety disorder, unspecified; E66.9 Obesity, unspecified; Z68.42 Body mass index [BMI] 45.0-49.9, adult; Z98.84 Bariatric surgery status; Z88.1 Allergy status to other antibiotic agents; Z91.011 Allergy to milk products; Z88.8 Allergy status to other drugs, medicaments and biological substances; Z72.0 Tobacco use
CPT/HCPCS: 36415; 80053; 96365; 96366; 96375; 99284; J2405; J3010; J3411; J3475; J3490; J7030

== ENCOUNTER 2022-06-16 14:21 | Emergency (ER) | payer MEDICARE, MEDICAID ==
[2022-06-16] MEDS ORDERED: Sodium Chloride 0.9% 10 ML Syringe FLUSH PRN (15:19)
[2022-06-16] MEDS ORDERED: diphenhydrAMINE 50 MG/ML SDV IVPUSH ONE ×2 (15:19→19:38)
[2022-06-16] MEDS ORDERED: LORazepam 2 MG/ML SDV IVPUSH ONE (15:19)
[2022-06-16] MEDS ORDERED: Haloperidol 5 MG Tab PO ONE (15:19)
[2022-06-16] MEDS ORDERED: MVI, Adult with Vitamin K 10 ML, Thiamine 200 MG, Zinc/Copper/Manganese/Selenium 1 ML i... IV ONE ×4 (15:30)
[2022-06-16] MEDS ORDERED: Haloperidol Lactate 5 MG/ML SDV IM ONE (15:57)
[2022-06-16 16:02] LABS: ESTIMATED GFR 119 mL/min (>60)
[2022-06-16 16:33] LABS: CORONAVIRUS COVID-19 NAA NEGATIVE (NEGATIVE)
[2022-06-16] MEDS ORDERED: Gabapentin 300 MG Cap PO SCH (21:00)
[2022-06-16] MEDS ORDERED: QUEtiapine 100 MG Tab PO SCH (21:00)
[2022-06-16] MEDS ORDERED: Cyclobenzaprine 10 MG Tab PO SCH (21:00)
[2022-06-16] MEDS ORDERED: hydrOXYzine HCl 25 MG Tab PO SCH (21:00)
[2022-06-16] MEDS ORDERED: cloNIDine 0.1 MG Tab PO SCH (21:00)
[2022-06-16] MEDS ORDERED: Divalproex Sodium 250 MG Tab.ER PO SCH (21:00)
[2022-06-16] MEDS ORDERED: Mirtazapine 15 MG Tab PO SCH (21:00)
[2022-06-16 21:10] VITALS: BP 133/88
[2022-06-16 21:28] VITALS: PULSE 84
[2022-06-17] MEDS ORDERED: Pantoprazole 40 MG Tab.CR PO SCH (07:30)
== END 2022-06-16 22:08 ==
LOC: JP.ED 14:21
DX: F33.2 Major depressive disorder, recurrent severe without psychotic features (principal); K21.9 Gastro-esophageal reflux disease without esophagitis; F17.210 Nicotine dependence, cigarettes, uncomplicated; E66.9 Obesity, unspecified; Z68.42 Body mass index [BMI] 45.0-49.9, adult; Z88.1 Allergy status to other antibiotic agents; Z91.011 Allergy to milk products; Z88.8 Allergy status to other drugs, medicaments and biological substances; Z79.899 Other long term (current) drug therapy; Z20.822 Contact with and (suspected) exposure to COVID-19
CPT/HCPCS: 0241U; 36415; 80053; 80305-QW; 80307; 81025; 85025; 96365; 96366; 96372; 96375; 96376; 99285; 99285-25; A9270-GY; J1200; J1630; J2060; J3411; J3490; J7121

== ENCOUNTER 2022-06-25 18:09 | Emergency (ER) | payer MEDICARE, MEDICAID ==
[2022-06-25 19:06] LABS: BASOPHILS ABSOLUTE AUTO 0.06 K/uL (0.00-0.10); BASOPHILS PERCENT AUTO 0.6 % (0.1-1.3); HEMATOCRIT 44.3 % (34.3-46.0); IMMATURE GRAN ABSOLUTE AUTO 0.04 K/uL (0.00-0.23); IMMATURE GRAN PERCENT AUTO 0.4 % (0.0-0.7); LYMPHOCYTES ABSOLUTE AUTO 4.14 K/uL (0.8-3.3); LYMPHOCYTES PERCENT AUTO 41.2 % (11.4-47.7); MEAN CORPUSCULAR HEMOGLOBIN 27.6 pg (31.6-35.5); MEAN CORPUSCULAR HGB CONC 31.6 g/dL (31.6-35.5); MEAN CORPUSCULAR VOLUME 87.4 fL (81.4-99.0); MONOCYTES ABSOLUTE AUTO 0.59 K/uL (0.20-0.90); MONOCYTES PERCENT AUTO 5.9 % (3.3-12.6); NEUTROPHILS ABSOLUTE AUTO 4.92 K/uL (1.0-7.6); NEUTROPHILS PERCENT AUTO 48.9 % (40.0-78.1); PLATELET COUNT,PLT 406 K/uL (130-375); RED BLOOD CELL COUNT 5.07 M/uL (3.77-5.24); WHITE BLOOD CELL COUNT,WBC 10.1 K/uL (3.2-11.0)
[2022-06-25 19:24] LABS: ALANINE AMINOTRANSFERASE,ALT 61 U/L (12-78); ALBUMIN 3.5 g/dL (3.4-5.0); ALKALINE PHOSPHATASE 89 U/L (46-116); ASPARTATE AMNIOTRANSFERASE,AST 55 U/L (15-37); BILIRUBIN TOTAL 0.3 mg/dL (0.2-1.0); BLOOD UREA NITROGEN,BUN 12 mg/dL (7-18); CALCIUM 7.4 mg/dL (8.5-10.1); CARBON DIOXIDE,CO2 24 mmol/L (21-32); CHLORIDE,CL 103 mmol/L (100-108); CREATININE 0.8 mg/dL (0.6-1.0); ESTIMATED GFR 102 mL/min (>60); GLUCOSE RANDOM 87 mg/dL (74-106); POTASSIUM,K 5.3 mmol/L (3.6-5.2); PROTEIN TOTAL,TP 7.1 g/dL (6.4-8.2); SODIUM,NA 135 mmol/L (140-148)
[2022-06-25 19:25] LABS: ANION GAP 13.3 mmol/L (5.0-14.0)
[2022-06-25 20:20] LABS: AMPHETAMINES SCREEN, URINE NEGATIVE (NEGATIVE); BARBITURATE SCREEN,URINE NEGATIVE (NEGATIVE); BENZODIAZEPINES SCREEN,URINE PRESUMPTIVE POSITIVE (NEGATIVE); METHADONE SCREEN, URINE NEGATIVE (NEGATIVE); METHAMPHETAMINES SCREEN, URINE NEGATIVE (NEGATIVE); OXYCODONE SCREEN,URINE NEGATIVE (NEGATIVE); PROPOXYPHENE SCREEN,URINE NEGATIVE (NEGATIVE); THC SCREEN,URINE 50 NG/ML PRESUMPTIVE POSITIVE (NEGATIVE)
[2022-06-25] MEDS ORDERED: hydrOXYzine HCl 25 MG Tab PO PRN (20:55)
[2022-06-25] MEDS ORDERED: Cyclobenzaprine 10 MG Tab PO PRN (20:56)
[2022-06-25] MEDS ORDERED: ALPRAZolam 0.5 MG Tab PO PRN (20:56)
[2022-06-25] MEDS ORDERED: Amphetamine/Dextroamphetamine Salts 10 MG Tab PO SCH (21:00)
[2022-06-25] MEDS ORDERED: Divalproex Sodium 250 MG Tab.ER PO SCH (21:00)
[2022-06-25] MEDS ORDERED: Ondansetron 4 MG Tab.DIS PO PRN (21:04)
[2022-06-25] MEDS ORDERED: QUEtiapine 100 MG Tab PO SCH (21:36)
[2022-06-25] MEDS ORDERED: cloNIDine 0.1 MG Tab PO SCH (21:45)
[2022-06-25] MEDS ORDERED: Mirtazapine 15 MG Tab PO SCH (21:45)
[2022-06-25] MEDS ORDERED: Gabapentin 300 MG Cap PO SCH (21:45)
[2022-06-26 00:31] VITALS: BP 112/67; PULSE 74
[2022-06-26] MEDS ORDERED: Pantoprazole 40 MG Tab.CR PO SCH (07:30)
[2022-06-26] MEDS ORDERED: Vitamin B Complex Tab PO SCH (09:00)
[2022-06-26] MEDS ORDERED: Prenatal Multivitamin with Calcium/Folic Acid/Iron Tab PO SCH (09:00)
[2022-06-26] MEDS ORDERED: Cyanocobalamin (Vitamin B12) 1,000 MCG Tab PO SCH (09:00)
[2022-06-26] MEDS ORDERED: FLUoxetine 10 MG Cap PO SCH (09:00)
[2022-06-26] MEDS ORDERED: Cholecalciferol (Vitamin D3) 25 MCG Tab PO SCH (09:00)
[2022-06-26] MEDS ORDERED: Ferrous Fumarate/Vitamin C 200-125 MG Tab PO SCH (09:00)
[2022-06-26] MEDS ORDERED: Meloxicam 7.5 MG Tab PO SCH (09:00)
[2022-06-26] MEDS ORDERED: Mirtazapine 15 MG Tab PO SCH (21:00)
[2022-06-26] MEDS ORDERED: cloNIDine 0.1 MG Tab PO SCH (21:00)
[2022-06-26] MEDS ORDERED: Gabapentin 300 MG Cap PO SCH (21:00)
[2022-06-26] MEDS ORDERED: QUEtiapine 100 MG Tab PO SCH (21:00)
== END 2022-06-26 00:25 ==
LOC: JP.ED 18:09
DX: F33.2 Major depressive disorder, recurrent severe without psychotic features (principal); T50.902A Poisoning by unspecified drugs, medicaments and biological substances, intentional self-harm, initial encounter; R10.13 Epigastric pain; F41.9 Anxiety disorder, unspecified; R45.851 Suicidal ideations; K21.9 Gastro-esophageal reflux disease without esophagitis; E66.9 Obesity, unspecified; Z68.42 Body mass index [BMI] 45.0-49.9, adult; Z88.1 Allergy status to other antibiotic agents; Z91.011 Allergy to milk products; Z88.8 Allergy status to other drugs, medicaments and biological substances; Z79.899 Other long term (current) drug therapy; Z20.822 Contact with and (suspected) exposure to COVID-19; Z98.84 Bariatric surgery status
CPT/HCPCS: 36415; 80053; 80305; 80307; 81025; 85025; 99285; A9270; Q0162; U0002

== ENCOUNTER 2023-06-10 19:18 | Emergency (ER) | payer MEDICARE, MEDICAID ==
[2023-06-10] MEDS: Acetaminophen/HYDROcodone 325-5 MG Tab PO ONE (20:46)
[2023-06-10] MEDS: Ondansetron 4 MG Tab.DIS PO ONE (20:48)
[2023-06-10 20:54] LABS: BASOPHILS ABSOLUTE AUTO 0.06 K/uL (0.00-0.10); BASOPHILS PERCENT AUTO 0.7 % (0.1-1.3); EOSINOPHILS ABSOLUTE AUTO 0.13 K/uL (0.00-0.40); EOSINOPHILS PERCENT AUTO 1.6 % (0.0-5.4); HEMATOCRIT 41.3 % (34.3-46.0); HEMOGLOBIN 13.8 g/dL (11.2-15.5); IMMATURE GRAN ABSOLUTE AUTO 0.01 K/uL (0.00-0.23); IMMATURE GRAN PERCENT AUTO 0.1 % (0.0-0.7); LYMPHOCYTES ABSOLUTE AUTO 3.53 K/uL (0.8-3.3); LYMPHOCYTES PERCENT AUTO 42.5 % (11.4-47.7); MEAN CORPUSCULAR HEMOGLOBIN 26.6 pg (31.6-35.5); MEAN CORPUSCULAR HGB CONC 33.4 g/dL (31.6-35.5); MEAN CORPUSCULAR VOLUME 79.6 fL (81.4-99.0); MONOCYTES ABSOLUTE AUTO 0.46 K/uL (0.20-0.90); MONOCYTES PERCENT AUTO 5.5 % (3.3-12.6); NEUTROPHILS ABSOLUTE AUTO 4.11 K/uL (1.0-7.6); NEUTROPHILS PERCENT AUTO 49.6 % (40.0-78.1); PLATELET COUNT,PLT 364 K/uL (130-375); RED BLOOD CELL COUNT 5.19 M/uL (3.77-5.24); WHITE BLOOD CELL COUNT,WBC 8.3 K/uL (3.2-11.0)
[2023-06-10] MEDS: Sodium Chloride 0.9% 50 ML IV SCH (20:58)
[2023-06-10] MEDS: Iopamidol 612 MG/ML 100 ML Bottle IV SCH (20:58)
[2023-06-10 21:05] LABS: APPEARANCE,URINE SLIGHTLY CLOUDY (CLEAR); BILIRUBIN,URINE SMALL (NEGATIVE); COLOR,URINE YELLOW (YELLOW); GLUCOSE,URINE NEGATIVE (NEGATIVE); KETONES,URINE NEGATIVE (NEGATIVE); LEUKOCYTE ESTERASE,URINE NEGATIVE (NEGATIVE); NITRITE,URINE NEGATIVE (NEGATIVE); OCCULT BLOOD,URINE NEGATIVE (NEGATIVE); PH,URINE 5.5 (5.0-8.0); PROTEIN,URINE NEGATIVE (NEGATIVE); RBC,URINE NOT SEEN (0-5)
[2023-06-10 21:06] LABS: AMORPHOUS SEDIMENT,URINE MODERATE; BACTERIA,URINE MANY; EPITHELIAL CELLS,URINE MANY; MUCUS,URINE NOT SEEN; WBC,URINE NOT SEEN (0-5)
[2023-06-10 21:22] LABS: A/G RATIO 0.9 (1.2-2.2); ALANINE AMINOTRANSFERASE,ALT 45 U/L (12-78); ALBUMIN 3.5 g/dL (3.4-5.0); ALKALINE PHOSPHATASE 107 U/L (46-116); ASPARTATE AMNIOTRANSFERASE,AST 29 U/L (15-37); BILIRUBIN TOTAL 0.4 mg/dL (0.2-1.0); BLOOD UREA NITROGEN,BUN 18 mg/dL (7-18); CALCIUM 8.3 mg/dL (8.5-10.1); CARBON DIOXIDE,CO2 25 mmol/L (21-32); CHLORIDE,CL 101 mmol/L (100-108); CREATININE 0.9 mg/dL (0.6-1.0); EST CRCL DRUG DOSING (CG) 80.68 mL/min; ESTIMATED GFR 88 mL/min (>60); GLUCOSE RANDOM 79 mg/dL (74-106); POTASSIUM,K 4.1 mmol/L (3.6-5.2); PROTEIN TOTAL,TP 7.5 g/dL (6.4-8.2); SODIUM,NA 139 mmol/L (140-148); TSH ULTRASENSITIVE 7.374 uIU/mL (0.358-3.740)
[2023-06-10 21:23] LABS: ANION GAP 17.1 mmol/L (5.0-14.0)
[2023-06-10 21:58] LABS: IRON,FE 107 ug/dL (50-170); PERCENT FE SATURATION 21 % (20-55); TOTAL IRON BINDING CAPACITY 507 ug/dl (250-450)
[2023-06-10] MEDS ORDERED: Magnesium Sulfate (4.06 MEQ/ML) 1 GM/2 ML SDV IM ONE (22:03)
[2023-06-10 22:18] VITALS: BP 111/67; PULSE 80
== END 2023-06-10 22:38 | disposition home or self-care (01) ==
LOC: JP.ED 19:18
DX: R10.84 Generalized abdominal pain (principal); K21.9 Gastro-esophageal reflux disease without esophagitis; F17.210 Nicotine dependence, cigarettes, uncomplicated; Z91.011 Allergy to milk products; Z88.1 Allergy status to other antibiotic agents; Z88.8 Allergy status to other drugs, medicaments and biological substances; Z86.16 Personal history of COVID-19
CPT/HCPCS: 36415; 71045; 74177; 80053; 81001; 82150; 82306; 82607; 82728; 82746; 83550; 83690; 83735; 84443; 85025; 99284; A9270; J3490; Q0162; Q9967

== ENCOUNTER 2023-07-24 06:19 | Day surgery (SDC) | payer MEDICARE, MEDICAID ==
[2023-07-24] MEDS: Sodium Chloride 0.9% 1,000 ML IV SCH (07:19)
[2023-07-24] MEDS ORDERED: Propofol 200 MG/20 ML SDV ONE (07:24)
[2023-07-24] MEDS ORDERED: fentaNYL 50 MCG/ML SDV ONE (07:24)
[2023-07-24] MEDS ORDERED: Midazolam 1 MG/ML 2 ML SDV ONE (07:24)
[2023-07-24 09:20] VITALS: BP 105/58; PULSE 72
== END 2023-07-24 09:05 | disposition home or self-care (01) ==
LOC: JP.SDS 06:19
PROVIDERS: ATTEND Surgery
DX: K21.00 Gastro-esophageal reflux disease with esophagitis, without bleeding (principal); K22.89 Other specified disease of esophagus; F32.A Depression, unspecified; F17.200 Nicotine dependence, unspecified, uncomplicated; E66.9 Obesity, unspecified; Z68.42 Body mass index [BMI] 45.0-49.9, adult; Z98.84 Bariatric surgery status
CPT/HCPCS: 43239; 81025; 88305; 88313; J2250; J2704; J3010; J7030

== ENCOUNTER 2023-09-22 15:49 | Emergency (ER) | payer MEDICARE, MEDICAID ==
[2023-09-22 16:32] LABS: BASOPHILS ABSOLUTE AUTO 0.05 K/uL (0.00-0.10); BASOPHILS PERCENT AUTO 0.6 % (0.1-1.3); EOSINOPHILS ABSOLUTE AUTO 0.18 K/uL (0.00-0.40); EOSINOPHILS PERCENT AUTO 2.3 % (0.0-5.4); HEMATOCRIT 40.4 % (34.3-46.0); HEMOGLOBIN 13.5 g/dL (11.2-15.5); IMMATURE GRAN PERCENT AUTO 0.3 % (0.0-0.7); LYMPHOCYTES ABSOLUTE AUTO 3.82 K/uL (0.8-3.3); LYMPHOCYTES PERCENT AUTO 47.9 % (11.4-47.7); MEAN CORPUSCULAR HGB CONC 33.4 g/dL (31.6-35.5); MEAN CORPUSCULAR VOLUME 80.8 fL (81.4-99.0); MONOCYTES ABSOLUTE AUTO 0.42 K/uL (0.20-0.90); MONOCYTES PERCENT AUTO 5.3 % (3.3-12.6); NEUTROPHILS ABSOLUTE AUTO 3.49 K/uL (1.0-7.6); NEUTROPHILS PERCENT AUTO 43.6 % (40.0-78.1); PLATELET COUNT,PLT 326 K/uL (130-375)
[2023-09-22 16:35] LABS: IMMATURE GRAN ABSOLUTE AUTO 0.02 K/uL (0.00-0.23)
[2023-09-22 16:53] LABS: ALANINE AMINOTRANSFERASE,ALT 40 U/L (12-78); ALBUMIN 3.4 g/dL (3.4-5.0); ALKALINE PHOSPHATASE 75 U/L (46-116); ANION GAP 12.4 mmol/L (5.0-14.0); ASPARTATE AMNIOTRANSFERASE,AST 18 U/L (15-37); BILIRUBIN TOTAL 0.3 mg/dL (0.2-1.0); BLOOD UREA NITROGEN,BUN 18 mg/dL (7-18); CALCIUM 8.3 mg/dL (8.5-10.1); CARBON DIOXIDE,CO2 25 mmol/L (21-32); CHLORIDE,CL 103 mmol/L (100-108); CREATININE 0.9 mg/dL (0.6-1.0); ESTIMATED GFR 88 mL/min (>60); GLUCOSE RANDOM 103 mg/dL (74-106); POTASSIUM,K 4.2 mmol/L (3.6-5.2); PROTEIN TOTAL,TP 6.9 g/dL (6.4-8.2); SODIUM,NA 140 mmol/L (140-148)
[2023-09-22 16:57] LABS: APPEARANCE,URINE CLOUDY (CLEAR); BILIRUBIN,URINE SMALL (NEGATIVE); COLOR,URINE YELLOW (YELLOW); GLUCOSE,URINE NEGATIVE (NEGATIVE); KETONES,URINE NEGATIVE (NEGATIVE); LEUKOCYTE ESTERASE,URINE NEGATIVE (NEGATIVE); NITRITE,URINE NEGATIVE (NEGATIVE); PH,URINE 5.5 (5.0-8.0); PROTEIN,URINE NEGATIVE (NEGATIVE)
[2023-09-22 17:00] LABS: AMORPHOUS SEDIMENT,URINE NOT SEEN; BACTERIA,URINE MANY; EPITHELIAL CELLS,URINE MANY; MUCUS,URINE NOT SEEN; OCCULT BLOOD,URINE MODERATE (NEGATIVE); RBC,URINE 0-5 (0-5)
[2023-09-22 17:01] LABS: AMPHETAMINES SCREEN, URINE NEGATIVE (NEGATIVE); BARBITURATE SCREEN,URINE NEGATIVE (NEGATIVE); BENZODIAZEPINES SCREEN,URINE NEGATIVE (NEGATIVE); METHADONE SCREEN, URINE NEGATIVE (NEGATIVE); METHAMPHETAMINES SCREEN, URINE NEGATIVE (NEGATIVE); OXYCODONE SCREEN,URINE NEGATIVE (NEGATIVE); PROPOXYPHENE SCREEN,URINE NEGATIVE (NEGATIVE); THC SCREEN,URINE 50 NG/ML PRESUMPTIVE POSITIVE (NEGATIVE)
[2023-09-22] MEDS: LORazepam 1 MG Tab PO ONE (18:04)
[2023-09-22] MEDS: Divalproex Sodium Delayed-Release 250 MG Tab.CR PO ONE (19:37)
[2023-09-22] MEDS: Pantoprazole 40 MG Tab.CR PO ONE (19:38)
[2023-09-22] MEDS: cloNIDine 0.1 MG Tab PO ONE (19:39)
[2023-09-22] MEDS: Gabapentin 300 MG Cap PO ONE (19:50)
[2023-09-22] MEDS: Cyclobenzaprine 10 MG Tab PO ONE (22:05)
[2023-09-23] MEDS: Nicotine 21 MG/24 Hr Patch TRDERM ONE (08:47)
[2023-09-23 09:04] VITALS: BP 113/70; PULSE 84
== END 2023-09-23 08:57 ==
LOC: JP.ED 15:49
DX: F33.2 Major depressive disorder, recurrent severe without psychotic features (principal); K21.9 Gastro-esophageal reflux disease without esophagitis; E66.9 Obesity, unspecified; F17.210 Nicotine dependence, cigarettes, uncomplicated; Z90.49 Acquired absence of other specified parts of digestive tract; Z86.16 Personal history of COVID-19; Z79.899 Other long term (current) drug therapy; Z88.1 Allergy status to other antibiotic agents; Z88.8 Allergy status to other drugs, medicaments and biological substances; Z91.011 Allergy to milk products; Z91.048 Other nonmedicinal substance allergy status; Z68.42 Body mass index [BMI] 45.0-49.9, adult
CPT/HCPCS: 36415; 80053; 80143; 80179; 80305; 81001; 85025; 99285; A9270

== ENCOUNTER 2024-05-02 | Emergency (ER) | payer MEDICARE, MEDICAID ==
[2024-05-02 00:30] VITALS: BP 144/93; PULSE 107
[2024-05-02] MEDS: Ondansetron 4 MG Tab.DIS PO ONE (01:02)
[2024-05-02] MEDS: Cyclobenzaprine 10 MG Tab PO ONE (01:02)
[2024-05-02] MEDS: Gabapentin 300 MG Cap PO ONE (01:02)
== END 2024-05-02 01:25 | disposition home or self-care (01) ==
LOC: JP.ED
DX: F41.9 Anxiety disorder, unspecified (principal); K21.9 Gastro-esophageal reflux disease without esophagitis; E66.9 Obesity, unspecified; F17.210 Nicotine dependence, cigarettes, uncomplicated; Z88.1 Allergy status to other antibiotic agents; Z91.011 Allergy to milk products; Z91.048 Other nonmedicinal substance allergy status; Z88.8 Allergy status to other drugs, medicaments and biological substances; Z79.899 Other long term (current) drug therapy; Z90.49 Acquired absence of other specified parts of digestive tract; Z86.16 Personal history of COVID-19; Z68.43 Body mass index [BMI] 50.0-59.9, adult
CPT/HCPCS: 99283; A9270; Q0162